=== PATIENT | male | born 1975 | race Caucasian/White ===

== ENCOUNTER 2017-11-11 21:46 | Inpatient (IN) | payer MEDICARE, MEDICAID, SELFPAY ==
[2017-11-11 21:49] VITALS: BP 111/63; PULSE 84; RESP 16; TEMP 37.6; O2SAT 95; BMI 26.9
[2017-11-11 22:53] LABS: Bacteria 0 SEEN /hpf (None Seen); Mucous, Urine 0 SEEN /hpf (<or=2+); Red Blood Cells-Urine 0 SEEN /hpf (0-5); Squamous Epithelial Cells - UA 0 SEEN /hpf (0-5)
[2017-11-11 22:55] LABS: Color, Urine Yellow (Yellow); Glucose, Dipstick Normal (Normal); Ketone-Dipstick Negative (Negative); Leukocyte Esterase-Dipstick 25 /ul (Negative); Nitrite-Dipstick Negative (Negative); Occult Blood-Urine 25 /ul (Negative); Protein-Dipstick Negative (Negative); Urine Bilirubin Dipstick Negative (Negative); Urine Clarity Clear (Clear); Urine Urobilinogen 1 mg/dl (Normal)
[2017-11-11 23:08] LABS: White Blood Cells 0-5 SEEN /hpf (0-5)
--- NOTE | 2017-11-11 23:10 | RAD_ITS ---
STUDY: X-RAY CHEST REASON FOR EXAM: Male, 42 years old. Fever and weakness. Flulike symptoms. TECHNIQUE: Portable chest. COMPARISON: 03/05/2013. FINDINGS: There is subsegmental atelectasis versus pleural thickening of the minor fissure. The lungs are otherwise clear. There is no pleural effusion. Normal size heart. Normal mediastinum and dasia. Normal visualized pulmonary arteries. Normal visualized aortic arch and descending thoracic aorta. Normal visualized thoracic spine. Normal visualized ribs, clavicles, and shoulders. There is no demonstrated abnormality of the visualized soft tissue structures of the upper abdomen. RAD/Chest 1 View (Portable) IMPRESSION: Atelectasis versus thickening of the minor fissure. Otherwise unremarkable study. Electronically Signed: Ester Shearer MD at 23:39 EDT Tel , Service support ,
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
[2017-11-11 23:56] LABS: Absolute Lymphocyte Count 2.43 X10^3/ul (0.83-4.51); Absolute Neutrophil Count 5.8 X10^3/uL (2.0-7.7); Basophil# 0.02 X10^3/uL; Basophil% 0.2 % (0-1); Eosinophil# 0.07 X10^3/uL; Eosinophils% 0.7 % (0-5); Hematocrit 32.8 % (40-54); Hemoglobin 10.4 g/dl (13.0-16.5); Lymphocyte # 2.43 X10^3/ul (4.0); Lymphocyte % 24.9 % (19-41); Mean Corp Hgb Conc 31.7 g/gl (32-36); Mean Corpuscular Hgb 25.1 pg (27.0-32.0); Mean Platelet Vol. 9.6 fl (6.2-12.0); Monocyte# 1.43 X10^3/uL; Monocyte% 14.7 % (0-10); Neutrophil # 5.77 X10^3/uL (2.7-7.7); Neutrophil % 59.3 % (47-70); POSITIVE COUNT NO; POSITIVE DIFFERENTIAL NO; POSITIVE MORPHOLOGY NO; Platelet Count 213 K/mm3 (150-450); RBC Distribution Width CV 19.1 % (11.6-14.6); RBC Distribution Width SD 54.4 fl (35.1-43.9); Red Blood Count 4.15 M/mm3 (4.6-6.2); White Blood Count 9.7 K/mm3 (4.4-11.0)
[2017-11-12] VITALS (10 sets, daily range): BP systolic 93–134; BP diastolic 46–83; PULSE 54–77; RESP 17–21; TEMP 36.6–37; O2SAT 92–97; BMI 35.4
[2017-11-12 00:09] LABS: Anion Gap 8 (5-15); BUN 17 mg/dL (7-18); BUN/Creat Ratio 33.1 RATIO (10-20); Calcium,Total 8.9 mg/dL (8.5-10.1); Chloride 101 mmol/L (98-107); Creatinine, Serum 0.51 mg/dL (0.70-1.30); EST Glomerular Filtration Rate 189 mL/min (>60); Est Glom Filt Rate - Afr Amer 229 mL/min (>60); Estimated Creatinine Clearance 217.59 ml/min; Glucose 89 mg/dL (74-106); Potassium 4.3 mmol/L (3.5-5.1); Sodium Level 137 mmol/L (136-145)
[2017-11-12] MEDS: 0.9% Normal Saline 1,000 ML 150 ML IV (00:16)
[2017-11-12 00:17] LABS: Lactic Acid 0.7 mmol/L (0.4-2.0)
--- NOTE | 2017-11-12 02:49 | ED.RN ---
THIS NURSE CLEANED PATIENT UP FROM BOWEL MOVEMENT, DR AYALA WANTED THE PATIENT TO HAVE A NEW DRESSING OVER COCCYX WOUND, SO THIS NURSE APPLIED COCCYX DRESSING TO PATIENT AFTER CLEANING THE AREA.
--- NOTE | 2017-11-12 03:45 | CASEMGMT ---
Social Work Note MIRIAM Manzo informed this worker that pt is from [facility] and the plan is for pt to return there at discharge. ROLANDA placed a call to Mahogany at [facility] who confirms pt is from there and pt is able to return when medically cleared. MIRIAM Warren informed this worker that pt and pt's family was asking about TCU as pt is going to need 6 weeks of IV antibiotics. SW in to speak with pt. Pt confirms that he would like to go to TCU and if he is unable to then he would return to [facility]. ROLANDA placed a call to Bernarda with [facility]. Bernarda states that if pt has used his Medicare Days then pt will be into copay days. Pt's secondary insurance is Medicaid and Medicaid doesn't have a contract with TCU so pt would be responsible for co-pay amount for TCU. ROLANDA attempted to update pt of this but per MIRIAM Warren pt is off floor for MRI. SW to update pt and pt's family tomorrow. ROLANDA faxed clinicals to Mahogany at [facility]. Plan: Pt will most likely return to [facility] Karla Carter [employer], [employer]
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
--- NOTE | 2017-11-12 06:19 | PCM.RX.CS ---
Consult Pharmacy has been consulted to manage selected antiobiotic: Vancomycin Type of Consult: New start Suspected Infection: Skin/Soft tissue Labs: Sodium 137 mmol/L (136-145) 11/11/17 23:30 Potassium 4.3 mmol/L (3.5-5.1) 11/11/17 23:30 Chloride 101 mmol/L (98-107) 11/11/17 23:30 Carbon Dioxide 28.0 mmol/L (21.0-32.0) 11/11/17 23:30 Anion Gap 8 (5-15) 11/11/17 23:30 BUN 17 mg/dL (7-18) 11/11/17 23:30 Creatinine 0.51 mg/dL (0.70-1.30) L 11/11/17 23:30 Est GFR (MDRD) Af Amer 229 mL/min (>60) 11/11/17 23:30 Est GFR (MDRD) Non-Af 189 mL/min (>60) 11/11/17 23:30 BUN/Creatinine Ratio 33.1 RATIO (10-20) H 11/11/17 23:30 Glucose 89 mg/dL (74-106) 11/11/17 23:30 Weight used for dosin.1 kg Estimated Creatinine Clearance: 217.59 Goal Trough: 10-15 mcg/mL Pharmacy Plan for Drug Dosing: Pharmacy Service will continue to monitor and adjust dosing as required. Medications Vancomycin HCl 1,500 mg/ (Sodium Chloride) 530 mls @ 250 mls/hr IV Q12H SARAH Discontinued Medications Vancomycin HCl 1,250 mg/ (Sodium Chloride) 275 mls @ 167 mls/hr IV X1 ONE Stop: 11/12/17 02:20 Last Admin: 11/12/17 01:58 Dose: 167 mls/hr Follow-Up Labs: Trough Vancomycin Labs to be done on [date and time ordered]: 11/14 @ 0200
[2017-11-12] MEDS: Midodrine HCl 5 MG Tablet PO ×3 (06:42→20:54)
[2017-11-12 07:49] LABS: Absolute Lymphocyte Count 2.28 X10^3/ul (0.83-4.51); Absolute Neutrophil Count 3.8 X10^3/uL (2.0-7.7); Basophil# 0.01 X10^3/uL; Basophil% 0.1 % (0-1); Eosinophil# 0.06 X10^3/uL; Eosinophils% 0.8 % (0-5); Hematocrit 32.2 % (40-54); Hemoglobin 9.9 g/dl (13.0-16.5); Lymphocyte # 2.28 X10^3/ul (4.0); Lymphocyte % 31.1 % (19-41); Mean Corp Hgb Conc 30.7 g/gl (32-36); Mean Corpuscular Hgb 24.6 pg (27.0-32.0); Mean Corpuscular Volume 79.9 fL (80-94); Mean Platelet Vol. 9.1 fl (6.2-12.0); Monocyte# 1.14 X10^3/uL; Monocyte% 15.5 % (0-10); Neutrophil # 3.84 X10^3/uL (2.7-7.7); Neutrophil % 52.4 % (47-70); Platelet Count 173 K/mm3 (150-450); RBC Distribution Width CV 19.2 % (11.6-14.6); RBC Distribution Width SD 56.6 fl (35.1-43.9); Red Blood Count 4.03 M/mm3 (4.6-6.2); White Blood Count 7.3 K/mm3 (4.4-11.0)
[2017-11-12 07:52] LABS: POSITIVE COUNT NO; POSITIVE DIFFERENTIAL NO; POSITIVE MORPHOLOGY NO
[2017-11-12 08:17] LABS: Anion Gap 8 (5-15); BUN 15 mg/dL (7-18); BUN/Creat Ratio 33.9 RATIO (10-20); Calcium,Total 8.8 mg/dL (8.5-10.1); Chloride 104 mmol/L (98-107); Creatinine, Serum 0.44 mg/dL (0.70-1.30); EST Glomerular Filtration Rate 225 mL/min (>60); Est Glom Filt Rate - Afr Amer 272 mL/min (>60); Estimated Creatinine Clearance 165.09 ml/min; Glucose 83 mg/dL (74-106); Potassium 3.7 mmol/L (3.5-5.1); Sodium Level 143 mmol/L (136-145)
[2017-11-12] MEDS: Divalproex Sodium 250 MG Tablet 500 MG PO (08:48)
[2017-11-12] MEDS: Enoxaparin 40 MG/0.4 ML Syringe SC (08:48)
[2017-11-12] MEDS: Multivitamins,Therapeutic Tablet 1 TABLET PO (08:51)
[2017-11-12] MEDS: FLUoxetine 20 MG Capsule PO (08:51)
[2017-11-12] MEDS: Ascorbic Acid 500 MG Tablet PO (08:51)
[2017-11-12] MEDS: Piperacil/Tazobactam 3.375 GM/50 ML ML IV ×3 (08:54→21:58)
[2017-11-12] MEDS: Menthol/Lanolin/Calamine/Znox 113 GM Tube 1 APPLIC TOPICAL (08:55)
[2017-11-12] MEDS: oxyCODONE 5 MG Tablet 10 MG PO ×4 (09:05→21:57)
--- NOTE | 2017-11-12 09:36 | PCM.PN.BLA ---
Progress Note Patient was seen and examined. Admitted early this morning. Met with in the room. Vitals reviewed. Wound pictures reviewed - concern for necrotic stage 3 ulcers ID consulted; nakul get MRI of pelvis On IV antibiotics MRSA PCR positive Plastic surgery consult. Code Visit Inpatient E&M: 21365 Subs Hosp L2
--- NOTE | 2017-11-12 09:54 | NURSING ---
wound photo: sacrum
--- NOTE | 2017-11-12 10:50 | NURSING ---
At 0915 pt. turned to left side. 2 pillows placed under her right side to help prop pt. on side. Brief checked. Brief dry.
--- NOTE | 2017-11-12 11:00 | CASEMGMT ---
MIRIAM CODY Face to Face with patient for initial transition planning/care coordination assessment. MIRIAM CODY introduced self and role at [facility]. Patient sleeping in bed, and parents at bedside. willing to participate in assessment and is able to answer all questions appropriately. Care providers, pharmacy, and demographics verified. Patient has currently been at the [facility] for 2 weeks and plan in for patient to return at discharge. states the SW at [facility] has been assisting with resources and discharge planning. states she has no further needs or concerns at this time. ROLANDA Carter updated regarding return to [facility]. Disposition Plan: Patient to discharge to [facility] when medically stable. Karla JONESN, RN, CM
--- NOTE | 2017-11-12 11:35 | NURSING ---
At 1130 pt. turned to right side. Pillows are used to prop pt on side. Brief was dry.
[2017-11-12 11:49] LABS: M R Staph aureus DNA By PCR POSITIVE (Negative); Probe Check PASS; Staph aureus DNA By PCR POSITIVE (Negative)
--- NOTE | 2017-11-12 12:23 | MRI_ITS ---
STUDY: MR PELVIS WITH T WITHOUT CONTRAST REASON FOR EXAM: Male, 42 years old. Quadriplegic patient with infected sacral decubitus ulceration for two months. Evaluate for osteomyelitis. TECHNIQUE: Standardized fat and water weighted pulse sequences were obtained in all 3 orthogonal planes, pre-and post contrast administration. 7 ml of Gadavist contrast material was administered intravenously for the contrast portion of the examination. Several images are limited by patient motion. COMPARISON: Prior comparable comparison studies are not available for review at this time. FINDINGS: Beth catheter is visible in the urinary bladder. There is nonspecific abnormal signal within the dependent urinary bladder. This may represent nonspecific debris. There is no evidence for dilated bowel. Normal visualized colon. Normal visualized prostate gland. There is a small amount of pelvic fluid. There is no pelvic mass lesion or lymphadenopathy. Normal visualized pelvic arteries. There appears to be fatty replacement of most of the visualized marrow of the bony pelvis, proximal femurs and visualized lumbar spine. There is no MR evidence to suggest osteomyelitis currently. There is some abnormal signal posterior to the sacrum and coccyx probably related to the known decubitus ulceration and soft tissue infection. There is no MR evidence to suggest soft tissue abscess. Normal abdominal wall. MRI/Pelvis W/WO Contrast IMPRESSION: 1. Evidence for superficial soft tissue infection posterior to the coccyx without MR evidence to suggest osteomyelitis currently. 2. Small amount of pelvic fluid. 3. Nonspecific abnormal signal within the posterior urinary bladder. This may represent a urinary bladder calculus or sediment. Electronically Signed: Nel Nunez MD at 4:10 EDT , Service support ,
--- NOTE | 2017-11-12 13:40 | NURSING ---
Pt brief changed. Pt turned to the left side at 1330.
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
[2017-11-12] MEDS: Acetaminophen 325 MG Tablet PO (20:53)
[2017-11-12] MEDS: Divalproex Sodium 250 MG Tablet 1000 MG PO (20:54)
[2017-11-12] MEDS: LORazepam 0.5 MG Tablet PO (20:54)
[2017-11-12] MEDS: Baclofen 10 MG Tablet 5 MG PO (20:54)
[2017-11-13] VITALS (13 sets, daily range): BP systolic 91–123; BP diastolic 46–71; PULSE 44–76; RESP 16–18; TEMP 36.2–37.3; O2SAT 92–99; BMI 24.7
[2017-11-13] MEDS: oxyCODONE 5 MG Tablet 10 MG PO ×4 (02:08→20:17)
[2017-11-13] MEDS: Piperacil/Tazobactam 3.375 GM/50 ML ML IV ×3 (05:53→22:21)
[2017-11-13] MEDS: Midodrine HCl 5 MG Tablet PO ×3 (05:54→22:21)
--- NOTE | 2017-11-13 08:20 | COL_PTH ---
PATIENT: RYANN SUÁREZ LOC: MS3 U#:[id number] AGE/SX: 42/M [place] [facility] [place] RE11/12/[address]: Dr. Taran Amaya MD : 1975 BED: 1 DIS: 11/19/2017 SPEC #: [id number] RECD: 11/16/17 08:16 STATUS: GLO REQ #: [id number] CARINA: 11/13/17 08:[address]: Tejas Albarran DEPT: SURGICAL PATHOLOGY RECD BY: Venkata Reaves ENTERED: 11/16/17 10:41 SP TYPE: COLON OTHR DR: MD Dr. Jose Maki MD Dr. James A Slaby, MD Dr. Paul Nielsen, MD Dr. Robert Leininger, MD Paul Nielsen Tissues: Colon, NOS Procedures: Surgery Specimen Level V Comments: @ Ordering doctor for SUV edited from to @ by REAL at 11/16/17 1138 @ Submitting doctor edited from to @ by RGOOD at 11/16/17 1138 HEADER OPERATION: Partial laparoscopic sigmoid colectomy with sigmoid colostomy PRE-OP DIAGNOSIS: Paraplegia and sacral ulcer TISSUE SUBMITTED: Partial sigmoid colon MICROSCOPIC DIAGNOSIS Partial sigmoid colon: Mild melanosis coli. Margins of excision with no significant pathologic change. No evidence of malignancy. AM:irwin 11/19/17 COMMENT Case has been reviewed in consultation with Dr. Ventura who concurs with the above diagnosis. IDC:SJ MICROSCOPIC DESCRIPTION Slides are reviewed. GROSS DESCRIPTION Received in fixative is one container labeled with the patient's name and designated partial sigmoid colon. The specimen consists of a segment of colon with attached pericolonic adipose tissue measuring 4.5 cm in length. One resection margin is stapled. The other resection margin is opened. No mucosal lesion is identified. Sections of pericolonic adipose tissue do not reveal any obvious enlarged lymph node. Cut Tobacco Bulker sections are submitted in four cassettes as follows: 1 ? resection margin, open resection margin and inked black, 2 & 3 ? colonic tissue, 4 ? pericolonic adipose tissue. / SJ:irwin 11/16/17 TC:5 CPT: 30105
--- NOTE | 2017-11-13 08:20 | PRES_PTH ---
PATIENT: RYANN SUÁREZ LOC: MS3 U#:[id number] AGE/SX: 42/M ROOM: [facility] [id number] RE11/12/[address]: Dr. Taran Amaya MD : 1975 BED: 1 DIS: 11/19/2017 SPEC #: [id number] RECD: 11/14/17 10:06 STATUS: GLO REQ #: [id number] CARINA: 11/13/17 08:[address]: Howard Duff DEPT: SURGICAL PATHOLOGY RECD BY: Venkata Reaves ENTERED: 11/14/17 12:18 SP TYPE: PRESS SORE OTHR DR: MD Dr. Jose Maki MD Dr. Paul Nielsen, MD Dr. Robert Leininger, MD Paul Nielsen Tissues: Sacrum, NOS Procedures: Special Stain Group I Surgery Specimen Level III AFB Stain (control) GMS Stain (control) Comments: @ Ordering doctor for SUIV edited from to @ anastasia KILGORE at 11/14/17 1218 @ Submitting doctor edited from to @ anastasia KILGORE at 11/14/17 1218 HEADER OPERATION: Excision infected necrotic sacral pressure sore PRE-OP DIAGNOSIS: Decubitus ulcer, stage 3 with infection TISSUE SUBMITTED: Debrided soft tissue sacral pressure sore MICROSCOPIC DIAGNOSIS Debrided soft tissue sacral pressure sore ulcer tissue: Pieces of skin with underlying adipose tissue with focal ulceration, acute and chronic inflammation and abscess formation. Special stains for acid fast bacilli and fungi are negative for organisms; matched controls are appropriate. LAURA:irwin 11/15/17 MICROSCOPIC DESCRIPTION Slides are reviewed. GROSS DESCRIPTION Received in fixative is one container labeled with the patient's name and designated debrided soft tissue sacral pressure sore. The specimen consists of two pieces of skin with underlying tissue measuring in aggregate 7.5 x 7 cm and up to 3.5 cm in thickness. The skin surface shows extensive ulceration. Regional Branch Manager sections are submitted in two cassettes. / LAURA:irwin 11/14/17 TC:2 CPT: 23552, 99020 x2
--- NOTE | 2017-11-13 10:47 | NURSING ---
Pt is scheduled for surgical debridement for sacral wound today with Dr Duff. left dressing in place. pt will most likely get the wound VAC placed tomorrow.
--- NOTE | 2017-11-13 11:00 | CASEMGMT ---
MIRIAM CODY Face to Face with patient for initial transition planning/care coordination assessment. MIRIAM CODY introduced self and role at [facility]. Patient sleeping in bed, and parents at bedside. willing to participate in assessment and is able to answer all questions appropriately. Care providers, pharmacy, and demographics verified. Patient has currently been at the [facility] for 2 weeks and plan in for patient to return at discharge. states the SW at [facility] has been assisting with resources and discharge planning. states she has no further needs or concerns at this time. ROLANDA Carter updated regarding return to [facility]. Disposition Plan: Patient to discharge to [facility] when medically stable. Karla JONESN, RN, CM
--- NOTE | 2017-11-13 11:00 | CASEMGMT ---
Social Work Note SW updated pt, pt's and pt's mother that pt has used some of his Medicare days already as pt has been at [facility] and that pt is in co-pay days. ROLANDA explained that typically a secondary insurance would cover the co-pay amount but pt's secondary is Medicaid and [facility] doesn't have a contract with Medicaid so pt would be responsible for co-pay amount. Pt states that he will return to [facility]. Green sheet on chart. Plan: Return to [facility] when medically cleared Karla Carter ELECTRICAL LOGGING ENGINEER, IT PROJECT LEAD
--- NOTE | 2017-11-13 11:10 | PCM.PN.ID ---
Patient Problems: Active and Suspected Problems Decubitus ulcer, stage 3 with infection (Acute) Subjective: Feeling ok, OR today, no fever, no n/v/d. - Physical Exam General: Alert, Cooperative, No apparent distress Lungs: Clear to auscultation, Normal air movement Cardiovascular: Regular rate, Regular Rhythm Abdomen: Soft, Non Tender, Non-Distended Skin: Ulcer/ Wound - reviewed Vital Signs Temp Pulse Resp BP Pulse Ox 97.7 F L 52 L 18 97/53 L 96 11/13/17 07:58 11/13/17 07:58 11/13/17 07:58 11/13/17 07:58 11/13/17 07:58 Oxygen Delivery Method Room Air Weight: 85.1 kg Body Mass Index (BMI) 35.4 Intake and Output for Last 24 Hours 11/11/17 11/12/17 11/13/17 23:59 23:59 23:59 Intake Total 2662 / 2662 1488 / 1488 Output Total 1550 / 1550 1600 / 1600 Balance 1112 / 1112 -112 / -112 Laboratory Tests Past 24 Hrs 11/12/17 09:10 S.aureus Protein A PCR POSITIVE H MRSA (PCR) POSITIVE H Medical Necessity - Tobacco Use Smoking Status: Former smoker Route of nutrition/ use of supplements: [] Nutritional Intake: [] IV Site: [] Beth Catheter: [] - Assessment/Plan Antibiotics: [] Assessment/Plan: [] Active and Suspected Problems Decubitus ulcer, stage 3 with infection (Acute) MRI showed no osteo. OR for debridement today. Cont vanc and zosyn. Recent wound cx with enterococcus, MR staph haemolyticus, and burkholderia. MRSA pcr now (+). Will follow
--- NOTE | 2017-11-13 11:54 | NURSING ---
called report to Priscila in [facility].
--- NOTE | 2017-11-13 13:12 | PCA ---
pt off floor
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
[2017-11-13] MEDS: Divalproex Sodium 250 MG Tablet 500 MG PO (15:46)
[2017-11-13] MEDS: LORazepam 0.5 MG Tablet PO ×2 (15:46→22:20)
[2017-11-13] MEDS: FLUoxetine 20 MG Capsule PO (15:47)
[2017-11-13] MEDS: Pantoprazole Sodium 40 MG Tablet PO (15:47)
[2017-11-13] MEDS: Multivitamins,Therapeutic Tablet 1 TABLET PO (15:48)
[2017-11-13] MEDS: Ascorbic Acid 500 MG Tablet PO (15:49)
[2017-11-13] MEDS: Baclofen 10 MG Tablet 5 MG PO ×2 (15:49→20:21)
[2017-11-13] MEDS: Menthol/Lanolin/Calamine/Znox 113 GM Tube 1 APPLIC TOPICAL (15:50)
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
[2017-11-13 19:25] LABS: Iron 54 ug/dL (65-175); Iron Binding Capacity,Total 327 ug/dL (250-450); PERCENT IRON SATURATION 16.5 % (15.0-55.0)
[2017-11-13] MEDS: Divalproex Sodium 250 MG Tablet 1000 MG PO (22:20)
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
[2017-11-14] MEDS: oxyCODONE 5 MG Tablet 10 MG PO ×4 (00:35→21:51)
[2017-11-14 02:20] VITALS: BP 114/61; PULSE 58; RESP 16; TEMP 37.1; O2SAT 98
[2017-11-14 02:21] LABS: Vancomycin, Trough Level 16.1 ug/mL (5.0-15.0)
[2017-11-14] MEDS: Midodrine HCl 5 MG Tablet PO ×3 (06:10→21:41)
[2017-11-14] MEDS: Piperacil/Tazobactam 3.375 GM/50 ML ML IV ×3 (06:10→21:41)
[2017-11-14 06:55] LABS: Hematocrit 29.9 % (40-54); Hemoglobin 9.1 g/dl (13.0-16.5); Mean Corp Hgb Conc 30.4 g/gl (32-36); Mean Corpuscular Hgb 24.8 pg (27.0-32.0); Mean Corpuscular Volume 81.5 fL (80-94); Platelet Count 210 K/mm3 (150-450); RBC Distribution Width CV 18.8 % (11.6-14.6); Red Blood Count 3.67 M/mm3 (4.6-6.2); White Blood Count 6.4 K/mm3 (4.4-11.0)
[2017-11-14 07:10] LABS: Scan Indicated on CBC? Y/N NO
[2017-11-14 07:16] LABS: Anion Gap 9 (5-15); BUN 12 mg/dL (7-18); BUN/Creat Ratio 25.9 RATIO (10-20); Calcium,Total 8.5 mg/dL (8.5-10.1); Chloride 107 mmol/L (98-107); Creatinine, Serum 0.46 mg/dL (0.70-1.30); EST Glomerular Filtration Rate 214 mL/min (>60); Est Glom Filt Rate - Afr Amer 258 mL/min (>60); Estimated Creatinine Clearance 241.24 ml/min; Glucose 94 mg/dL (74-106); Potassium 3.9 mmol/L (3.5-5.1); Prealbumin 17.7 mg/dL (20.0-40.0); Sodium Level 145 mmol/L (136-145)
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
[2017-11-14 09:00] VITALS: BP 83/49; PULSE 71; RESP 16; TEMP 36.8; O2SAT 94
[2017-11-14] MEDS: Multivitamins,Therapeutic Tablet 1 TABLET PO (09:02)
[2017-11-14] MEDS: Pantoprazole Sodium 40 MG Tablet PO (09:11)
[2017-11-14] MEDS: FLUoxetine 20 MG Capsule PO (09:11)
[2017-11-14] MEDS: Baclofen 10 MG Tablet 5 MG PO ×2 (09:11→21:41)
[2017-11-14] MEDS: Ascorbic Acid 500 MG Tablet PO (09:11)
[2017-11-14] MEDS: Enoxaparin 40 MG/0.4 ML Syringe SC (09:11)
[2017-11-14] MEDS: Divalproex Sodium 250 MG Tablet 500 MG PO (09:13)
[2017-11-14] MEDS: LORazepam 0.5 MG Tablet PO ×2 (09:13→21:41)
--- NOTE | 2017-11-14 09:45 | PCM.RX.CS ---
Consult Pharmacy has been consulted to manage selected antiobiotic: Vancomycin Type of Consult: Follow-up Suspected Infection: Skin/Soft tissue Prior Doses of Antibiotics Received/Current Regimen: Currently on vancomycin 1500mg IV q12h with the previous 2 doses given on 11/13/17 at 13:45 and today 11/14/17 at 02:26. Labs: Sodium 145 mmol/L (136-145) 11/14/17 05:30 Potassium 3.9 mmol/L (3.5-5.1) 11/14/17 05:30 Chloride 107 mmol/L (98-107) 11/14/17 05:30 Carbon Dioxide 29.0 mmol/L (21.0-32.0) 11/14/17 05:30 Anion Gap 9 (5-15) 11/14/17 05:30 BUN 12 mg/dL (7-18) 11/14/17 05:30 Creatinine 0.46 mg/dL (0.70-1.30) L 11/14/17 05:30 Est GFR (MDRD) Af Amer 258 mL/min (>60) 11/14/17 05:30 Est GFR (MDRD) Non-Af 214 mL/min (>60) 11/14/17 05:30 BUN/Creatinine Ratio 25.9 RATIO (10-20) H 11/14/17 05:30 Glucose 94 mg/dL (74-106) 11/14/17 05:30 Vancomycin Trough 16.1 ug/mL (5.0-15.0) H 11/14/17 01:30 Goal Trough: 10-15 mcg/mL Pharmacy Plan for Drug Dosing: The trough drawn today at 01:30 came back as 16.1, which is above the goal range of 10-15. Therefore, the plan is to slightly decrease the dose to 1250mg IV q12h and obtain another trough before the 4th dose. Pharmacy Service will continue to monitor and adjust dosing as required. Follow-Up Labs: Trough Vancomycin Labs to be done on [date and time ordered]: 11/16/17 at 01:30
--- NOTE | 2017-11-14 11:00 | NURSING ---
wound photo: sacrum
--- NOTE | 2017-11-14 11:19 | NURSING ---
Was asked by Dr Albarran to sheri abdomen for a sigmoid colostomy. In to see patient and . Discussed the surgery with them as well as care after, different, appliances, etc. Colostomy teaching packet given to them and reviewed as well. states that they had a family member that had a colostomy so they are somewhat familiar with what it is. patient typically wear his pants just above hip level. patient does get into a chair at times with a lift or with a slide board. abdomen is slightly rounded with no major fold in abdomen when patient is sitting up in the bed. the left lower abdomen was marked with a skin pen. an opsite was placed over sheri. pt and deny any further questions at this time.
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
--- NOTE | 2017-11-14 12:24 | CASEMGMT ---
Social Work Note SW faxed updated clinicals to [facility] at [facility]. Pt is getting Colostomy tomorrow. Plan: Discharge to [facility] when medically cleared Karla STEVE, BUCKLE SEWER
[2017-11-14 13:25] VITALS: O2SAT 90
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
[2017-11-14 15:17] VITALS: BP 95/56; PULSE 59; RESP 16; TEMP 36.7; O2SAT 97
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
[2017-11-14 20:12] VITALS: BP 95/54; PULSE 53; RESP 16; TEMP 36.6; O2SAT 96
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
[2017-11-14] MEDS: Divalproex Sodium 250 MG Tablet 1000 MG PO (21:41)
[2017-11-15] VITALS (12 sets, daily range): BP systolic 88–113; BP diastolic 39–67; PULSE 51–62; RESP 16–18; TEMP 36.3–37.2; O2SAT 93–98; BMI 24.7
[2017-11-15] MEDS: Piperacil/Tazobactam 3.375 GM/50 ML ML IV ×3 (05:45→22:29)
[2017-11-15 06:27] LABS: Absolute Lymphocyte Count 2.77 X10^3/ul (0.83-4.51); Absolute Neutrophil Count 3.8 X10^3/uL (2.0-7.7); Basophil# 0.02 X10^3/uL; Basophil% 0.3 % (0-1); Eosinophil# 0.16 X10^3/uL; Eosinophils% 2.1 % (0-5); Hematocrit 31.1 % (40-54); Hemoglobin 9.4 g/dl (13.0-16.5); Lymphocyte # 2.77 X10^3/ul (4.0); Lymphocyte % 35.6 % (19-41); Mean Corp Hgb Conc 30.2 g/gl (32-36); Mean Corpuscular Hgb 24.7 pg (27.0-32.0); Mean Corpuscular Volume 81.6 fL (80-94); Mean Platelet Vol. 9.5 fl (6.2-12.0); Monocyte# 1.02 X10^3/uL; Monocyte% 13.1 % (0-10); Neutrophil # 3.79 X10^3/uL (2.7-7.7); Neutrophil % 48.6 % (47-70); Platelet Count 214 K/mm3 (150-450); RBC Distribution Width CV 19.4 % (11.6-14.6); RBC Distribution Width SD 55.6 fl (35.1-43.9); Red Blood Count 3.81 M/mm3 (4.6-6.2); White Blood Count 7.8 K/mm3 (4.4-11.0)
[2017-11-15 06:31] LABS: POSITIVE COUNT NO; POSITIVE DIFFERENTIAL NO; POSITIVE MORPHOLOGY NO
[2017-11-15 06:46] LABS: Anion Gap 8 (5-15); BUN 9 mg/dL (7-18); BUN/Creat Ratio 22.2 RATIO (10-20); Calcium,Total 8.9 mg/dL (8.5-10.1); Chloride 108 mmol/L (98-107); Creatinine, Serum 0.41 mg/dL (0.70-1.30); EST Glomerular Filtration Rate 248 mL/min (>60); Est Glom Filt Rate - Afr Amer 301 mL/min (>60); Estimated Creatinine Clearance 270.66 ml/min; Glucose 74 mg/dL (74-106); Potassium 3.8 mmol/L (3.5-5.1); Sodium Level 147 mmol/L (136-145)
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
[2017-11-15] MEDS: Fleet Enema 1 ML RECTAL (08:52)
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
[2017-11-15] MEDS: LORazepam 0.5 MG Tablet PO ×2 (09:57→22:29)
--- NOTE | 2017-11-15 10:34 | NURSING ---
Pt is scheduled for a diverting sigmoid colostomy this afternoon with Dr Albarran. an ostomy appliance is in the room to be sent down to the OR with the patient and will be applied post op. the plan is for the wound VAC to be applied tomorrow then since patient is still getting bowel prep. Dr Albarran will most likely irrigate the wound in OR and will apply a new dressing. will continue to follow. pt is planning to either return [facility] at discharge or go back to the LTAC.
--- NOTE | 2017-11-15 11:27 | CASEMGMT ---
Addendum entered by Karla Carter 11/15/17 12:35: SW in to update pt of denial to LTACH. Pt's and Mom present in room and was updated on this. SW asked pt's and mom the next plan for discharge if its back to [facility] or to a different prison. Pt's and Mom states that they would like time to think about discharge and discuss the options. Pt is scheduled for diverting colostomy today. SW to follow up with pt, pt's and Mom as time allows today or tomorrow to confirm discharge plans. Original Note: Social Work Note SW received call from [facility] who states pt doesn't meet criteria for LTACH as pt needs three ICU days or admitted onto step down floor and currently pt doesn't have this. SW attempted to update pt but pt's family not currently in room. SW will follow up with pt and pt's family either later today or tomorrow as pt is scheduled to have diverting colostomy completed today. 

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
[2017-11-15] MEDS: Midodrine HCl 5 MG Tablet PO ×2 (12:42→19:33)
[2017-11-15] MEDS: Bupivacaine Mpf 0.5% 30 ML VIAL (16:48)
--- NOTE | 2017-11-15 17:44 | PCM.OPRPT ---
Problem List (1) Injury to transverse colon Status: Acute Qualifiers: Encounter type: initial encounter Qualified Code(s): S36.501A - Unspecified injury of transverse colon, initial encounter (2) Pressure ulcer of sacral region, stage 4 Status: Acute (3) Stool incontinence Status: Acute Qualifiers: Fecal incontinence type: unspecified Qualified Code(s): R15.9 - Full incontinence of feces Report of Operation Date of Procedure: 11/15/17 Pre-Operative Diagnosis: 1. Infected necrotic sacral pressure sore. 2. Quadriplegia. 3. Stool incontinence. Post-Operative Diagnosis: 1. Infected necrotic sacral pressure sore including underlying necrotic muscle. 2. Iatrogenic injury to the transverse colon Surgery/Procedure Performed:: 1. Laparoscopic sigmoid partial colectomy with end colostomy. 2. Laparoscopic repair of transverse colon through and through injury Type of Anesthesia:: General Specimen's removed: Partial sigmoid colon Description of Procedure: The patient was brought back to the operating room and general anesthesia was induced. A rectal exam was completed and there was no impacted stool. Next the abdomen was prepped and draped in the usual sterile fashion. The previous stoma marking was noted. Next using Visiport technique a right upper quadrant incision was made and a 5 mm port was placed into the abdomen. It was noted that stool was observed as well as mucosa. The trocar was withdrawn and the abdomen was insufflated. Next the 5 mm port was placed in the right lower quadrant and left upper quadrant. The colon was inspected and the omentum was taken down from the anterior colon with Enseal. The anterior colon injury was identified. This was closed laparoscopically with 2 interrupted 3-0 Vicryl sutures and then imbricated with another 3-0 Vicryl suture. Next the colon was rotated superiorly to examine the back of the colon. The back of the transverse colon also exhibited a small hole from the trocar. This was also closed with 2 interrupted 3-0 Vicryl sutures and an imbricating 3-0 Vicryl suture. There was no contamination or spillage of stool. Both areas were inspected once more and appear to be closed adequately and imbricated. Next the patient was placed in steep Trendelenburg and the sigmoid colon was identified. The right lower quadrant port was upsized to a 12 mm port. This was elevated and a window was made just underneath the colon with [place] dissector. Next a 60 load stapler was placed into the abdomen and the sigmoid colon was stapled across with 2 loads. Next the Enseal was used to take some of the sigmoidal mesentery to allow for the sigmoid colon to reach the anterior abdominal wall. Hemostasis was good. The colon was grasped by the antimesenteric side with graspers and then the abdomen was allowed to desufflate. Next the skin over the proposed stoma site was elevated and taken down with electrocautery. The fat was dissected down until the anterior fascia was released and a cruciate incision was made in the anterior fascia. The muscle was and the posterior fascia was dilated. This was dilated with 2 fingers until adequate space was allowed for the colon to be brought through it. The colon was brought through with 2 Babcocks and the colon was sutured to the anterior fascia in 3 places. Next the fascia at the right lower quadrant was closed with an 0 Vicryl suture. The skin incisions were all irrigated and injected with Marcaine and closed with interrupted 4-0 Monocryl sutures. Steri-Strips and bandages were then applied. Next the colostomy was matured. The distal end of the sigmoid colon was taken with electrocautery. The end of the colostomy was then sutured to itself and to the skin with interrupted 3-0 Vicryl suture circumferentially. This allowed for good protrusion of the sigmoid colon with no retraction. The mucosa was pink and there were no signs of ischemia. At the end of maturation of the stoma a digital exam was performed and the stoma was patent with no kinking. Next the stoma appliance was applied. The patient was then rolled and the packing was removed from his sacral ulcer. The wound was repacked with a wet Kerlix gauze and covered with ABD. The patient was extubated and brought to PACU in stable condition. The patient tolerated the procedure well. - Complications A through and through trocar injury to the transverse colon on initial entry. Both the anterior and posterior injuries to the transverse colon were closed with interrupted Vicryl sutures and imbricated. There was minimal to no stool spillage. - Admit VTE Documentation VTE Mechan Device Prophylaxis: SCD's
[2017-11-15 18:44] LABS: Anion Gap 7 (5-15); BUN 9 mg/dL (7-18); BUN/Creat Ratio 15.5 RATIO (10-20); Calcium,Total 8.3 mg/dL (8.5-10.1); Chloride 109 mmol/L (98-107); Creatinine, Serum 0.58 mg/dL (0.70-1.30); EST Glomerular Filtration Rate 164 mL/min (>60); Est Glom Filt Rate - Afr Amer 199 mL/min (>60); Estimated Creatinine Clearance 191.33 ml/min; Glucose 82 mg/dL (74-106); Potassium 3.9 mmol/L (3.5-5.1); Sodium Level 145 mmol/L (136-145)
--- NOTE | 2017-11-15 19:43 | NURSING ---
Family found a dressing to rt scapula area that had not been there before surgery. There was small amount of serousanguaneous drainage to proximal part of the two small dressings. Spoke to Bairon, PACU nurse and she stated that OR reported to her that stopcock of IV tubing was caught on the skin while moving of patient in OR which resulted in skin tear. Dressing protocol was followed and dressing applied by OR staff, per Bairon. Notified family of the incident, dressed scapula area pictures were taken by family members. Dressing remains on patient.
--- NOTE | 2017-11-15 20:05 | NURSING ---
IV access nurse called, and stated they would be here to insert the PICC on 11/16/17 between 10 and 11 am.
[2017-11-15] MEDS: oxyCODONE 5 MG Tablet 10 MG PO (20:48)
[2017-11-15] MEDS: Baclofen 10 MG Tablet 5 MG PO (22:28)
[2017-11-15] MEDS: Divalproex Sodium 250 MG Tablet 1000 MG PO (22:28)
[2017-11-15] MEDS: Morphine 2 MG/ML Syringe 1 MG IV (22:30)
[2017-11-15] MEDS: 0.9% NaCl Peripheral Flush Adult/Peds IV (22:31)
[2017-11-16] VITALS (11 sets, daily range): BP systolic 82–118; BP diastolic 38–61; PULSE 51–73; RESP 13–18; TEMP 36.3–37.3; O2SAT 90–96
[2017-11-16] MEDS: Midodrine HCl 5 MG Tablet PO ×4 (00:35→22:45)
[2017-11-16] MEDS: 0.9% NaCl Peripheral Flush Adult/Peds IV ×4 (00:39→23:10)
[2017-11-16 02:14] LABS: Vancomycin, Trough Level 17.5 ug/mL (5.0-15.0)
[2017-11-16] MEDS: oxyCODONE 5 MG Tablet 10 MG PO ×4 (02:23→20:27)
[2017-11-16] MEDS: Piperacil/Tazobactam 3.375 GM/50 ML ML IV ×3 (06:28→22:45)
[2017-11-16 07:04] LABS: Absolute Lymphocyte Count 2.36 X10^3/ul (0.83-4.51); Absolute Neutrophil Count 5.9 X10^3/uL (2.0-7.7); Basophil# 0.02 X10^3/uL; Basophil% 0.2 % (0-1); Eosinophil# 0.11 X10^3/uL; Eosinophils% 1.1 % (0-5); Hematocrit 29.2 % (40-54); Hemoglobin 8.9 g/dl (13.0-16.5); Lymphocyte # 2.36 X10^3/ul (4.0); Lymphocyte % 23.5 % (19-41); Mean Corp Hgb Conc 30.5 g/gl (32-36); Mean Corpuscular Hgb 24.7 pg (27.0-32.0); Mean Corpuscular Volume 80.9 fL (80-94); Mean Platelet Vol. 8.9 fl (6.2-12.0); Monocyte# 1.63 X10^3/uL; Monocyte% 16.2 % (0-10); Neutrophil # 5.94 X10^3/uL (2.7-7.7); Platelet Count 206 K/mm3 (150-450); RBC Distribution Width CV 19.6 % (11.6-14.6); RBC Distribution Width SD 57.8 fl (35.1-43.9); Red Blood Count 3.61 M/mm3 (4.6-6.2); White Blood Count 10.1 K/mm3 (4.4-11.0)
[2017-11-16 07:05] LABS: Differential Indicated SCAN CRITERIA MET; POSITIVE COUNT NO; POSITIVE DIFFERENTIAL YES; POSITIVE MORPHOLOGY NO
[2017-11-16 07:23] LABS: Hypochromasia 2+
[2017-11-16 07:25] LABS: Anion Gap 9 (5-15); BUN 6 mg/dL (7-18); BUN/Creat Ratio 13.7 RATIO (10-20); Calcium,Total 8.5 mg/dL (8.5-10.1); Chloride 107 mmol/L (98-107); Creatinine, Serum 0.44 mg/dL (0.70-1.30); EST Glomerular Filtration Rate 228 mL/min (>60); Est Glom Filt Rate - Afr Amer 275 mL/min (>60); Estimated Creatinine Clearance 252.21 ml/min; Glucose 85 mg/dL (74-106); Potassium 3.6 mmol/L (3.5-5.1); Sodium Level 145 mmol/L (136-145)
[2017-11-16] MEDS: Morphine 2 MG/ML Syringe 1 MG IV ×4 (07:38→23:08)
--- NOTE | 2017-11-16 07:47 | CT_ITS ---
STUDY: CT ABDOMEN AND PELVIS WITH CONTRAST REASON FOR EXAM: Male, 42 years old. Status post colostomy. History of transverse colon perforation. The patient is quadriplegic. RADIATION DOSAGE (If Supplied By Facility): CTDIvol = ( 15.57 ) mGy, DLP = ( 1263.99 ) mGycm TECHNIQUE: Transaxial images were obtained from the dome of the diaphragm to the symphysis pubis with oral contrast. 100ML ml of Isovue 300 contrast was administered. Sagittal and coronal images were reconstructed. Individualized dose optimization techniques were used for this CT. COMPARISON: None. FINDINGS: Mild bibasilar atelectasis and/or infiltrates. Patchy infiltrate and/or atelectasis in the right middle lobe. Small bilateral pleural effusions The visualized portions of the heart are within normal limits. There is evidence of free intraperitoneal air. Normal liver. Minimal amount of perihepatic fluid. The patient is status post cholecystectomy. Normal spleen. Normal pancreas. Normal bilateral adrenal glands. Normal right kidney. Normal left kidney. Normal visualized stomach. Normal small intestine. Fecal material seen in the colon. The patient has a history of the iatrogenic perforation of the transverse colon at the level of the hepatic flexure. Small amount of free intraperitoneal air is seen adjacent to the anterior aspect of the hepatic flexure. A small amount of air is also seen within the peritoneal fat at that site. A colostomy seen in the left lower abdomen. The appendix is visualized and appears normal. Normal abdominal aorta. Normal inferior vena cava. There is borderline retroperitoneal lymphadenopathy with enlarged nodes no greater than 10mm in the short axis diameter. A Beth catheter is seen within the urinary bladder. Small amount of free fluid in the pelvis. There is evidence of a presacral soft tissue prominence. The patient is status post debridement of soft tissues overlying the sacrum. Questionable involvement of the distal portion of the sacrum. There are diffuse degenerative changes of the visualized lumbar spine. CT/Abdomen/Pelvis WITH Contrast IMPRESSION: Free intraperitoneal air as well as focal air collection in the region of the hepatic flexure secondary to the iatrogenic transverse colon perforation. Bibasilar atelectasis and small bilateral effusions. Left anterior colostomy. Prominence of the presacral soft tissues. Evidence of a debridement of the soft tissues overlying the sacrum. Electronically Signed: Augusto Kumar MD at 14:51 EDT Tel [phone], Service support ,
--- NOTE | 2017-11-16 07:53 | PCM.PN.SRG ---
Patient Problems: Active and Suspected Problems Injury to transverse colon (Acute) Subjective: Patient complaining of severe right shoulder pain. - Physical Exam General: Alert, Oriented x3 HEENT: Atraumatic Lungs: Normal air movement Cardiovascular: Regular rate, Regular Rhythm Abdomen: Soft, Tender, - - Stoma was pink with bowel sweat in the bag. Neurological: Cranial nerves II-XII grossly intact Psych/Mental Status: Agitated Vital Signs Temp Pulse Resp BP Pulse Ox 99.1 F 61 16 92/46 L 93 11/16/17 06:15 11/16/17 06:15 11/16/17 06:15 11/16/17 06:15 11/16/17 06:15 Oxygen Flow Rate (L/min) 2 Oxygen Delivery Method Room Air Weight: 187 lb 9.814 oz Body Mass Index (BMI) 24.7 Intake and Output for Last 24 Hours 11/14/17 11/15/17 11/16/17 23:59 23:59 23:59 Intake Total 2148 / 2148 3021 / 3021 1236 / 1236 Output Total 2550 / 2550 4000 / 4000 1350 / 1350 Balance -402 / -402 -979 / -979 -114 / -114 Microbiology Past 72 Hours 11/13/17 14:02 Gram Stain - Final Tissue Ulcer - Sacral Wound Culture - Preliminary Pseudomonas aeroginosa GNR lactose waste machine offbearer Gram positive ainsley Laboratory Tests Past 24 Hrs 11/15/17 11/16/17 11/16/17 18:26 01:26 06:05 WBC 10.1 RBC 3.61 L Hgb 8.9 L Hct 29.2 L MCV 80.9 MCH 24.7 L MCHC 30.5 L RDW 19.6 H RDW Differential 57.8 H Plt Count 206 MPV 8.9 Immature Gran % (Auto) 0.000 Neut % (Auto) 59.0 Lymph % (Auto) 23.5 [place] % (Auto) 16.2 H Eos % (Auto) 1.1 Baso % (Auto) 0.2 Absolute Neuts (auto) 5.9 Absolute Lymphs (auto) 2.36 Total Counted Not Reportable Hypochromasia 2+ Sodium 145 Potassium 3.9 Chloride 109 H Carbon Dioxide 29.0 Anion Gap 7 BUN 9 Creatinine 0.58 L Estim Creat Clear Calc 191.33 Est GFR (MDRD) Af Amer 199 Est GFR (MDRD) Non-Af 164 BUN/Creatinine Ratio 15.5 Glucose 82 Calcium 8.3 L Vancomycin Trough 17.5 H 11/16/17 06:05 WBC RBC Hgb Hct MCV MCH MCHC RDW RDW Differential Plt Count MPV Immature Gran % (Auto) Neut % (Auto) Lymph % (Auto) [place] % (Auto) Eos % (Auto) Baso % (Auto) Absolute Neuts (auto) Absolute Lymphs (auto) Total Counted Hypochromasia Sodium 145 Potassium 3.6 Chloride 107 Carbon Dioxide 29.0 Anion Gap 9 BUN 6 L Creatinine 0.44 L Estim Creat Clear Calc 252.21 Est GFR (MDRD) Af Amer 275 Est GFR (MDRD) Non-Af 228 BUN/Creatinine Ratio 13.7 Glucose 85 Calcium 8.5 Vancomycin Trough Medical Necessity - Tobacco Use Smoking Status: Former smoker Assessment/Plan All Active Problems Injury to transverse colon (Acute) Quadriplegia following spinal cord injury (Acute) Skin necrosis (Acute) Pressure ulcer of sacral region, stage 4 (Acute) Injury of neck (Acute) Stool incontinence (Acute) Pressure injury of right ischium, stage 1 (Acute) Pressure injury of left ischium, stage 1 (Acute) Pressure ulcer of sacral region, stage 3 (Ruled-out) Decubitus ulcer, stage 3 with infection (Ruled-out) 42-year-old male status post laparoscopic colostomy creation as well as repair of transverse bowel injury 1. The patient had iatrogenic injury to his transverse colon which was repaired during surgery. The patient is complaining of severe right shoulder pain as well as some abdominal pain. His white count is normal with no left shift as is his BMP. He had a slight drop in hemoglobin but he is not tachycardic. He has chronic hypotension. I will order CT scan with p.o. and IV contrast to check for any extravasation of contrast or unidentified trocar injury. 2. Continue antibiotics and IV fluids. Continue n.p.o. until CT scan comes back. Tejas Albarran MD Pager: [facility] [address] [place] [address], [address] [place] [address] Office:
--- NOTE | 2017-11-16 08:36 | NURSING ---
In to assess stoma to the left lower abdomen. Pt is s/p laparoscopic sigmoid partial colectomy with end colostomy. there was a transverse colon injury that was also repaired during the surgery. plan to apply a wound VAC to the sacral wound today, but patient is scheduled for a PICC line placement and a CT scan this morning. will hold off on VAC placement to be sure patient does not need to return to surgery. stoma is dark pink in color, moist, and edematous. there is a small amount of serosanguineous drainage noted in the appliance. no flatus noted at this time. abdomen is soft. is present at bedside and is aware of the plan. will most likely be able to apply the wound VAC later today.
[2017-11-16] MEDS: Divalproex Sodium 250 MG Tablet 500 MG PO (09:11)
[2017-11-16] MEDS: LORazepam 0.5 MG Tablet PO ×2 (09:11→22:44)
[2017-11-16] MEDS: Pantoprazole Sodium 40 MG Tablet PO (09:11)
[2017-11-16] MEDS: Multivitamins,Therapeutic Tablet 1 TABLET PO (09:11)
[2017-11-16] MEDS: Baclofen 10 MG Tablet 5 MG PO ×2 (09:12→22:45)
[2017-11-16] MEDS: FLUoxetine 20 MG Capsule PO (09:12)
[2017-11-16] MEDS: Ascorbic Acid 500 MG Tablet PO (09:12)
[2017-11-16] MEDS: Morphine 2 MG/ML Syringe IV (09:30)
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
--- NOTE | 2017-11-16 10:22 | RAD_ITS ---
STUDY: X-RAY - SOFT TISSUE NECK REASON FOR EXAM: Male, 42 years old. Neck pain. No known injury. TECHNIQUE: 2 view(s) of the neck were obtained. COMPARISON: None. FINDINGS: Normal visualized nasopharynx, oropharynx, hypopharynx. Normal epiglottis. Normal visualized subglottic tracheal air column. Normal prevertebral soft tissue structures. The patient has undergone prior anterior C6-7 fusion with a metal sideplate and screws, as well as multilevel cervical laminectomies and posterior cervical fusion C3-C7. Transpedicular metal screws at those levels are connected on either side by longitudinal metal rods. These rods in turn are connected by a horizontal metal bar at the C4-5 level. Degenerative disc disease and endplate spondylosis also seen at C3-4 and C4-5. There is 4-5 mm retrolisthesis of C4 on C5. The soft tissue structures are unremarkable. A PICC line is incidentally noted in the [id number], passing from the right subclavian vein to superior vena cava. RAD/Neck for Soft Tissue IMPRESSION: 1. Normal x-ray soft tissue neck. 2. Multilevel cervical laminectomies with anterior and posterior cervical fusion utilizing metal hardware, as noted Electronically Signed: Da Trevino MD at 16:55 EDT , Service support ,
--- NOTE | 2017-11-16 10:23 | RAD_ITS ---
STUDY: X-RAY - RIGHT SHOULDER REASON FOR EXAM: Male, 42 years old. Anterior shoulder pain. No known injury. TECHNIQUE: 2 view(s) of the shoulder. COMPARISON: None. FINDINGS: Normal glenohumeral alignment. The glenohumeral joint space itself is not well seen in these projections. Normal acromioclavicular joint. Normal acromion. Normal humeral head and visualized proximal humerus. The soft tissue structures are unremarkable. There is no demonstrated osseous destructive lesion nor fracture. Normal visualized pulmonary apex. Incidental note of a PICC line passing up from the right arm to the superior vena cava as well as incidental note of metal hardware prior posterior fusion mid to lower cervical spine. RAD/Shoulder min 2 Views IMPRESSION: 1. Normal x-ray examination of the right shoulder. 2. Prior posterior cervical fusion procedure with metal hardware. 3. Right PICC line noted. Electronically Signed: Da Trevino MD at 17:56 EDT , Service support ,
--- NOTE | 2017-11-16 10:34 | RAD_ITS ---
STUDY: X-RAY - LEFT SHOULDER REASON FOR EXAM: Male, 42 years old. Anterior shoulder pain. TECHNIQUE: 2 view(s) of the shoulder. COMPARISON: None. FINDINGS: Normal glenohumeral alignment. The glenohumeral joint space itself is not well seen in these views. Normal acromioclavicular joint. Normal acromion. Normal humeral head and visualized proximal humerus. The soft tissue structures are unremarkable. There is no demonstrated osseous destructive lesion or fracture. Normal visualized pulmonary apex. Incidental note of metal hardware related prior anterior-posterior fusion of the cervical spine. RAD/Shoulder min 2 Views IMPRESSION: 1. Normal 2 view x-ray examination of the shoulder. 2. Prior anterior and posterior cervical fusion procedures with metal hardware. Electronically Signed: Da Trveino MD at 17:29 EDT , Service support ,
[2017-11-16] MEDS: Ketorolac 15 MG/ML Vial IV (10:44)
--- NOTE | 2017-11-16 11:19 | PCM.RX.CS ---
Consult Pharmacy has been consulted to manage selected antiobiotic: Vancomycin Type of Consult: Follow-up Suspected Infection: Skin/Soft tissue Prior Doses of Antibiotics Received/Current Regimen: 9 Labs: Sodium 145 mmol/L (136-145) 11/16/17 06:05 Potassium 3.6 mmol/L (3.5-5.1) 11/16/17 06:05 Chloride 107 mmol/L (98-107) 11/16/17 06:05 Carbon Dioxide 29.0 mmol/L (21.0-32.0) 11/16/17 06:05 Anion Gap 9 (5-15) 11/16/17 06:05 BUN 6 mg/dL (7-18) L 11/16/17 06:05 Creatinine 0.44 mg/dL (0.70-1.30) L 11/16/17 06:05 Est GFR (MDRD) Af Amer 275 mL/min (>60) 11/16/17 06:05 Est GFR (MDRD) Non-Af 228 mL/min (>60) 11/16/17 06:05 BUN/Creatinine Ratio 13.7 RATIO (10-20) 11/16/17 06:05 Glucose 85 mg/dL (74-106) 11/16/17 06:05 Vancomycin Trough 17.5 ug/mL (5.0-15.0) H 11/16/17 01:26 Microbiology: Microbiology 11/13/17 14:02 Tissue Ulcer - Sacral Gram Stain - Final 11/13/17 14:02 Tissue Ulcer - Sacral Wound Culture - Preliminary Pseudomonas aeroginosa GNR lactose plug saw operator Corynebacterium amycolatum Staphylococcus species Weight used for dosin.1 kg Estimated Creatinine Clearance: 252 Goal Trough: 10-15 mcg/mL - continue same dose of 1250mg q12h (trough drawn at 10.17 hrs) Pharmacy Plan for Drug Dosing: Pharmacy Service will continue to monitor and adjust dosing as required.
--- NOTE | 2017-11-16 11:22 | PHA.PHARE_ITS ---
Consult Pharmacy has been consulted to manage selected antiobiotic: Vancomycin Type of Consult: Follow-up Suspected Infection: Skin/Soft tissue Prior Doses of Antibiotics Received/Current Regimen: 9 Labs: Sodium 145 mmol/L (136-145) 11/16/17 06:05 Potassium 3.6 mmol/L (3.5-5.1) 11/16/17 06:05 Chloride 107 mmol/L (98-107) 11/16/17 06:05 Carbon Dioxide 29.0 mmol/L (21.0-32.0) 11/16/17 06:05 Anion Gap 9 (5-15) 11/16/17 06:05 BUN 6 mg/dL (7-18) L 11/16/17 06:05 Creatinine 0.44 mg/dL (0.70-1.30) L 11/16/17 06:05 Est GFR (MDRD) Af Amer 275 mL/min (>60) 11/16/17 06:05 Est GFR (MDRD) Non-Af 228 mL/min (>60) 11/16/17 06:05 BUN/Creatinine Ratio 13.7 RATIO (10-20) 11/16/17 06:05 Glucose 85 mg/dL (74-106) 11/16/17 06:05 Vancomycin Trough 17.5 ug/mL (5.0-15.0) H 11/16/17 01:26 Microbiology: Microbiology 11/13/17 14:02 Tissue Ulcer - Sacral Gram Stain - Final 11/13/17 14:02 Tissue Ulcer - Sacral Wound Culture - Preliminary Pseudomonas aeroginosa GNR lactose highway maintenance technician Corynebacterium amycolatum Staphylococcus species Weight used for dosin.1 kg Estimated Creatinine Clearance: 252 Goal Trough: 10-15 mcg/mL - continue same dose of 1250mg q12h (trough drawn at 10.17 hrs) Pharmacy Plan for Drug Dosing: Pharmacy Service will continue to monitor and adjust dosing as required.
--- NOTE | 2017-11-16 12:06 | CASEMGMT ---
Social Work Note SW in to speak with pt, pt's (Olga) and pt's mother. Pt is currently going off the floor for CT Scan. ROLANDA spoke with pt's and pt's mother. Olga states that the plans is for pt to return to [facility] but states that Dr. Albarran has mentioned that if pt needs IV Drip then pt could transfer to ICU. Olga states that if pt gets to ICU and gets three days at ICU she would like to try [facility] again but if not the plan is for pt to return [facility]. ROLANDA placed a call to Paulette at [facility] and updated her on information. ROLANDA faxed updated clinicals to Brittany at [facility]. Green sheet on chart in the event pt is medically stable to discharge to [facility] over the weekend. Plan: [facility] when medically cleared vs if pt goes to ICU then sending referral to [facility] for possible placement at LTACH. Karla Carter [employer] B[employer]ER, [employer]
--- NOTE | 2017-11-16 14:43 | PCM.PN.ID ---
Patient Problems: Active and Suspected Problems Injury to transverse colon (Acute) Subjective: Significant pain better controlled currently, no fever. - Physical Exam General: Alert, Cooperative, No apparent distress Lungs: Clear to auscultation, Normal air movement Cardiovascular: Regular rate, Regular Rhythm Abdomen: Soft, Non Tender, - - ostomy in place Skin: No rashes Vital Signs Temp Pulse Resp BP Pulse Ox 98.3 F 61 16 87/51 L 94 11/16/17 12:54 11/16/17 12:54 11/16/17 12:54 11/16/17 12:54 11/16/17 12:54 Oxygen Flow Rate (L/min) 2 Oxygen Delivery Method Room Air Weight: 85.1 kg Body Mass Index (BMI) 24.7 Intake and Output for Last 24 Hours 11/14/17 11/15/17 11/16/17 23:59 23:59 23:59 Intake Total 2148 / 2148 3021 / 3021 1236 / 1236 Output Total 2550 / 2550 4000 / 4000 1350 / 1350 Balance -402 / -402 -979 / -979 -114 / -114 Microbiology Past 72 Hours 11/13/17 14:02 Gram Stain - Final Tissue Ulcer - Sacral Wound Culture - Preliminary Pseudomonas aeroginosa GNR lactose technical project coordinator Corynebacterium amycolatum Staphylococcus species Laboratory Tests Past 24 Hrs 11/15/17 11/16/17 11/16/17 18:26 01:26 06:05 WBC 10.1 RBC 3.61 L Hgb 8.9 L Hct 29.2 L MCV 80.9 MCH 24.7 L MCHC 30.5 L RDW 19.6 H RDW Differential 57.8 H Plt Count 206 MPV 8.9 Immature Gran % (Auto) 0.000 Neut % (Auto) 59.0 Lymph % (Auto) 23.5 Kershaw % (Auto) 16.2 H Eos % (Auto) 1.1 Baso % (Auto) 0.2 Absolute Neuts (auto) 5.9 Absolute Lymphs (auto) 2.36 Total Counted Not Reportable Hypochromasia 2+ Sodium 145 Potassium 3.9 Chloride 109 H Carbon Dioxide 29.0 Anion Gap 7 BUN 9 Creatinine 0.58 L Estim Creat Clear Calc 191.33 Est GFR (MDRD) Af Amer 199 Est GFR (MDRD) Non-Af 164 BUN/Creatinine Ratio 15.5 Glucose 82 Calcium 8.3 L Vancomycin Trough 17.5 H 11/16/17 06:05 WBC RBC Hgb Hct MCV MCH MCHC RDW RDW Differential Plt Count MPV Immature Gran % (Auto) Neut % (Auto) Lymph % (Auto) Kershaw % (Auto) Eos % (Auto) Baso % (Auto) Absolute Neuts (auto) Absolute Lymphs (auto) Total Counted Hypochromasia Sodium 145 Potassium 3.6 Chloride 107 Carbon Dioxide 29.0 Anion Gap 9 BUN 6 L Creatinine 0.44 L Estim Creat Clear Calc 252.21 Est GFR (MDRD) Af Amer 275 Est GFR (MDRD) Non-Af 228 BUN/Creatinine Ratio 13.7 Glucose 85 Calcium 8.5 Vancomycin Trough Medical Necessity - Tobacco Use Smoking Status: Former smoker Tobacco Use: Cigarettes Route of nutrition/ use of supplements: [] Nutritional Intake: [] IV Site: [] Beth Catheter: [] - Assessment/Plan Antibiotics: [] Assessment/Plan: [] Active and Suspected Problems Decubitus ulcer, stage 3 with infection (Acute) MRI showed no osteo. OR for debridement 11/[address] Duff showed muscle involvement. Cont vanc and zosyn. Recent wound cx with enterococcus, MR staph haemolyticus, and burkholderia. MRSA pcr now (+). Surg cx with PsA, GNR, and GPR. Diverting ostomy done 11/15, complicated by perf. Picc in place. Plan on 2 week course of abx. Will follow
[2017-11-16] MEDS: Divalproex Sodium 250 MG Tablet 1000 MG PO (22:45)
[2017-11-17] VITALS (7 sets, daily range): BP systolic 83–113; BP diastolic 39–69; PULSE 57–67; RESP 16–18; TEMP 36.7–37.2; O2SAT 93–98
[2017-11-17] MEDS: Piperacil/Tazobactam 3.375 GM/50 ML ML IV ×3 (05:51→21:48)
[2017-11-17] MEDS: Midodrine HCl 5 MG Tablet PO ×3 (05:52→21:49)
[2017-11-17] MEDS: oxyCODONE 5 MG Tablet 10 MG PO ×4 (05:52→19:05)
--- NOTE | 2017-11-17 08:35 | PN.SURG_ITS ---
Patient Problems: Active and Suspected Problems Injury to transverse colon (Acute) Subjective: Patient is doing well this morning. He says his shoulder pain has resolved. He is not having any nausea or vomiting and tolerated clear liquid diet. He is having bowel function from his stoma. - Physical Exam General: Alert, Oriented x3, Cooperative Cardiovascular: Regular rate, Regular Rhythm Abdomen: Soft, Non Tender, Non-Distended, - - Stoma is pink with stool in the bag. Incisions are clean dry and intact. Vital Signs Temp Pulse Resp BP Pulse Ox 98.1 F 62 16 93/52 L 98 11/17/17 05:58 11/17/17 05:58 11/17/17 05:58 11/17/17 05:58 11/17/17 07:10 Oxygen Flow Rate (L/min) 2 Oxygen Delivery Method Room Air Weight: 187 lb 9.814 oz Body Mass Index (BMI) 24.7 Intake and Output for Last 24 Hours 11/15/17 11/16/17 11/17/17 23:59 23:59 23:59 Intake Total 3021 / 3021 2467 / 2467 1559 / 1559 Output Total 4000 / 4000 2700 / 2700 2390 / 2390 Balance -979 / -979 -233 / -233 -831 / -831 Microbiology Past 72 Hours 11/13/17 14:02 Gram Stain - Final Tissue Ulcer - Sacral Wound Culture - Final Pseudomonas aeroginosa Escherichia coli Corynebacterium amycolatum Staphylococcus aureus Clinical Impression(s) from Imaging Studies Abdomen/Pelvis CT 11/16/17 07:47 IMPRESSION: Free intraperitoneal air as well as focal air collection in the region of the hepatic flexure secondary to the iatrogenic transverse colon perforation. Bibasilar atelectasis and small bilateral effusions. Left anterior colostomy. Prominence of the presacral soft tissues. Evidence of a debridement of the soft tissues overlying the sacrum. Electronically Signed: Augusto Kumar MD at 14:51 EDT Tel [phone], Service support , Soft Tissue Neck X-Ray 11/16/17 10:22 IMPRESSION: 1. Normal x-ray soft tissue neck. 2. Multilevel cervical laminectomies with anterior and posterior cervical fusion utilizing metal hardware, as noted Electronically Signed: Da Trevino MD at 16:55 EDT , Service support , Shoulder X-Ray 11/16/17 10:23 IMPRESSION: 1. Normal x-ray examination of the right shoulder. 2. Prior posterior cervical fusion procedure with metal hardware. 3. Right PICC line noted. Electronically Signed: Da Trevino MD at 17:56 EDT , Service support , Shoulder X-Ray 11/16/17 10:34 IMPRESSION: 1. Normal 2 view x-ray examination of the shoulder. 2. Prior anterior and posterior cervical fusion procedures with metal hardware. Electronically Signed: Da Trevino MD at 17:29 EDT , Service support , Medical Necessity - Tobacco Use Smoking Status: Former smoker Tobacco Use: Cigarettes Assessment/Plan All Active Problems Injury to transverse colon (Acute) Quadriplegia following spinal cord injury (Acute) Skin necrosis (Acute) Pressure ulcer of sacral region, stage 4 (Acute) Injury of neck (Acute) Stool incontinence (Acute) Pressure injury of right ischium, stage 1 (Acute) Pressure injury of left ischium, stage 1 (Acute) Pressure ulcer of sacral region, stage 3 (Ruled-out) Decubitus ulcer, stage 3 with infection (Ruled-out) 42-year-old male status post laparoscopic sigmoid colostomy 1. Patient was having a lot of shoulder pain yesterday and a CT was obtained. CT showed no extravasation of contrast but there was a lot of leftover air from surgery. He says that his pain is getting better and he is not having any shoulder pain this morning. He tolerated clear liquid diet with no nausea vomiting and he is having flatus and stool in his bag. 2. Wound VAC was applied yesterday without complication. 3. I will advance him to a regular diet. Continue pain control. 4. If patient is tolerating regular diet with good stoma output he may be discharged soon to his rehab facility. Tejas Albarran MD Pager: [facility] [address] [place] [address], [address] [place] [address] Office:
[2017-11-17] MEDS: Ascorbic Acid 500 MG Tablet PO (08:49)
[2017-11-17] MEDS: Pantoprazole Sodium 40 MG Tablet PO (08:49)
[2017-11-17] MEDS: Multivitamins,Therapeutic Tablet 1 TABLET PO (08:49)
[2017-11-17] MEDS: LORazepam 0.5 MG Tablet PO ×2 (11:01→21:49)
[2017-11-17] MEDS: Enoxaparin 40 MG/0.4 ML Syringe SC (11:01)
[2017-11-17] MEDS: FLUoxetine 20 MG Capsule PO (11:01)
[2017-11-17] MEDS: Baclofen 10 MG Tablet 5 MG PO ×2 (11:02→21:49)
[2017-11-17] MEDS: Divalproex Sodium 250 MG Tablet 500 MG PO (11:02)
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
[2017-11-17] MEDS: Acetaminophen 325 MG Tablet 650 MG PO (15:09)
[2017-11-17] MEDS: Ferrous Sulfate 325 MG Tablet PO (19:05)
[2017-11-17] MEDS: Divalproex Sodium 250 MG Tablet 1000 MG PO (21:51)
[2017-11-18] MEDS: Acetaminophen 325 MG Tablet 650 MG PO (00:07)
[2017-11-18] MEDS: Pregabalin 50 MG Capsule PO ×2 (00:07→21:52)
[2017-11-18] MEDS: oxyCODONE 5 MG Tablet 10 MG PO ×3 (00:07→17:57)
[2017-11-18 04:15] VITALS: BP 114/61; PULSE 61; RESP 18; TEMP 37.1; O2SAT 97
[2017-11-18] MEDS: Piperacil/Tazobactam 3.375 GM/50 ML ML IV ×3 (05:46→21:34)
[2017-11-18] MEDS: 0.9% NaCl Peripheral Flush Adult/Peds IV ×2 (05:46→21:52)
[2017-11-18] MEDS: Midodrine HCl 5 MG Tablet PO ×3 (05:46→21:35)
[2017-11-18] MEDS: Morphine 2 MG/ML Syringe 1 MG IV ×2 (06:00→21:52)
[2017-11-18 06:04] LABS: Absolute Lymphocyte Count 2.29 X10^3/ul (0.83-4.51); Basophil# 0.01 X10^3/uL; Basophil% 0.1 % (0-1); Differential Indicated SCAN CRITERIA MET; Eosinophil# 0.44 X10^3/uL; Eosinophils% 5.2 % (0-5); Hematocrit 24.5 % (40-54); Hemoglobin 7.6 g/dl (13.0-16.5); Lymphocyte # 2.29 X10^3/ul (4.0); Lymphocyte % 27.2 % (19-41); Mean Corpuscular Hgb 25.7 pg (27.0-32.0); Mean Corpuscular Volume 82.8 fL (80-94); Mean Platelet Vol. 8.8 fl (6.2-12.0); Monocyte# 1.69 X10^3/uL; Neutrophil # 3.99 X10^3/uL (2.7-7.7); Neutrophil % 47.4 % (47-70); POSITIVE COUNT NO; POSITIVE DIFFERENTIAL YES; POSITIVE MORPHOLOGY NO; Platelet Count 223 K/mm3 (150-450); RBC Distribution Width CV 19.9 % (11.6-14.6); RBC Distribution Width SD 57.8 fl (35.1-43.9); Red Blood Count 2.96 M/mm3 (4.6-6.2); White Blood Count 8.4 K/mm3 (4.4-11.0)
[2017-11-18 06:21] LABS: Anion Gap 9 (5-15); BUN 6 mg/dL (7-18); BUN/Creat Ratio 8.3 RATIO (10-20); Calcium,Total 8.4 mg/dL (8.5-10.1); Chloride 110 mmol/L (98-107); Creatinine, Serum 0.72 mg/dL (0.70-1.30); EST Glomerular Filtration Rate 128 mL/min (>60); Est Glom Filt Rate - Afr Amer 155 mL/min (>60); Estimated Creatinine Clearance 154.13 ml/min; Glucose 89 mg/dL (74-106); Potassium 3.4 mmol/L (3.5-5.1); Sodium Level 149 mmol/L (136-145)
--- NOTE | 2017-11-18 07:52 | PCM.PN.SRG ---
Patient Problems: Active and Suspected Problems Injury to transverse colon (Acute) Subjective: Patient is tolerating a regular diet with no abdominal pain. He is in good output from his colostomy. - Physical Exam General: Alert, Oriented x3, Cooperative Lungs: Normal air movement Cardiovascular: Regular rate, Regular Rhythm Abdomen: Soft, Non Tender, Non-Distended, - - Stoma pink with good stool output in the bag. Musculoskeletal: No Muscle Wasting Neurological: Cranial nerves II-XII grossly intact Psych/Mental Status: Normal Affect Vital Signs Temp Pulse Resp BP Pulse Ox 98.7 F 61 18 114/61 97 11/18/17 04:15 11/18/17 04:15 11/18/17 04:15 11/18/17 04:15 11/18/17 04:15 Oxygen Flow Rate (L/min) 2 Oxygen Delivery Method Room Air Weight: 187 lb 9.814 oz Body Mass Index (BMI) 24.7 Intake and Output for Last 24 Hours 11/16/17 11/17/17 11/18/17 23:59 23:59 23:59 Intake Total 2467 / 2467 3940 / 3940 2050 / 2050 Output Total 2700 / 2700 4190 / 4190 3200 / 3200 Balance -233 / -233 -250 / -250 -1149 / -1149 Microbiology Past 72 Hours 11/13/17 14:02 Gram Stain - Final Tissue Ulcer - Sacral Wound Culture - Final Pseudomonas aeroginosa Escherichia coli Corynebacterium amycolatum Staphylococcus aureus Anaerobic Culture - Final Bacteroides fragilis Anaerobic cocci Laboratory Tests Past 24 Hrs 11/18/17 11/18/17 05:45 05:45 WBC 8.4 RBC 2.96 L Hgb 7.6 L Hct 24.5 L MCV 82.8 MCH 25.7 L MCHC 31.0 L RDW 19.9 H RDW Differential 57.8 H Plt Count 223 MPV 8.8 Immature Gran % (Auto) 0.100 Neut % (Auto) 47.4 Lymph % (Auto) 27.2 Chambers % (Auto) 20.0 H Eos % (Auto) 5.2 H Baso % (Auto) 0.1 Absolute Neuts (auto) 4.0 Absolute Lymphs (auto) 2.29 Total Counted Not Reportable Sodium 149 H Potassium 3.4 L Chloride 110 H Carbon Dioxide 30.0 Anion Gap 9 BUN 6 L Creatinine 0.72 Estim Creat Clear Calc 154.13 Est GFR (MDRD) Af Amer 155 Est GFR (MDRD) Non-Af 128 BUN/Creatinine Ratio 8.3 L Glucose 89 Calcium 8.4 L Medical Necessity - Tobacco Use Smoking Status: Former smoker Tobacco Use: Cigarettes Assessment/Plan All Active Problems Injury to transverse colon (Acute) Quadriplegia following spinal cord injury (Acute) Skin necrosis (Acute) Pressure ulcer of sacral region, stage 4 (Acute) Injury of neck (Acute) Stool incontinence (Acute) Pressure injury of right ischium, stage 1 (Acute) Pressure injury of left ischium, stage 1 (Acute) Pressure ulcer of sacral region, stage 3 (Ruled-out) Decubitus ulcer, stage 3 with infection (Ruled-out) 42-year-old male status post laparoscopic end colostomy 1. Patient is tolerating a regular diet and having good output from his colostomy. 2. Patient's hemoglobin did slightly drop. This may be hemodilution or his anemia but I will hold his Lovenox today and I would recommend rechecking tomorrow. His vitals are stable so is no reason to transfuse today and there was no large fluid collection on his CAT scan. Tejas Albarran MD Pager: [facility] [address] [place] [address], [address] [place] [address] Office:
--- NOTE | 2017-11-18 07:56 | PN.SURG_ITS ---
Patient Problems: Active and Suspected Problems Injury to transverse colon (Acute) Subjective: Patient is tolerating a regular diet with no abdominal pain. He is in good output from his colostomy. - Physical Exam General: Alert, Oriented x3, Cooperative Lungs: Normal air movement Cardiovascular: Regular rate, Regular Rhythm Abdomen: Soft, Non Tender, Non-Distended, - - Stoma pink with good stool output in the bag. Musculoskeletal: No Muscle Wasting Neurological: Cranial nerves II-XII grossly intact Psych/Mental Status: Normal Affect Vital Signs Temp Pulse Resp BP Pulse Ox 98.7 F 61 18 114/61 97 11/18/17 04:15 11/18/17 04:15 11/18/17 04:15 11/18/17 04:15 11/18/17 04:15 Oxygen Flow Rate (L/min) 2 Oxygen Delivery Method Room Air Weight: 187 lb 9.814 oz Body Mass Index (BMI) 24.7 Intake and Output for Last 24 Hours 11/16/17 11/17/17 11/18/17 23:59 23:59 23:59 Intake Total 2467 / 2467 3940 / 3940 2050 / 2050 Output Total 2700 / 2700 4190 / 4190 3200 / 3200 Balance -233 / -233 -250 / -250 -1149 / -1149 Microbiology Past 72 Hours 11/13/17 14:02 Gram Stain - Final Tissue Ulcer - Sacral Wound Culture - Final Pseudomonas aeroginosa Escherichia coli Corynebacterium amycolatum Staphylococcus aureus Anaerobic Culture - Final Bacteroides fragilis Anaerobic cocci Laboratory Tests Past 24 Hrs 11/18/17 11/18/17 05:45 05:45 WBC 8.4 RBC 2.96 L Hgb 7.6 L Hct 24.5 L MCV 82.8 MCH 25.7 L MCHC 31.0 L RDW 19.9 H RDW Differential 57.8 H Plt Count 223 MPV 8.8 Immature Gran % (Auto) 0.100 Neut % (Auto) 47.4 Lymph % (Auto) 27.2 [place] % (Auto) 20.0 H Eos % (Auto) 5.2 H Baso % (Auto) 0.1 Absolute Neuts (auto) 4.0 Absolute Lymphs (auto) 2.29 Total Counted Not Reportable Sodium 149 H Potassium 3.4 L Chloride 110 H Carbon Dioxide 30.0 Anion Gap 9 BUN 6 L Creatinine 0.72 Estim Creat Clear Calc 154.13 Est GFR (MDRD) Af Amer 155 Est GFR (MDRD) Non-Af 128 BUN/Creatinine Ratio 8.3 L Glucose 89 Calcium 8.4 L Medical Necessity - Tobacco Use Smoking Status: Former smoker Tobacco Use: Cigarettes Assessment/Plan All Active Problems Injury to transverse colon (Acute) Quadriplegia following spinal cord injury (Acute) Skin necrosis (Acute) Pressure ulcer of sacral region, stage 4 (Acute) Injury of neck (Acute) Stool incontinence (Acute) Pressure injury of right ischium, stage 1 (Acute) Pressure injury of left ischium, stage 1 (Acute) Pressure ulcer of sacral region, stage 3 (Ruled-out) Decubitus ulcer, stage 3 with infection (Ruled-out) 42-year-old male status post laparoscopic end colostomy 1. Patient is tolerating a regular diet and having good output from his colostomy. 2. Patient's hemoglobin did slightly drop. This may be hemodilution or his anemia but I will hold his Lovenox today and I would recommend rechecking tomorrow. His vitals are stable so is no reason to transfuse today and there was no large fluid collection on his CAT scan. Tejas Albarran MD Pager: [facility] [address] [place] [address], [address] [place] [address] Office:
[2017-11-18 08:20] VITALS: O2SAT 94
[2017-11-18] MEDS: Baclofen 10 MG Tablet 5 MG PO ×2 (08:57→21:36)
[2017-11-18] MEDS: Divalproex Sodium 250 MG Tablet 500 MG PO (08:57)
[2017-11-18] MEDS: Pantoprazole Sodium 40 MG Tablet PO (08:57)
[2017-11-18] MEDS: Menthol/Lanolin/Calamine/Znox 113 GM Tube 1 APPLIC TOPICAL (08:58)
[2017-11-18] MEDS: Multivitamins,Therapeutic Tablet 1 TABLET PO (09:08)
[2017-11-18] MEDS: Folic Acid 1 MG Tablet 2 MG PO (09:08)
[2017-11-18] MEDS: LORazepam 0.5 MG Tablet PO ×2 (09:08→21:35)
[2017-11-18] MEDS: Ascorbic Acid 500 MG Tablet PO (09:09)
[2017-11-18] MEDS: FLUoxetine 20 MG Capsule PO (09:09)
[2017-11-18] MEDS: Ferrous Sulfate 325 MG Tablet PO ×2 (09:09→17:52)
[2017-11-18 10:15] VITALS: BP 117/63; PULSE 54; RESP 16; TEMP 37; O2SAT 95
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
[2017-11-18 16:15] VITALS: BP 125/72; PULSE 56; RESP 18; TEMP 36.7; O2SAT 96
[2017-11-18] MEDS: Divalproex Sodium 250 MG Tablet 1000 MG PO (21:34)
[2017-11-18 21:42] VITALS: BP 127/75; PULSE 54; RESP 18; TEMP 37.1; O2SAT 98
[2017-11-19] MEDS: Acetaminophen 325 MG Tablet 650 MG PO (00:38)
[2017-11-19] MEDS: oxyCODONE 5 MG Tablet 10 MG PO ×3 (00:38→10:17)
[2017-11-19] MEDS: Morphine 2 MG/ML Syringe 1 MG IV (01:54)
[2017-11-19] MEDS: 0.9% NaCl Peripheral Flush Adult/Peds IV ×2 (01:54→11:50)
[2017-11-19] MEDS: 0.9% NaCl IVPB Med Flush (250 mL) 15 ML IV (02:06)
[2017-11-19 02:10] VITALS: BP 114/67; PULSE 54; RESP 18; TEMP 36.7; O2SAT 98
[2017-11-19] MEDS: Midodrine HCl 5 MG Tablet PO (05:58)
[2017-11-19] MEDS: Piperacil/Tazobactam 3.375 GM/50 ML ML IV (05:58)
[2017-11-19 06:43] LABS: Absolute Lymphocyte Count 2.17 X10^3/ul (0.83-4.51); Basophil# 0.02 X10^3/uL; Basophil% 0.2 % (0-1); Eosinophil# 0.63 X10^3/uL; Eosinophils% 6.7 % (0-5); Hematocrit 28.1 % (40-54); Hemoglobin 8.6 g/dl (13.0-16.5); Lymphocyte # 2.17 X10^3/ul (4.0); Lymphocyte % 22.9 % (19-41); Mean Corp Hgb Conc 30.6 g/gl (32-36); Mean Corpuscular Hgb 25.7 pg (27.0-32.0); Mean Corpuscular Volume 83.9 fL (80-94); Mean Platelet Vol. 8.6 fl (6.2-12.0); Monocyte# 1.66 X10^3/uL; Monocyte% 17.5 % (0-10); Neutrophil # 4.96 X10^3/uL (2.7-7.7); Neutrophil % 52.5 % (47-70); Platelet Count 212 K/mm3 (150-450); RBC Distribution Width CV 20.4 % (11.6-14.6); RBC Distribution Width SD 60.8 fl (35.1-43.9); Red Blood Count 3.35 M/mm3 (4.6-6.2); White Blood Count 9.5 K/mm3 (4.4-11.0)
[2017-11-19 06:44] LABS: Differential Indicated SCAN CRITERIA MET; POSITIVE COUNT NO; POSITIVE DIFFERENTIAL YES; POSITIVE MORPHOLOGY YES
[2017-11-19 07:16] VITALS: O2SAT 97
[2017-11-19 07:30] LABS: Anisocytosis 1+; Differential Comment SCAN; Hypochromasia 1+
[2017-11-19 07:31] LABS: Microcytosis 1+; Polychromasia 1+
--- NOTE | 2017-11-19 08:11 | PCM.PN.SRG ---
Patient Problems: Active and Suspected Problems Injury to transverse colon (Acute) Subjective: Patient is doing well this morning. He is tolerating a regular diet. He is still having good output from his stoma. - Physical Exam General: Alert, Oriented x3 Neck: Supple Lungs: Normal air movement Cardiovascular: Regular rate, Regular Rhythm Abdomen: Soft, Non-Distended, Tender - Mild tenderness, - - Incisions are clean dry and intact and there is good stool output from the stoma. Stoma is pink. Vital Signs Temp Pulse Resp BP Pulse Ox 98.1 F 54 L 18 114/67 97 11/19/17 02:10 11/19/17 02:10 11/19/17 02:10 11/19/17 02:10 11/19/17 07:16 Oxygen Flow Rate (L/min) 2 Oxygen Delivery Method Room Air Weight: 187 lb 9.814 oz Body Mass Index (BMI) 24.7 Intake and Output for Last 24 Hours 11/17/17 11/18/17 11/19/17 23:59 23:59 23:59 Intake Total 3940 / 3940 2051 / 2051 2850 / 2850 Output Total 4190 / 4190 4550 / 4550 2850 / 2850 Balance -250 / -250 -2499 / -2499 0 / 0 Microbiology Past 72 Hours 11/13/17 14:02 Gram Stain - Final Tissue Ulcer - Sacral Wound Culture - Final Pseudomonas aeroginosa Escherichia coli Corynebacterium amycolatum Staphylococcus aureus Anaerobic Culture - Final Bacteroides fragilis Anaerobic cocci Laboratory Tests Past 24 Hrs 11/19/17 06:25 WBC 9.5 RBC 3.35 L Hgb 8.6 L Hct 28.1 L MCV 83.9 MCH 25.7 L MCHC 30.6 L RDW 20.4 H RDW Differential 60.8 H Plt Count 212 MPV 8.6 Immature Gran % (Auto) 0.200 Neut % (Auto) 52.5 Lymph % (Auto) 22.9 [place] % (Auto) 17.5 H Eos % (Auto) 6.7 H Baso % (Auto) 0.2 Absolute Neuts (auto) 5.0 Absolute Lymphs (auto) 2.17 Total Counted Not Reportable Differential Comment SCAN Polychromasia 1+ Hypochromasia 1+ Anisocytosis 1+ Microcytosis 1+ Medical Necessity - Tobacco Use Smoking Status: Former smoker Tobacco Use: Cigarettes Assessment/Plan All Active Problems Injury to transverse colon (Acute) Quadriplegia following spinal cord injury (Acute) Skin necrosis (Acute) Pressure ulcer of sacral region, stage 4 (Acute) Injury of neck (Acute) Stool incontinence (Acute) Pressure injury of right ischium, stage 1 (Acute) Pressure injury of left ischium, stage 1 (Acute) Pressure ulcer of sacral region, stage 3 (Ruled-out) Decubitus ulcer, stage 3 with infection (Ruled-out) 42-year-old male status post sigmoid colostomy 1. Patient is doing well this morning. He is not complaining of any pain. He is tolerating a regular diet having good output from his colon. He is okay for transfer to his extended-care facility from my standpoint. I explained that if he is doing well he does not need to follow-up to see from a trip. If he is having any increased pain, erythema or drainage from his wounds, change in bowel habits he is to follow-up with me. 2. Patient's hemoglobin is stable. I will resume his Lovenox. Tejas Albarran MD Pager: [facility] [address] [place] [address], [address] [place] [address] Office:
--- NOTE | 2017-11-19 08:15 | NURSING ---
Fentanyl 75mcg patch intact to left shoulder applied 11/18/17 at 0910.
[2017-11-19 09:05] VITALS: BP 112/58; PULSE 50; RESP 12; TEMP 36.3; O2SAT 94
[2017-11-19 09:16] VITALS: PULSE 50; RESP 12
--- NOTE | 2017-11-19 09:32 | NURSING ---
Pt declines bath. bathed him last night. Resting comfortably in bed. Side rails up X3. Call light in reach. No further needs at this time.
--- NOTE | 2017-11-19 09:42 | PCM.TXEXTCAR ---
- Diet 11/17/17 08:32 Diet: Regular Diet Is pt able to select menu?: Yes - Wound(s) LFT GREAT TOE Wound Type: Pressure Injury RT DISTAL BUTTOCK Wound Type: Surgical Incision LEFT DISTAL BUTTOCK Wound Type: cluster of small pustules LEFT SACRUM Wound Type: Pressure Injury RT SACRUM Wound Type: Pressure Injury RT GREAT TOE Wound Type: Pressure Injury sacrum Wound Type: Pressure Injury Dressing Change: applied KCI wound VAC ABD Wound Type: Surgical Incision Dressing Change: Dry Sterile Dressing - Allergies/Procedures Done in Hospital Allergies/Adverse Reactions: Allergies No Known Allergies Allergy (Verified 06/01/15 06:56) - Type of Care/Length of Stay Estimated LOS: More Than 30 Days Type of Care Needed: Skilled Rehab Potential: Fair Prognosis: Fair - Additional Orders/Day of Discharge Day of Discharge: 11/19/17 - Dietary and Speech Recommendations Dietitian Recommendations/Changes: May benefit from advancing diet as tolerated to transitional diet after surgery. Rec continue ONS medpass to help w/ skin healing. Rec Ashu bid - order from pharmacy - to help w/ skin healing - Follow Up Care Primary Care Physician: Maxim Burnette MD [Primary Care Provider] -
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
[2017-11-19] MEDS: Ferrous Sulfate 325 MG Tablet PO (10:06)
[2017-11-19] MEDS: Ascorbic Acid 500 MG Tablet PO (10:06)
[2017-11-19] MEDS: Multivitamins,Therapeutic Tablet 1 TABLET PO (10:06)
[2017-11-19] MEDS: Pantoprazole Sodium 40 MG Tablet PO (10:06)
[2017-11-19] MEDS: FLUoxetine 20 MG Capsule PO (10:06)
[2017-11-19] MEDS: Baclofen 10 MG Tablet 5 MG PO (10:07)
[2017-11-19] MEDS: Divalproex Sodium 250 MG Tablet 500 MG PO (10:07)
[2017-11-19] MEDS: Folic Acid 1 MG Tablet 2 MG PO (10:09)
[2017-11-19] MEDS: LORazepam 0.5 MG Tablet PO (10:15)
--- NOTE | 2017-11-19 10:30 | CASEMGMT ---
Social Work Note Pt is being discharged back to [facility]. ROLANDA faxed completed discharge paperwork to Mahogany at [facility] including transfer to extended care facility, signed medication list and any scripts. Originals in SNF folder and copy on pt's chart. ROLANDA spoke with pt and pt's Olga who states transportation will need to be set up and would prefer for pt to transport via cot. ROLANDA set up transportation through [facility] via cot for 12:00pm. Transportation form on SNF folder and copy on pt's chart. HENS is not needed to be completed as pt is from [facility] skilled and is returning to skilled at [facility]. ROLANDA updated environmental science program director MIRIAM Mg, pt, pt's Olga and called Mahogany at [facility] to update on transportation time. No other needs or concerns identified. Plan: Pt to discharge to [facility] skilled via cot through [facility] at 12:00pm. Karla Carter INCIDENT MANAGER, OFFICE PROFESSIONAL
--- NOTE | 2017-11-19 11:02 | NURSING ---
Removed the colostomy appliance. there was a small amount of liquid brown stool in the appliance. patient's states that patient has been having a moderate amount of stool out. stoma is still slightly edematous. stoma is beefy red, moist, and well budded. stoma measures approx 2. peristomal skin is intact. cleansed with warm water and pat dry. applied a flat 2 piece [place] appliance with a small amount of stoma paste. pt tolerated well. observed appliance change. has been burping pouch often this weekend and has been observing how to empty appliance. pt is going back to [facility] so nursing will continue with the ostomy teaching. ostomy prescription given to for when they discharge to home. pt and deny further questions at this time.
--- NOTE | 2017-11-19 12:12 | NURSING ---
wound photo: sacrum
[2017-11-19 12:18] VITALS: BP 107/62; PULSE 57; RESP 12; TEMP 36.3
[2017-11-19 12:24] VITALS: O2SAT 96
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
--- NOTE | 2017-11-19 12:54 | PN.ID_ITS ---
Patient Problems: Active and Suspected Problems Injury to transverse colon (Acute) Subjective: Feeling well, no abd pain, no fever, d/c today. - Physical Exam General: Alert, Cooperative, No apparent distress Lungs: Clear to auscultation, Normal air movement Cardiovascular: Regular rate, Regular Rhythm Abdomen: Soft, Non Tender, Non-Distended Skin: Ulcer/ Wound - wound vac in place Vital Signs Temp Pulse Resp BP Pulse Ox 97.4 F L 57 L 12 107/62 96 11/19/17 12:18 11/19/17 12:18 11/19/17 12:18 11/19/17 12:18 11/19/17 12:24 Oxygen Flow Rate (L/min) 2 Oxygen Delivery Method Room Air Weight: 85.1 kg Body Mass Index (BMI) 24.7 Intake and Output for Last 24 Hours 11/17/17 11/18/17 11/19/17 23:59 23:59 23:59 Intake Total 3940 / 3940 2051 / 2051 3511 / 3511 Output Total 4190 / 4190 4550 / 4550 4425 / 4425 Balance -250 / -250 -2499 / -2499 -914 / -914 Microbiology Past 72 Hours 11/13/17 14:02 Gram Stain - Final Tissue Ulcer - Sacral Wound Culture - Final Pseudomonas aeroginosa Escherichia coli Corynebacterium amycolatum Staphylococcus aureus Anaerobic Culture - Final Bacteroides fragilis Anaerobic cocci Laboratory Tests Past 24 Hrs 11/19/17 06:25 WBC 9.5 RBC 3.35 L Hgb 8.6 L Hct 28.1 L MCV 83.9 MCH 25.7 L MCHC 30.6 L RDW 20.4 H RDW Differential 60.8 H Plt Count 212 MPV 8.6 Immature Gran % (Auto) 0.200 Neut % (Auto) 52.5 Lymph % (Auto) 22.9 Christian % (Auto) 17.5 H Eos % (Auto) 6.7 H Baso % (Auto) 0.2 Absolute Neuts (auto) 5.0 Absolute Lymphs (auto) 2.17 Total Counted Not Reportable Differential Comment SCAN Polychromasia 1+ Hypochromasia 1+ Anisocytosis 1+ Microcytosis 1+ Medical Necessity - Tobacco Use Smoking Status: Former smoker Tobacco Use: Cigarettes Route of nutrition/ use of supplements: [] Nutritional Intake: [] IV Site: [] Beth Catheter: [] - Assessment/Plan Antibiotics: [] Assessment/Plan: [] Active and Suspected Problems Decubitus ulcer, stage 3 with infection (Acute) MRI showed no osteo. OR for debridement 11/[address] Duff showed muscle involvement. Cont vanc and zosyn. Recent wound cx with enterococcus, MR staph haemolyticus, and burkholderia. MRSA pcr now (+). Surg cx with PsA, ecoli, and GPR. Diverting ostomy done 11/15, complicated by perf. Picc in place. Plan on 2 week course of abx. Wrote for weekly bmp, cbc, and vanc trough while on iv abx. Will follow
== END 2017-11-19 12:25 | disposition skilled nursing facility (03) | DRG 579 ==
LOC: ED 11-12 01:50 → MS3 11-12 02:41
PROVIDERS: Internal Medicine; Surgery; Admitting Provider Hospitalist; Emergency Provider Emergency Medicine; Family Provider Family Medicine; PCP Family Medicine; Visit Provider Internal Medicine
PROC: 0KBP0ZZ Excision of Left Hip Muscle, Open Approach (ICD-10-PCS; principal; 2017-11-13 08:05)
PROC: 0D1E4Z4 Bypass Large Intestine to Cutaneous, Percutaneous Endoscopic Approach (ICD-10-PCS; CPT 44188; principal; 2017-11-15 15:15)
DX: L89.154 Pressure ulcer of sacral region, stage 4 (principal); G82.50 Quadriplegia, unspecified; K91.71 Accidental puncture and laceration of a digestive system organ or structure during a digestive system procedure; L89.321 Pressure ulcer of left buttock, stage 1; L89.311 Pressure ulcer of right buttock, stage 1; R15.9 Full incontinence of feces; Y83.8 Other surgical procedures as the cause of abnormal reaction of the patient, or of later complication, without mention of misadventure at the time of the procedure; B96.5 Pseudomonas (aeruginosa) (mallei) (pseudomallei) as the cause of diseases classified elsewhere; B96.20 Unspecified Escherichia coli [E. coli] as the cause of diseases classified elsewhere; B95.62 Methicillin resistant Staphylococcus aureus infection as the cause of diseases classified elsewhere; Z98.1 Arthrodesis status; D50.9 Iron deficiency anemia, unspecified; G89.4 Chronic pain syndrome; F41.9 Anxiety disorder, unspecified; T14.90XS Injury, unspecified, sequela; V89.2XXS Person injured in unspecified motor-vehicle accident, traffic, sequela
CPT/HCPCS: 36415; 36569; 70360; 71045; 72197; 73030; 74177; 80048; 80202; 81001; 83540; 83550; 83605; 84134; 85025; 85027; 87040; 87070; 87075; 87077; 87102; 87184; 87186; 87205; 87206; 87640; 88304; 88305; 88307; 88312; 97110; 97162; 97166; 97530; 99285; 99406; A9585; J7040; J7050; Q9967; A4216; C1760; J2405

== ENCOUNTER 2017-11-22 22:40 | Inpatient (IN) | payer MEDICARE, MEDICAID, SELFPAY ==
[2017-11-22 22:41] VITALS: BP 105/61; PULSE 70; RESP 18; TEMP 37.6; O2SAT 95; BMI 26.9
--- NOTE | 2017-11-22 22:58 | RAD_ITS ---
STUDY: X-RAY CHEST REASON FOR EXAM: Male, 42 years old. Fever, coccyx wound. PICC line. MRSA. Previously reported pneumoperitoneum from iatrogenic colonic perforation. TECHNIQUE: Portable upright chest. COMPARISON: CT abdomen 11/16/2017, chest 11/11/2017. FINDINGS: There is mild free air beneath the diaphragm bilaterally. This is grossly decreased compared to the prior CT scan. Right PICC line terminates in the superior vena cava. There is subsegmental atelectasis or fibrosis in the right midlung, unchanged from the prior chest x-ray. The lungs are otherwise clear. There is no demonstrated pleural abnormality. Normal size heart. Normal mediastinum and dasia. Normal visualized pulmonary arteries. Normal visualized aortic arch and descending thoracic aorta. Normal visualized thoracic spine. Normal visualized ribs, clavicles, and shoulders. RAD/Chest 1 View (Portable) IMPRESSION: 1. Known pneumoperitoneum, decreased from prior CT scan. No new findings. Electronically Signed: Ester Shearer MD at 23:30 EDT Tel , Service support ,
[2017-11-22 23:23] LABS: Bacteria 0 SEEN /hpf (None Seen); Mucous, Urine 0 SEEN /hpf (<or=2+); Red Blood Cells-Urine 0 SEEN /hpf (0-5); Squamous Epithelial Cells - UA 0 SEEN /hpf (0-5); White Blood Cells 0 SEEN /hpf (0-5)
[2017-11-22 23:24] LABS: Color, Urine Yellow (Yellow); Glucose, Dipstick Normal (Normal); Ketone-Dipstick Negative (Negative); Leukocyte Esterase-Dipstick 25 /ul (Negative); Nitrite-Dipstick Negative (Negative); Occult Blood-Urine 25 /ul (Negative); Protein-Dipstick 30 mg/dl (Negative); Urine Bilirubin Dipstick Negative (Negative); Urine Clarity Clear (Clear); Urine Urobilinogen Normal (Normal)
[2017-11-22 23:30] LABS: Absolute Lymphocyte Count 2.06 X10^3/ul (0.83-4.51); Absolute Neutrophil Count 8.7 X10^3/uL (2.0-7.7); Basophil# 0.03 X10^3/uL; Basophil% 0.2 % (0-1); Eosinophil# 0.73 X10^3/uL; Hematocrit 30.9 % (40-54); Hemoglobin 9.5 g/dl (13.0-16.5); Lymphocyte # 2.06 X10^3/ul (4.0); Mean Corp Hgb Conc 30.7 g/gl (32-36); Mean Corpuscular Hgb 25.3 pg (27.0-32.0); Mean Corpuscular Volume 82.2 fL (80-94); Mean Platelet Vol. 8.4 fl (6.2-12.0); Monocyte% 21.8 % (0-10); Neutrophil # 8.66 X10^3/uL (2.7-7.7); Neutrophil % 58.9 % (47-70); Platelet Count 330 K/mm3 (150-450); RBC Distribution Width CV 19.7 % (11.6-14.6); RBC Distribution Width SD 59.6 fl (35.1-43.9); Red Blood Count 3.76 M/mm3 (4.6-6.2); White Blood Count 14.7 K/mm3 (4.4-11.0)
[2017-11-22 23:31] LABS: Differential Indicated SCAN CRITERIA MET; POSITIVE COUNT NO; POSITIVE DIFFERENTIAL YES; POSITIVE MORPHOLOGY NO
[2017-11-22] MEDS: Ondansetron 4 MG/2 ML Vial IV (23:35)
[2017-11-22] MEDS: Morphine 4 MG/ML Syringe IV (23:35)
[2017-11-23 02:02] LABS: Anion Gap 10 (5-15); BUN 26 mg/dL (7-18); BUN/Creat Ratio 19.5 RATIO (10-20); Chloride 103 mmol/L (98-107); Creatinine, Serum 1.33 mg/dL (0.70-1.30); EST Glomerular Filtration Rate 63 mL/min (>60); Est Glom Filt Rate - Afr Amer 76 mL/min (>60); Estimated Creatinine Clearance 83.44 ml/min; Glucose 126 mg/dL (74-106); Potassium 3.9 mmol/L (3.5-5.1); Sodium Level 141 mmol/L (136-145)
[2017-11-23 02:20] VITALS: RESP 18; O2SAT 98
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
[2017-11-23 03:17] VITALS: BP 94/63; PULSE 68; O2SAT 96
[2017-11-23] MEDS: oxyCODONE 5 MG Tablet 10 MG PO ×3 (03:31→22:44)
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
[2017-11-23 03:52] VITALS: BP 106/50; PULSE 66; RESP 16; TEMP 37.2; O2SAT 96; BMI 24.4
[2017-11-23 03:58] LABS: Magnesium 2.2 mg/dL (1.6-2.6)
[2017-11-23 04:06] VITALS: BMI 24.4
[2017-11-23] MEDS: 0.9% Normal Saline 1,000 ML 125 ML IV ×2 (04:16→16:27)
[2017-11-23] MEDS: Midodrine HCl 5 MG Tablet PO ×3 (04:54→22:44)
[2017-11-23] MEDS: Piperacil/Tazobactam 3.375 GM/50 ML ML IV ×3 (05:00→22:46)
--- NOTE | 2017-11-23 05:01 | PHA.PHARE_ITS ---
Consult Pharmacy has been consulted to manage selected antiobiotic: Vancomycin Type of Consult: New start Suspected Infection: Skin/Soft tissue Labs: Sodium 141 mmol/L (136-145) 11/22/17 22:58 Potassium 3.9 mmol/L (3.5-5.1) 11/22/17 22:58 Chloride 103 mmol/L (98-107) 11/22/17 22:58 Carbon Dioxide 28.0 mmol/L (21.0-32.0) 11/22/17 22:58 Anion Gap 10 (5-15) 11/22/17 22:58 BUN 26 mg/dL (7-18) H 11/22/17 22:58 Creatinine 1.33 mg/dL (0.70-1.30) H 11/22/17 22:58 Est GFR (MDRD) Af Amer 76 mL/min (>60) 11/22/17 22:58 Est GFR (MDRD) Non-Af 63 mL/min (>60) 11/22/17 22:58 BUN/Creatinine Ratio 19.5 RATIO (10-20) 11/22/17 22:58 Glucose 126 mg/dL (74-106) H 11/22/17 22:58 Weight used for dosin.5 kg Estimated Creatinine Clearance: 83.44 Goal Trough: 10-15 mcg/mL Pharmacy Plan for Drug Dosing: Pharmacy Service will continue to monitor and adjust dosing as required. Medications Vancomycin HCl 1,500 mg/ (Sodium Chloride) 530 mls @ 250 mls/hr IV X1 ONE Stop: 11/23/17 06:07 Last Admin: 11/23/17 04:15 Dose: 250 mls/hr Vancomycin HCl (Vancomycin) 1,000 mg in 200 mls @ 200 mls/hr IV Q12H [facility] Follow-Up Labs: Trough Vancomycin Labs to be done on [date and time ordered]: 11/25 @ 0400
[2017-11-23 05:14] LABS: International Normalized Ratio 1.3; Prothrombin Time (Protime)PT. 15.9 SECONDS (11.7-14.9)
[2017-11-23 05:15] LABS: Partial Thromboplast Time 35.1 Seconds (24.1-36.2)
[2017-11-23 05:18] LABS: Anion Gap 9 (5-15); BUN 26 mg/dL (7-18); BUN/Creat Ratio 19.8 RATIO (10-20); Calcium,Total 8.9 mg/dL (8.5-10.1); Chloride 104 mmol/L (98-107); Creatinine, Serum 1.31 mg/dL (0.70-1.30); EST Glomerular Filtration Rate 64 mL/min (>60); Est Glom Filt Rate - Afr Amer 78 mL/min (>60); Estimated Creatinine Clearance 87.15 ml/min; Glucose 88 mg/dL (74-106); Potassium 4.1 mmol/L (3.5-5.1); Sodium Level 142 mmol/L (136-145)
[2017-11-23 05:30] LABS: Absolute Lymphocyte Count 2.41 X10^3/ul (0.83-4.51); Basophil# 0.03 X10^3/uL; Basophil% 0.2 % (0-1); Differential Indicated SCAN CRITERIA MET; Eosinophils% 5.9 % (0-5); Hematocrit 27.6 % (40-54); Hemoglobin 8.4 g/dl (13.0-16.5); Lymphocyte # 2.41 X10^3/ul (4.0); Lymphocyte % 15.8 % (19-41); Mean Corp Hgb Conc 30.4 g/gl (32-36); Mean Corpuscular Hgb 25.2 pg (27.0-32.0); Mean Corpuscular Volume 82.9 fL (80-94); Mean Platelet Vol. 8.8 fl (6.2-12.0); Monocyte% 25.6 % (0-10); Neutrophil # 7.98 X10^3/uL (2.7-7.7); Neutrophil % 52.4 % (47-70); POSITIVE COUNT NO; POSITIVE DIFFERENTIAL YES; POSITIVE MORPHOLOGY NO; Platelet Count 312 K/mm3 (150-450); RBC Distribution Width CV 19.6 % (11.6-14.6); RBC Distribution Width SD 60.5 fl (35.1-43.9); Red Blood Count 3.33 M/mm3 (4.6-6.2); White Blood Count 15.2 K/mm3 (4.4-11.0)
[2017-11-23 07:28] VITALS: O2SAT 95
[2017-11-23 08:57] VITALS: BP 101/55; PULSE 61; RESP 16; TEMP 37.3; O2SAT 93
--- NOTE | 2017-11-23 09:30 | US_ITS ---
STUDY: ABDOMINAL ULTRASOUND - LIMITED REASON FOR VISIT: Male, 42 years old. Preparation for potential drainage of a pelvic collection. TECHNIQUE: Ultrasound evaluation of the pelvis was performed with real-time and static courtney-scale imaging. TECHNICAL QUALITY: Adequate. COMPARISON: CT abdomen and pelvis dated November 23, 2017. FINDINGS: A moderate amount of echogenic fluid is visible in the pelvis suggesting abscess. US/Abdomen Limited IMPRESSION: Moderate amount of pelvic fluid. Electronically Signed: Nel Nunez MD at 10:41 EDT , Service support ,
--- NOTE | 2017-11-23 09:35 | NURSING ---
PT TO ULTRASOUND VIA BED.
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
[2017-11-23] MEDS: Morphine 4 MG/ML Syringe IV (11:17)
[2017-11-23] MEDS: 0.9% NaCl Peripheral Flush Adult/Peds IV ×2 (11:18→15:31)
[2017-11-23] MEDS: Folic Acid 1 MG Tablet 2 MG PO (12:47)
[2017-11-23] MEDS: LORazepam 0.5 MG Tablet PO ×2 (12:47→22:44)
[2017-11-23] MEDS: Multivitamins,Therapeutic Tablet 1 TABLET PO (12:47)
[2017-11-23] MEDS: Divalproex Sodium 250 MG Tablet 500 MG PO (12:47)
[2017-11-23] MEDS: Baclofen 10 MG Tablet 5 MG PO ×2 (12:51→22:43)
[2017-11-23] MEDS: FLUoxetine 20 MG Capsule PO (12:51)
[2017-11-23] MEDS: Ascorbic Acid 500 MG Tablet PO (12:51)
--- NOTE | 2017-11-23 13:37 | NURSING ---
removed ostomy appliance. there was a moderate amount of soft brown stool noted. stoma is dark pink, moist, and well budded. peristomal skin is intact. cleansed with warm water. pat dry. applied a new 2 piece flat [place] appliance. pt tolerated well.
--- NOTE | 2017-11-23 13:44 | NURSING ---
wound photo: sacrum
--- NOTE | 2017-11-23 14:14 | PCM.HP.ID ---
Problem List (1) Fever, unknown origin Status: Acute Reason for Consult: fever Consulted by: Dr. Sacnhez History of Present Illness: The patient is a 42 year old M with quadriplegia and recent admission due to infected sacral ulcer. Had debridement done that admit, no bone involvement seen in OR or on MRI. Also had diverting ostomy done, complicated by iatrogenic perforation. Picc placed, discharged to [facility] on iv vanc/zosyn. For past 3-4 days, fever and increased fatigue. Went to [place] ED 11/21, cxs sent, sent back to [facility] with tylenol. Fever continued, called my office yesterday, recommended he go to [place]. No cough or SOB. Some mild nausea. No issues with picc. No new rash or itching. Came to ED here, CT showed large free air and possible abscess. Seen by Dr. Hinton with surgery. Picc removed, and had attempted u/s guided aspiration. On vanc/zosyn. Full ROS Performed and neg except as noted above. - Medical History Past Medical History (Chronic Problems): Chronic Problems Anemia (Chronic) Chronic pain syndrome (Chronic) Anxiety (Chronic) Bipolar disorder (Chronic) Quadriplegia following spinal cord injury (Chronic) Pressure ulcer of sacral region, stage 4 (Chronic) Pressure injury of right ischium, stage 1 (Chronic) Pressure injury of left ischium, stage 1 (Chronic) Allergies/Adverse Reactions: Allergies No Known Allergies Allergy (Verified 06/01/15 06:56) Home Medications: Ambulatory Orders Medication Instructions Recorded Divalproex Sodium [Depakote] 1,000 mg PO QHS 11/11/17 Divalproex Sodium [Depakote] 500 mg PO DAILY 11/11/17 Acetaminophen [Tylenol] 325 - 650 mg PO Q4H PRN PRN 11/12/17 Ascorbic Acid [Vitamin C] 500 mg PO DAILY 11/12/17 Bisacodyl 10 mg RC DAILY PRN 11/12/17 Docusate Sodium [Colace] 100 mg PO BID PRN 11/12/17 Enoxaparin Sodium [Lovenox] 40 mg SQ DAILY 11/12/17 Fluoxetine HCl [Prozac] 20 mg PO DAILY 11/12/17 Guaifenesin [Guaifenesin ER] 600 mg PO BID PRN 11/12/17 Hydroxyzine HCl 12.5 mg PO TID PRN 11/12/17 Midodrine HCl 5 mg PO TID 11/12/17 Multivitamin [Daily Multiple 1 tab PO DAILY 11/12/17 Vitamin] Zinc Sulfate (50mg elemental) 220 mg PO DAILY 11/12/17 [Zinc Sulfate] Baclofen [Lioresal] 5 mg PO BID tablet 11/19/17 Ensure Enlive 120 ml PO 4X/DAY liquid 11/19/17 Fentanyl 75 mcg TD Q3D 5 Days #2 patch.td72 11/19/17 Folic Acid 2 mg PO DAILY@0800 tablet 11/19/17 Lorazepam [Ativan] 0.5 mg PO BID #10 tab 11/19/17 Magnesium Hydroxide [Milk Of 30 ml PO DAILY PRN PRN udc 11/19/17 Magnesia] Menthol/Lanolin/Calamine/Znox 1 applic TOPICAL DAILY tube 11/19/17 [Calmoseptine Ointment] Oxycodone [Oxyir] 10 mg PO Q4H PRN PRN 5 Days #20 tab 11/19/17 Pantoprazole Sodium [Protonix] 40 mg PO DAILY tablet 11/19/17 Piperacil/Tazobactam [Zosyn] 3.375 gm IV Q8 #42 dose 11/19/17 Pregabalin [Lyrica] 50 mg PO TID PRN PRN capsule 11/19/17 Vancomycin IV 1,250 mg IV Q12H #24 vial 11/19/17 - Social History SMOKING STATUS:: Former smoker Vital Signs Temp Pulse Resp BP Pulse Ox 99.2 F H 61 16 101/55 L 93 11/23/17 08:57 11/23/17 08:57 11/23/17 08:57 11/23/17 08:57 11/23/17 08:57 Oxygen Delivery Method Room Air Weight: 86.324 kg Body Mass Index (BMI) 24.4 Laboratory Tests Past 24 Hrs 11/22/17 11/22/17 11/22/17 22:58 22:58 22:58 WBC 14.7 H RBC 3.76 L Hgb 9.5 L Hct 30.9 L MCV 82.2 MCH 25.3 L MCHC 30.7 L RDW 19.7 H RDW Differential 59.6 H Plt Count 330 MPV 8.4 Immature Gran % (Auto) 0.100 Neut % (Auto) 58.9 Lymph % (Auto) 14.0 L Dickenson % (Auto) 21.8 H Eos % (Auto) 5.0 Baso % (Auto) 0.2 Absolute Neuts (auto) 8.7 H Absolute Lymphs (auto) 2.06 Total Counted Not Reportable PT INR APTT Sodium 141 Potassium 3.9 Chloride 103 Carbon Dioxide 28.0 Anion Gap 10 BUN 26 H Creatinine 1.33 H Estim Creat Clear Calc 83.44 Est GFR (MDRD) Af Amer 76 Est GFR (MDRD) Non-Af 63 BUN/Creatinine Ratio 19.5 Glucose 126 H Calcium 9.0 Magnesium 2.2 Urine Color Urine Clarity Urine pH Ur Specific [place] Urine Protein Urine Glucose (UA) Urine Ketones Urine Occult Blood Urine Nitrite Urine Bilirubin Urine Urobilinogen Ur Leukocyte Esterase Urine RBC Urine WBC Ur Squamous Epith Cells Urine Bacteria Urine Mucus 11/22/17 11/23/17 11/23/17 23:17 04:52 04:52 WBC 15.2 H RBC 3.33 L Hgb 8.4 L Hct 27.6 L MCV 82.9 MCH 25.2 L MCHC 30.4 L RDW 19.6 H RDW Differential 60.5 H Plt Count 312 MPV 8.8 Immature Gran % (Auto) 0.100 Neut % (Auto) 52.4 Lymph % (Auto) 15.8 L Dickenson % (Auto) 25.6 H Eos % (Auto) 5.9 H Baso % (Auto) 0.2 Absolute Neuts (auto) 8.0 H Absolute Lymphs (auto) 2.41 Total Counted Not Reportable PT INR APTT Sodium 142 Potassium 4.1 Chloride 104 Carbon Dioxide 29.0 Anion Gap 9 BUN 26 H Creatinine 1.31 H Estim Creat Clear Calc 87.15 Est GFR (MDRD) Af Amer 78 Est GFR (MDRD) Non-Af 64 BUN/Creatinine Ratio 19.8 Glucose 88 Calcium 8.9 Magnesium Urine Color Yellow Urine Clarity Clear Urine pH 7.0 Ur Specific [place] 1.010 Urine Protein 30 H Urine Glucose (UA) Normal Urine Ketones Negative Urine Occult Blood 25 H Urine Nitrite Negative Urine Bilirubin Negative Urine Urobilinogen Normal Ur Leukocyte Esterase 25 H Urine RBC 0 SEEN Urine WBC 0 SEEN Ur Squamous Epith Cells 0 SEEN Urine Bacteria 0 SEEN Urine Mucus 0 SEEN 09/28/18 04:52 WBC RBC Hgb Hct MCV MCH MCHC RDW RDW Differential Plt Count MPV Immature Gran % (Auto) Neut % (Auto) Lymph % (Auto) Dickenson % (Auto) Eos % (Auto) Baso % (Auto) Absolute Neuts (auto) Absolute Lymphs (auto) Total Counted PT 15.9 H INR 1.3 APTT 35.1 Sodium Potassium Chloride Carbon Dioxide Anion Gap BUN Creatinine Estim Creat Clear Calc Est GFR (MDRD) Af Amer Est GFR (MDRD) Non-Af BUN/Creatinine Ratio Glucose Calcium Magnesium Urine Color Urine Clarity Urine pH Ur Specific [place] Urine Protein Urine Glucose (UA) Urine Ketones Urine Occult Blood Urine Nitrite Urine Bilirubin Urine Urobilinogen Ur Leukocyte Esterase Urine RBC Urine WBC Ur Squamous Epith Cells Urine Bacteria Urine Mucus - Other Studies Radiology: [] reviewed Other Studies: [] Route of nutrition/ use of supplements: [] Nutritional Intake: [] IV Site: [] Beth Catheter: [] - Physical Exam General: Alert, Oriented x3, Cooperative, No apparent distress HEENT: Atraumatic, PERRLA, EOMI Neck: Supple, No Nodes Lungs: Clear to auscultation, Normal air movement Cardiovascular: Regular rate, Regular Rhythm, No murmurs Abdomen: Soft, Non Tender, Non-Distended, - - ostomy in place, healing surg incisions Extremities: No edema Skin: Ulcer/ Wound - sacral ulcer clean IV Site: PICC - removed Musculoskeletal: No Tenderness to Palpation of Joints or Extremities Neurological: Cranial nerves II-XII grossly intact - Assessment/Plan Antibiotics: [] Assessment/Plan: [] Low grade fever and leukocytosis - Bcx and Ucx from [place] on 11/21 remain negative. Lungs clear and cxr with no infiltrate. No sign of allergic reaction. Sacral wound with no sign of inflammation or drainage. Biggest area of concern is his abd given recent perforation and increased air with possible abscess reported on CT abd/pelvis. Surg following. May need ex-lap given possibility of continued leak. Cont vanc/zosyn for now. Infected sacral ulcer - now s/p debridement. Wound appears clean. Had wound vac on at [facility]. Recent cxs with PsA, ecoli, coryne, MRSA, and anaerobes, as well as prior burkholderia and enterococcus. Will follow, thank you.
--- NOTE | 2017-11-23 14:18 | CON.PCM_ITS ---
Problem List (1) Fever, unknown origin Status: Acute Reason for Consult: fever Consulted by: Dr. Sanchez History of Present Illness: The patient is a 42 year old M with quadriplegia and recent admission due to infected sacral ulcer. Had debridement done that admit, no bone involvement seen in OR or on MRI. Also had diverting ostomy done, complicated by iatrogenic perforation. Picc placed, discharged to [facility] on iv vanc/zosyn. For past 3-4 d ays, fever and increased fatigue. Went to [place] ED 11/21, cxs sent, sent back to [facility] with tylenol. Fever continued, called my office yesterday, recommended he go to [place]. No cough or SOB. Some mild nausea. No issues with picc. No new rash or itching. Came to ED here, CT showed large free air and possible abscess. Seen by Dr. Hinton with surgery. Picc removed, and had attempted u/s guided aspiration. On vanc/zosyn. Full ROS Performed and neg except as noted above. - Medical History Past Medical History (Chronic Problems): Chronic Problems Anemia (Chronic) Chronic pain syndrome (Chronic) Anxiety (Chronic) Bipolar disorder (Chronic) Quadriplegia following spinal cord injury (Chronic) Pressure ulcer of sacral region, stage 4 (Chronic) Pressure injury of right ischium, stage 1 (Chronic) Pressure injury of left ischium, stage 1 (Chronic) Allergies/Adverse Reactions: Allergies No Known Allergies Allergy (Verified 06/01/15 06:56) Home Medications: Ambulatory Orders Medication Instructions Recorded Divalproex Sodium [Depakote] 1,000 mg PO QHS 11/11/17 Divalproex Sodium [Depakote] 500 mg PO DAILY 11/11/17 Acetaminophen [Tylenol] 325 - 650 mg PO Q4H PRN PRN 11/12/17 Ascorbic Acid [Vitamin C] 500 mg PO DAILY 11/12/17 Bisacodyl 10 mg RC DAILY PRN 11/12/17 Docusate Sodium [Colace] 100 mg PO BID PRN 11/12/17 Enoxaparin Sodium [Lovenox] 40 mg SQ DAILY 11/12/17 Fluoxetine HCl [Prozac] 20 mg PO DAILY 11/12/17 Guaifenesin [Guaifenesin ER] 600 mg PO BID PRN 11/12/17 Hydroxyzine HCl 12.5 mg PO TID PRN 11/12/17 Midodrine HCl 5 mg PO TID 11/12/17 Multivitamin [Daily Multiple 1 tab PO DAILY 11/12/17 Vitamin] Zinc Sulfate (50mg elemental) 220 mg PO DAILY 11/12/17 [Zinc Sulfate] Baclofen [Lioresal] 5 mg PO BID tablet 11/19/17 Ensure Enlive 120 ml PO 4X/DAY liquid 11/19/17 Fentanyl 75 mcg TD Q3D 5 Days #2 patch.td72 11/19/17 Folic Acid 2 mg PO DAILY@0800 tablet 11/19/17 Lorazepam [Ativan] 0.5 mg PO BID #10 tab 11/19/17 Magnesium Hydroxide [Milk Of 30 ml PO DAILY PRN PRN udc 11/19/17 Magnesia] Menthol/Lanolin/Calamine/Znox 1 applic TOPICAL DAILY tube 11/19/17 [Calmoseptine Ointment] Oxycodone [Oxyir] 10 mg PO Q4H PRN PRN 5 Days #20 tab 11/19/17 Pantoprazole Sodium [Protonix] 40 mg PO DAILY tablet 11/19/17 Piperacil/Tazobactam [Zosyn] 3.375 gm IV Q8 #42 dose 11/19/17 Pregabalin [Lyrica] 50 mg PO TID PRN PRN capsule 11/19/17 Vancomycin IV 1,250 mg IV Q12H #24 vial 11/19/17 - Social History SMOKING STATUS:: Former smoker Vital Signs Temp Pulse Resp BP Pulse Ox 99.2 F H 61 16 101/55 L 93 11/23/17 08:57 11/23/17 08:57 11/23/17 08:57 11/23/17 08:57 11/23/17 08:57 Oxygen Delivery Method Room Air Weight: 86.324 kg Body Mass Index (BMI) 24.4 Laboratory Tests Past 24 Hrs 11/22/17 11/22/17 11/22/17 22:58 22:58 22:58 WBC 14.7 H RBC 3.76 L Hgb 9.5 L Hct 30.9 L MCV 82.2 MCH 25.3 L MCHC 30.7 L RDW 19.7 H RDW Differential 59.6 H Plt Count 330 MPV 8.4 Immature Gran % (Auto) 0.100 Neut % (Auto) 58.9 Lymph % (Auto) 14.0 L [place] % (Auto) 21.8 H Eos % (Auto) 5.0 Baso % (Auto) 0.2 Absolute Neuts (auto) 8.7 H Absolute Lymphs (auto) 2.06 Total Counted Not Reportable PT INR APTT Sodium 141 Potassium 3.9 Chloride 103 Carbon Dioxide 28.0 Anion Gap 10 BUN 26 H Creatinine 1.33 H Estim Creat Clear Calc 83.44 Est GFR (MDRD) Af Amer 76 Est GFR (MDRD) Non-Af 63 BUN/Creatinine Ratio 19.5 Glucose 126 H Calcium 9.0 Magnesium 2.2 Urine Color Urine Clarity Urine pH Ur Specific [place] Urine Protein Urine Glucose (UA) Urine Ketones Urine Occult Blood Urine Nitrite Urine Bilirubin Urine Urobilinogen Ur Leukocyte Esterase Urine RBC Urine WBC Ur Squamous Epith Cells Urine Bacteria Urine Mucus 11/22/17 11/23/17 11/23/17 23:17 04:52 04:52 WBC 15.2 H RBC 3.33 L Hgb 8.4 L Hct 27.6 L MCV 82.9 MCH 25.2 L MCHC 30.4 L RDW 19.6 H RDW Differential 60.5 H Plt Count 312 MPV 8.8 Immature Gran % (Auto) 0.100 Neut % (Auto) 52.4 Lymph % (Auto) 15.8 L [place] % (Auto) 25.6 H Eos % (Auto) 5.9 H Baso % (Auto) 0.2 Absolute Neuts (auto) 8.0 H Absolute Lymphs (auto) 2.41 Total Counted Not Reportable PT INR APTT Sodium 142 Potassium 4.1 Chloride 104 Carbon Dioxide 29.0 Anion Gap 9 BUN 26 H Creatinine 1.31 H Estim Creat Clear Calc 87.15 Est GFR (MDRD) Af Amer 78 Est GFR (MDRD) Non-Af 64 BUN/Creatinine Ratio 19.8 Glucose 88 Calcium 8.9 Magnesium Urine Color Yellow Urine Clarity Clear Urine pH 7.0 Ur Specific [place] 1.010 Urine Protein 30 H Urine Glucose (UA) Normal Urine Ketones Negative Urine Occult Blood 25 H Urine Nitrite Negative Urine Bilirubin Negative Urine Urobilinogen Normal Ur Leukocyte Esterase 25 H Urine RBC 0 SEEN Urine WBC 0 SEEN Ur Squamous Epith Cells 0 SEEN Urine Bacteria 0 SEEN Urine Mucus 0 SEEN 11/23/17 04:52 WBC RBC Hgb Hct MCV MCH MCHC RDW RDW Differential Plt Count MPV Immature Gran % (Auto) Neut % (Auto) Lymph % (Auto) [place] % (Auto) Eos % (Auto) Baso % (Auto) Absolute Neuts (auto) Absolute Lymphs (auto) Total Counted PT 15.9 H INR 1.3 APTT 35.1 Sodium Potassium Chloride Carbon Dioxide Anion Gap BUN Creatinine Estim Creat Clear Calc Est GFR (MDRD) Af Amer Est GFR (MDRD) Non-Af BUN/Creatinine Ratio Glucose Calcium Magnesium Urine Color Urine Clarity Urine pH Ur Specific [place] Urine Protein Urine Glucose (UA) Urine Ketones Urine Occult Blood Urine Nitrite Urine Bilirubin Urine Urobilinogen Ur Leukocyte Esterase Urine RBC Urine WBC Ur Squamous Epith Cells Urine Bacteria Urine Mucus - Other Studies Radiology: [] reviewed Other Studies: [] Route of nutrition/ use of supplements: [] Nutritional Intake: [] IV Site: [] Beth Catheter: [] - Physical Exam General: Alert, Oriented x3, Cooperative, No apparent distress HEENT: Atraumatic, PERRLA, EOMI Neck: Supple, No Nodes Lungs: Clear to auscultation, Normal air movement Cardiovascular: Regular rate, Regular Rhythm, No murmurs Abdomen: Soft, Non Tender, Non-Distended, - - ostomy in place, healing surg incisions Extremities: No edema Skin: Ulcer/ Wound - sacral ulcer clean IV Site: PICC - removed Musculoskeletal: No Tenderness to Palpation of Joints or Extremities Neurological: Cranial nerves II-XII grossly intact - Assessment/Plan Antibiotics: [] Assessment/Plan: [] Low grade fever and leukocytosis - Bcx and Ucx from [place] on 11/21 remain negative. Lungs clear and cxr with no infiltrate. No sign of allergic reaction. Sacral wound with no sign of inflammation or drainage. Biggest area of concern is his abd given recent perforation and increased air with possible abscess reported on CT abd/pelvis. Surg following. May need ex-lap given possibility of continued leak. Cont vanc/zosyn for now. Infected sacral ulcer - now s/p debridement. Wound appears clean. Had wound vac on at [facility]. Recent cxs with PsA, ecoli, coryne, MRSA, and anaerobes, as well as prior burkholderia and enterococcus. Will follow, thank you.
--- NOTE | 2017-11-23 15:45 | NURSING ---
pt requested that his arms be shaved of hair using the electric razor prior to restarting IV or using more tape.
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
[2017-11-23] MEDS: Vancomycin IV 1,000 MG/200 ML BAG 200 MG IV (16:19)
[2017-11-23] MEDS: Divalproex Sodium 250 MG Tablet 1000 MG PO (22:43)
[2017-11-23 23:01] VITALS: BP 113/65; PULSE 77; RESP 18; TEMP 38.2; O2SAT 96
--- NOTE | 2017-11-23 23:47 | CT_ITS ---
STUDY: CT ABDOMEN AND PELVIS WITH CONTRAST REASON FOR EXAM: Male, 42 years old. Fever for 2 days and elevated white count. Patient has had recent colostomy in October 2017 secondary to transverse colon perforation . RADIATION DOSAGE (If Supplied By Facility): CTDIvol = ( 14.91 ) mGy, DLP = ( 1235.76 ) mGycm TECHNIQUE: Transaxial images were obtained from the dome of the diaphragm to the symphysis pubis with oral contrast. 100 ml of Isovue 300 contrast was administered. Sagittal and coronal images were reconstructed. Individualized dose optimization techniques were used for this CT. COMPARISON: CT of abdomen and pelvis dated November 16, 2017. FINDINGS: There may be right middle lobe atelectasis or airspace disease. This is incompletely imaged on the current study. There is bilateral dependent atelectasis. There are small pleural effusions. The visualized portions of the heart are within normal limits. Normal liver. There is non-visualization of the gallbladder, which may be secondary to either contraction or a prior cholecystectomy. Normal spleen. Normal pancreas. Normal bilateral adrenal glands. Both renal collecting systems are mildly prominent possibly related to extrarenal pelvis. There may be a duplicated right-sided renal collecting system. There appears to be right-sided renal parenchymal loss possibly related to previous ischemia or infection. There is no evidence for hydroureter or radiopaque ureteral calculi. Normal visualized stomach. There is no evidence for dilated bowel. There is a large amount of pneumoperitoneum anterior to the liver and stomach. There are small areas of pneumoperitoneum anterior to the transverse colon. There is a moderate amount of pelvic fluid that could represent an abscess. The stool is visible within most of the colon. There is an ostomy exiting the left lower quadrant abdominal wall. There is a calcified appendicolith. Normal abdominal aorta. Normal inferior vena cava. There is borderline retroperitoneal lymphadenopathy with enlarged nodes no greater than 10mm in the short axis diameter. Gas is visible in the urinary bladder probably related to the presence of Beth catheter. Normal visualized prostate gland. There is a small umbilical hernia containing fat. Normal osseous structures. CT/Abdomen/Pelvis WITH Contrast IMPRESSION: 1. Large amount of pneumoperitoneum despite recent surgery. This suggests a persistent perforation. 2. Moderate amount of pelvic fluid possibly representing an abscess. N.B. : The above information has been verbally conveyed by Nel Nunez MD to Raciel Acosta MD, on 11/23/2017 02:33:48 (ET). Electronically Signed: Nel Nunez MD at 2:40 EDT , Service support ,
[2017-11-24 01:45] VITALS: BP 108/61; PULSE 67; RESP 16; TEMP 38.3; O2SAT 96
[2017-11-24] MEDS: 0.9% Normal Saline 1,000 ML 125 ML IV (01:50)
[2017-11-24] MEDS: Vancomycin IV 1,000 MG/200 ML BAG 200 MG IV ×2 (03:53→16:07)
[2017-11-24] MEDS: oxyCODONE 5 MG Tablet 10 MG PO ×3 (04:04→16:12)
--- NOTE | 2017-11-24 05:29 | PCM.PN.SRG ---
Subjective: Patient still has continued to have fevers, but he has tolerated diet having bowel function per his colostomy which has been loose stool - Physical Exam General: Alert, Cooperative, No apparent distress Cardiovascular: Regular rate Abdomen: Soft, Non Tender - No peritoneal signs, Non-Distended Vital Signs Temp Pulse Resp BP Pulse Ox 100.9 F H 67 16 108/61 96 11/24/17 01:45 11/24/17 01:45 11/24/17 01:45 11/24/17 01:45 11/24/17 01:45 Oxygen Delivery Method Room Air Weight: 190 lb 5 oz Body Mass Index (BMI) 24.4 Intake and Output for Last 24 Hours 11/22/17 11/23/17 11/24/17 23:59 23:59 23:59 Intake Total 2161 / 2161 950 / 950 Output Total 1550 / 1550 950 / 950 Balance 611 / 611 0 / 0 Laboratory Tests Past 24 Hrs 11/23/17 04:52 WBC 15.2 H RBC 3.33 L Hgb 8.4 L Hct 27.6 L MCV 82.9 MCH 25.2 L MCHC 30.4 L RDW 19.6 H RDW Differential 60.5 H Plt Count 312 MPV 8.8 Immature Gran % (Auto) 0.100 Neut % (Auto) 52.4 Lymph % (Auto) 15.8 L [place] % (Auto) 25.6 H Eos % (Auto) 5.9 H Baso % (Auto) 0.2 Absolute Neuts (auto) 8.0 H Absolute Lymphs (auto) 2.41 Total Counted Not Reportable Medical Necessity - Tobacco Use Smoking Status: Never smoker Tobacco Use: Non-smoker Assessment/Plan All Active Problems Injury to transverse colon (Acute) Bowel perforation (Acute) Fever, unknown origin (Acute) Skin necrosis (Acute) Injury of neck (Acute) Stool incontinence (Acute) Pressure ulcer of sacral region, stage 3 (Ruled-out) Decubitus ulcer, stage 3 with infection (Ruled-out) 42-year-old male with fevers, pneumoperitoneum from recent surgery, cubitus ulcer 1. Patient is tolerating regular diet and having bowel function which has now changed from normal stool to loose/diarrhea. Patient's repeat CAT scan abdomen pelvis did show pneumoperitoneum however this is actually less than it was immediately after surgery-Dr. P waves initial consult did contain a typo but he did agree that the area is actually less than immediately after surgery. There is no signs of any stranding of the transverse colon at the site of previous injury and closure. Radiology stated there was not enough fluid in the pelvis to try to aspirate. 2. Fevers uncertain etiology, cultures pending on PICC line as well as blood cultures and urine cultures, ID is following. Francisca Thacker M.D. Pager: [phone] [facility] [address] [place] [address], [address] [place] [address] Office: [phone]
--- NOTE | 2017-11-24 05:33 | PN.SURG_ITS ---
Subjective: Patient still has continued to have fevers, but he has tolerated diet having bowel function per his colostomy which has been loose stool - Physical Exam General: Alert, Cooperative, No apparent distress Cardiovascular: Regular rate Abdomen: Soft, Non Tender - No peritoneal signs, Non-Distended Vital Signs Temp Pulse Resp BP Pulse Ox 100.9 F H 67 16 108/61 96 11/24/17 01:45 11/24/17 01:45 11/24/17 01:45 11/24/17 01:45 11/24/17 01:45 Oxygen Delivery Method Room Air Weight: 190 lb 5 oz Body Mass Index (BMI) 24.4 Intake and Output for Last 24 Hours 11/22/17 11/23/17 11/24/17 23:59 23:59 23:59 Intake Total 2161 / 2161 950 / 950 Output Total 1550 / 1550 950 / 950 Balance 611 / 611 0 / 0 Laboratory Tests Past 24 Hrs 11/23/17 04:52 WBC 15.2 H RBC 3.33 L Hgb 8.4 L Hct 27.6 L MCV 82.9 MCH 25.2 L MCHC 30.4 L RDW 19.6 H RDW Differential 60.5 H Plt Count 312 MPV 8.8 Immature Gran % (Auto) 0.100 Neut % (Auto) 52.4 Lymph % (Auto) 15.8 L [place] % (Auto) 25.6 H Eos % (Auto) 5.9 H Baso % (Auto) 0.2 Absolute Neuts (auto) 8.0 H Absolute Lymphs (auto) 2.41 Total Counted Not Reportable Medical Necessity - Tobacco Use Smoking Status: Never smoker Tobacco Use: Non-smoker Assessment/Plan All Active Problems Injury to transverse colon (Acute) Bowel perforation (Acute) Fever, unknown origin (Acute) Skin necrosis (Acute) Injury of neck (Acute) Stool incontinence (Acute) Pressure ulcer of sacral region, stage 3 (Ruled-out) Decubitus ulcer, stage 3 with infection (Ruled-out) 42-year-old male with fevers, pneumoperitoneum from recent surgery, cubitus ulcer 1. Patient is tolerating regular diet and having bowel function which has now changed from normal stool to loose/diarrhea. Patient's repeat CAT scan abdomen pelvis did show pneumoperitoneum however this is actually less than it was immediately after surgery-Dr. P waves initial consult did contain a typo but he did agree that the area is actually less than immediately after surgery. There is no signs of any stranding of the transverse colon at the site of previous injury and closure. Radiology stated there was not enough fluid in the pelvis to try to aspirate. 2. Fevers uncertain etiology, cultures pending on PICC line as well as blood cultures and urine cultures, ID is following. Francisca Thacker M.D. Pager: [phone] [facility] [address] [place] [address], [address] [place] [address] Office: [phone]
[2017-11-24 05:36] VITALS: BP 103/64; PULSE 68; RESP 16; TEMP 38; O2SAT 98
[2017-11-24] MEDS: Midodrine HCl 5 MG Tablet PO ×2 (05:37→14:58)
[2017-11-24] MEDS: Piperacil/Tazobactam 3.375 GM/50 ML ML IV (05:38)
[2017-11-24 07:32] LABS: Absolute Lymphocyte Count 2.77 X10^3/ul (0.83-4.51); Absolute Neutrophil Count 6.8 X10^3/uL (2.0-7.7); Basophil# 0.03 X10^3/uL; Basophil% 0.2 % (0-1); Eosinophil# 0.77 X10^3/uL; Hematocrit 26.4 % (40-54); Lymphocyte # 2.77 X10^3/ul (4.0); Lymphocyte % 21.5 % (19-41); Mean Corp Hgb Conc 30.3 g/gl (32-36); Mean Corpuscular Hgb 25.5 pg (27.0-32.0); Mean Corpuscular Volume 84.1 fL (80-94); Mean Platelet Vol. 9.1 fl (6.2-12.0); Monocyte# 2.49 X10^3/uL; Monocyte% 19.3 % (0-10); Neutrophil % 52.7 % (47-70); Platelet Count 370 K/mm3 (150-450); RBC Distribution Width SD 56.8 fl (35.1-43.9); Red Blood Count 3.14 M/mm3 (4.6-6.2); White Blood Count 12.9 K/mm3 (4.4-11.0)
[2017-11-24 07:33] LABS: Differential Indicated SCAN CRITERIA MET; POSITIVE COUNT NO; POSITIVE DIFFERENTIAL YES; POSITIVE MORPHOLOGY NO
[2017-11-24 07:47] LABS: Anion Gap 7 (5-15); BUN 18 mg/dL (7-18); BUN/Creat Ratio 12.5 RATIO (10-20); Calcium,Total 8.6 mg/dL (8.5-10.1); Chloride 105 mmol/L (98-107); Creatinine, Serum 1.44 mg/dL (0.70-1.30); EST Glomerular Filtration Rate 58 mL/min (>60); Est Glom Filt Rate - Afr Amer 70 mL/min (>60); Estimated Creatinine Clearance 79.28 ml/min; Glucose 83 mg/dL (74-106); Potassium 3.9 mmol/L (3.5-5.1); Sodium Level 140 mmol/L (136-145)
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
[2017-11-24 10:35] VITALS: BP 134/44; PULSE 63; RESP 18; TEMP 36.9; O2SAT 98
[2017-11-24] MEDS: 0.9% Normal Saline 1,000 ML 150 ML IV ×2 (10:40→18:14)
[2017-11-24] MEDS: Baclofen 10 MG Tablet 5 MG PO (10:42)
[2017-11-24] MEDS: Folic Acid 1 MG Tablet 2 MG PO (10:43)
[2017-11-24] MEDS: Multivitamins,Therapeutic Tablet 1 TABLET PO (10:43)
[2017-11-24] MEDS: FLUoxetine 20 MG Capsule PO (10:43)
[2017-11-24] MEDS: LORazepam 0.5 MG Tablet PO (10:43)
[2017-11-24] MEDS: Ascorbic Acid 500 MG Tablet PO (10:43)
[2017-11-24] MEDS: Divalproex Sodium 250 MG Tablet 500 MG PO (10:43)
[2017-11-24 11:16] LABS: Urine Sodium 73 mmol/L (Not Establ.)
[2017-11-24 11:24] LABS: Creatinine, Urine < 13.00 mg/dL (NO RANGE EST.)
--- NOTE | 2017-11-24 13:35 | NURSING ---
Family asking to talk with hospitalist. Family is not upset with care but thinking that they would like patient sent to a bigger hospital. Family is fearful that patient comes to hospital and then we get him feeling better but then he gets sent back to care home and then gets another infection. They feel [place] bigger hospital has a bigger team of physicians who could double check things that are going on with him. Informed hospitalist who stated she would begin transfer process but then called back and stated that surgery is admitting. Spoke to dr. chávez and explained pt/ family wishes, [facility], awaiting transfer, family informed.
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
[2017-11-24 14:55] VITALS: BP 87/49; PULSE 68; RESP 18; TEMP 36.2; O2SAT 96
[2017-11-24] MEDS: Heparin Injection (Vial) 5,000 UNIT/ML VIAL 5000 UNIT SC (14:59)
[2017-11-24 16:05] VITALS: BP 100/48; PULSE 64; RESP 18; TEMP 37.1; O2SAT 96
--- NOTE | 2017-11-24 18:30 | NURSING ---
Call placed to [facility] and report given to Eliseo PINEDA who will be taking over care for this patient
--- NOTE | 2017-11-24 20:06 | NURSING ---
Report and care to EMS, pt left via cart to [facility].
[2017-11-27 09:21] LABS: Pathologist Review Reviewed
== END 2017-11-24 20:07 | disposition short-term general hospital (02) | DRG 864 ==
LOC: ED 11-23 02:58 → MS2 11-23 03:37
PROVIDERS: Family Medicine; Admitting Provider Surgery; Emergency Provider Emergency Medicine; Family Provider Family Medicine; PCP Family Medicine; Visit Provider Student in an Organized Health Care Education/Training Program
DX: R50.9 Fever, unspecified (principal); L89.154 Pressure ulcer of sacral region, stage 4; G82.50 Quadriplegia, unspecified; N17.9 Acute kidney failure, unspecified; Z93.3 Colostomy status; Z23 Encounter for immunization; F41.9 Anxiety disorder, unspecified; F31.9 Bipolar disorder, unspecified; G89.4 Chronic pain syndrome; T14.8XXS Other injury of unspecified body region, sequela; V89.2XXS Person injured in unspecified motor-vehicle accident, traffic, sequela; D63.8 Anemia in other chronic diseases classified elsewhere
CPT/HCPCS: 36415; 71045; 74177; 76705; 80048; 81001; 82570; 83735; 84300; 85025; 85610; 85730; 87040; 87070; 87086; 87205; 87493; 97162; 97163; 97167; 97802; 99284; J7030; J7040; Q9967; 90686; A4216; J2405

== ENCOUNTER → 2017-12-14 16:37 | Outpatient (CLI) | payer MEDICARE, MEDICAID, SELFPAY ==
[2017-12-14 17:55] LABS: Absolute Lymphocyte Count 2.21 X10^3/ul (0.83-4.51); Absolute Neutrophil Count 7.1 X10^3/uL (2.0-7.7); Basophil# 0.02 X10^3/uL; Basophil% 0.2 % (0-1); Eosinophil# 0.29 X10^3/uL; Eosinophils% 2.7 % (0-5); Hematocrit 36.3 % (40-54); Hemoglobin 11.1 g/dl (13.0-16.5); Lymphocyte # 2.21 X10^3/ul (4.0); Lymphocyte % 20.5 % (19-41); Mean Corp Hgb Conc 30.6 g/gl (32-36); Mean Platelet Vol. 9.7 fl (6.2-12.0); Monocyte# 1.11 X10^3/uL; Monocyte% 10.3 % (0-10); Neutrophil # 7.12 X10^3/uL (2.7-7.7); Neutrophil % 66.1 % (47-70); Platelet Count 371 K/mm3 (150-450); RBC Distribution Width CV 16.7 % (11.6-14.6); RBC Distribution Width SD 51.4 fl (35.1-43.9); Red Blood Count 4.27 M/mm3 (4.6-6.2); White Blood Count 10.8 K/mm3 (4.4-11.0)
[2017-12-14 17:58] LABS: POSITIVE COUNT NO; POSITIVE DIFFERENTIAL NO; POSITIVE MORPHOLOGY NO
[2017-12-14 18:45] LABS: Vancomycin, Trough Level 13.1 ug/mL (5.0-15.0)
[2017-12-14 18:51] LABS: Albumin, Serum 2.8 g/dL (3.2-5.0); BUN 19 mg/dL (7-18); Creatinine, Serum 1.19 mg/dL (0.70-1.30); EST Glomerular Filtration Rate 72 mL/min (>60); Est Glom Filt Rate - Afr Amer 87 mL/min (>60); Glucose 76 mg/dL (74-106); Protein, Total 8.2 g/dL (6.4-8.2)
[2017-12-14 18:52] LABS: ALB/GLOB Ratio 0.5 RATIO (0.9-2.4); AST(SGOT) 13 U/L (15-37); Alanine Aminotransfer ALT/SGPT 22 U/L (16-61); Alkaline Phosphatase 82 U/L (45-117); Anion Gap 9 (5-15); Calcium,Total 10.8 mg/dL (8.5-10.1); Chloride 101 mmol/L (98-107); Globulin 5.4 g/dL (2.2-4.2); Potassium 4.9 mmol/L (3.5-5.1); Sodium Level 139 mmol/L (136-145)
[2017-12-14 19:18] LABS: Erythrocyte Sedimentation Rate 76 mm/hr (0-15)
== END ==
PROVIDERS: Family Provider Family Medicine; PCP Family Medicine; Visit Provider Family Medicine
DX: G82.54 Quadriplegia, C5-C7 incomplete (principal)
CPT/HCPCS: 36415; 80053; 80202; 85025; 85652; 86140

== ENCOUNTER 2017-12-17 11:09 | Outpatient (RCR) | payer MEDICARE, MEDICAID, SELFPAY ==
[2017-12-17 12:05] VITALS: BP 95/60; PULSE 73; RESP 18; TEMP 36.1
--- NOTE | 2017-12-17 22:56 | PCM.WC.PN ---
Type of Wound Date of Service: 12/17/17 Chief Complaint: Sacral pressure sore, Stage IV. History of Wound: Surgery 11/13/17 - Excision infected necrotic sacral pressure sore including underlying necrotic muscle, Stage IV. Wound care - VAC. Operative culture - Pseudomonas aeroginosa, E. coli, Corynebacterium amycolatum, Staphylococcus aureus, Bacteroides fragilis, and Anaerobic cocci. He was treated with Vancomycin and Zosyn and has finished them. Will pull the PICC line today. Prealbumin from 11/14/17 was 17.7. Encourage nutritional supplementation with protein to help the healing process. MRI Pelvis from 11/12/17 was negative for osteomyelitis. Today the patient denies fever. His appetite is ok. Progress of Wound: Improved. - Physical Exam Vital Signs Temp Pulse Resp BP 96.9 F L 73 18 95/60 12/17/17 12:05 12/17/17 12:05 12/17/17 12:05 12/17/17 12:05 Wound Measurements and Assessment WC - Nurse 1 - General Ulcer Measurement Start: 12/17/17 12:01 Freq: Status: Active Protocol: Activity Type Activity Date Activity User E-Sign Co-Sign Detail Recorded Client Recorded Date Recorded By Document 12/17/17 12:05 DL [id number] 12/17/17 12:13 DL 12/17/17 12:05 Wound Center Nurse 1 [Ulcer Assessment] #1 Sacral -Current Size (cm) - Length 9 -Current Size (cm) - Width 7.4 -Current Size (cm) - Depth 2 -Total Square Cm 66.6 -Photo Taken Yes -Epithelialization None Present -Classification - Thickness Full Thickness without Exposed Support Structure -Exudate Amt Large (67-100%) -Exudate Type Serosanguineous -Wound Margin Distinct, Outline Attached -Granulation Amt Large (67-100%) -Granulation Quality Red -Necrosis Amt Medium (34-66%) -Necrotic Tissue Type Adherent Slough -Texture (Haley-wound Skin Appearance) Scarring -Moisture (Haley-wound Skin Appearance No Abnormality ) -Color (Haley-wound Skin Appearance) No Abnormality -Temperature (Haley-wound Skin No Abnormality Appearance) (Pt Warm) -Ulcer Cleansing Wound Cleanser -Foul Odor after Cleansing No WC - Nurse 2 - General Ulcer CM Notes Start: 12/17/17 12:01 Freq: Status: Active Protocol: Activity Type Activity Date Activity User E-Sign Co-Sign Detail Recorded Client Recorded Date Recorded By Document 12/17/17 13:17 [id number] 12/17/17 13:20 12/17/17 13:17 Wound Center Nurse 2 [Procedure/Treatment] -Time 13:19 -Correct Patient Yes -Correct Side, Site, Position Yes -Correct Procedure Yes -Procedure Performed Yes -Type of Procedure Debridement -Clinical Debridement Muscle -Post Debridement Size (cm) - Length 9 -Post Debridement Size (cm) - Width 7.5 -Post Debridement Size (cm) - Depth 2.0 -Total Square Cm 67.5 -Wound/Ulcer Outcome Not Healed -Ulcer Cleansing Rinsed/ Irrigated with Saline -Foul Odor after Cleansing No -Bioengineered Tissue No -Bleeding Controlled with Pressure -Treatment Response Procedure Tolerated Well [See Physician Procedure note for Specifics] Pain Scale: 0-10 Numeric [Pain] -Is Patient Pain Free? Yes Debridement Note Post-Debridement Measurements/Treatment WC - Nurse 2 - General Ulcer CM Notes Start: 12/17/17 12:01 Freq: Status: Active Protocol: Activity Type Activity Date Activity User E-Sign Co-Sign Detail Recorded Client Recorded Date Recorded By Document 12/17/17 13:17 [id number] [id number] 12/17/17 13:20 12/17/17 13:17 Wound Center Nurse 2 #1 Sacral -Time 13:19 -Correct Patient Yes -Correct Side, Site, Position Yes -Correct Procedure Yes -Procedure Performed Yes -Type of Procedure Debridement -Clinical Debridement Muscle -Post Debridement Size (cm) - Length 9 -Post Debridement Size (cm) - Width 7.5 -Post Debridement Size (cm) - Depth 2.0 -Total Square Cm 67.5 -Wound/Ulcer Outcome Not Healed -Ulcer Cleansing Rinsed/ Irrigated with Saline -Foul Odor after Cleansing No -Bioengineered Tissue No -Bleeding Controlled with Pressure -Treatment Response Procedure Tolerated Well Pain Scale: 0-10 Numeric Is Patient Pain Free? Yes Wound debrided: #1 Sacral area. Laterality: Not Applicable Wound Grade/Stage: IV. Type of Debridement: Excisional debridement Anesthesia Used: 4% Lidocaine Solution Depth: Down to and including healthy tissue, in the subcutaneous layer, to muscle Percentage of wound debrided: 100 Instrument Used: 7mm curette Tissue Removed: subcutaneous tissue and muscle. Severity: Fat Layer Exposed - muscle is exposed. Amount of bleeding with debridement: Mild Bleeding Controlled with: Pressure Patient tolerated procedure well Assessment/Plan Assessment: 1. 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 2. Quadriplegia. 3. Stool incontinence. 4. s/p excision infected necrotic sacral pressure sore including underlying necrotic muscle, Stage IV. Plan: Continue VAC to be changed three times per week at 150 mmHg continuous suction. He is done with his antibiotics (Vancomycin and Zosyn) for Pseudomonas aeroginosa, E. coli, Corynebacterium amycolatum, Staphylococcus aureus, Bacteroides fragilis, and Anaerobic cocci. The PICC line was pulled today. Prealbumin from 11/14/17 was 17.7. Encourage nutritional supplementation with protein to help the healing process. Followup 2 weeks.
--- NOTE | 2017-12-18 21:57 | PN.PCM_ITS ---
Type of Wound Date of Service: 12/17/17 Chief Complaint: Sacral pressure sore, Stage IV. History of Wound: Surgery 11/13/17 - Excision infected necrotic sacral pressure sore including underlying necrotic muscle, Stage IV. Wound care - VAC. Operative culture - Pseudomonas aeroginosa, E. coli, Corynebacterium amycolatum, Staphylococcus aureus, Bacteroides fragilis, and Anaerobic cocci. He was treated with Vancomycin and Zosyn and has finished them. Will pull the PICC line today. Prealbumin from 11/14/17 was 17.7. Encourage nutritional supplementation with protein to help the healing process. MRI Pelvis from 11/12/17 was negative for osteomyelitis. Today the patient denies fever. His appetite is ok. Progress of Wound: Improved. - Physical Exam Vital Signs Temp Pulse Resp BP 96.9 F L 73 18 95/60 12/17/17 12:05 12/17/17 12:05 12/17/17 12:05 12/17/17 12:05 Wound Measurements and Assessment WC - Nurse 1 - General Ulcer Measurement Start: 12/17/17 12:01 Freq: Status: Active Protocol: Activity Type Activity Date Activity User E-Sign Co-Sign Detail Recorded Client Recorded Date Recorded By Document 12/17/17 12:05 DL [id number] 12/17/17 12:13 DL 12/17/17 12:05 Wound Center Nurse 1 [Ulcer Assessment] #1 Sacral -Current Size (cm) - Length 9 -Current Size (cm) - Width 7.4 -Current Size (cm) - Depth 2 -Total Square Cm 66.6 -Photo Taken Yes -Epithelialization None Present -Classification - Thickness Full Thickness without Exposed Support Structure -Exudate Amt Large (67-100%) -Exudate Type Serosanguineous -Wound Margin Distinct, Outline Attached -Granulation Amt Large (67-100%) -Granulation Quality Red -Necrosis Amt Medium (34-66%) -Necrotic Tissue Type Adherent Slough -Texture (Haley-wound Skin Appearance) Scarring -Moisture (Haley-wound Skin Appearance No Abnormality ) -Color (Haley-wound Skin Appearance) No Abnormality -Temperature (Haley-wound Skin No Abnormality Appearance) (Pt Warm) -Ulcer Cleansing Wound Cleanser -Foul Odor after Cleansing No WC - Nurse 2 - General Ulcer CM Notes Start: 12/17/17 12:01 Freq: Status: Active Protocol: Activity Type Activity Date Activity User E-Sign Co-Sign Detail Recorded Client Recorded Date Recorded By Document 12/17/17 13:17 [id number] 12/17/17 13:20 12/17/17 13:17 Wound Center Nurse 2 [Procedure/Treatment] -Time 13:19 -Correct Patient Yes -Correct Side, Site, Position Yes -Correct Procedure Yes -Procedure Performed Yes -Type of Procedure Debridement -Clinical Debridement Muscle -Post Debridement Size (cm) - Length 9 -Post Debridement Size (cm) - Width 7.5 -Post Debridement Size (cm) - Depth 2.0 -Total Square Cm 67.5 -Wound/Ulcer Outcome Not Healed -Ulcer Cleansing Rinsed/ Irrigated with Saline -Foul Odor after Cleansing No -Bioengineered Tissue No -Bleeding Controlled with Pressure -Treatment Response Procedure Tolerated Well [See Physician Procedure note for Specifics] Pain Scale: 0-10 Numeric [Pain] -Is Patient Pain Free? Yes Debridement Note Post-Debridement Measurements/Treatment WC - Nurse 2 - General Ulcer CM Notes Start: 12/17/17 12:01 Freq: Status: Active Protocol: Activity Type Activity Date Activity User E-Sign Co-Sign Detail Recorded Client Recorded Date Recorded By Document 12/17/17 13:17 [id number] 12/17/17 13:20 12/17/17 13:17 Wound Center Nurse 2 #1 Sacral -Time 13:19 -Correct Patient Yes -Correct Side, Site, Position Yes -Correct Procedure Yes -Procedure Performed Yes -Type of Procedure Debridement -Clinical Debridement Muscle -Post Debridement Size (cm) - Length 9 -Post Debridement Size (cm) - Width 7.5 -Post Debridement Size (cm) - Depth 2.0 -Total Square Cm 67.5 -Wound/Ulcer Outcome Not Healed -Ulcer Cleansing Rinsed/ Irrigated with Saline -Foul Odor after Cleansing No -Bioengineered Tissue No -Bleeding Controlled with Pressure -Treatment Response Procedure Tolerated Well Pain Scale: 0-10 Numeric Is Patient Pain Free? Yes Wound debrided: #1 Sacral area. Laterality: Not Applicable Wound Grade/Stage: IV. Type of Debridement: Excisional debridement Anesthesia Used: 4% Lidocaine Solution Depth: Down to and including healthy tissue, in the subcutaneous layer, to muscle Percentage of wound debrided: 100 Instrument Used: 7mm curette Tissue Removed: subcutaneous tissue and muscle. Severity: Fat Layer Exposed - muscle is exposed. Amount of bleeding with debridement: Mild Bleeding Controlled with: Pressure Patient tolerated procedure well Assessment/Plan Assessment: 1. 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 2. Quadriplegia. 3. Stool incontinence. 4. s/p excision infected necrotic sacral pressure sore including underlying necrotic muscle, Stage IV. Plan: Continue VAC to be changed three times per week at 150 mmHg continuous suction. He is done with his antibiotics (Vancomycin and Zosyn) for Pseudomonas aeroginosa, E. coli, Corynebacterium amycolatum, Staphylococcus aureus, Bacteroides fragilis, and Anaerobic cocci. The PICC line was pulled today. Prealbumin from 11/14/17 was 17.7. Encourage nutritional supplementation with protein to help the healing process. Followup 2 weeks.
== END 2017-12-26 23:59 ==
LOC: WC 11:09
PROVIDERS: Family Provider Family Medicine; PCP Family Medicine; Visit Provider Surgery
DX: L89.154 Pressure ulcer of sacral region, stage 4 (principal); G82.50 Quadriplegia, unspecified; R15.9 Full incontinence of feces
CPT/HCPCS: 11043; 11046; 99213; G0463

== ENCOUNTER 2018-01-04 06:01 | Day surgery (SDC) | payer MEDICARE, MEDICAID, SELFPAY ==
[2018-01-04] VITALS (8 sets, daily range): BP systolic 86–146; BP diastolic 56–72; PULSE 57–72; RESP 14–16; TEMP 36.3–37.4; O2SAT 93–98; BMI 23.0
--- NOTE | 2018-01-04 07:51 | DCINST_ITS ---
Discharge Diet: Light diet - advance as tolerated Discharge Activity: Return to Normal Activity Instructions: Discharge Instructions: Caring for Your Suprapubic Catheter Allergies/Adverse Reactions: Allergies No Known Allergies Allergy (Verified 01/03/18 13:44) Medications to take at Discharge Divalproex Sodium [Depakote] 1,000 mg PO QHS 11/11/17 Divalproex Sodium [Depakote] 500 mg PO DAILY 11/11/17 Acetaminophen [Tylenol] 325 - 650 mg PO Q4H PRN PRN 11/12/17 Ascorbic Acid [Vitamin C] 500 mg PO DAILY 11/12/17 Enoxaparin Sodium [Lovenox] 40 mg SQ DAILY 11/12/17 Fluoxetine HCl [Prozac] 20 mg PO DAILY 11/12/17 Hydroxyzine HCl 12.5 mg PO TID PRN 11/12/17 Midodrine HCl 5 mg PO TID 11/12/17 Multivitamin [Daily Multiple Vitamin] 1 tab PO DAILY 11/12/17 Zinc Sulfate (50mg elemental) [Zinc Sulfate] 220 mg PO DAILY 11/12/17 Baclofen [Lioresal] 5 mg PO BID 01/03/18 Fentanyl 75 mcg TD Q3D 01/03/18 Folic Acid 2 mg PO DAILY@0800 01/03/18 Ondansetron HCl [Zofran] 4 mg PO PRN PRN 01/03/18 Oxycodone HCl/Acetaminophen [Percocet 5/325] 1 - 2 tablet PO Q6H PRN PRN 01/03/18 Primary Care Physician: El Lopez NP-C [Primary Care Provider] - Test Results: Test results from this visit will be discussed in further detail at your follow- up appointment, if applicable. Please Follow Up With: Hai Joiner MD When: FOLLOW UP IN 6 WEEKS TO CHANGE SP TUBE
[2018-01-04] MEDS: Cefazolin 2 GM in 0.9% Normal Saline 100 ML IV (07:58)
--- NOTE | 2018-01-04 08:18 | PCM.OPRPT ---
Report of Operation Date of Procedure: 01/04/18 Pre-Operative Diagnosis: Neurogenic bladder Post-Operative Diagnosis: Same Surgery/Procedure Performed:: Cystoscopy and placement of suprapubic catheter Description of Surgical Findings:: 42-year-old male taken back to the operating room at the smooth induction of MAC local anesthesia, palpated the pubic bone above the pubic bone went about 2 cm above infiltrated the skin with lidocaine and a small incision in the skin and then infiltrated the tract for the SP tube Beth catheter was removed the penis testicles are prepped and draped in usual sterile fashion, went into the bladder with a 21 Tamazight rigid cystourethroscope urethroscope the entire length the urethra is normal no scar tissue abnormality no strictures prostate was normal inside the bladder and some mild debris in the base of the bladder I then looked up to the dome of the bladder is a finder needle to locate the track and then used the stylette insertion suprapubic trocar and the advanced the trocar into the bladder pulled out the middle the trocar into the through the sheath advanced a 16 Tamazight catheter placed 10 cc in the balloon pulled this back to the hub and then removed the sheath and the catheter. We then left the catheter to gravity gravity drainage the patient anesthetic was reversed taken back to PACU good condition plan is to see him in 6 weeks in the office to change the SP tube. Type of Anesthesia:: Local MAC Drains: SP tube - Admit VTE Documentation VTE Present on Admission: No VTE Mechan Device Prophylaxis: SCD's
== END 2018-01-04 10:23 | disposition home or self-care (01) ==
LOC: SDC 06:02 → AC 06:03
PROVIDERS: Family Provider Nurse Practitioner Primary Care; PCP Nurse Practitioner Primary Care; Referring Provider Urology; Visit Provider Urology
PROC: 0T9B40Z Drainage of Bladder with Drainage Device, Percutaneous Endoscopic Approach (ICD-10-PCS; CPT 52005; principal; 2018-01-04 07:45)
DX: N31.8 Other neuromuscular dysfunction of bladder (principal); N39.498 Other specified urinary incontinence; G82.50 Quadriplegia, unspecified; F31.9 Bipolar disorder, unspecified; F41.9 Anxiety disorder, unspecified; Z93.3 Colostomy status; Z79.899 Other long term (current) drug therapy; Z87.891 Personal history of nicotine dependence
CPT/HCPCS: 00800; 51102; J7120; J2405

== ENCOUNTER 2018-01-05 10:30 | Emergency (ER) | payer MEDICARE, MEDICAID, SELFPAY ==
[2018-01-05 10:32] VITALS: BP 103/68; PULSE 76; RESP 16; TEMP 36.7; O2SAT 97; BMI 22.7
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
--- NOTE | 2018-01-05 11:29 | ED.DEP ---
ED Disposition - Plan for ED Patient: Chief Complaint: Complaint Instructions: ED Retention Urinary Male Referrals: El Lopez NP-C [Primary Care Provider] - Additional Instructions: Follow-up with your urologist for further instructions and management
[2018-01-05 12:07] VITALS: BP 101/79; PULSE 79; RESP 16; TEMP 36.6; O2SAT 100
== END 2018-01-05 12:08 | disposition home or self-care (01) ==
LOC: ED 11:30
PROVIDERS: Emergency Provider Emergency Medicine; Family Provider Nurse Practitioner Primary Care; PCP Nurse Practitioner Primary Care
DX: T83.098A Other mechanical complication of other urinary catheter, initial encounter (principal); G82.50 Quadriplegia, unspecified
CPT/HCPCS: 99282

== ENCOUNTER 2018-01-15 15:00 | Outpatient (RCR) | payer MEDICARE, MEDICAID, SELFPAY ==
[2017-12-27 01:54] VITALS: BP 95/60; PULSE 73; RESP 18; TEMP 36.1
[2018-01-01 14:29] VITALS: BP 137/70; PULSE 65; RESP 16; TEMP 36.6
--- NOTE | 2018-01-01 17:16 | PCM.WC.PN ---
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 History of Wound: Surgery 11/13/17 - Excision infected necrotic sacral pressure sore including underlying necrotic muscle, Stage IV. Wound care - VAC. Operative culture - Pseudomonas aeroginosa, E. coli, Corynebacterium amycolatum, Staphylococcus aureus, Bacteroides fragilis, and Anaerobic cocci. He was treated with Vancomycin and Zosyn and has finished them. Will pull the PICC line today. Prealbumin from 11/14/17 was 17.7. Encourage nutritional supplementation with protein to help the healing process. MRI Pelvis from 11/12/17 was negative for osteomyelitis. Today the patient denies fever. His appetite is ok. Progress of Wound: Improved. - Physical Exam Vital Signs Temp Pulse Resp BP 97.8 F 65 16 137/70 H 01/01/18 14:29 01/01/18 14:29 01/01/18 14:29 01/01/18 14:29 General: Alert, Oriented x3, Cooperative HEENT: Atraumatic Oral: Moist Mucosa Extremities: No edema Skin: Ulcer/ Wound - Stage IV sacral ulcer Wound Measurements and Assessment WC - Nurse 1 - General Ulcer Measurement Start: 01/01/18 14:29 Freq: Status: Active Protocol: Activity Type Activity Date Activity User E-Sign Co-Sign Detail Recorded Client Recorded Date Recorded By Document 01/01/18 14:29 DV [id number] 01/01/18 14:57 DV 01/01/18 14:29 Wound Center Nurse 1 [Ulcer Assessment] #1 Sacral -Combined with other wound No -Current Size (cm) - Length 8.0 -Current Size (cm) - Width 2.0 -Current Size (cm) - Depth 4.0 -Total Square Cm 16.00 -Photo Taken No -Epithelialization Small 1-33% -Tunneling No -Undermining/Tunneling No -Circular Undermining No -Classification - Thickness Full Thickness with Exposed Support Structure -Exudate Amt Large (67-100%) -Exudate Type Serosanguineous -Wound Margin Flat & Intact -Granulation Amt Large (67-100%) -Granulation Quality Red -Slough/Fibrin Yes -Necrosis Amt Medium (34-66%) -Necrotic Tissue Type Adherent Slough -Structure Exposed Fascia Muscle Fat Layer Exposed -Texture (Haley-wound Skin Appearance) Assessed Localized Edema Scarring -Moisture (Haley-wound Skin Appearance Assessed ) Weeping -Color (Haley-wound Skin Appearance) Assessed Erythema Hemosiderin Staining -Temperature (Haley-wound Skin No Abnormality Appearance) (Pt Warm) -Tenderness on Palpation (Haley-wound No Skin Appearance) -Ulcer Cleansing Wound Cleanser -Foul Odor after Cleansing No -Anesthetic Used 4% Lidocaine Solution [Edema Assessment] -Lower Limb Edema Present No WC - Nurse 2 - General Ulcer CM Notes Start: 01/01/18 14:29 Freq: Status: Active Protocol: Activity Type Activity Date Activity User E-Sign Co-Sign Detail Recorded Client Recorded Date Recorded By Document 01/01/18 15:09 ALBINO [id number] 01/01/18 15:13 01/01/18 15:09 Wound Center Nurse 2 [Procedure/Treatment] #1 Sacral -Time 15:10 -Correct Patient Yes -Correct Side, Site, Position Yes -Correct Procedure Yes -Procedure Performed Yes -Type of Procedure Debridement -Clinical Debridement Muscle -Post Debridement Size (cm) - Length 8.7 -Post Debridement Size (cm) - Width 6.0 -Post Debridement Size (cm) - Depth 2.4 -Total Square Cm 52.20 -Wound/Ulcer Outcome Not Healed -Ulcer Cleansing Rinsed/ Irrigated with Saline -Foul Odor after Cleansing No -Bioengineered Tissue No -Bleeding Controlled with Pressure -Treatment Response Procedure Tolerated Well [See Physician Procedure note for Specifics] Pain Scale: 0-10 Numeric [Pain] -Is Patient Pain Free? Yes Musculoskeletal: No Tenderness to Palpation of Joints or Extremities Neurological: Cranial nerves II-XII grossly intact Psych/Mental Status: Normal Affect, Appropriate Debridement Note Post-Debridement Measurements/Treatment WC - Nurse 2 - General Ulcer CM Notes Start: 01/01/18 14:29 Freq: Status: Active Protocol: Activity Type Activity Date Activity User E-Sign Co-Sign Detail Recorded Client Recorded Date Recorded By Document 01/01/18 15:09 [id number] 01/01/18 15:13 01/01/18 15:09 Wound Center Nurse 2 #1 Sacral -Time 15:10 -Correct Patient Yes -Correct Side, Site, Position Yes -Correct Procedure Yes -Procedure Performed Yes -Type of Procedure Debridement -Clinical Debridement Muscle -Post Debridement Size (cm) - Length 8.7 -Post Debridement Size (cm) - Width 6.0 -Post Debridement Size (cm) - Depth 2.4 -Total Square Cm 52.20 -Wound/Ulcer Outcome Not Healed -Ulcer Cleansing Rinsed/ Irrigated with Saline -Foul Odor after Cleansing No -Bioengineered Tissue No -Bleeding Controlled with Pressure -Treatment Response Procedure Tolerated Well Pain Scale: 0-10 Numeric Is Patient Pain Free? Yes Wound debrided: Sacral ulcer Wound Grade/Stage: Stage IV Type of Debridement: Excisional debridement Anesthesia Used: 4% Lidocaine Solution Depth: Down to and including healthy tissue, in the subcutaneous layer, to muscle Percentage of wound debrided: 100 Instrument Used: 3mm curette Tissue Removed: Subcutaneous tissue and slough Severity: Fat Layer Exposed Amount of bleeding with debridement: Mild Bleeding Controlled with: Pressure Patient tolerated procedure well Assessment/Plan Active Problems (This Medical Record has been edited. Action required.) Quadriplegia following spinal cord injury (Chronic) Pressure ulcer of sacral region, stage 4 (Chronic) Assessment: 1. 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 2. Quadriplegia. 3. Stool incontinence. 4. s/p excision infected necrotic sacral pressure sore including underlying necrotic muscle, Stage IV. Plan: Continue VAC to be changed three times per week at 150 mmHg continuous suction. Instructed him and his that the wound needs to be cleansed with soap and water with the vac changes. states they have only been using the saline spray. He is done with his antibiotics (Vancomycin and Zosyn) for Pseudomonas aeroginosa, E. coli, Corynebacterium amycolatum, Staphylococcus aureus, Bacteroides fragilis, and Anaerobic cocci. The PICC line was DC'd at a previous visit. Prealbumin from 11/14/17 was 17.7. Encourage nutritional supplementation with protein to help the healing process. He will call Dr. Duff's office for refill on his pain meds. He has an appointment for pain management scheduled. Followup 2 weeks. Code Visit 111xxx-113xx: [id number] Margarita musc/fascia 20 sq cm/< Add On Codes: [id number] Margarita musc/fascia add-on - x2
--- NOTE | 2018-01-03 11:22 | PN.PCM_ITS ---
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 History of Wound: Surgery 11/13/17 - Excision infected necrotic sacral pressure sore including underlying necrotic muscle, Stage IV. Wound care - VAC. Operative culture - Pseudomonas aeroginosa, E. coli, Corynebacterium amycolatum, Staphylococcus aureus, Bacteroides fragilis, and Anaerobic cocci. He was treated with Vancomycin and Zosyn and has finished them. Will pull the PICC line today. Prealbumin from 11/14/17 was 17.7. Encourage nutritional supplementation with protein to help the healing process. MRI Pelvis from 11/12/17 was negative for osteomyelitis. Today the patient denies fever. His appetite is ok. Progress of Wound: Improved. - Physical Exam Vital Signs Temp Pulse Resp BP 97.8 F 65 16 137/70 H 01/01/18 14:29 01/01/18 14:29 01/01/18 14:29 01/01/18 14:29 General: Alert, Oriented x3, Cooperative HEENT: Atraumatic Oral: Moist Mucosa Extremities: No edema Skin: Ulcer/ Wound - Stage IV sacral ulcer Wound Measurements and Assessment WC - Nurse 1 - General Ulcer Measurement Start: 01/01/18 14:29 Freq: Status: Active Protocol: Activity Type Activity Date Activity User E-Sign Co-Sign Detail Recorded Client Recorded Date Recorded By Document 01/01/18 14:29 DV [id number] 01/01/18 14:57 DV 01/01/18 14:29 Wound Center Nurse 1 [Ulcer Assessment] #1 Sacral -Combined with other wound No -Current Size (cm) - Length 8.0 -Current Size (cm) - Width 2.0 -Current Size (cm) - Depth 4.0 -Total Square Cm 16.00 -Photo Taken No -Epithelialization Small 1-33% -Tunneling No -Undermining/Tunneling No -Circular Undermining No -Classification - Thickness Full Thickness with Exposed Support Structure -Exudate Amt Large (67-100%) -Exudate Type Serosanguineous -Wound Margin Flat & Intact -Granulation Amt Large (67-100%) -Granulation Quality Red -Slough/Fibrin Yes -Necrosis Amt Medium (34-66%) -Necrotic Tissue Type Adherent Slough -Structure Exposed Fascia Muscle Fat Layer Exposed -Texture (Haley-wound Skin Appearance) Assessed Localized Edema Scarring -Moisture (Haley-wound Skin Appearance Assessed ) Weeping -Color (Haley-wound Skin Appearance) Assessed Erythema Hemosiderin Staining -Temperature (Haley-wound Skin No Abnormality Appearance) (Pt Warm) -Tenderness on Palpation (Haley-wound No Skin Appearance) -Ulcer Cleansing Wound Cleanser -Foul Odor after Cleansing No -Anesthetic Used 4% Lidocaine Solution [Edema Assessment] -Lower Limb Edema Present No WC - Nurse 2 - General Ulcer CM Notes Start: 01/01/18 14:29 Freq: Status: Active Protocol: Activity Type Activity Date Activity User E-Sign Co-Sign Detail Recorded Client Recorded Date Recorded By Document 01/01/18 15:09 ALBINO [id number] 01/01/18 15:13 01/01/18 15:09 Wound Center Nurse 2 [Procedure/Treatment] #1 Sacral -Time 15:10 -Correct Patient Yes -Correct Side, Site, Position Yes -Correct Procedure Yes -Procedure Performed Yes -Type of Procedure Debridement -Clinical Debridement Muscle -Post Debridement Size (cm) - Length 8.7 -Post Debridement Size (cm) - Width 6.0 -Post Debridement Size (cm) - Depth 2.4 -Total Square Cm 52.20 -Wound/Ulcer Outcome Not Healed -Ulcer Cleansing Rinsed/ Irrigated with Saline -Foul Odor after Cleansing No -Bioengineered Tissue No -Bleeding Controlled with Pressure -Treatment Response Procedure Tolerated Well [See Physician Procedure note for Specifics] Pain Scale: 0-10 Numeric [Pain] -Is Patient Pain Free? Yes Musculoskeletal: No Tenderness to Palpation of Joints or Extremities Neurological: Cranial nerves II-XII grossly intact Psych/Mental Status: Normal Affect, Appropriate Debridement Note Post-Debridement Measurements/Treatment WC - Nurse 2 - General Ulcer CM Notes Start: 01/01/18 14:29 Freq: Status: Active Protocol: Activity Type Activity Date Activity User E-Sign Co-Sign Detail Recorded Client Recorded Date Recorded By Document 01/01/18 15:09 [id number] 01/01/18 15:13 01/01/18 15:09 Wound Center Nurse 2 #1 Sacral -Time 15:10 -Correct Patient Yes -Correct Side, Site, Position Yes -Correct Procedure Yes -Procedure Performed Yes -Type of Procedure Debridement -Clinical Debridement Muscle -Post Debridement Size (cm) - Length 8.7 -Post Debridement Size (cm) - Width 6.0 -Post Debridement Size (cm) - Depth 2.4 -Total Square Cm 52.20 -Wound/Ulcer Outcome Not Healed -Ulcer Cleansing Rinsed/ Irrigated with Saline -Foul Odor after Cleansing No -Bioengineered Tissue No -Bleeding Controlled with Pressure -Treatment Response Procedure Tolerated Well Pain Scale: 0-10 Numeric Is Patient Pain Free? Yes Wound debrided: Sacral ulcer Wound Grade/Stage: Stage IV Type of Debridement: Excisional debridement Anesthesia Used: 4% Lidocaine Solution Depth: Down to and including healthy tissue, in the subcutaneous layer, to muscle Percentage of wound debrided: 100 Instrument Used: 3mm curette Tissue Removed: Subcutaneous tissue and slough Severity: Fat Layer Exposed Amount of bleeding with debridement: Mild Bleeding Controlled with: Pressure Patient tolerated procedure well Assessment/Plan Active Problems (This Medical Record has been edited. Action required.) Quadriplegia following spinal cord injury (Chronic) Pressure ulcer of sacral region, stage 4 (Chronic) Assessment: 1. 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 2. Quadriplegia. 3. Stool incontinence. 4. s/p excision infected necrotic sacral pressure sore including underlying necrotic muscle, Stage IV. Plan: Continue VAC to be changed three times per week at 150 mmHg continuous suction. Instructed him and his that the wound needs to be cleansed with soap and water with the vac changes. states they have only been using the saline spray. He is done with his antibiotics (Vancomycin and Zosyn) for Pseudomonas aeroginosa, E. coli, Corynebacterium amycolatum, Staphylococcus aureus, Bacteroides fragilis, and Anaerobic cocci. The PICC line was DC'd at a previous visit. Prealbumin from 11/14/17 was 17.7. Encourage nutritional supplementation with protein to help the healing process. He will call Dr. Duff's office for refill on his pain meds. He has an appointment for pain management scheduled. Followup 2 weeks. Code Visit 111xxx-113xx: 22009 Margarita musc/fascia 20 sq cm/< Add On Codes: [id number] Margarita musc/fascia add-on - x2
[2018-01-15 15:25] VITALS: BP 99/56; PULSE 79; RESP 18; TEMP 35.4
--- NOTE | 2018-01-15 16:55 | PCM.WC.PN ---
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 History of Wound: Surgery 11/13/17 - Excision infected necrotic sacral pressure sore including underlying necrotic muscle, Stage IV. Wound care - VAC. Operative culture - Pseudomonas aeroginosa, E. coli, Corynebacterium amycolatum, Staphylococcus aureus, Bacteroides fragilis, and Anaerobic cocci. He was treated with Vancomycin and Zosyn and has finished them. Will pull the PICC line today. Prealbumin from 11/14/17 was 17.7. Encourage nutritional supplementation with protein to help the healing process. MRI Pelvis from 11/12/17 was negative for osteomyelitis. Today the patient denies fever. His appetite is ok. Progress of Wound: Improved. - Physical Exam Vital Signs Temp Pulse Resp BP 95.7 F L 79 18 99/56 L 01/15/18 15:25 01/15/18 15:25 01/15/18 15:25 01/15/18 15:25 General: Alert, Oriented x3, Cooperative HEENT: Atraumatic Extremities: No edema Skin: Ulcer/ Wound - sacral ulcer Wound Measurements and Assessment WC - Nurse 1 - General Ulcer Measurement Start: 01/01/18 14:29 Freq: Status: Active Protocol: Activity Type Activity Date Activity User E-Sign Co-Sign Detail Recorded Client Recorded Date Recorded By Document 01/15/18 15:25 [facility] [id number] 01/15/18 15:33 [facility] 01/15/18 15:25 Wound Center Nurse 1 [Ulcer Assessment] #1 Sacral -Combined with other wound No -Current Size (cm) - Length 7.0 -Current Size (cm) - Width 4.0 -Current Size (cm) - Depth 4.0 -Total Square Cm 28.00 -Photo Taken No -Epithelialization None Present -Tunneling No -Undermining/Tunneling No -Circular Undermining No -Classification - Thickness Full Thickness without Exposed Support Structure -Exudate Amt Large (67-100%) -Exudate Type Serosanguineous -Wound Margin Distinct, Outline Attached -Granulation Quality Red -Slough/Fibrin Yes -Necrosis Amt Large (67-100%) -Necrotic Tissue Type Adherent Slough -Structure Exposed Fascia Muscle Fat Layer Exposed -Texture (Haley-wound Skin Appearance) Assessed Scarring -Moisture (Haley-wound Skin Appearance Assessed ) Weeping -Color (Haley-wound Skin Appearance) Assessed Erythema -Temperature (Haley-wound Skin No Abnormality Appearance) (Pt Warm) -Tenderness on Palpation (Haley-wound Yes Skin Appearance) -Ulcer Cleansing Rinsed/ Irrigated with Saline -Foul Odor after Cleansing No -Anesthetic Used 4% Lidocaine Solution [Edema Assessment] -Lower Limb Edema Present No WC - Nurse 2 - General Ulcer CM Notes Start: 01/01/18 14:29 Freq: Status: Active Protocol: Activity Type Activity Date Activity User E-Sign Co-Sign Detail Recorded Client Recorded Date Recorded By Document 01/15/18 16:09 [id number] 01/15/18 16:10 01/15/18 16:09 Wound Center Nurse 2 [Procedure/Treatment] #1 Sacral -Time 16:09 -Correct Patient Yes -Correct Side, Site, Position Yes -Correct Procedure Yes -Procedure Performed Yes -Type of Procedure Debridement -Clinical Debridement Subcutaneous -Post Debridement Size (cm) - Length 7.8 -Post Debridement Size (cm) - Width 4 -Post Debridement Size (cm) - Depth 2.5 -Total Square Cm 31.2 -Wound/Ulcer Outcome Not Healed -Ulcer Cleansing Not Cleansed -Foul Odor after Cleansing No -Bioengineered Tissue No -Bleeding Controlled with NA -Treatment Response Procedure Tolerated Well [See Physician Procedure note for Specifics] Pain Scale: 0-10 Numeric [Pain] -Is Patient Pain Free? Yes Musculoskeletal: No Tenderness to Palpation of Joints or Extremities Neurological: Cranial nerves II-XII grossly intact Psych/Mental Status: Normal Affect, Appropriate Debridement Note Post-Debridement Measurements/Treatment - Nurse 2 - General Ulcer CM Notes Start: 01/01/18 14:29 Freq: Status: Active Protocol: Activity Type Activity Date Activity User E-Sign Co-Sign Detail Recorded Client Recorded Date Recorded By Document 01/01/18 15:09 [id number] 01/01/18 15:13 Document 01/15/18 16:09 [id number] 01/15/18 16:10 01/01/18 01/15/18 15:09 16:09 Wound Center Nurse 2 #1 Sacral -Time 15:10 16:09 -Correct Patient Yes Yes -Correct Side, Site, Position Yes Yes -Correct Procedure Yes Yes -Procedure Performed Yes Yes -Type of Procedure Debridement Debridement -Clinical Debridement Muscle Subcutaneous -Post Debridement Size (cm) - Length 8.7 7.8 -Post Debridement Size (cm) - Width 6.0 4 -Post Debridement Size (cm) - Depth 2.4 2.5 -Total Square Cm 52.20 31.2 -Wound/Ulcer Outcome Not Healed Not Healed -Ulcer Cleansing Rinsed/ Not Cleansed Irrigated with Saline -Foul Odor after Cleansing No No -Bioengineered Tissue No No -Bleeding Controlled with Pressure NA -Treatment Response Procedure Procedure Tolerated Well Tolerated Well Pain Scale: 0-10 Numeric Is Patient Pain Free? Yes Yes Wound debrided: Sacral ulcer Wound Grade/Stage: Stage IV Type of Debridement: Excisional debridement Anesthesia Used: 4% Lidocaine Solution Depth: Down to and including healthy tissue, in the subcutaneous layer Percentage of wound debrided: 100 Instrument Used: 3mm curette Tissue Removed: Subcutaneous tissue and slough Severity: Fat Layer Exposed Amount of bleeding with debridement: Mild Bleeding Controlled with: Pressure Patient tolerated procedure well Assessment/Plan Assessment: 1. 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 2. Quadriplegia. 3. Stool incontinence. 4. s/p excision infected necrotic sacral pressure sore including underlying necrotic muscle, Stage IV. Plan: Continue VAC to be changed three times per week at 150 mmHg continuous suction. His is now changing his wound VAC dressing and washes the ulcer with soap and water with the vac changes. He is done with his antibiotics (Vancomycin and Zosyn) for Pseudomonas aeroginosa, E. coli, Corynebacterium amycolatum, Staphylococcus aureus, Bacteroides fragilis, and Anaerobic cocci. The PICC line was DC'd at a previous visit. Prealbumin from 11/14/17 was 17.7. Encourage nutritional supplementation with protein to help the healing process. He will call Dr. Duff's office for refill on his pain meds. He has an appointment for pain management scheduled. Followup 2 weeks. Code Visit 111xxx-113xx: [id number] Margarita subq tissue 20 sq cm/< Add On Codes: [id number] Margarita subq tissue add-on
== END 2018-01-25 23:59 ==
LOC: WC 15:00
PROVIDERS: Family Provider Family Medicine; PCP Family Medicine; Visit Provider Surgery
DX: L89.154 Pressure ulcer of sacral region, stage 4 (principal); G82.50 Quadriplegia, unspecified
CPT/HCPCS: 11042; 11043; 11045; 11046; 97605

== ENCOUNTER 2018-01-29 08:52 | Outpatient (RCR) | payer MEDICARE, MEDICAID, SELFPAY ==
[2018-01-26 01:32] VITALS: BP 99/56; PULSE 79; RESP 18; TEMP 35.4
== END 2018-02-25 23:59 ==
LOC: WC 08:52
PROVIDERS: Family Provider Nurse Practitioner Primary Care; PCP Nurse Practitioner Primary Care; Visit Provider Surgery
DX: Z09 Encounter for follow-up examination after completed treatment for conditions other than malignant neoplasm (principal)

== ENCOUNTER 2018-03-11 11:01 | Outpatient (RCR) | payer MEDICARE, MEDICAID, SELFPAY ==
[2018-02-26 01:03] VITALS: BP 99/56; PULSE 79; RESP 18; TEMP 35.4
[2018-03-11 11:16] VITALS: BP 123/63; PULSE 60; RESP 14; TEMP 36.8; BMI 22.7
--- NOTE | 2018-03-11 12:19 | PCM.WC.PN ---
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 History of Wound: Surgery 11/13/17 - Excision infected necrotic sacral pressure sore including underlying necrotic muscle, Stage IV. Wound care - VAC. Operative culture - Pseudomonas aeroginosa, E. coli, Corynebacterium amycolatum, Staphylococcus aureus, Bacteroides fragilis, and Anaerobic cocci. He was treated with Vancomycin and Zosyn and has finished them. Will pull the PICC line today. Prealbumin from 11/14/17 was 17.7. Encourage nutritional supplementation with protein to help the healing process. MRI Pelvis from 11/12/17 was negative for osteomyelitis. Today the patient denies fever. His appetite is ok. Progress of Wound: Clean and pink. - Physical Exam Vital Signs Temp Pulse Resp BP 98.2 F 60 14 123/63 H 03/11/18 11:16 03/11/18 11:16 03/11/18 11:16 03/11/18 11:16 General: Alert, Oriented x3, Cooperative HEENT: Atraumatic Lungs: Normal air movement Extremities: No edema, Capillary Refill Less than 3 Seconds Skin: Ulcer/ Wound - Sacral Stage IV ulcer Wound Measurements and Assessment WC - Nurse 1 - General Ulcer Measurement Start: 03/11/18 11:16 Freq: Status: Active Protocol: Activity Type Activity Date Activity User E-Sign Co-Sign Detail Recorded Client Recorded Date Recorded By Document 03/11/18 11:16 [id number] 03/11/18 11:26 03/11/18 11:16 Wound Center Nurse 1 [Ulcer Assessment] #1 Sacral -Combined with other wound No -Current Size (cm) - Length 5 -Current Size (cm) - Width 3.5 -Current Size (cm) - Depth 3.2 -Total Square Cm 17.5 -Date of Last Picture (Recall this 03/11/18 field) -Photo Taken Yes -Epithelialization None Present -Tunneling No -Undermining/Tunneling No -Circular Undermining No -Exudate Amt Medium -Exudate Type Serosanguineous -Wound Margin Distinct, Outline Attached -Granulation Amt Medium (34-66%) -Granulation Quality Pale [place] -Slough/Fibrin Yes -Necrosis Amt Medium (34-66%) -Necrotic Tissue Type Adherent Slough -Structure Exposed None/Limited to Skin Breakdown -Texture (Haley-wound Skin Appearance) Scarring -Moisture (Haley-wound Skin Appearance No Abnormality ) Assessed -Color (Haley-wound Skin Appearance) No Abnormality Assessed -Temperature (Haley-wound Skin No Abnormality Appearance) (Pt Warm) -Tenderness on Palpation (Haley-wound No Skin Appearance) -Ulcer Cleansing soap -Foul Odor after Cleansing No -Anesthetic Used 5% Lidocaine Gel [Edema Assessment] -Lower Limb Edema Present NA WC - Nurse 2 - General Ulcer CM Notes Start: 03/11/18 11:16 Freq: Status: Active Protocol: Activity Type Activity Date Activity User E-Sign Co-Sign Detail Recorded Client Recorded Date Recorded By Document 03/11/18 11:58 [id number] 03/11/18 11:59 03/11/18 11:58 Wound Center Nurse 2 [Procedure/Treatment] #1 Sacral -Time 11:58 -Correct Patient Yes -Correct Side, Site, Position Yes -Correct Procedure Yes -Procedure Performed Yes -Type of Procedure Debridement -Clinical Debridement Muscle -Post Debridement Size (cm) - Length 5 -Post Debridement Size (cm) - Width 5.5 -Post Debridement Size (cm) - Depth 3.1 -Total Square Cm 27.5 -Wound/Ulcer Outcome Not Healed -Ulcer Cleansing Rinsed/ Irrigated with Saline -Foul Odor after Cleansing No -Bioengineered Tissue No -Bleeding Controlled with Pressure -Offloading No -Treatment Response Procedure Tolerated Well [See Physician Procedure note for Specifics] Pain Scale: 0-10 Numeric [Pain] -Is Patient Pain Free? No Musculoskeletal: Muscle Wasting Neurological: Cranial nerves II-XII grossly intact Psych/Mental Status: Normal Affect, Appropriate Debridement Note Post-Debridement Measurements/Treatment WC - Nurse 2 - General Ulcer CM Notes Start: 03/11/18 11:16 Freq: Status: Active Protocol: Activity Type Activity Date Activity User E-Sign Co-Sign Detail Recorded Client Recorded Date Recorded By Document 03/11/18 11:58 [id number] 03/11/18 11:59 ALBINO 03/11/18 11:58 Wound Center Nurse 2 #1 Sacral -Time 11:58 -Correct Patient Yes -Correct Side, Site, Position Yes -Correct Procedure Yes -Procedure Performed Yes -Type of Procedure Debridement -Clinical Debridement Muscle -Post Debridement Size (cm) - Length 5 -Post Debridement Size (cm) - Width 5.5 -Post Debridement Size (cm) - Depth 3.1 -Total Square Cm 27.5 -Wound/Ulcer Outcome Not Healed -Ulcer Cleansing Rinsed/ Irrigated with Saline -Foul Odor after Cleansing No -Bioengineered Tissue No -Bleeding Controlled with Pressure -Offloading No -Treatment Response Procedure Tolerated Well Pain Scale: 0-10 Numeric Is Patient Pain Free? No Wound debrided: Sacrum Wound Grade/Stage: Stage IV sacral ulcer Type of Debridement: Excisional debridement Anesthesia Used: 5% Lidocaine Gel Depth: Down to and including healthy tissue, in the subcutaneous layer, to muscle Percentage of wound debrided: 100 Instrument Used: 3mm curette Tissue Removed: Subcutaneous tissue and slough Severity: Fat Layer Exposed Amount of bleeding with debridement: Mild Bleeding Controlled with: Pressure, Compression and gauze Patient tolerated procedure well Assessment/Plan Active Problems (This Medical Record has been edited. Action required.) Chronic pain syndrome (Chronic) Quadriplegia following spinal cord injury (Chronic) Pressure ulcer of sacral region, stage 4 (Chronic) Assessment: 1. 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 2. Quadriplegia. 3. Stool incontinence. 4. s/p excision infected necrotic sacral pressure sore including underlying necrotic muscle, Stage IV. Plan: Patient had been hospitalized at [facility] with pseudomonas in his urine. He is currently on IV Vancomycin and Meropenem. They had put her VAC on hold and had been using Dakin's solution since his hospitalization. Today we will stop the Dakin's solution and restart the wound VAC to be changed three times per week at 150 mmHg continuous suction. His feels comfortable changing his wound VAC dressing and washes the ulcer with soap and water with the vac changes. He is now seeing pain management at [place] and is having better pain control. Prealbumin from 11/14/17 was 17.7. Encourage nutritional supplementation with protein to help the healing process. Followup 1 week. Code Visit 111xxx-113xx: [id number] Margarita musc/fascia 20 sq cm/< Add On Codes: [id number] Margarita musc/fascia add-on
== END 2018-03-28 23:59 ==
LOC: WC 11:01
PROVIDERS: Family Provider Nurse Practitioner Primary Care; PCP Nurse Practitioner Primary Care; Visit Provider Surgery
DX: L89.154 Pressure ulcer of sacral region, stage 4 (principal); G82.50 Quadriplegia, unspecified
CPT/HCPCS: 11043; 11046; 97605

== ENCOUNTER 2018-04-02 08:48 | Outpatient (RCR) | payer MEDICARE, MEDICAID, SELFPAY ==
[2018-03-29 01:16] VITALS: BP 123/63; PULSE 60; RESP 14; TEMP 36.8
== END 2018-04-25 23:59 ==
LOC: WC 08:48
PROVIDERS: Family Provider Nurse Practitioner Primary Care; PCP Nurse Practitioner Primary Care; Visit Provider Surgery
DX: Z09 Encounter for follow-up examination after completed treatment for conditions other than malignant neoplasm (principal)

== ENCOUNTER 2018-05-14 13:00 | Outpatient (RCR) | payer MEDICARE, MEDICAID, SELFPAY ==
[2018-04-26 01:01] VITALS: BP 123/63; PULSE 60; RESP 14; TEMP 36.8
[2018-04-30 13:16] VITALS: BP 99/65; PULSE 70; RESP 18; TEMP 35.5
--- NOTE | 2018-04-30 14:00 | PCM.WC.PN ---
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 History of Wound: Surgery 11/13/17 - Excision infected necrotic sacral pressure sore including underlying necrotic muscle, Stage IV. Wound care - VAC has been off for 3 weeks due to not having supplies. They have been doing daily silver dressing changes. Operative culture - Pseudomonas aeroginosa, E. coli, Corynebacterium amycolatum, Staphylococcus aureus, Bacteroides fragilis, and Anaerobic cocci. He was treated with Vancomycin and Zosyn and has finished them. Will pull the PICC line today. Prealbumin from 11/14/17 was 17.7. Encourage nutritional supplementation with protein to help the healing process. MRI Pelvis from 11/12/17 was negative for osteomyelitis. Today the patient denies fever. His appetite is ok. He is in good spirits. Progress of Wound: Clean and pink. - Physical Exam Vital Signs Temp Pulse Resp BP 96 F L 70 18 99/65 04/30/18 13:16 04/30/18 13:16 04/30/18 13:16 04/30/18 13:16 General: Alert, Oriented x3, Cooperative HEENT: Atraumatic Oral: Moist Mucosa Neck: Supple Lungs: Normal air movement Cardiovascular: Regular rate Abdomen: Soft, Non Tender Extremities: No edema, Capillary Refill Less than 3 Seconds, Peripheral Pulses Normal Skin: Ulcer/ Wound - Sacral ulcer Wound Measurements and Assessment WC - Nurse 1 - General Ulcer Measurement Start: 04/30/18 13:16 Freq: Status: Active Protocol: Activity Type Activity Date Activity User E-Sign Co-Sign Detail Recorded Client Recorded Date Recorded By Document 04/30/18 13:16 [email or web address] [id number] 04/30/18 13:22 DL 04/30/18 13:16 Wound Center Nurse 1 [Ulcer Assessment] #1 Sacral -Current Size (cm) - Length 6.5 -Current Size (cm) - Width 3.3 -Current Size (cm) - Depth 1.6 -Total Square Cm 21.45 -Photo Taken Yes -Exudate Amt Medium -Exudate Type Serosanguineous -Wound Margin Distinct, Outline Attached -Granulation Amt Large (67-100%) -Granulation Quality Red -Necrosis Amt Medium (34-66%) -Necrotic Tissue Type Adherent Slough -Structure Exposed N/A -Texture (Haley-wound Skin Appearance) Scarring -Moisture (Haley-wound Skin Appearance No Abnormality ) -Color (Haley-wound Skin Appearance) No Abnormality -Temperature (Haley-wound Skin No Abnormality Appearance) (Pt Warm) -Ulcer Cleansing Wound Cleanser -Foul Odor after Cleansing No -Anesthetic Used 4% Lidocaine Solution - Nurse 2 - General Ulcer CM Notes Start: 04/30/18 13:16 Freq: Status: Active Protocol: Activity Type Activity Date Activity User E-Sign Co-Sign Detail Recorded Client Recorded Date Recorded By Document 04/30/18 13:45 [email or web address] [id number] 04/30/18 13:53 04/30/18 13:45 Wound Center Nurse 2 [Procedure/Treatment] -Time 13:45 -Correct Patient Yes -Correct Side, Site, Position Yes -Correct Procedure Yes -Procedure Performed Yes -Type of Procedure Debridement -Clinical Debridement Subcutaneous -Post Debridement Size (cm) - Length 7.0 -Post Debridement Size (cm) - Width 2.8 -Post Debridement Size (cm) - Depth 2.0 -Total Square Cm 19.60 -Wound/Ulcer Outcome Not Healed -Ulcer Cleansing Rinsed/ Irrigated with Saline -Foul Odor after Cleansing No -Bioengineered Tissue No -Bleeding Controlled with Pressure -Offloading No -Treatment Response Procedure Tolerated Well [See Physician Procedure note for Specifics] Pain Scale: 0-10 Numeric [Pain] -Is Patient Pain Free? Yes Musculoskeletal: No Tenderness to Palpation of Joints or Extremities Neurological: Cranial nerves II-XII grossly intact Psych/Mental Status: Normal Affect, Appropriate, Alert and oriented to time, place, person, mood and affect Debridement Note Post-Debridement Measurements/Treatment - Nurse 2 - General Ulcer CM Notes Start: 04/30/18 13:16 Freq: Status: Active Protocol: Activity Type Activity Date Activity User E-Sign Co-Sign Detail Recorded Client Recorded Date Recorded By Document 04/30/18 13:45 [id number] 04/30/18 13:53 04/30/18 13:45 Wound Center Nurse 2 #1 Sacral -Time 13:45 -Correct Patient Yes -Correct Side, Site, Position Yes -Correct Procedure Yes -Procedure Performed Yes -Type of Procedure Debridement -Clinical Debridement Subcutaneous -Post Debridement Size (cm) - Length 7.0 -Post Debridement Size (cm) - Width 2.8 -Post Debridement Size (cm) - Depth 2.0 -Total Square Cm 19.60 -Wound/Ulcer Outcome Not Healed -Ulcer Cleansing Rinsed/ Irrigated with Saline -Foul Odor after Cleansing No -Bioengineered Tissue No -Bleeding Controlled with Pressure -Offloading No -Treatment Response Procedure Tolerated Well Pain Scale: 0-10 Numeric Is Patient Pain Free? Yes Wound debrided: Sacral ulcer Wound Grade/Stage: Stage 4 Type of Debridement: Excisional debridement Anesthesia Used: 4% Lidocaine Solution Depth: Down to and including healthy tissue, in the subcutaneous layer Percentage of wound debrided: 100 Instrument Used: 7mm curette Tissue Removed: Subcutaneous tissue and slough Severity: Fat Layer Exposed Amount of bleeding with debridement: Mild Bleeding Controlled with: Pressure Patient tolerated procedure well Assessment/Plan Active Problems (This Medical Record has been edited. Action required.) Quadriplegia following spinal cord injury (Chronic) Pressure ulcer of sacral region, stage 4 (Chronic) Assessment: 1. 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 2. Quadriplegia. 3. Stool incontinence. 4. s/p excision infected necrotic sacral pressure sore including underlying necrotic muscle, Stage IV. Plan: Will continue silver dressing changes daily. He currently does not want the wound VAC. Instructed his to send their VAC back. Will revisit the wound VAC option at next visit. He is now seeing pain management at [place] and is having better pain control. Prealbumin from 11/14/17 was 17.7. Encourage nutritional supplementation with protein to help the healing process. Followup 2 weeks. Encouraged to stop smoking since it can impact wound healing negatively. Code Visit Office Visits / Consults: [id number] OV L3 Est - 25 modifier 111xxx-113xx: [id number] Margarita subq tissue 20 sq cm/<
== END 2018-05-26 23:59 ==
LOC: WC 13:00
PROVIDERS: Family Provider Nurse Practitioner Primary Care; PCP Nurse Practitioner Primary Care; Visit Provider Surgery
DX: L89.154 Pressure ulcer of sacral region, stage 4 (principal); G82.50 Quadriplegia, unspecified; R15.9 Full incontinence of feces
CPT/HCPCS: 11042; 99213; G0463

== ENCOUNTER 2018-07-04 09:22 | Outpatient (RCR) | payer MEDICARE, MEDICAID, SELFPAY ==
[2018-07-04 09:35] VITALS: BP 139/62; PULSE 49; RESP 18; TEMP 36.8; BMI 22.7
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
== END 2018-07-26 23:59 ==
LOC: WC 09:22
PROVIDERS: Family Provider Nurse Practitioner Primary Care; PCP Nurse Practitioner Primary Care; Visit Provider Internal Medicine
DX: L89.154 Pressure ulcer of sacral region, stage 4 (principal); G82.50 Quadriplegia, unspecified; F31.9 Bipolar disorder, unspecified; G89.4 Chronic pain syndrome; Z79.899 Other long term (current) drug therapy; F17.200 Nicotine dependence, unspecified, uncomplicated
CPT/HCPCS: 11042; 11045; 87070; 87075; 87076; 87077; 87186; 87205; 99213; G0463

== ENCOUNTER 2018-09-17 13:30 | Outpatient (RCR) | payer MEDICARE, MEDICAID, SELFPAY ==
[2018-08-27 14:30] VITALS: BMI 22.7
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
[2018-09-03 15:07] VITALS: BP 89/54; PULSE 70; RESP 18; TEMP 36.4; BMI 22.7
--- NOTE | 2018-09-03 17:27 | PN.PCM_ITS ---
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 History of Wound: Patient well known to the clinic and is s/p excisional sugery of his sacral ulcer. He had been using a wound vac until a month ago where he had been hospitalized for UTI with pseudamonas at [facility]. He was sent home with Dakin's solution for a dressing change. We will switch him to Acetic acid due to his history of pseudamonas. He just finished Levaquin and Cefixime and his PICC was pulled last week. His wound cultures from 07/04/18 grew Pseudomonas aeroginosa, Prevotella bivia, Prevotella disiens, and clostridium cadaveris. There results were faxed to [facility] when he was hospitalized and was treated. Progress of Wound: Stable - Physical Exam Vital Signs Temp Pulse Resp BP 97.5 F L 70 18 89/54 L 09/03/18 15:07 09/03/18 15:07 09/03/18 15:07 09/03/18 15:07 General: Alert, Oriented x3, Cooperative HEENT: Atraumatic Oral: Moist Mucosa Lungs: Normal air movement Cardiovascular: Regular Rhythm Extremities: No edema, Capillary Refill Less than 3 Seconds Skin: Ulcer/ Wound - Stage IV sacral ulcer Wound Measurements and Assessment WC - Nurse 1 - General Ulcer Measurement Start: 08/27/18 14:30 Freq: Status: Active Protocol: Activity Type Activity Date Activity User E-Sign Co-Sign Detail Recorded Client Recorded Date Recorded By Document 09/03/18 15:07 DV [id number] 09/03/18 15:12 DV 09/03/18 15:07 Wound Center Nurse 1 [Ulcer Assessment] #3 Sacral -Combined with other wound No -Current Size (cm) - Length 7.0 -Current Size (cm) - Width 4.0 -Current Size (cm) - Depth 2.0 -Total Square Cm 28.00 -Photo Taken No -Epithelialization None Present -Tunneling No -Undermining/Tunneling No -Circular Undermining No -Exudate Amt Large -Exudate Type Serous -Wound Margin Epibole -Granulation Amt Medium (34-66%) -Granulation Quality Red -Slough/Fibrin Yes -Necrosis Amt Large (67-100%) -Necrotic Tissue Type Adherent Slough -Structure Exposed Fascia,Muscle, Fat Layer Exposed -Texture (Tu-wound Skin Appearance) Assessed, Scarring,Rash -Moisture (Tu-wound Skin Appearance Assessed, ) Maceration, Weeping -Color (Tu-wound Skin Appearance) Assessed, Erythema -Temperature (Tu-wound Skin No Abnormality Appearance) (Pt Warm) -Tenderness on Palpation (Tu-wound No Skin Appearance) -Foul Odor after Cleansing No -Anesthetic Used 4% Lidocaine Solution WC - Nurse 2 - General Ulcer CM Notes Start: 08/27/18 14:30 Freq: Status: Active Protocol: Activity Type Activity Date Activity User E-Sign Co-Sign Detail Recorded Client Recorded Date Recorded By Document 09/03/18 15:33 MW [id number] 09/03/18 15:41 MW 09/03/18 15:33 Wound Center Nurse 2 [Procedure/Treatment] -Time 15:33 -Correct Patient Yes -Correct Side, Site, Position Yes -Correct Procedure Yes -Procedure Performed Yes -Type of Procedure Debridement -Clinical Debridement Subcutaneous -Post Debridement Size (cm) - Length 6.4 -Post Debridement Size (cm) - Width 4.5 -Post Debridement Size (cm) - Depth 2.0 -Total Square Cm 28.80 -Wound/Ulcer Outcome Not Healed -Ulcer Cleansing Rinsed/ Irrigated with Saline -Foul Odor after Cleansing No -Bioengineered Tissue No -Bleeding Controlled with Pressure -Other undermining 10- 11, 2.1cm -Offloading No -Treatment Response Procedure Tolerated Well [See Physician Procedure note for Specifics] Pain Scale: 0-10 Numeric [Pain] -Is Patient Pain Free? Yes Musculoskeletal: No Tenderness to Palpation of Joints or Extremities Neurological: Cranial nerves II-XII grossly intact Psych/Mental Status: Normal Affect, Appropriate Debridement Note Post-Debridement Measurements/Treatment WC - Nurse 2 - General Ulcer CM Notes Start: 08/27/18 14:30 Freq: Status: Active Protocol: Activity Type Activity Date Activity User E-Sign Co-Sign Detail Recorded Client Recorded Date Recorded By Document 08/27/18 15:10 [id number] 08/27/18 15:13 Document 09/03/18 15:33 [id number] 09/03/18 15:41 MW 08/27/18 09/03/18 15:10 15:33 Wound Center Nurse 2 #3 Sacral -Time 15:11 15:33 -Correct Patient Yes Yes -Correct Side, Site, Position Yes Yes -Correct Procedure Yes Yes -Procedure Performed Yes Yes -Type of Procedure Debridement Debridement -Clinical Debridement Muscle Subcutaneous -Post Debridement Size (cm) - Length 7.5 6.4 -Post Debridement Size (cm) - Width 4.5 4.5 -Post Debridement Size (cm) - Depth 1.2 2.0 -Total Square Cm 33.75 28.80 -Wound/Ulcer Outcome Not Healed Not Healed -Ulcer Cleansing Rinsed/ Rinsed/ Irrigated with Irrigated with Saline Saline -Foul Odor after Cleansing No No -Bioengineered Tissue No No -Bleeding Controlled with Pressure Pressure -Other 12-2:00-2.5 undermining 10- 11, 2.1cm -Offloading No No -Treatment Response Procedure Procedure Tolerated Well Tolerated Well Pain Scale: 0-10 Numeric Is Patient Pain Free? Yes Yes Wound debrided: Sacral ulcer Wound Grade/Stage: Stage IV Type of Debridement: Excisional debridement Anesthesia Used: 4% Lidocaine Solution Depth: Down to and including healthy tissue, in the subcutaneous layer Percentage of wound debrided: 100 Instrument Used: 7mm curette Tissue Removed: Subcutaneous tissue and slough Amount of bleeding with debridement: Mild Bleeding Controlled with: Pressure, Compression and gauze Patient tolerated procedure well Assessment/Plan Active Problems (This Medical Record has been edited. Action required.) Chronic pain syndrome (Chronic) Quadriplegia following spinal cord injury (Chronic) Pressure ulcer of sacral region, stage 4 (Chronic) Assessment: 1. 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 2. Quadriplegia. 3. Stool incontinence. 4. s/p excision infected necrotic sacral pressure sore including underlying necrotic muscle, Stage IV. Plan: Debridement performed today as documented. He was sent home from [facility] on Dakin's solution. Will stop that and start Acetic acid solution daily due to his pseudomonas. His states they have not picked up the Acetic acid, there seems to have been an issue with the pharmacy. His tu wound looks much better this week using the Calmoseptine barrier cream. Instructed her t hat they can get that at OTC at the pharmacy. Encouraged them to continue to try to keep the area clean and dry. Also have ordered Sorbian sachet dressing to help with his increased drainage. His states he is often soaked through his dressings and clothes. He has just finished his Levaquin and Cefixime and his PICC line was pulled. His wound cultures from 07/04/18 grew Pseudomonas aeroginosa, Prevotella bivia, Prevotella disiens, and Clostridium cadaveris. Encouraged off loading. Encouraged increase in protein. He will follow up in two weeks. Code Visit 111xxx-113xx: 08137 Margarita subq tissue 20 sq cm/< Add On Codes: [id number] Margarita subq tissue add-on
== END 2018-09-25 23:59 ==
LOC: WC 13:30
PROVIDERS: Family Provider Nurse Practitioner Primary Care; PCP Nurse Practitioner Primary Care; Visit Provider Nurse Practitioner Family
DX: L89.154 Pressure ulcer of sacral region, stage 4 (principal); G89.4 Chronic pain syndrome; G82.50 Quadriplegia, unspecified
CPT/HCPCS: 11042; 11043; 11045; 11046; 99213; G0463

== ENCOUNTER 2018-10-08 15:30 | Outpatient (RCR) | payer MEDICARE, MEDICAID, SELFPAY ==
[2018-09-03 15:07] VITALS: BMI 22.7
[2018-09-26 01:07] VITALS: BP 89/54; PULSE 70; RESP 18; TEMP 36.4
[2018-10-08 15:45] VITALS: BP 128/76; PULSE 51; RESP 16; TEMP 36.3; BMI 22.7
--- NOTE | 2018-10-08 17:11 | PCM.WC.PN ---
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 History of Wound: Patient well known to the clinic and is s/p excisional sugery of his sacral ulcer. He had been using a wound vac until a month ago where he had been hospitalized for UTI with pseudamonas at [facility]. His wound cultures from 07/04/18 grew Pseudomonas aeroginosa, Prevotella bivia, Prevotella disiens, and clostridium cadaveris. There results were faxed to [facility] when he was hospitalized and was treated. He was again hospitalized at [facility] where wound cultures were obtained and they switched his wound care to Dakin's solution. Will add cover with either Sorbian sachet or Kermax dressing 1-2 times daily. He is on low dose Bactrim and has a PICC line receiving Zosyn. This is managed by [facility]'s physicians, we do not have those culture results. Will try to obtain. Progress of Wound: Stable - Physical Exam Vital Signs Temp Pulse Resp BP 97.3 F L 51 L 16 128/76 H 10/08/18 15:45 10/08/18 15:45 10/08/18 15:45 10/08/18 15:45 General: Alert, Oriented x3, Cooperative HEENT: Atraumatic Oral: Moist Mucosa Lungs: Normal air movement Cardiovascular: Regular rate Extremities: No edema, Capillary Refill Less than 3 Seconds Skin: Ulcer/ Wound - Stage IV sacral ulcer Wound Measurements and Assessment WC - Nurse 1 - General Ulcer Measurement Start: 10/08/18 15:45 Freq: Status: Active Protocol: Activity Type Activity Date Activity User E-Sign Co-Sign Detail Recorded Client Recorded Date Recorded By Document 10/08/18 15:45 [id number] 10/08/18 15:54 10/08/18 15:45 Wound Center Nurse 1 [Ulcer Assessment] #3 Sacral -Current Size (cm) - Length 2.4 -Current Size (cm) - Width 4.4 -Current Size (cm) - Depth 1.2 -Total Square Cm 10.56 -Undermining/Tunneling Starts (O' 1 clock) -Undermining/Tunneling Ends (O'clock) 3 -Maximum Distance (cm) 2 -Exudate Amt Medium -Exudate Type Yellow/Green -Wound Margin Thickened & Rolled Under -Granulation Amt Medium (34-66%) -Granulation Quality Red -Necrosis Amt Medium (34-66%) -Necrotic Tissue Type Adherent Slough -Structure Exposed N/A -Texture (Tu-wound Skin Appearance) Excoriation, Scarring -Moisture (Tu-wound Skin Appearance Dry/Scaly ) -Color (Tu-wound Skin Appearance) Rubor -Temperature (Tu-wound Skin No Abnormality Appearance) (Pt Warm) -Tenderness on Palpation (Tu-wound No Skin Appearance) -Ulcer Cleansing Rinsed/ Irrigated with Saline -Foul Odor after Cleansing No -Anesthetic Used 5% Lidocaine Gel WC - Nurse 2 - General Ulcer CM Notes Start: 10/08/18 15:45 Freq: Status: Active Protocol: Activity Type Activity Date Activity User E-Sign Co-Sign Detail Recorded Client Recorded Date Recorded By Document 10/08/18 16:52 [id number] 10/08/18 16:55 10/08/18 16:52 Wound Center Nurse 2 [Procedure/Treatment] -Time 16:54 -Correct Patient Yes -Correct Side, Site, Position Yes -Correct Procedure Yes -Procedure Performed Yes -Type of Procedure Debridement -Clinical Debridement Muscle -Post Debridement Size (cm) - Length 6 -Post Debridement Size (cm) - Width 4 -Post Debridement Size (cm) - Depth 2.0 -Total Square Cm 24 -Wound/Ulcer Outcome Not Healed -Ulcer Cleansing Rinsed/ Irrigated with Saline -Foul Odor after Cleansing No -Bioengineered Tissue No -Bleeding Controlled with Pressure -Other undermining 12- 2---2.5cm -Offloading No -Treatment Response Procedure Tolerated Well [See Physician Procedure note for Specifics] Pain Scale: 0-10 Numeric [Pain] -Is Patient Pain Free? Yes Musculoskeletal: Muscle Wasting Neurological: Cranial nerves II-XII grossly intact Psych/Mental Status: Appropriate Debridement Note Post-Debridement Measurements/Treatment WC - Nurse 2 - General Ulcer CM Notes Start: 10/08/18 15:45 Freq: Status: Active Protocol: Activity Type Activity Date Activity User E-Sign Co-Sign Detail Recorded Client Recorded Date Recorded By Document 10/08/18 16:52 [id number] 10/08/18 16:55 10/08/18 16:52 Wound Center Nurse 2 #3 Sacral -Time 16:54 -Correct Patient Yes -Correct Side, Site, Position Yes -Correct Procedure Yes -Procedure Performed Yes -Type of Procedure Debridement -Clinical Debridement Muscle -Post Debridement Size (cm) - Length 6 -Post Debridement Size (cm) - Width 4 -Post Debridement Size (cm) - Depth 2.0 -Total Square Cm 24 -Wound/Ulcer Outcome Not Healed -Ulcer Cleansing Rinsed/ Irrigated with Saline -Foul Odor after Cleansing No -Bioengineered Tissue No -Bleeding Controlled with Pressure -Other undermining 12- 2---2.5cm -Offloading No -Treatment Response Procedure Tolerated Well Pain Scale: 0-10 Numeric Is Patient Pain Free? Yes Wound debrided: Sacral ulcer Laterality: Not Applicable Type of Debridement: Excisional debridement Anesthesia Used: 4% Lidocaine Solution, 5% Lidocaine Gel Depth: Down to and including healthy tissue, in the subcutaneous layer, to muscle Percentage of wound debrided: 100 Instrument Used: 7mm curette Tissue Removed: Subcutaneous tissue and slough Severity: Fat Layer Exposed Amount of bleeding with debridement: Mild Bleeding Controlled with: Pressure, Compression and gauze Patient tolerated procedure well Assessment/Plan Assessment: 1. 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 2. Quadriplegia. 3. Stool incontinence. 4. s/p excision infected necrotic sacral pressure sore including underlying necrotic muscle, Stage IV. Plan: Debridement performed today as documented. He was sent home from [facility] on Dakin's solution. Encouraged them to continue to try to keep the tu wound clean and dry. Also have ordered Sorbian sachet dressing to help with his increased drainage. His states he is often soaked through his dressings and clothes. His wound cultures from 07/04/18 grew Pseudomonas aeroginosa, Prevotella bivia, Prevotella disiens, and Clostridium cadaveris. Encouraged off loading. He was again hospitalized at [facility] where wound cultures were obtained and they switched his wound care to Dakin's solution. Will add cover with either Sorbian sachet or Kermax dressing to help with the large amount of drainage. He is on low dose Bactrim and has a PICC line receiving Zosyn. This is managed by [facility]'s physicians, we do not have those culture results. Will try to obtain. Encouraged increase in protein. He will follow up in one week. Code Visit 111xxx-113xx: 69384 Margarita musc/fascia 20 sq cm/< Add On Codes: [id number] Margarita musc/fascia add-on - x1
== END 2018-10-26 23:59 ==
LOC: WC 15:30
PROVIDERS: Family Provider Nurse Practitioner Primary Care; PCP Nurse Practitioner Primary Care; Visit Provider Nurse Practitioner Family
DX: L89.154 Pressure ulcer of sacral region, stage 4 (principal); G89.4 Chronic pain syndrome; G82.50 Quadriplegia, unspecified
CPT/HCPCS: 11043; 11046

== ENCOUNTER 2018-11-05 12:38 | Outpatient (RCR) | payer MEDICARE, MEDICAID, SELFPAY ==
[2018-10-27 00:55] VITALS: BP 128/76; PULSE 51; RESP 16; TEMP 36.3
[2018-11-05 15:54] VITALS: BP 85/54; PULSE 62; RESP 18; TEMP 36.2; BMI 22.7
--- NOTE | 2018-11-05 16:39 | PN.PCM_ITS ---
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 History of Wound: Patient well known to the clinic and is s/p excisional sugery of his sacral ulcer. He had been using a wound vac until a couple months ago where he had been hospitalized for UTI with pseudamonas at [facility]. His wound cultures from 07/04/18 grew Pseudomonas aeroginosa, Prevotella bivia, Prevotella disiens, and clostridium cadaveris. There results were faxed to [facility] when he was hospitalized and was treated. He was again hospitalized at [facility] where wound cultures were obtained and they switched his wound care to Dakin's solution. Will add cover with either Sorbian sachet or Kermax dressing 1-2 times daily. He is on low dose Bactrim per ID which is managed by [facility]'s physicians. Today denies any complaints. He states he is feeling better, he has not been hospitalized since our last visit. Today he denies fever, chills, nausea, vomiting and states his appetite is good. Progress of Wound: Stable - Physical Exam Vital Signs Temp Pulse Resp BP 97.2 F L 62 18 85/54 L 11/05/18 15:54 11/05/18 15:54 11/05/18 15:54 11/05/18 15:54 General: Alert, Oriented x3, Cooperative HEENT: Atraumatic Oral: Moist Mucosa Lungs: Normal air movement Cardiovascular: Regular rate Extremities: No edema, Capillary Refill Less than 3 Seconds Skin: Ulcer/ Wound - Sacral ulcer Wound Measurements and Assessment WC - Nurse 1 - General Ulcer Measurement Start: 11/05/18 15:54 Freq: Status: Active Protocol: Activity Type Activity Date Activity User E-Sign Co-Sign Detail Recorded Client Recorded Date Recorded By Document 11/05/18 15:54 DL [id number] 11/05/18 16:02 DL 11/05/18 15:54 Wound Center Nurse 1 [Ulcer Assessment] #3 Sacral -Current Size (cm) - Length 5.5 -Current Size (cm) - Width 3.4 -Current Size (cm) - Depth 1.8 -Total Square Cm 18.70 -Photo Taken No -Exudate Amt Small -Exudate Type Serosanguineous -Wound Margin Distinct, Outline Attached -Granulation Amt Large (67-100%) -Granulation Quality Red -Necrosis Amt Small (1-33%) -Necrotic Tissue Type Adherent Slough -Structure Exposed N/A -Texture (Tu-wound Skin Appearance) Scarring -Moisture (Tu-wound Skin Appearance No Abnormality ) -Color (Tu-wound Skin Appearance) No Abnormality -Temperature (Tu-wound Skin No Abnormality Appearance) (Pt Warm) -Tenderness on Palpation (Tu-wound No Skin Appearance) -Ulcer Cleansing Rinsed/ Irrigated with Saline -Foul Odor after Cleansing No -Anesthetic Used 5% Lidocaine Gel WC - Nurse 2 - General Ulcer CM Notes Start: 11/05/18 15:54 Freq: Status: Active Protocol: Activity Type Activity Date Activity User E-Sign Co-Sign Detail Recorded Client Recorded Date Recorded By Document 11/05/18 16:13 ALBINO [id number] 11/05/18 16:14 ALBINO 11/05/18 16:13 Wound Center Nurse 2 [Procedure/Treatment] -Time 16:14 -Correct Patient Yes -Correct Side, Site, Position Yes -Correct Procedure Yes -Procedure Performed Yes -Type of Procedure Debridement -Clinical Debridement Muscle -Post Debridement Size (cm) - Length 6 -Post Debridement Size (cm) - Width 4.5 -Post Debridement Size (cm) - Depth 1.2 -Total Square Cm 27.0 -Wound/Ulcer Outcome Not Healed -Ulcer Cleansing Rinsed/ Irrigated with Saline -Foul Odor after Cleansing No -Bioengineered Tissue No -Bleeding Controlled with Pressure -Other underming 1:00- 1.4cm -Offloading No -Treatment Response Procedure Tolerated Well [See Physician Procedure note for Specifics] Pain Scale: 0-10 Numeric [Pain] -Is Patient Pain Free? Yes Musculoskeletal: No Tenderness to Palpation of Joints or Extremities Neurological: Cranial nerves II-XII grossly intact Psych/Mental Status: Normal Affect, Appropriate Debridement Note Post-Debridement Measurements/Treatment WC - Nurse 2 - General Ulcer CM Notes Start: 11/05/18 15:54 Freq: Status: Active Protocol: Activity Type Activity Date Activity User E-Sign Co-Sign Detail Recorded Client Recorded Date Recorded By Document 11/05/18 16:13 ALBINO [id number] 11/05/18 16:14 ALBINO 11/05/18 16:13 Wound Center Nurse 2 #3 Sacral -Time 16:14 -Correct Patient Yes -Correct Side, Site, Position Yes -Correct Procedure Yes -Procedure Performed Yes -Type of Procedure Debridement -Clinical Debridement Muscle -Post Debridement Size (cm) - Length 6 -Post Debridement Size (cm) - Width 4.5 -Post Debridement Size (cm) - Depth 1.2 -Total Square Cm 27.0 -Wound/Ulcer Outcome Not Healed -Ulcer Cleansing Rinsed/ Irrigated with Saline -Foul Odor after Cleansing No -Bioengineered Tissue No -Bleeding Controlled with Pressure -Other underming 1:00- 1.4cm -Offloading No -Treatment Response Procedure Tolerated Well Pain Scale: 0-10 Numeric Is Patient Pain Free? Yes Wound debrided: Sacral ulcer Type of Debridement: Excisional debridement Anesthesia Used: 5% Lidocaine Gel Depth: Down to and including healthy tissue, in the subcutaneous layer, to muscle Percentage of wound debrided: 100 Instrument Used: 7mm curette Tissue Removed: Subcutaneous tissue and slough Severity: Fat Layer Exposed Amount of bleeding with debridement: Mild Bleeding Controlled with: Pressure, Compression and gauze Patient tolerated procedure well Assessment/Plan Assessment: 1. 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 2. Quadriplegia. 3. Stool incontinence. 4. s/p excision infected necrotic sacral pressure sore including underlying necrotic muscle, Stage IV. Plan: Debridement performed today as documented. He was sent home from [facility] on Dakin's solution. Encouraged them to continue to try to keep the tu wound clean and dry. Also using Sorbian sachet dressing to help with his increased drainage. His states he is often soaked through his dressings and clothes but the sorbian sachet has helped with that. His wound cultures from 07/04/18 grew Pseudomonas aeroginosa, Prevotella bivia, Prevotella disiens, and Clostridium cadaveris. Encouraged off loading. He was again hospitalized at [facility] where wound cultures were obtained and they switched his wound care to Dakin's solution. Will add cover with either Sorbian sachet or Kermax dressing to help with the large amount of drainage. He is on low dose Bactrim. This is managed by [facility]'s physicians. Encouraged increase in protein. He will follow up in two weeks. Code Visit 111xxx-113xx: 40397 Margarita musc/fascia 20 sq cm/< Add On Codes: [id number] Margarita musc/fascia add-on
== END 2018-11-25 23:59 ==
LOC: WC 12:38
PROVIDERS: Family Provider Nurse Practitioner Primary Care; PCP Nurse Practitioner Primary Care; Visit Provider Nurse Practitioner Family
DX: L89.154 Pressure ulcer of sacral region, stage 4 (principal); G82.50 Quadriplegia, unspecified
CPT/HCPCS: 11043; 11046

== ENCOUNTER 2018-12-03 13:53 | Outpatient (RCR) | payer MEDICARE, MEDICAID, SELFPAY ==
[2018-11-26 00:51] VITALS: BP 85/54; PULSE 62; RESP 18; TEMP 36.2
== END 2018-12-26 23:59 ==
LOC: WC 13:53
PROVIDERS: Family Provider Nurse Practitioner Primary Care; PCP Nurse Practitioner Primary Care; Visit Provider Nurse Practitioner Family
DX: Z09 Encounter for follow-up examination after completed treatment for conditions other than malignant neoplasm (principal)

== ENCOUNTER 2020-01-18 23:55 | Observation (INO) | payer MEDICARE, MEDICAID, SELFPAY ==
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
[2020-01-19 00:18] VITALS: BP 93/80; PULSE 61; RESP 18; TEMP 36.6; O2SAT 94; BMI 26.2
[2020-01-19] MEDS: 0.9% Normal Saline 1,000 ML 100 ML IV ×3 (01:00→20:44)
[2020-01-19 01:19] LABS: Hematocrit 50.5 % (40-54); Hemoglobin 16.1 g/dL (13.0-16.5)
[2020-01-19 01:34] LABS: Magnesium 2.1 mg/dL (1.6-2.6)
[2020-01-19] MEDS: Midodrine HCl 5 MG Tablet 7.5 MG PO ×4 (02:21→20:40)
[2020-01-19] MEDS: Baclofen 10 MG Tablet 20 MG PO ×3 (02:21→16:40)
[2020-01-19] MEDS: Morphine 2 MG/ML Syringe IV ×3 (02:29→10:08)
[2020-01-19] MEDS: 0.9% Saline Lock 10 ML Syringe IV ×3 (02:29→10:09)
--- NOTE | 2020-01-19 03:11 | NURSING ---
PT REFUSES ENSURE. ASKS THIS RN NOT TO ORDER THEM. PT STATES WELLS CATH BAG MUST BE PLACED ON FLOOR OR IT WILL CAUSE AUTONOMIC ISSUES. BAG IS INSIDE BASIN ON FLOOR.
[2020-01-19] MEDS: Gabapentin 600 MG Tablet PO ×3 (05:54→20:41)
[2020-01-19 05:57] VITALS: BP 103/63; PULSE 60; RESP 16; TEMP 36.6; O2SAT 94
[2020-01-19 06:12] LABS: Absolute Lymphocyte Count 2.52 X10^3/uL (0.83-4.51); Absolute Neutrophil Count 7.1 X10^3/uL (2.0-7.7); Basophil# 0.05 X10^3/uL; Basophil% 0.5 % (0-1); Eosinophil# 0.39 X10^3/uL; Eosinophils% 3.5 % (0-5); Hematocrit 51.6 % (40-54); Lymphocyte # 2.52 X10^3/ul (4.0); Lymphocyte % 22.8 % (19-41); Mean Corpuscular Hgb 26.7 pg (27.0-32.0); Mean Platelet Vol. 10.5 fl (6.2-12.0); Monocyte# 0.91 X10^3/uL; Monocyte% 8.3 % (0-10); NRBC Flagged by Analyzer 0 % (0-5); Neutrophil # 7.12 X10^3/uL (2.7-7.7); Neutrophil % 64.5 % (47-70); Platelet Count 208 K/mm3 (150-450); RBC Distribution Width CV 14.3 % (11.6-14.6); RBC Distribution Width SD 45.6 fl (35.1-43.9)
[2020-01-19 06:45] LABS: ALB/GLOB Ratio 0.9 RATIO (0.9-2.4); AST(SGOT) 98 U/L (15-37); Alanine Aminotransfer ALT/SGPT 110 U/L (16-61); Albumin, Serum 3.4 g/dL (3.2-5.0); Alkaline Phosphatase 160 U/L (45-117); Anion Gap 4 (5-15); BUN 10 mg/dL (7-18); BUN/Creat Ratio 15.1 RATIO (10-20); Calcium,Total 8.8 mg/dL (8.5-10.1); Chloride 108 mmol/L (98-107); Creatinine, Serum 0.66 mg/dL (0.70-1.30); EST Glomerular Filtration Rate 140 mL/min (>60); Est Glom Filt Rate - Afr Amer 169 mL/min (>60); Estimated Creatinine Clearance 164.78 ml/min; Globulin 3.9 g/dL (2.2-4.2); Glucose 71 mg/dL (74-106); Protein, Total 7.3 g/dL (6.4-8.2); Sodium Level 137 mmol/L (136-145)
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
[2020-01-19 09:01] VITALS: BP 144/80; PULSE 59; RESP 18; TEMP 36.7; O2SAT 98
[2020-01-19] MEDS: FLUoxetine 20 MG Capsule 40 MG PO (09:14)
[2020-01-19] MEDS: Multivitamins,Therapeutic Tablet 1 TABLET PO (09:14)
[2020-01-19] MEDS: Smz/Tmp Ds Tablet 1 TABLET PO ×2 (09:14→16:41)
[2020-01-19] MEDS: Ascorbic Acid 500 MG Tablet PO (09:15)
[2020-01-19] MEDS: Oxybutynin 5 MG Tablet PO ×2 (09:15→20:42)
[2020-01-19] MEDS: Folic Acid 1 MG Tablet 2 MG PO (09:16)
[2020-01-19] MEDS: Cefdinir 300 MG Capsule PO (09:16)
--- NOTE | 2020-01-19 09:29 | NURSING ---
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 Pt reports neck pain that is chronic and goes from neck to stomach to left leg. At home pt takes oxycotine 20mg BID and percocet q4 prn. Offered pt oxyir and tylenol. Pt stated he would not take this medication unless we were giving him an actual percocet. explained to patient he would be getting the exact same dosage just in 2 pills. Pt refused cursing at staff stating he will tell us what pain meds and how much to give him or he will be discharged and go to a different hospital that will give him what he wants. Text sent to MD to notify of situation.
--- NOTE | 2020-01-19 09:32 | NURSING ---
0900 pt called out stating he feels like he is going to pass out because his BP is low and needs his midodrine. This nurse explained that he took midodrine from shiftman RN @ 0553. Pt cursed at nurse stating that was almost 6 hours ago and i need 5mgs more. This nurse explained she would check his BP and then if BP is low let MD know and see if she could obtain order for more midodrine but she could not give with out an order. PT again cursing stating he knows his body and he will do what he wants. Also demanding Morphine at this time. This nurse explained if BP was low then she would not give morphine at this time as it would lower BP further. BP obtained and SBP was 140's. Pt stated oh i must feel wierd because my BP is high. Nurse practitioner entered room at this time. Pt again requesting morphine can not have until 952, refused to take oxycotine. x1 2mg morphine ordered obtained from KEYBOARDING TEACHER. Pt stating to KEYBOARDING TEACHER if i don't get what i want you will discharge me and i will go someplace that gives me morphine
--- NOTE | 2020-01-19 09:49 | NURSING ---
wound photo: sacrum
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
[2020-01-19 14:02] VITALS: BP 89/57; PULSE 60; RESP 18; TEMP 36.4; O2SAT 98
[2020-01-19] MEDS: oxyCODONE 5 MG Tablet 10 MG PO ×3 (14:07→22:17)
[2020-01-19] MEDS: Acetaminophen 325 MG Tablet 650 MG PO ×2 (14:08→20:40)
[2020-01-19 16:01] VITALS: BP 150/68; PULSE 50; RESP 18; TEMP 36.7; O2SAT 98
[2020-01-19] MEDS: proCHLORPERazine 10 MG/2 ML Vial 5 MG IV (16:44)
[2020-01-19] MEDS: Divalproex Sodium 250 MG Tablet 1000 MG PO (20:41)
[2020-01-19] MEDS: Atorvastatin Calcium 20 MG Tablet PO (20:41)
[2020-01-19 21:00] VITALS: BP 92/60; PULSE 55; RESP 18; TEMP 37; O2SAT 97
[2020-01-20] MEDS: Baclofen 10 MG Tablet 20 MG PO ×2 (01:06→08:09)
[2020-01-20 03:00] VITALS: BP 110/72; PULSE 52; RESP 16; TEMP 36.4; O2SAT 96
[2020-01-20] MEDS: 0.9% Normal Saline 1,000 ML 100 ML IV (04:59)
[2020-01-20] MEDS: oxyCODONE 5 MG Tablet 10 MG PO ×2 (05:00→12:30)
[2020-01-20] MEDS: Acetaminophen 325 MG Tablet 650 MG PO ×2 (05:00→12:29)
[2020-01-20] MEDS: Midodrine HCl 5 MG Tablet 7.5 MG PO ×2 (05:01→14:42)
[2020-01-20] MEDS: Gabapentin 600 MG Tablet PO ×2 (05:01→14:42)
[2020-01-20 05:38] LABS: Hematocrit 48.1 % (40-54); Hemoglobin 15.5 g/dL (13.0-16.5); Mean Corp Hgb Conc 32.2 g/dL (32-36); Mean Corpuscular Hgb 27.5 pg (27.0-32.0); Mean Corpuscular Volume 85.4 fL (80-94); Mean Platelet Vol. 10.1 fl (6.2-12.0); Platelet Count 197 K/mm3 (150-450); RBC Distribution Width CV 14.1 % (11.6-14.6); RBC Distribution Width SD 43.7 fl (35.1-43.9); Red Blood Count 5.63 M/mm3 (4.6-6.2); White Blood Count 7.7 K/mm3 (4.4-11.0)
[2020-01-20 06:05] LABS: ALB/GLOB Ratio 0.9 RATIO (0.9-2.4); AST(SGOT) 74 U/L (15-37); Alanine Aminotransfer ALT/SGPT 115 U/L (16-61); Albumin, Serum 3.5 g/dL (3.2-5.0); Alkaline Phosphatase 154 U/L (45-117); Anion Gap 4 (5-15); BUN 6 mg/dL (7-18); BUN/Creat Ratio 9.4 RATIO (10-20); Calcium,Total 8.9 mg/dL (8.5-10.1); Chloride 108 mmol/L (98-107); Creatinine, Serum 0.64 mg/dL (0.70-1.30); EST Glomerular Filtration Rate 146 mL/min (>60); Est Glom Filt Rate - Afr Amer 176 mL/min (>60); Estimated Creatinine Clearance 169.93 ml/min; Globulin 3.9 g/dL (2.2-4.2); Glucose 78 mg/dL (74-106); Potassium 4.3 mmol/L (3.5-5.1); Protein, Total 7.4 g/dL (6.4-8.2); Sodium Level 139 mmol/L (136-145)
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
[2020-01-20] MEDS: Folic Acid 1 MG Tablet 2 MG PO (08:08)
[2020-01-20] MEDS: Smz/Tmp Ds Tablet 1 TABLET PO (08:08)
[2020-01-20] MEDS: Multivitamins,Therapeutic Tablet 1 TABLET PO (08:08)
[2020-01-20] MEDS: DAKIN'S SOL HALF STRENGTH (=0.25%) 1 APPLIC TOPICAL (08:09)
[2020-01-20 08:11] VITALS: BP 116/73; PULSE 55; RESP 18; TEMP 37.1; O2SAT 98
--- NOTE | 2020-01-20 08:25 | PN_ITS ---
<Jami Morales ORTHOPEDIC PHYSICAL THERAPIST - Last Filed: 01/20/20 08:25> Patient Problems: Active and Suspected Problems (This Medical Record has been edited. Action req uired.) GI bleed (Acute) UTI (urinary tract infection) (Acute) MRSA UTI diagnosed 01/14/2020 - Physical Exam Vitals/I&O's: Vital Signs Temp Pulse Resp BP Pulse Ox 98.7 F 55 L 18 116/73 98 01/20/20 08:11 01/20/20 08:11 01/20/20 08:11 01/20/20 08:11 01/20/20 08:11 Oxygen Delivery Method Room Air Weight: 200 lb 13.458 oz Body Mass Index (BMI) 26.2 Intake and Output for Last 24 Hours 01/18/20 01/19/20 01/20/20 23:59 23:59 23:59 Intake Total 3763.34 / 4663.34 1706.67 / 1706.67 Output Total 2950 / 4600 2750 / 2750 Balance 813.34 / 63.34 -1043.33 / -1043.33 Laboratory Results 01/20/20 05:15: WBC 7.7, RBC 5.63, Hgb 15.5, Hct 48.1, MCV 85.4, MCH 27.5, MCHC 32.2, RDW Std Deviation 43.7, RDW Coeff of Minerva 14.1, Plt Count 197, MPV 10.1 01/20/20 05:15: Sodium 139, Potassium 4.3, Chloride 108 H, Carbon Dioxide 27.0, Anion Gap 4 L, BUN 6 L, Creatinine 0.64 L, Estim Creat Clear Calc 169.93, Est GFR (MDRD) Af Amer 176, Est GFR (MDRD) Non-Af 146, BUN/Creatinine Ratio 9.4 L, Glucose 78, Calcium 8.9, Total Bilirubin 0.80, AST 74 H, ALT 115 H, Alkaline Phosphatase 154 H, Total Protein 7.4, Albumin 3.5, Globulin 3.9, Albumin/Globulin Ratio 0.9 Current Medications Acetaminophen (Acetaminophen 325 Mg Tablet) 650 mg PO Q6H PRN PRN PRN Reason: Pain Score 1-10/Temp > 100.7 F Last Admin: 01/20/20 05:00 Dose: 650 mg Documented by: Al Hydroxide/Mg Hydroxide (Mag Hydrox/Al Hydrox/Simeth 30 Ml Udc) 30 ml PO Q6H PRN PRN PRN Reason: Gastric Burning Albuterol Sulfate (Albuterol 2.5 Mg/3 Ml Vial.Neb.) 2.5 mg INHALATION Q2H PRN PRN PRN Reason: Dyspnea, wheezing Ascorbic Acid (Ascorbic Acid 500 Mg Tablet) 500 mg PO DAILY [facility] Last Admin: 01/19/20 09:15 Dose: 500 mg Documented by: Atorvastatin Calcium (Atorvastatin Calcium 20 Mg Tablet) 20 mg PO QHS [facility] Last Admin: 01/19/20 20:41 Dose: 20 mg Documented by: Baclofen (Baclofen 10 Mg Tablet) 20 mg PO Q8H [facility] Last Admin: 01/20/20 08:09 Dose: 20 mg Documented by: Cefdinir (Cefdinir 300 Mg Capsule) 300 mg PO MOWEFR [facility] Last Admin: 01/19/20 09:16 Dose: 300 mg Documented by: Divalproex Sodium (Divalproex Sodium 250 Mg Tablet) 1,000 mg PO QHS [facility] Last Admin: 01/19/20 20:41 Dose: 1,000 mg Documented by: Fluoxetine HCl (Fluoxetine 20 Mg Capsule) 40 mg PO DAILY [facility] Last Admin: 01/19/20 09:14 Dose: 40 mg Documented by: Folic Acid (Folic Acid 1 Mg Tablet) 2 mg PO DAILY@0800 [facility] Last Admin: 01/20/20 08:08 Dose: 2 mg Documented by: Gabapentin (Gabapentin 600 Mg Tablet) 600 mg PO TID [facility] Last Admin: 01/20/20 05:01 Dose: 600 mg Documented by: Guaifenesin (Guaifenesin 10 Ml Udc (200mg/10ml)) 20 ml PO Q4H PRN PRN PRN Reason: COUGH Hydralazine HCl (Hydralazine 20 Mg/Ml Vial) 10 mg IV Q4H PRN PRN PRN Reason: SBP > 160 Hydroxyzine HCl (Hydroxyzine 10 Mg Tablet) 12.5 mg PO TID PRN PRN PRN Reason: ANXIETY Sodium Chloride () 1,000 mls @ 100 mls/hr IV .Q10H [facility] Last Infusion: 01/20/20 07:29 Dose: 100 mls/hr Documented by: Pantoprazole Sodium 40 mg/ (Sodium Chloride) 110 mls @ 330 mls/hr IV Q12 [facility] Last Infusion: 01/19/20 22:38 Dose: Infused Documented by: Sodium Chloride () 250 mls @ 15 mls/hr IV .[id number] PRN PRN Reason: Saline Flush Sodium Chloride () 250 mls @ 15 mls/hr IV .[id number] PRN PRN Reason: Additional IVPB Infusion Melatonin (Melatonin 3 Mg Tablet) 3 mg PO QHS PRN PRN PRN Reason: INSOMNIA Midodrine (Midodrine Hcl 5 Mg Tablet) 7.5 mg PO TID [facility] Last Admin: 01/20/20 05:01 Dose: 7.5 mg Documented by: Multivitamins ([facility],Therapeutic Tablet) [facility] Last Admin: 01/20/20 08:08 Dose: 1 tablet Documented by: Ondansetron HCl (Ondansetron 4 Mg/2 Ml Vial) 4 mg IV Q8H PRN PRN PRN Reason: NAUSEA/VOMITING Oxybutynin Chloride (Oxybutynin 5 Mg Tablet) 5 mg PO BID [facility] Last Admin: 01/19/20 20:42 Dose: 5 mg Documented by: Oxycodone HCl (Oxycodone Cr 20 Mg Tablet) 20 mg PO Q8H [facility] Last Admin: 01/20/20 01:06 Dose: 20 mg Documented by: Oxycodone HCl (Oxycodone 5 Mg Tablet) 10 mg PO Q4H PRN PRN PRN Reason: Pain Score 1-10 Last Admin: 01/20/20 05:00 Dose: 10 mg Documented by: Prochlorperazine Edisylate (Prochlorperazine 10 Mg/2 Ml Vial) 5 mg IV Q4H PRN PRN PRN Reason: Breakthrough nausea/vomiting Last Admin: 01/19/20 16:44 Dose: 5 mg Documented by: Sodium Chloride (0.9% Saline Lock 10 Ml Syringe) 10 - 40 ml IV UD PRN PRN Reason: SALINE FLUSH Last Admin: 01/19/20 10:09 Dose: 10 ml Documented by: Sodium Hypochlorite (Dakin's Janine Half Strength (=0.25%)) 1 applic TOPICAL DAILY [facility]; Protocol Last Admin: 01/20/20 08:09 Dose: 1 applicatio Documented by: Throat Lozenges (Benzocaine/Menthol 1 Lozenge) 1 lozenge MUCOUS MEM Q2H PRN PRN PRN Reason: SORE THROAT Trimethoprim/Sulfamethoxazole (Smz/Tmp Ds Tablet) 1 tablet PO BIDCM [facility] Last Admin: 01/20/20 08:08 Dose: 1 tablet Documented by: Zinc Sulfate (Zinc Sulfate (50mg Elemental) 220 Mg Capsule) 220 mg PO DAILY [facility] Last Admin: 01/19/20 09:14 Dose: 220 mg Documented by: Medical Necessity - Tobacco Use Smoking Status: Current every day smoker Tobacco Use: Cigarettes Assessment/Plan All Active Problems (This Medical Record has been edited. Action required.) Injury to transverse colon (Acute) Bowel perforation (Acute) Fever, unknown origin (Acute) GI bleed (Acute) UTI (urinary tract infection) (Acute) Skin necrosis (Acute) Injury of neck (Acute) Pressure ulcer of sacral region, stage 3 (Ruled-out) Decubitus ulcer, stage 3 with infection (Ruled-out) IMPRESSION: Mural thickening of the afferent loop is favored to represent under distention. However, mild colitis cannot be excluded. No evidence of active colonic hemorrhage. The stoma and rectal stump appear within normal limits. Duplicated collecting system on the RIGHT. I have personally reviewed the images of this examination and agree with the resident's findings and interpretation. <Jonathon Sanchez - Last Filed: 01/20/20 14:09> - Physical Exam Vitals/I&O's: Vital Signs Temp Pulse Resp BP Pulse Ox 98.7 F 55 L 18 116/73 98 01/20/20 08:11 01/20/20 08:11 01/20/20 08:11 01/20/20 08:11 01/20/20 08:11 Oxygen Delivery Method Room Air Weight: 200 lb 13.458 oz Body Mass Index (BMI) 26.2 Intake and Output for Last 24 Hours 01/18/20 01/19/20 01/20/20 23:59 23:59 23:59 Intake Total 3763.34 / 4663.34 1906.67 / 1906.67 Output Total 2950 / 4600 3750 / 3750 Balance 813.34 / 63.34 -1843.33 / -1843.33 Laboratory Results 01/20/20 05:15: WBC 7.7, RBC 5.63, Hgb 15.5, Hct 48.1, MCV 85.4, MCH 27.5, MCHC 32.2, RDW Std Deviation 43.7, RDW Coeff of Minerva 14.1, Plt Count 197, MPV 10.1 01/20/20 05:15: Sodium 139, Potassium 4.3, Chloride 108 H, Carbon Dioxide 27.0, Anion Gap 4 L, BUN 6 L, Creatinine 0.64 L, Estim Creat Clear Calc 169.93, Est G FR (MDRD) Af Amer 176, Est GFR (MDRD) Non-Af 146, BUN/Creatinine Ratio 9.4 L, Glucose 78, Calcium 8.9, Total Bilirubin 0.80, AST 74 H, ALT 115 H, Alkaline Phosphatase 154 H, Total Protein 7.4, Albumin 3.5, Globulin 3.9, Albumin/Globulin Ratio 0.9 Current Medications Acetaminophen (Acetaminophen 325 Mg Tablet) 650 mg PO Q6H PRN PRN PRN Reason: Pain Score 1-10/Temp > 100.7 F Last Admin: 01/20/20 12:29 Dose: 650 mg Documented by: Al Hydroxide/Mg Hydroxide (Mag Hydrox/Al Hydrox/Simeth 30 Ml Udc) 30 ml PO Q6H PRN PRN PRN Reason: Gastric Burning Albuterol Sulfate (Albuterol 2.5 Mg/3 Ml Vial.Neb.) 2.5 mg INHALATION Q2H PRN PRN PRN Reason: Dyspnea, wheezing Ascorbic Acid (Ascorbic Acid 500 Mg Tablet) 500 mg PO DAILY [facility] Last Admin: 01/20/20 09:56 Dose: 500 mg Documented by: Atorvastatin Calcium (Atorvastatin Calcium 20 Mg Tablet) 20 mg PO QHS [facility] Last Admin: 01/19/20 20:41 Dose: 20 mg Documented by: Baclofen (Baclofen 10 Mg Tablet) 20 mg PO Q8H [facility] Last Admin: 01/20/20 08:09 Dose: 20 mg Documented by: Cefdinir (Cefdinir 300 Mg Capsule) 300 mg PO MOWEFR [facility] Last Admin: 01/19/20 09:16 Dose: 300 mg Documented by: Divalproex Sodium (Divalproex Sodium 250 Mg Tablet) 1,000 mg PO QHS [facility] Last Admin: 01/19/20 20:41 Dose: 1,000 mg Documented by: Fluoxetine HCl (Fluoxetine 20 Mg Capsule) 40 mg PO DAILY [facility] Last Admin: 01/20/20 09:56 Dose: 40 mg Documented by: Folic Acid (Folic Acid 1 Mg Tablet) 2 mg PO DAILY@0800 [facility] Last Admin: 01/20/20 08:08 Dose: 2 mg Documented by: Gabapentin (Gabapentin 600 Mg Tablet) 600 mg PO TID [facility] Last Admin: 01/20/20 05:01 Dose: 600 mg Documented by: Guaifenesin (Guaifenesin 10 Ml Udc (200mg/10ml)) 20 ml PO Q4H PRN PRN PRN Reason: COUGH Hydralazine HCl (Hydralazine 20 Mg/Ml Vial) 10 mg IV Q4H PRN PRN PRN Reason: SBP > 160 Hydroxyzine HCl (Hydroxyzine 10 Mg Tablet) 12.5 mg PO TID PRN PRN PRN Reason: ANXIETY Sodium Chloride () 1,000 mls @ 100 mls/hr IV .Q10H [facility] Last Infusion: 01/20/20 07:29 Dose: 100 mls/hr Documented by: Pantoprazole Sodium 40 mg/ (Sodium Chloride) 110 mls @ 330 mls/hr IV Q12 [facility] Last Admin: 01/20/20 10:02 Dose: 330 mls/hr Documented by: Sodium Chloride () 250 mls @ 15 mls/hr IV .[id number] PRN PRN Reason: Saline Flush Sodium Chloride () 250 mls @ 15 mls/hr IV .[id number] PRN PRN Reason: Additional IVPB Infusion Melatonin (Melatonin 3 Mg Tablet) 3 mg PO QHS PRN PRN PRN Reason: INSOMNIA Midodrine (Midodrine Hcl 5 Mg Tablet) 7.5 mg PO TID [facility] Last Admin: 01/20/20 05:01 Dose: 7.5 mg Documented by: Multivitamins (Multivitamins,Therapeutic Tablet) 1 tablet PO DAILYCM [facility] Last Admin: 01/20/20 08:08 Dose: 1 tablet Documented by: Ondansetron HCl (Ondansetron 4 Mg/2 Ml Vial) 4 mg IV Q8H PRN PRN PRN Reason: NAUSEA/VOMITING Oxybutynin Chloride (Oxybutynin 5 Mg Tablet) 5 mg PO BID [facility] Last Admin: 01/20/20 09:55 Dose: 5 mg Documented by: Oxycodone HCl (Oxycodone Cr 20 Mg Tablet) 20 mg PO Q8H [facility] Last Admin: 01/20/20 09:55 Dose: 20 mg Documented by: Oxycodone HCl (Oxycodone 5 Mg Tablet) 10 mg PO Q4H PRN PRN PRN Reason: Pain Score 1-10 Last Admin: 01/20/20 12:30 Dose: 10 mg Documented by: Prochlorperazine Edisylate (Prochlorperazine 10 Mg/2 Ml Vial) 5 mg IV Q4H PRN PRN PRN Reason: Breakthrough nausea/vomiting Last Admin: 01/19/20 16:44 Dose: 5 mg Documented by: Sodium Chloride (0.9% Saline Lock 10 Ml Syringe) 10 - 40 ml IV UD PRN PRN Reason: SALINE FLUSH Last Admin: 01/19/20 10:09 Dose: 10 ml Documented by: Sodium Hypochlorite (Dakin's Janine Half Strength (=0.25%)) 1 applic TOPICAL DAILY [facility]; Protocol Last Admin: 01/20/20 08:09 Dose: 1 applicatio Documented by: Throat Lozenges (Benzocaine/Menthol 1 Lozenge) 1 lozenge MUCOUS MEM Q2H PRN PRN PRN Reason: SORE THROAT Trimethoprim/Sulfamethoxazole (Smz/Tmp Ds Tablet) 1 tablet PO BIDCM [facility] Last Admin: 01/20/20 08:08 Dose: 1 tablet Documented by: Zinc Sulfate (Zinc Sulfate (50mg Elemental) 220 Mg Capsule) 220 mg PO DAILY [facility] Last Admin: 01/20/20 09:56 Dose: 220 mg Documented by: Assessment/Plan Please see discharge summary for further details physical exam and hospital stay summary
[2020-01-20] MEDS: Oxybutynin 5 MG Tablet PO (09:55)
[2020-01-20] MEDS: FLUoxetine 20 MG Capsule 40 MG PO (09:56)
[2020-01-20] MEDS: Ascorbic Acid 500 MG Tablet PO (09:56)
--- NOTE | 2020-01-20 12:40 | CASEMGMT ---
MIRIAM CODY completed GONZALEZ form with patient. MIRIAM CODY explained GONZALEZ form to patient, patient voiced understanding. Patient signed GONZALEZ form and filed in chart. Patient provided with copy of signed GONZALEZ form. Patient had no further questions or concerns at this time.
--- NOTE | 2020-01-20 13:08 | PN.SURG_ITS ---
Patient Problems: Active and Suspected Problems (This Medical Record has been edited. Action required.) GI bleed (Acute) UTI (urinary tract infection) (Acute) MRSA UTI diagnosed 01/14/2020 Subjective: CAT scan of the abdomen and pelvis did not reveal any signs of diverticulitis or stump blowout he had a small amount of fluid in the pelvis which was different than before. He has had no further blood coming out of his ostomy. He is not throwing up blood. Pain really has not changed a whole lot. Objective: Abdomen is soft no obvious rebound guarding or peritoneal signs. No palpable masses are identified. Normal brown fluid coming out of ostomy - Physical Exam Vitals/I&O's: Vital Signs Temp Pulse Resp BP Pulse Ox 98.7 F 55 L 18 116/73 98 01/20/20 08:11 01/20/20 08:11 01/20/20 08:11 01/20/20 08:11 01/20/20 08:11 Oxygen Delivery Method Room Air Weight: 200 lb 13.458 oz Body Mass Index (BMI) 26.2 Intake and Output for Last 24 Hours 01/18/20 01/19/20 01/20/20 23:59 23:59 23:59 Intake Total 3763.34 / 4663.34 1906.67 / 1906.67 Output Total 2950 / 4600 3750 / 3750 Balance 813.34 / 63.34 -1843.33 / -1843.33 Laboratory Results 01/20/20 05:15: WBC 7.7, RBC 5.63, Hgb 15.5, Hct 48.1, MCV 85.4, MCH 27.5, MCHC 32.2, RDW Std Deviation 43.7, RDW Coeff of Minerva 14.1, Plt Count 197, MPV 10.1 01/20/20 05:15: Sodium 139, Potassium 4.3, Chloride 108 H, Carbon Dioxide 27.0, Anion Gap 4 L, BUN 6 L, Creatinine 0.64 L, Estim Creat Clear Calc 169.93, Est GFR (MDRD) Af Amer 176, Est GFR (MDRD) Non-Af 146, BUN/Creatinine Ratio 9.4 L, Glucose 78, Calcium 8.9, Total Bilirubin 0.80, AST 74 H, ALT 115 H, Alkaline Phosphatase 154 H, Total Protein 7.4, Albumin 3.5, Globulin 3.9, Albumin/Globulin Ratio 0.9 Current Medications Acetaminophen (Acetaminophen 325 Mg Tablet) 650 mg PO Q6H PRN PRN PRN Reason: Pain Score 1-10/Temp > 100.7 F Last Admin: 01/20/20 12:29 Dose: 650 mg Documented by: Al Hydroxide/Mg Hydroxide (Mag Hydrox/Al Hydrox/Simeth 30 Ml Udc) 30 ml PO Q6H PRN PRN PRN Reason: Gastric Burning Albuterol Sulfate (Albuterol 2.5 Mg/3 Ml Vial.Neb.) 2.5 mg INHALATION Q2H PRN PRN PRN Reason: Dyspnea, wheezing Ascorbic Acid (Ascorbic Acid 500 Mg Tablet) 500 mg PO DAILY [facility] Last Admin: 01/20/20 09:56 Dose: 500 mg Documented by: Atorvastatin Calcium (Atorvastatin Calcium 20 Mg Tablet) 20 mg PO QHS [facility] Last Admin: 01/19/20 20:41 Dose: 20 mg Documented by: Baclofen (Baclofen 10 Mg Tablet) 20 mg PO Q8H [facility] Last Admin: 01/20/20 08:09 Dose: 20 mg Documented by: Cefdinir (Cefdinir 300 Mg Capsule) 300 mg PO MOWEFR [facility] Last Admin: 01/19/20 09:16 Dose: 300 mg Documented by: Divalproex Sodium (Divalproex Sodium 250 Mg Tablet) 1,000 mg PO QHS [facility] Last Admin: 01/19/20 20:41 Dose: 1,000 mg Documented by: Fluoxetine HCl (Fluoxetine 20 Mg Capsule) 40 mg PO DAILY [facility] Last Admin: 01/20/20 09:56 Dose: 40 mg Documented by: Folic Acid (Folic Acid 1 Mg Tablet) 2 mg PO DAILY@0800 [facility] Last Admin: 01/20/20 08:08 Dose: 2 mg Documented by: Gabapentin (Gabapentin 600 Mg Tablet) 600 mg PO TID [facility] Last Admin: 01/20/20 05:01 Dose: 600 mg Documented by: Guaifenesin (Guaifenesin 10 Ml Udc (200mg/10ml)) 20 ml PO Q4H PRN PRN PRN Reason: COUGH Hydralazine HCl (Hydralazine 20 Mg/Ml Vial) 10 mg IV Q4H PRN PRN PRN Reason: SBP > 160 Hydroxyzine HCl (Hydroxyzine 10 Mg Tablet) 12.5 mg PO TID PRN PRN PRN Reason: ANXIETY Sodium Chloride () 1,000 mls @ 100 mls/hr IV .Q10H [facility] Last Infusion: 01/20/20 07:29 Dose: 100 mls/hr Documented by: Pantoprazole Sodium 40 mg/ (Sodium Chloride) 110 mls @ 330 mls/hr IV Q12 [facility] Last Admin: 01/20/20 10:02 Dose: 330 mls/hr Documented by: Sodium Chloride () 250 mls @ 15 mls/hr IV .[id number] PRN PRN Reason: Saline Flush Sodium Chloride () 250 mls @ 15 mls/hr IV .[id number] PRN PRN Reason: Additional IVPB Infusion Melatonin (Melatonin 3 Mg Tablet) 3 mg PO QHS PRN PRN PRN Reason: INSOMNIA Midodrine (Midodrine Hcl 5 Mg Tablet) 7.5 mg PO TID [facility] Last Admin: 01/20/20 05:01 Dose: 7.5 mg Documented by: Multivitamins ([facility]itamins,Therapeutic Tablet) [facility] Last Admin: 01/20/20 08:08 Dose: 1 tablet Documented by: Ondansetron HCl (Ondansetron 4 Mg/2 Ml Vial) 4 mg IV Q8H PRN PRN PRN Reason: NAUSEA/VOMITING Oxybutynin Chloride (Oxybutynin 5 Mg Tablet) 5 mg PO BID [facility] Last Admin: 01/20/20 09:55 Dose: 5 mg Documented by: Oxycodone HCl (Oxycodone Cr 20 Mg Tablet) 20 mg PO Q8H [facility] Last Admin: 01/20/20 09:55 Dose: 20 mg Documented by: Oxycodone HCl (Oxycodone 5 Mg Tablet) 10 mg PO Q4H PRN PRN PRN Reason: Pain Score 1-10 Last Admin: 01/20/20 12:30 Dose: 10 mg Documented by: Prochlorperazine Edisylate (Prochlorperazine 10 Mg/2 Ml Vial) 5 mg IV Q4H PRN PRN PRN Reason: Breakthrough nausea/vomiting Last Admin: 01/19/20 16:44 Dose: 5 mg Documented by: Sodium Chloride (0.9% Saline Lock 10 Ml Syringe) 10 - 40 ml IV UD PRN PRN Reason: SALINE FLUSH Last Admin: 01/19/20 10:09 Dose: 10 ml Documented by: Sodium Hypochlorite (Dakin's Janine Half Strength (=0.25%)) 1 applic TOPICAL DAILY [facility]; Protocol Last Admin: 01/20/20 08:09 Dose: 1 applicatio Documented by: Throat Lozenges (Benzocaine/Menthol 1 Lozenge) 1 lozenge MUCOUS MEM Q2H PRN PRN PRN Reason: SORE THROAT Trimethoprim/Sulfamethoxazole (Smz/Tmp Ds Tablet) 1 tablet PO BIDCM [facility] Last Admin: 01/20/20 08:08 Dose: 1 tablet Documented by: Zinc Sulfate (Zinc Sulfate (50mg Elemental) 220 Mg Capsule) 220 mg PO DAILY [facility] Last Admin: 01/20/20 09:56 Dose: 220 mg Documented by: Medical Necessity - Tobacco Use Smoking Status: Current every day smoker Tobacco Use: Cigarettes Assessment/Plan All Active Problems (This Medical Record has been edited. Action required.) Injury to transverse colon (Acute) Bowel perforation (Acute) Fever, unknown origin (Acute) GI bleed (Acute) UTI (urinary tract infection) (Acute) Skin necrosis (Acute) Injury of neck (Acute) Pressure ulcer of sacral region, stage 3 (Ruled-out) Decubitus ulcer, stage 3 with infection (Ruled-out) I do not think there is really anything here for me to operate on at this time. And unfortunately I think we are going to have to feed him to see if he develops any further bleeding. And if that is the case possibly doing some endoscopies on him at that time will be appropriate. But at this time since his hemoglobin is stable and he is not throwing up blood and no more blood is coming out of his ostomy I think it is okay that we discharge him if he can tolerate a diet. Patient should follow up with his primary care physician. Inpatient E&M: 46420 Subs Hosp L2
--- NOTE | 2020-01-20 13:29 | DCINST_ITS ---
- Discharge Diagnoses Current Active Problems: Current Active and Chronic Problems Anemia (Chronic) Chronic pain syndrome (Chronic) Bipolar disorder (Chronic) GI bleed (Acute) UTI (urinary tract infection) (Acute) MRSA UTI diagnosed 01/14/2020 Suprapubic catheter (Chronic) Tobacco use (Chronic) You will use the following diet at home:: No restrictions Discharge Activity: Return to Normal Activity Call your doctor if you observe: - - Recurrent blood in stool Allergies/Adverse Reactions: Allergies No Known Allergies Allergy (Verified 07/04/18 09:45) Medications to take at Discharge Divalproex Sodium [Depakote] 1,000 mg PO QHS 11/11/17 Acetaminophen [Tylenol] 325 - 650 mg PO Q4H PRN PRN 11/12/17 Ascorbic Acid [Vitamin C] 500 mg PO DAILY 11/12/17 Enoxaparin Sodium [Lovenox] 40 mg SQ DAILY 11/12/17 Fluoxetine HCl [Prozac] 40 mg PO DAILY 11/12/17 Hydroxyzine HCl 12.5 mg PO TID PRN 11/12/17 Midodrine HCl 7.5 mg PO TID 11/12/17 Multivitamin [Daily Multiple Vitamin] 1 tab PO DAILY 11/12/17 Zinc Sulfate (50mg elemental) [Zinc Sulfate] 220 mg PO DAILY 11/12/17 Baclofen [Lioresal] 20 mg PO Q8H 01/03/18 Folic Acid 2 mg PO DAILY@0800 01/03/18 Oxycodone CR [Oxycontin] 20 mg PO Q8H 07/04/18 Oxycodone HCl/Acetaminophen [Percocet 10-325 mg Tablet] 1 tablet PO Q4H PRN PRN 07/04/18 Smz/Tmp Ds [Bactrim Ds] 1 tablet PO BID 07/04/18 Cefdinir 300 mg PO MOWEFR 01/19/20 Gabapentin 600 mg PO TID 01/19/20 Oxybutynin [Ditropan] 5 mg PO BID 01/19/20 Rosuvastatin Calcium [Crestor] 10 mg PO QHS 01/19/20 Pantoprazole Sodium [Protonix] 40 mg PO DAILY #60 tab 01/20/20 The following prescriptions were given: Pantoprazole Sodium [Protonix] 40 mg PO DAILY #60 tab Transmission Status: Pending to [id number] Primary Care Physician: El Lopez [employer] SUPERVISOR, [employer] SUPERVISOR-C [Primary Care Provider] - Please follow up with your Primary Care Physician in: 1 Week Test Results: Test results from this visit will be discussed in further detail at your follow- up appointment, if applicable. Please Follow Up With: Tejas Albarran MD When: Call for follow up with recurrent bleeding Proposed Discharge Date: 01/20/20
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
[2020-01-20 14:45] VITALS: BP 96/62; PULSE 56; RESP 18; TEMP 36.8; O2SAT 98
[2020-01-20 15:26] VITALS: O2SAT 92
== END 2020-01-20 15:45 | disposition home or self-care (01) ==
PROVIDERS: Nurse Practitioner Family; Admitting Provider Family Medicine; PCP Nurse Practitioner Primary Care; Referring Provider Family Medicine; Visit Provider Internal Medicine
DX: K92.2 Gastrointestinal hemorrhage, unspecified (principal); N39.0 Urinary tract infection, site not specified; G89.4 Chronic pain syndrome; G82.50 Quadriplegia, unspecified; E78.5 Hyperlipidemia, unspecified; F17.210 Nicotine dependence, cigarettes, uncomplicated; F41.9 Anxiety disorder, unspecified; F31.9 Bipolar disorder, unspecified; T83.510A Infection and inflammatory reaction due to cystostomy catheter, initial encounter; B95.62 Methicillin resistant Staphylococcus aureus infection as the cause of diseases classified elsewhere; Z79.899 Other long term (current) drug therapy; Z79.01 Long term (current) use of anticoagulants; Z93.3 Colostomy status; Z79.891 Long term (current) use of opiate analgesic; L89.154 Pressure ulcer of sacral region, stage 4
CPT/HCPCS: 36415; 74177; 80053; 83735; 85014; 85018; 85025; 85027; 96361; 96365; 96366; 96367; 96375; 96376; 97162; 97802; 99218; 99251; J7030; Q9967; A4216; G0378; G0379; G0463

== ENCOUNTER → 2020-02-23 | Outpatient (CLI) | payer MEDICARE, MEDICAID, SELFPAY ==
[2020-01-19 00:18] VITALS: BMI 26.2
[2020-02-23 17:15] LABS: Absolute Lymphocyte Count 3.69 X10^3/uL (0.83-4.51); Absolute Neutrophil Count 4.9 X10^3/uL (2.0-7.7); Basophil# 0.05 X10^3/uL; Basophil% 0.5 % (0-1); Eosinophil# 0.51 X10^3/uL; Eosinophils% 5.1 % (0-5); Hematocrit 53.7 % (40-54); Lymphocyte # 3.69 X10^3/ul (4.0); Mean Corp Hgb Conc 31.7 g/dL (32-36); Mean Corpuscular Hgb 26.9 pg (27.0-32.0); Mean Corpuscular Volume 84.8 fL (80-94); Mean Platelet Vol. 10.9 fl (6.2-12.0); NRBC Flagged by Analyzer 0 % (0-5); Neutrophil % 49.1 % (47-70); Platelet Count 213 K/mm3 (150-450); RBC Distribution Width CV 14.7 % (11.6-14.6); RBC Distribution Width SD 42.9 fl (35.1-43.9); Red Blood Count 6.33 M/mm3 (4.6-6.2)
[2020-02-23 17:29] LABS: ALB/GLOB Ratio 1.1 RATIO (0.9-2.4); AST(SGOT) 27 U/L (15-37); Alanine Aminotransfer ALT/SGPT 56 U/L (16-61); Alkaline Phosphatase 101 U/L (45-117); Anion Gap 5 (5-15); BUN 16 mg/dL (7-18); BUN/Creat Ratio 23.3 RATIO (10-20); Calcium,Total 9.3 mg/dL (8.5-10.1); Chloride 103 mmol/L (98-107); Creatinine, Serum 0.69 mg/dL (0.70-1.30); EST Glomerular Filtration Rate 134 mL/min (>60); Est Glom Filt Rate - Afr Amer 162 mL/min (>60); Globulin 3.8 g/dL (2.2-4.2); Glucose 72 mg/dL (74-106); Potassium 4.3 mmol/L (3.5-5.1); Protein, Total 7.8 g/dL (6.4-8.2); Sodium Level 138 mmol/L (136-145)
== END | disposition home or self-care (01) ==
LOC: LABSPEC 16:53
PROVIDERS: PCP Nurse Practitioner Primary Care
DX: L89.154 Pressure ulcer of sacral region, stage 4 (principal); G82.20 Paraplegia, unspecified; D72.823 Leukemoid reaction; M96.1 Postlaminectomy syndrome, not elsewhere classified
CPT/HCPCS: 80053; 85025

== ENCOUNTER 2020-11-05 18:31 | Emergency (ER) | payer MEDICARE, MEDICAID, SELFPAY ==
[2020-11-05 18:32] VITALS: BP 227/123; PULSE 48; RESP 22; TEMP 36.4; O2SAT 100; BMI 26.4
[2020-11-05] MEDS: Ondansetron 4 MG/2 ML Vial IV (20:10)
[2020-11-05] MEDS: Morphine 4 MG/ML Syringe IV (20:11)
[2020-11-05 20:13] VITALS: BP 120/83; PULSE 62; RESP 13; TEMP 37.1; O2SAT 96
[2020-11-05 20:18] LABS: Absolute Lymphocyte Count 5.01 X10^3/uL (0.83-4.51); Absolute Neutrophil Count 10.9 X10^3/uL (2.0-7.7); Basophil# 0.09 X10^3/uL; Basophil% 0.5 % (0-1); Eosinophil# 0.46 X10^3/uL; Eosinophils% 2.6 % (0-5); Hemoglobin 17.9 g/dL (13.0-16.5); Lymphocyte # 5.01 X10^3/ul (0.83-4.51); Lymphocyte % 27.9 % (19-41); Mean Corp Hgb Conc 31.5 g/dL (32-36); Mean Corpuscular Hgb 26.5 pg (27.0-32.0); Mean Platelet Vol. 9.6 fl (6.2-12.0); Monocyte# 1.39 X10^3/uL; Monocyte% 7.8 % (0-10); NRBC Flagged by Analyzer 0 % (0-5); Neutrophil # 10.89 X10^3/uL (2.7-7.7); Neutrophil % 60.7 % (47-70); POSITIVE DIFFERENTIAL YES; Platelet Count 339 K/mm3 (150-450); RBC Distribution Width CV 15.2 % (11.6-14.6); RBC Distribution Width SD 43.9 fl (35.1-43.9); Red Blood Count 6.76 M/mm3 (4.6-6.2); White Blood Count 17.9 K/mm3 (4.4-11.0)
[2020-11-05 20:22] LABS: Differential Indicated SCAN CRITERIA MET; Hematocrit 56.8 % (40-54)
[2020-11-05 20:35] LABS: ALB/GLOB Ratio 0.8 RATIO (0.9-2.4); AST(SGOT) 33 U/L (15-37); Alanine Aminotransfer ALT/SGPT 56 U/L (16-61); Albumin, Serum 4.5 g/dL (3.2-5.0); Alkaline Phosphatase 107 U/L (45-117); Anion Gap 7 (5-15); BUN 15 mg/dL (7-18); BUN/Creat Ratio 16.5 RATIO (10-20); Calcium,Total 9.8 mg/dL (8.5-10.1); Chloride 101 mmol/L (98-107); Creatinine, Serum 0.91 mg/dL (0.70-1.30); EST Glomerular Filtration Rate 97 mL/min (>60); Est Glom Filt Rate - Afr Amer 117 mL/min (>60); Estimated Creatinine Clearance 118.29 ml/min; Globulin 5.3 g/dL (2.2-4.2); Glucose 78 mg/dL (74-106); Protein, Total 9.8 g/dL (6.4-8.2); Sodium Level 135 mmol/L (136-145)
[2020-11-05 20:47] LABS: Lactic Acid 1.1 mmol/L (0.4-1.9)
[2020-11-05 20:48] LABS: Differential Comment SCANNED
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
[2020-11-05 21:10] VITALS: BP 98/73; PULSE 65; RESP 11; O2SAT 96
[2020-11-05] MEDS: HYDROcodone Bitartrate/Apap 5/325 Tablet PO (22:27)
[2020-11-05 22:37] VITALS: BP 86/63; PULSE 51; RESP 17; O2SAT 95
== END 2020-11-05 22:38 | disposition home or self-care (01) ==
PROVIDERS: Emergency Provider Emergency Medicine; PCP Student in an Organized Health Care Education/Training Program
DX: K04.7 Periapical abscess without sinus (principal); K02.62 Dental caries on smooth surface penetrating into dentin; K02.63 Dental caries on smooth surface penetrating into pulp; G82.50 Quadriplegia, unspecified; F32.9 Major depressive disorder, single episode, unspecified; F41.9 Anxiety disorder, unspecified; F17.210 Nicotine dependence, cigarettes, uncomplicated; Z79.01 Long term (current) use of anticoagulants
CPT/HCPCS: 80053; 83605; 85025; 96365; 96375; 99285; J7030; A4216; J0295; J2405

== ENCOUNTER 2022-04-10 12:24 | Outpatient (RCR) | payer MEDICARE, MEDICAID, SELFPAY ==
[2022-04-10 13:06] VITALS: BP 94/63; PULSE 51; RESP 18; TEMP 36.1
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
== END 2022-04-25 23:59 | disposition home or self-care (01) ==
LOC: WC 12:24
PROVIDERS: PCP Student in an Organized Health Care Education/Training Program; Visit Provider Nurse Practitioner Family
DX: L89.154 Pressure ulcer of sacral region, stage 4 (principal); G82.50 Quadriplegia, unspecified; F31.9 Bipolar disorder, unspecified; G89.4 Chronic pain syndrome; F41.9 Anxiety disorder, unspecified; E78.5 Hyperlipidemia, unspecified; Z79.899 Other long term (current) drug therapy; F17.210 Nicotine dependence, cigarettes, uncomplicated
CPT/HCPCS: 11042; 87070; 87075; 87077; 87186; 87205; 99214; G0463

== ENCOUNTER 2024-03-21 22:35 | Inpatient (IN) | payer MEDICARE, MEDICAID, SELFPAY ==
[2024-03-21 22:38] VITALS: BP 98/62; PULSE 101; RESP 31; TEMP 38.8; O2SAT 87; BMI 21.4
--- NOTE | 2024-03-21 22:44 | EX.ED.DYSGE1 ---
HPI History of Present Illness Chief Complaint: General Illness [facility] Medical History (Updated 03/21/24 @ 22:47 by Cynthia Reis) Marijuana smoker Quadriplegia GI bleed Depression Anxiety Home Medications ?Medication ?Instructions ?Recorded ?Last Taken ?Type acetaminophen 325 mg capsule 650 mg PO Q4H PRN PRN Pain 11/12/17 Unknown History (Tylenol) ascorbic acid (vitamin C) 500 mg 500 mg PO DAILY supplement 11/12/17 11/22/17 History capsule enoxaparin 40 mg/0.4 mL 40 mg SQ DAILY blood thinner 11/12/17 11/22/17 History subcutaneous syringe (Lovenox) fluoxetine 20 mg capsule (Prozac) 60 mg PO DAILY depression 11/12/17 11/22/17 History oxybutynin chloride 5 mg tablet 10 mg PO BID 01/19/20 Unknown History albuterol sulfate 90 mcg/actuation 2 inh inhalation Q4H PRN shortness 03/21/24 Unknown History aerosol inhaler of breath or wheezing atorvastatin 80 mg tablet 80 mg PO QHS 03/21/24 Unknown History baclofen 20 mg tablet 20 mg PO Q8H 03/21/24 Unknown History bisacodyl 10 mg rectal suppository 10 mg WA DAILY PRN constipation 03/21/24 Unknown History divalproex 250 mg tablet,delayed 1,000 mg PO QHS 03/21/24 Unknown History release gabapentin 300 mg capsule 300 mg PO Q8H 03/21/24 Unknown History magnesium hydroxide 400 mg/5 mL 30 ml PO DAILY PRN constipation 03/21/24 Unknown History oral suspension (Milk of Magnesia) midodrine 10 mg tablet 10 mg PO Q8H 03/21/24 Unknown History mineral oil (Fleet Mineral Oil 118 ml WA DAILY PRN constipation 03/21/24 Unknown History enema) multivitamin (Daily Multi-Vitamin 1 tab PO DAILY 03/21/24 Unknown History tablet) naloxone 4 mg/actuation nasal spray 1 spray intranasal PRN PRN opioid 03/21/24 Unknown History overdose oxycodone 10 mg tablet 10 mg PO Q6H pain 03/21/24 Unknown History oxycodone 5 mg tablet 5 mg PO Q8H PRN pain 03/21/24 Unknown History pantoprazole 40 mg tablet,delayed 40 mg PO DAILY 03/21/24 Unknown History release Allergy/AdvReac Type Severity Reaction Status Date / Time No Known Allergies Allergy Verified 03/21/24 22:46 Social History household members: significant other Smoking Status: Current every day smoker tobacco type: cigarettes alcohol intake: current alcohol intake frequency: other substance use type: does not use EXAM Physical Exam Const Vital Signs: 03/21/24 22:38 03/21/24 22:45 03/21/24 22:50 Temperature 101.8 F H 101.8 F H Temperature Source Oral Oral Pulse Rate 101 H 99 Respiratory Rate 31 H 34 H Respiratory Effort Short of Breath Respiratory Pattern Tachypnea Blood Pressure 98/62 96/57 L Blood Pressure Mean 74 70 Pulse Ox 87 96 Oxygen Delivery Method Room Air Nasal Cannula Oxygen Flow Rate (L/min) 4 03/21/24 22:58 03/21/24 23:45 Temperature 101.8 F H Temperature Source Oral Pulse Rate 86 Respiratory Rate 33 H Respiratory Effort Respiratory Pattern Blood Pressure 84/44 L Blood Pressure Mean 57 Pulse Ox 4 95 Oxygen Delivery Method Nasal Cannula Nasal Cannula Oxygen Flow Rate (L/min) 5 MDM MDM MDM Narrative Medical decision making narrative: HISTORY OF PRESENT ILLNESS: 48-year-old male presents with concern for fever. The patient is ultrasound provide lab history. REVIEW OF SYSTEMS: Unable to obtain a reliable review of systems secondary to altered mental status PHYSICAL EXAM: Nursing triage notes reviewed, Vital signs reviewed Constitutional: please see mdm HENT: Dry oral mucosa Eyes: Dilated pupil Neck: No stridor, no JVD Lungs: Coarse breath sounds noted in the right lower lobe, right lower lobe consolidation suspected Heart: Regular rate and rhythm, No murmurs, No rubs and No gallops, 2+ distal pulses (radial, femoral, posterior tibial) in all extremities Abdomen: Soft, no appreciable tenderness, colostomy and superior catheter noted, sites were Without signs of infection : No CVAT Extremities: 2+ pitting edema bilateral lower extremities, no obvious wounds to the lower extremities Neuro: Somnolent, alert to minor stimuli, flaccid paralysis of bilateral lower extremities, some coordination dysfunction right upper extremity patient notes is chronic, intact sensation bilateral upper extremities, no obvious cranial nerve deficits Skin: chronic appearing sacral decubitus ulcers noted in the midline of the coccyx And on bilateral ischial tuberosities, appear chronic, no obvious fluctuance or induration however there is a foul smell noted. MEDICAL DECISION MAKING: Chief Complaint: Fever External records reviewed: Reviewed prior medications Factors affecting care: Quadriplegia, neurogenic bladder status post suprapubic catheter, bipolar disorder Social determinants of health: History of mental health disorder History obtained from others: EMS Consults: Internal medicine (Dr. Jackman) Goals of care discussion: Parents note the patient is full code. MDM Narrative: Patient was initially borderline tachycardic rate of 101, tachypneic at a rate of 31, febrile with a temperature of 101.8. Initial O2 sats was 87% on room air Patient was placed on 4 L nasal cannula with improvement and oxygen saturation. Given multiple SIRS criteria and concern for multiple source of infection sepsis protocols initiated including a lactate, blood cultures, urine culture. Was given empiric broad-spectrum antibiotics. Was given 30 cc/kg fluid bolus as well. I considered the following differential diagnosis: Sepsis, pneumonia, UTI ALL IMAGES (IF OBTAINED) HAVE BEEN PERSONALLY REVIEWED AND INTERPRETED BY MYSELF. ABG with no sign of respiratory acidosis, no CO2 retention, noted hypoxia CBC with leukocytosis suggestive of systemic formation, noted severe anemia is downtrending from prior study. No thrombocytopenia noted No coagulopathy noted EKG with normal sinus rhythm, left axis deviation, normal normals, QTc 422, no STEMI Chest x-ray was read and reviewed person myself evidence of right lower lobe pneumonia (likely etiology of the patient's sepsis, hypoxia and change in mental status CT scan of the head was negative for ICH CT scan of abdomen pelvis shows no evidence of intra-abdominal infection. Does show evidence of a femur fracture given the patient does not walk, is paralyzed at baseline does not feel this will require acute surgery. No occasion for emergent orthopedic consultation at this time During patient's ED course his blood pressure continued to downtrend despite adequate fluid resuscitation. His blood pressure went down to 84/44. At this time plans were made to place a central line. Patient was altered and cannot consent to the procedure however Healthcare agent was initiated. Procedure: Central line placement. Indication: Venous Access Consent: verbal. Risks of bleeding, infection, and pneumothorax were explained. A time out was completed. Maximal sterile barrier technique was used including cap, gown, sterile gloves, large sheet, hand washing and chlorhexidine prep. Anesthesia: The area anesthetized with 1% lidocaine. Procedure: The right femoral vein was punctured with a 19 gauge finder needle, then a wire introducer was placed, a 7 Romanian triple lumen catheter was placed using Seldinger technique. There were no complications. Blood return was low pressure and non-pulsatile dark blood. Line secured in place with suture, and a sterile bio-occlusive dressing was applied. Patient tolerated procedure well. The procedure was performed by Roman Davila DO I was attempting/prepping for central line patient was noted to be more hypoxic. Despite being on 5 L nasal cannula he was hypoxic to the mid 80s. He was placed on nonrebreather and preparations made for intubation. Was able speak to his parents who noted the patient was full code. And intubation and central line and all of the invasive/heroic measures were taking were consistent with the patient's wishes. The procedure was performed by myself. Indications: Hypoxia, altered mental status Procedure Description: Preoxygenated with nonrebreather, supine position, using time a day and succinylcholine for sedation and paralysis, video laryngoscopy, S4 blade, 8-0 tube, achieved a grade 1 view through the cords, achieved first-pass success. Postprocedural pulse ox 100%. Positive color change. Bilateral breath sounds. To be confirmed by confirmatory x-ray. Post-Procedure Assessment: Tracheal intubation was confirmed with breath sounds auscultated equally bilaterally; appropriate color change with end tidal CO2 detector and waveform capnography. The patient tolerated the procedure well with no immediate complications. Given patient's acute respiratory failure, signs of sepsis, hypotension requiring pressor support he will require mission to the intensive care unit. Discussed with hospitalist who agreed to admit the patient to the ICU. The patient and/or family, caregivers express understanding. The patient and/or family, caregivers agrees with the plan. Shared decision making: I will have a discussion with the patient and or visitors regarding risk/benefits of further testing or admission. They will be made aware of of the risk/benefits inherent in this decision they will be given the opportunity to voice understanding. Total critical care time today provided was at least 60 minutes. This excludes separately billable procedures. Critical care time (if documented) is secondary to the patient having high probability of clinically significant/life threatening deterioration in the patient's condition which required my urgent intervention. Impression: 1. Altered mental status 2. Acute hypoxic respiratory failure 3. Community-acquired pneumonia 4. Sepsis Dispo: Admit to ICU This note was generated with [employer] dictation software. It may contain incorrect words, spelling, and punctuation that were not noted in review of the chart prior to signing. Lab Data Labs: Laboratory Results - last 24 hr 03/21/24 03/21/24 22:44 22:57 WBC 14.5 H RBC 3.54 L Hgb 8.2 L Hct 26.5 L MCV 74.9 L MCH 23.2 L MCHC 30.9 L RDW Std Deviation 52.4 H RDW Coeff of Minerva 19.2 H Plt Count 346 MPV 9.5 Immature Gran % (Auto) 0.400 Neut % (Auto) 80.9 H Lymph % (Auto) 10.5 L [place] % (Auto) 8.0 Eos % (Auto) 0.1 Baso % (Auto) 0.1 Absolute Neuts (auto) 11.8 H Absolute Lymphs (auto) 1.52 Nucleated RBC % 0 PT 15.7 H INR 1.2 APTT 30.2 Sodium 136 Potassium 4.2 Chloride 103 Carbon Dioxide 25.0 Anion Gap 8 BUN 18 Creatinine 0.54 L Estim Creat Clear Calc 178.67 Est GFR (MDRD) Af Amer 212 Est GFR (MDRD) Non-Af 175 BUN/Creatinine Ratio 33.6 H Glucose 86 Lactic Acid 0.6 Calcium 8.3 L Total Bilirubin 0.50 AST 16 ALT 18 Alkaline Phosphatase 76 Troponin I High Sens 22 Total Protein 6.4 Albumin 2.1 L Globulin 4.3 H Albumin/Globulin Ratio 0.5 L Urine Color Yellow Urine Clarity Turbid Urine pH 6.0 Ur Specific [place] 1.025 Urine Protein 100 H Urine Glucose (UA) Normal Urine Ketones 15 H Urine Occult Blood 150 H Urine Nitrite Negative Urine Bilirubin Negative Urine Urobilinogen 1 H Ur Leukocyte Esterase 500 H Urine RBC 5-10 SEEN Urine WBC 50-100 SEEN Ur Squamous Epith Cells 0 SEEN Urine Bacteria 1+ Hyaline Casts 0-5 SEEN Urine Mucus 0 SEEN Urine Yeast 2+ ABG Data ABG results: ABG 03/21/24 23:13 Specimen Type ART Sample Site R Radial pH 7.39 Bicarbonate Actual 23.2 Total CO2 24 Base Excess -2 O2 Saturation 94 L O2 % 4.0 ABG pCO2 38.7 ABG pO2 73 L [place] Test Positive O2 Delivery Device Cannula Vent Mode Not entered Radiography Diagnostic Testing: Clinical Impression(s) from Imaging Studies Abdomen/Pelvis CT 03/21/24 23:00 IMPRESSION: 1. Displaced right femoral intertrochanteric fracture appears acute. 2. Sacral decubitus ulcer/wound with findings that may be consistent with acute or chronic sacrococcygeal osteomyelitis. 3. Suprapubic tube in the bladder. Prominent bladder wall is likely due to suboptimal distention. 4. Right lower lobe consolidation with small right pleural effusion possible pneumonia. Electronically Signed: Ivet Wooten MD at 0:22 EST , Brain CT 03/21/24 23:00 IMPRESSION: No acute abnormality. CT angiogram and/or MRI may be helpful to evaluate for acute infarct as clinically indicated. Electronically Signed: Ivet Wooten MD at 0:13 EST Reading Location ID and State: [facility] / [place] Tel , Service support , Chest X-Ray 03/21/24 23:30 IMPRESSION: Bibasilar infiltrates greater on the right. Electronically Signed: Ivet Wooten MD at 0:29 EST , Discharge Plan Triage Chief Complaint: General Illness ED Provider: Roman Davila Dx/Rx/DC Orders Prescriptions: No Action fluoxetine [Prozac] 20 MG capsule 60 mg PO DAILY enoxaparin [Lovenox] 40 MG/0.4 ML syringe 40 mg SQ DAILY acetaminophen [Tylenol] 325 MG capsule 650 mg PO Q4H PRN PRN (Reason: Pain) ascorbic acid (vitamin C) 500 MG capsule 500 mg PO DAILY oxybutynin chloride 5 MG tablet 10 mg PO BID albuterol sulfate 90 mcg/actuation HFA aerosol inhaler 2 inh INHALATION Q4H PRN (Reason: shortness of breath or wheezing) Patient Comments: [NO ORIGINAL SIG] atorvastatin 80 mg tablet 80 mg PO QHS baclofen 20 mg tablet 20 mg PO Q8H bisacodyl 10 mg suppository 10 mg WA DAILY PRN (Reason: constipation) divalproex 250 mg tablet,delayed release (DR/EC) 1,000 mg PO QHS mineral oil [Fleet Mineral Oil] Enema 118 ml WA DAILY PRN (Reason: constipation) Rx Instructions: discard any unused portion gabapentin 300 mg capsule 300 mg PO Q8H midodrine 10 mg tablet 10 mg PO Q8H magnesium hydroxide [Milk of Magnesia] 400 mg/5 mL suspension 30 ml PO DAILY PRN (Reason: constipation) multivitamin [Daily Multi-Vitamin] Tablet 1 tab PO DAILY naloxone 4 mg/actuation spray,non-aerosol 1 spray INTRANASAL PRN PRN (Reason: opioid overdose) Patient Comments: [NO ORIGINAL SIG] oxycodone 10 mg tablet 10 mg PO Q6H oxycodone 5 mg tablet 5 mg PO Q8H PRN (Reason: pain) Patient Comments: [NO ORIGINAL SIG] pantoprazole 40 mg tablet,delayed release (DR/EC) 40 mg PO DAILY Primary Care Provider: Maxim Burnette Referrals: Bertin Estrada DO [Non-Staff] - Print Language: Latvian
[2024-03-21 22:45] VITALS: BP 96/57; PULSE 99; RESP 34; TEMP 38.8; O2SAT 96
[2024-03-21 22:58] VITALS: O2SAT 4
--- NOTE | 2024-03-21 22:58 | EKG12_ITS ---
Test Reason : GEN ILL Blood Pressure : */* mmHG Vent. Rate : 95 BPM Atrial Rate : 95 BPM P-R Int : 152 ms QRS Dur : 96 ms QT Int : 336 ms P-R-T Axes : 58 12 55 degrees QTcB Int : 422 ms Normal sinus rhythm Incomplete right bundle branch block Borderline ECG Confirmed by CAMI LOBO, MEL ([id number]), film or videotape editor TONIA ESPINOSA ([id number]) on 03/25/2024 6:09:31 AM Referred By: Confirmed By: MEL ALMANZA MD
[2024-03-21] MEDS: NORMAL SALINE IV (23:00)
[2024-03-21] MEDS: VIAFLEX IV (23:00)
--- NOTE | 2024-03-21 23:00 | CT_ITS ---
INDICATION: AMS EXAMINATION: CT BRAIN - CT Head or Brain W/O Contrast Injection TECHNIQUE: Multiple axial images were obtained of the head without intravenous contrast. The protocol utilizes one or more of the following dose reduction techniques: automated exposure control, adjustment of mA and/or kV according to patient size,and/or use of iterative reconstruction technique. IV Contrast dosage and agent: None. RADIATION DOSAGE (If Supplied By Facility): CTDIvol = ( 44.99 ) mGy, DLP = ( 779.24 ) mGycm COMPARISON: No relevant prior comparison study available FINDINGS: BRAIN: No acute bleed. No edema. Wagner-white matter differentiation is maintained. VENTRICLES AND SULCI: Not dilated. EXTRA-AXIAL: No hemorrhage, fluid collection, or mass. CALVARIUM / SKULL BASE: Unremarkable. FACE/SINUSES: Mucosal thickening in the maxillary sinuses. SOFT TISSUES: Unremarkable. CT/Brain/Head without Contrast IMPRESSION: No acute abnormality. CT angiogram and/or MRI may be helpful to evaluate for acute infarct as clinically indicated. Electronically Signed: Ivet Wooten MD at 0:13 EST ,
--- NOTE | 2024-03-21 23:00 | CT_ITS ---
EXAM: CT Abdomen And Pelvis W/ Contrast Injection HISTORY: sepsis, hx of suprapubic catheter, r/o intra-abd TECHNIQUE: Routine protocol CT abdomen pelvis. IV Contrast: IV 100mL [id number] . Oral Contrast: without. Sagittal and coronal images were reconstructed. RADIATION DOSAGE (If Supplied By Facility): CTDIvol = ( 10.81 ) mGy, DLP = ( 831.56 ) mGycm Individualized dose optimization techniques were used for this CT. COMPARISON: CT abdomen pelvis 01/20/2020. LIMITATIONS: Image degradation from patient motion. FINDINGS: LOWER CHEST: Consolidation in the right lower lobe. Minimal right pleural effusion. LIVER: Unremarkable. GALLBLADDER/BILE DUCTS: Gallbladder not clearly identified, may be surgically absent or contracted. PANCREAS: Unremarkable. SPLEEN: Unremarkable. ADRENAL GLANDS: Unremarkable. KIDNEYS / URETERS: Unremarkable. BOWEL / MESENTERY: Colostomy in the left lower abdomen. Surgical clips in the rectosigmoid region. No bowel obstruction. APPENDIX: Identified and normal. No evidence of acute appendicitis. PERITONEUM: No free air. No free fluid. VESSELS: Abdominal aorta is normal caliber. RETROPERITONEUM: Unremarkable. REPRODUCTIVE ORGANS: Unremarkable. BLADDER: Minimally distended with suprapubic tube in place prominent wall likely exaggerated by suboptimal distention. ABDOMINAL WALL: Unremarkable. BONES/soft tissue: Comminuted fracture of the right femur intertrochanteric, appears acute, with cephalad migration and lateral displacement of the distal femoral component, limited by motion. Surrounding soft tissue edema. Soft tissue defect overlying the lower sacrum/coccyx presumed sacral wound/decubitus ulcer, with associated soft tissue thickening and stranding. There is a focal defect within the sacrum at this level loss of cortical margins, and presacral stranding and thickening. No definite localized collection or abscess identified OTHER: None. CT/Abdomen/Pelvis W IV Cont ONLY IMPRESSION: 1. Displaced right femoral intertrochanteric fracture appears acute. 2. Sacral decubitus ulcer/wound with findings that may be consistent with acute or chronic sacrococcygeal osteomyelitis. 3. Suprapubic tube in the bladder. Prominent bladder wall is likely due to suboptimal distention. 4. Right lower lobe consolidation with small right pleural effusion possible pneumonia. Electronically Signed: Ivet Wooten MD at 0:22 EST ,
[2024-03-21] MEDS: Ketorolac 15 MG/ML Vial IV (23:08)
[2024-03-21 23:11] LABS: Mucous, Urine 0 SEEN /hpf (<or=2+); Squamous Epithelial Cells - UA 0 SEEN /hpf (0-5)
[2024-03-21 23:16] LABS: Absolute Lymphocyte Count 1.52 X10^3/uL (0.83-4.51); Absolute Neutrophil Count 11.8 X10^3/uL (2.0-7.7); Basophil# 0.02 X10^3/uL; Basophil% 0.1 % (0-1); Eosinophil# 0.01 X10^3/uL; Eosinophils% 0.1 % (0-5); Hematocrit 26.5 % (40-54); Hemoglobin 8.2 g/dL (13.0-16.5); Lymphocyte # 1.52 X10^3/ul (0.83-4.51); Lymphocyte % 10.5 % (19-41); Mean Corp Hgb Conc 30.9 g/dL (32-36); Mean Corpuscular Hgb 23.2 pg (27.0-32.0); Mean Corpuscular Volume 74.9 fL (80-94); Mean Platelet Vol. 9.5 fl (6.2-12.0); Monocyte# 1.16 X10^3/uL; NRBC Flagged by Analyzer 0 % (0-5); Neutrophil # 11.75 X10^3/uL (2.7-7.7); Neutrophil % 80.9 % (47-70); Platelet Count 346 K/mm3 (150-450); RBC Distribution Width CV 19.2 % (11.6-14.6); RBC Distribution Width SD 52.4 fl (35.1-43.9); Red Blood Count 3.54 M/mm3 (4.6-6.2); White Blood Count 14.5 K/mm3 (4.4-11.0)
[2024-03-21 23:17] LABS: Allen Test Positive; Base Excess -2 mmol/L (-2 to +2); Bicarbonate 23.2 mmol/L (22-26); Blood Gas Specimen Type ART; Mode Not entered; O2 Delivery Device Cannula; PO2 73 mmHG (75-100); SITE R Radial; SO2 94 % (95-99); Total Carbon Dioxide 24 mmol/L; pCO2 38.7 mmHg (35-45); pH 7.39 (7.35-7.45)
[2024-03-21 23:20] LABS: Lactic Acid 0.6 mmol/L (0.4-1.9)
[2024-03-21 23:21] LABS: Color, Urine Yellow (Yellow); Glucose, Dipstick Normal (Normal); Ketone-Dipstick 15 mg/dl (Negative); Leukocyte Esterase-Dipstick 500 /ul (Negative); Nitrite-Dipstick Negative (Negative); Occult Blood-Urine 150 /ul (Negative); Protein-Dipstick 100 mg/dl (Negative); Specific Gravity, Urine 1.025 (1.002-1.030); Urine Bilirubin Dipstick Negative (Negative); Urine Clarity Turbid (Clear); Urine Urobilinogen 1 mg/dl (Normal)
[2024-03-21] MEDS: Cefepime HCl 2 GM in 0.9% Normal Saline (100mL MB+) 100 ML IV (23:22)
[2024-03-21 23:26] LABS: International Normalized Ratio 1.2; Partial Thromboplast Time 30.2 Seconds (24.1-36.2); Prothrombin Time (Protime)PT. 15.7 SECONDS (11.7-14.9)
[2024-03-21 23:30] LABS: Bacteria 1+ /hpf (None Seen); Red Blood Cells-Urine 5-10 SEEN /hpf (0-5); White Blood Cells 50-100 SEEN /hpf (0-5)
--- NOTE | 2024-03-21 23:30 | RAD_ITS ---
INDICATION: tachypneic EXAMINATION/TECHNIQUE: X-RAY - XR Chest 1 View AP portable. 11:27 PM COMPARISON: Prior study dated: 11/22/2017 FINDINGS: LINES/DEVICES: None. LUNGS: Patchy infiltrates in the lung bases greater on the right. No consolidation. No pneumothorax. MEDIASTINUM: Unremarkable. CARDIAC SILHOUETTE: Not enlarged. BONES AND SOFT TISSUES: No acute abnormalities. Surgical hardware in the cervical spine RAD/Chest 1 View (Portable) IMPRESSION: Bibasilar infiltrates greater on the right. Electronically Signed: Ivet Wooten MD at 0:29 EST ,
[2024-03-21 23:31] LABS: Hyaline Cast 0-5 SEEN /lpf (0-5); Yeast-Urine 2+ /hpf (None Seen)
[2024-03-21 23:33] LABS: ALB/GLOB Ratio 0.5 RATIO (0.9-2.4); AST(SGOT) 16 U/L (15-37); Alanine Aminotransfer ALT/SGPT 18 U/L (16-61); Albumin, Serum 2.1 g/dL (3.2-5.0); Alkaline Phosphatase 76 U/L (45-117); Anion Gap 8 (5-15); BUN 18 mg/dL (7-18); BUN/Creat Ratio 33.6 RATIO (10-20); Calcium,Total 8.3 mg/dL (8.5-10.1); Chloride 103 mmol/L (98-107); Creatinine, Serum 0.54 mg/dL (0.70-1.30); EST Glomerular Filtration Rate 175 mL/min (>60); Est Glom Filt Rate - Afr Amer 212 mL/min (>60); Estimated Creatinine Clearance 178.67 ml/min; Globulin 4.3 g/dL (2.2-4.2); Glucose 86 mg/dL (74-106); Potassium 4.2 mmol/L (3.5-5.1); Protein, Total 6.4 g/dL (6.4-8.2); Sodium Level 136 mmol/L (136-145); Troponin-I HS 22 pg/mL (3.0-78.0)
[2024-03-21 23:45] VITALS: BP 84/44; PULSE 86; RESP 33; TEMP 38.8; O2SAT 95
[2024-03-21] MEDS: Vancomycin HCl 1,750 MG in 0.9% Normal Saline (500mL Bag) 500 ML 250 MG IV (23:48)
[2024-03-22] VITALS (50 sets, daily range): BP systolic 91–128; BP diastolic 51–79; PULSE 64–94; RESP 16–21; TEMP 36.2–38.9; O2SAT 90–100; BMI 19.7
[2024-03-22] MEDS: Norepinephrine Bit/0.9% NaCl 8 MG/250 ML IV.SOLN 9.4 MG CONT INF (00:13)
--- NOTE | 2024-03-22 00:13 | ED.RN ---
IV fluid bolus still infusing. Central line placed by Dr. Davila. BP 85/47. Per Dr. Davila hang Norepinephrine now and not wait until fluids are completed.
[2024-03-22] MEDS: Succinylcholine Chloride 200 MG/10 ML SYRINGE 100 MG IV (00:24)
[2024-03-22] MEDS: Etomidate 20 MG/10 ML Vial IV (00:24)
[2024-03-22] MEDS: fentaNYL drip 100 ML 2.5 MCG CONT INF (00:36)
[2024-03-22] MEDS: fentaNYL 100 MCG/2 ML Ampul IV (00:36)
[2024-03-22] MEDS: Midazolam 5 MG/ML Syringe IV (00:43)
[2024-03-22] MEDS: Midazolam 50 MG in 0.9% Normal Saline (100mL Bag) 90 ML CONT INF (00:59)
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
--- NOTE | 2024-03-22 01:10 | RAD_ITS ---
INDICATION: tube placement EXAMINATION/TECHNIQUE: X-RAY - XR Chest 1 View AP portable. 1:04 AM COMPARISON: Prior study dated: 03/21/2024 FINDINGS: LINES/DEVICES: Tip of the endotracheal tube is approximately 4 cm above the jose. NG tube tip in the mid stomach. LUNGS: Opacities at the right lung base is increased compared to earlier likely with small right pleural effusion. No pneumothorax. MEDIASTINUM: Unremarkable. CARDIAC SILHOUETTE: Not enlarged. BONES AND SOFT TISSUES: No acute abnormalities. Surgical hardware in the cervical spine RAD/Chest 1 View (Portable) IMPRESSION: Satisfactory ET tube position. NG tube tip in the stomach. Increased right basilar airspace disease and small pleural effusion, likely pneumonia. Electronically Signed: Ivet Wooten MD at 1:41 EST ,
[2024-03-22 01:15] LABS: Base Excess -4 mmol/L (-2 to +2); Blood Gas Specimen Type ART; Mode AC; O2 Delivery Device Adult Vent; PEEP 5; PO2 98 mmHG (75-100); RR 18; SITE R Brach; SO2 97 % (95-99); Total Carbon Dioxide 23 mmol/L; pCO2 40.5 mmHg (35-45); pH 7.34 (7.35-7.45)
--- NOTE | 2024-03-22 01:15 | ED.RN ---
Fluids completed at this time. BP 112/65. Norepinephrine still to infuse per Dr. Flores.
[2024-03-22 01:23] LABS: Magnesium 2.1 mg/dL (1.6-2.6); Phosphorus 3.6 mg/dL (2.5-4.9)
[2024-03-22] MEDS: fentaNYL drip 100 ML 5 MCG CONT INF (02:45)
[2024-03-22] MEDS: Propofol 10MG/Ml 1,000 MG/100 ML Bottle 4.1 MG CONT INF (02:45)
[2024-03-22] MEDS: Norepinephrine 8 MG in 0.9% Normal Saline (250mL Bag) 242 ML 18.8 MG CONT INF ×2 (02:45→23:48)
--- NOTE | 2024-03-22 02:53 | PCM.RX.CS ---
Consult Antibiotic Management Pharmacy has been consulted to manage selected antibiotic: Vancomycin Type of Intervention Type of Consult: New start Labs Labs: Sodium 136 mmol/L (136-145) 03/21/24 22:44 Potassium 4.2 mmol/L (3.5-5.1) 03/21/24 22:44 Chloride 103 mmol/L (98-107) 03/21/24 22:44 Carbon Dioxide 25.0 mmol/L (21.0-32.0) 03/21/24 22:44 Anion Gap 8 (5-15) 03/21/24 22:44 BUN 18 mg/dL (7-18) 03/21/24 22:44 Creatinine 0.54 mg/dL (0.70-1.30) L 03/21/24 22:44 Est GFR (MDRD) Af Amer 212 mL/min (>60) 03/21/24 22:44 Est GFR (MDRD) Non-Af 175 mL/min (>60) 03/21/24 22:44 BUN/Creatinine Ratio 33.6 RATIO (10-20) H 03/21/24 22:44 Glucose 86 mg/dL (74-106) 03/21/24 22:44 Microbiology Microbiology: Microbiology 03/21/24 23:00 Mucosa - Nose SARS-CoV-2, Influenza & RSV (PCR) - Final Dosing Weight Weight used for dosin.6 kg Estimated Creatinine Clearance Estimated Creatinine Clearance: 178.67 Goal Trough Goal Trough: 15-20 mcg/mL Pharmacy Plan for Drug Dosing Pharmacy Plan for Drug Dosing: Pharmacy Service will continue to monitor and adjust dosing as required. 1750 MG GIVEN IN ER 03/21 @ 1314. START 750MG Q8H AND DRAW TROUGH PRIOR TO 4TH DOSE Follow-Up Labs Follow-Up Labs: Trough: Vancomycin Date/Time Labs Ordered Labs to be done on [date and time ordered]: 03/22 @ 3565
[2024-03-22] MEDS: Gabapentin 300 MG Capsule PO ×3 (03:25→20:50)
[2024-03-22] MEDS: 0.9% Normal Saline (1000mL) 1,000 ML 100 ML IV (03:25)
[2024-03-22 04:07] LABS: Absolute Lymphocyte Count 2.97 X10^3/uL (0.83-4.51); Absolute Neutrophil Count 11.6 X10^3/uL (2.0-7.7); Basophil# 0.04 X10^3/uL; Basophil% 0.2 % (0-1); Eosinophil# 0.08 X10^3/uL; Eosinophils% 0.5 % (0-5); Hematocrit 24.8 % (40-54); Hemoglobin 7.8 g/dL (13.0-16.5); Lymphocyte # 2.97 X10^3/ul (0.83-4.51); Lymphocyte % 17.7 % (19-41); Mean Corp Hgb Conc 31.5 g/dL (32-36); Mean Corpuscular Hgb 23.6 pg (27.0-32.0); Mean Corpuscular Volume 75.2 fL (80-94); Mean Platelet Vol. 8.7 fl (6.2-12.0); Monocyte% 11.9 % (0-10); NRBC Flagged by Analyzer 0 % (0-5); Neutrophil % 69.3 % (47-70); POSITIVE DIFFERENTIAL YES; Platelet Count 353 K/mm3 (150-450); RBC Distribution Width CV 18.9 % (11.6-14.6); RBC Distribution Width SD 51.8 fl (35.1-43.9); White Blood Count 16.8 K/mm3 (4.4-11.0)
[2024-03-22 04:19] LABS: Differential Indicated SCAN CRITERIA MET
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
[2024-03-22 04:36] LABS: CPK Total, Creatine Kinase 287 U/L (39-308); Triglycerides 121 mg/dL
[2024-03-22 04:48] LABS: Differential Comment SCANNED
[2024-03-22 04:50] LABS: Reactive Lymphocyte 3+
[2024-03-22 05:14] LABS: ALB/GLOB Ratio 0.5 RATIO (0.9-2.4); AST(SGOT) 20 U/L (15-37); Alanine Aminotransfer ALT/SGPT 18 U/L (16-61); Albumin, Serum 1.8 g/dL (3.2-5.0); Alkaline Phosphatase 72 U/L (45-117); Anion Gap 10 (5-15); BUN 16 mg/dL (7-18); BUN/Creat Ratio 42.4 RATIO (10-20); Calcium,Total 7.9 mg/dL (8.5-10.1); Chloride 106 mmol/L (98-107); Creatinine, Serum 0.38 mg/dL (0.70-1.30); EST Glomerular Filtration Rate 263 mL/min (>60); Est Glom Filt Rate - Afr Amer 318 mL/min (>60); Estimated Creatinine Clearance 232.25 ml/min; Ferritin 169 ng/mL (26-388); Globulin 3.7 g/dL (2.2-4.2); Glucose 108 mg/dL (74-106); Iron 9 ug/dL (65-175); Iron Binding Capacity,Total 209 ug/dL (250-450); PERCENT IRON SATURATION 4.3 % (15.0-55.0); Potassium 3.4 mmol/L (3.5-5.1); Protein, Total 5.5 g/dL (6.4-8.2); Sodium Level 138 mmol/L (136-145)
[2024-03-22] MEDS: Ciprofloxacin 400 MG/200 ML BAG 200 MG IV ×3 (05:15→20:53)
[2024-03-22] MEDS: Baclofen 10 MG Tablet 20 MG PO ×3 (05:15→20:50)
[2024-03-22] MEDS: Midodrine HCl 5 MG Tablet 10 MG PO ×3 (05:15→20:50)
[2024-03-22] MEDS: 0.9% Saline Lock 10 ML Syringe IV ×2 (05:16→21:06)
[2024-03-22 05:32] LABS: M R Staph aureus DNA By PCR Negative (Negative); Probe Check PASS; Specimen Processing Control PASS; Staph aureus DNA By PCR NEGATIVE (Negative)
[2024-03-22] MEDS: Piperacil/Tazobactam 3.375 GM in 0.9% Normal Saline (50mL MB+) 50 ML IV ×3 (06:25→20:54)
--- NOTE | 2024-03-22 07:18 | PN.HOSP_ITS ---
Reason for Visit Reason for Visit: Diagnoses Sepsis, unspecified organism (03/22/24) Severe sepsis with septic shock (03/22/24) Subjective Subjective Sedation required uptitration, which then required increase with norepi. Objective Data Objective Data Vital Signs: Vital Signs Temp Pulse Resp BP Pulse Ox O2 Del Method O2 Flow Rate 37.1 C 73 18 115/79 94 Mechanical Ventilator 5 03/22/24 04:00 03/22/24 07:15 03/22/24 07:15 03/22/24 07:00 03/22/24 07:15 03/22/24 07:00 03/21/24 23:45 FiO2 50 03/22/24 07:15 Oxygen Flow Rate (L/min) 5 Oxygen Delivery Method Mechanical Ventilator Weight: 67.6 kg Body Mass Index (BMI) 19.7 Intake & Output: Intake and Output for Last 24 Hours 03/20/24 03/21/24 03/22/24 23:59 23:59 23:59 Intake Total 3320.02 / 3320.02 Output Total 250 / 250 Balance 3070.02 / 3070.02 Lab / Micro Data 03/22/24 04:00 03/22/24 04:00 Labs: Laboratory Results - last 24 hr 03/21/24 22:44: WBC 14.5 H, RBC 3.54 L, Hgb 8.2 L, Hct 26.5 L, MCV 74.9 L, MCH 23.2 L, MCHC 30.9 L, RDW Std Deviation 52.4 H, RDW Coeff of Minerva 19.2 H, Plt Count 346, MPV 9.5, Immature Gran % (Auto) 0.400, Neut % (Auto) 80.9 H, Lymph % (Auto) 10.5 L, [place] % (Auto) 8.0, Eos % (Auto) 0.1, Baso % (Auto) 0.1, Absolute Neuts (auto) 11.8 H, Absolute Lymphs (auto) 1.52, Nucleated RBC % 0, PT 15.7 H, INR 1.2, APTT 30.2, Sodium 136, Potassium 4.2, Chloride 103, Carbon Dioxide 25.0, Anion Gap 8, BUN 18, Creatinine 0.54 L, Estim Creat Clear Calc 178.67, Est GFR (MDRD) Af Amer 212, Est GFR (MDRD) Non-Af 175, BUN/Creatinine Ratio 33.6 H, Glucose 86, Lactic Acid 0.6, Calcium 8.3 L, Phosphorus 3.6, Magnesium 2.1, Total Bilirubin 0.50, AST 16, ALT 18, Alkaline Phosphatase 76, Troponin I High Sens 22, Total Protein 6.4, Albumin 2.1 L, Globulin 4.3 H, Albumin/Globulin Ratio 0.5 L 03/21/24 22:57: Urine Color Yellow, Urine Clarity Turbid, Urine pH 6.0, Ur Specific [place] 1.025, Urine Protein 100 H, Urine Glucose (UA) Normal, Urine Ketones 15 H, Urine Occult Blood 150 H, Urine Nitrite Negative, Urine Bilirubin Negative, Urine Urobilinogen 1 H, Ur Leukocyte Esterase 500 H, Urine RBC 5-10 SEEN, Urine WBC 50-100 SEEN, Ur Squamous Epith Cells 0 SEEN, Urine Bacteria 1+, Hyaline Casts 0-5 SEEN, Urine Mucus 0 SEEN, Urine Yeast 2+ 03/22/24 03:30: S.aureus Protein A PCR NEGATIVE, MRSA (PCR) Negative 03/22/24 04:00: WBC 16.8 H, RBC 3.30 L, Hgb 7.8 L, Hct 24.8 L, MCV 75.2 L, MCH 23.6 L, MCHC 31.5 L, RDW Std Deviation 51.8 H, RDW Coeff of Minerva 18.9 H, Plt Count 353, MPV 8.7, Immature Gran % (Auto) 0.400, Neut % (Auto) 69.3, Lymph % (Auto) 17.7 L, [place] % (Auto) 11.9 H, Eos % (Auto) 0.5, Baso % (Auto) 0.2, A bsolute Neuts (auto) 11.6 H, Absolute Lymphs (auto) 2.97, Nucleated RBC % 0, Differential Comment SCANNED, Diff Path Review June, Reactive Lymphocytes 3+, Sodium 138, Potassium 3.4 L, Chloride 106, Carbon Dioxide 22.0, Anion Gap 10, BUN 16, Creatinine 0.38 L, Estim Creat Clear Calc 232.25, Est GFR (MDRD) Af Amer 318, Est GFR (MDRD) Non-Af 263, BUN/Creatinine Ratio 42.4 H, Glucose 108 H, Calcium 7.9 L, Iron 9 L, TIBC 209 L, Iron Saturation 4.3 L, Ferritin 169, Total Bilirubin 0.70, AST 20, ALT 18, Alkaline Phosphatase 72, Total Creatine Kinase 287, Total Protein 5.5 L, Albumin 1.8 L, Globulin 3.7, Albumin/Globulin Ratio 0.5 L, Triglycerides 121 Micro: Microbiology 03/22/24 02:22 Mucosa - Nasopharyngeal Respiratory Panel (PCR) - Final 03/22/24 02:40 Nasal Secretion MRSA (PCR) - Final 03/21/24 22:57 Urine Catheter - Beth Streptococcus pneumoniae Antigen (M - Final 03/21/24 22:57 Urine Catheter - Catheter Legionella Antigen - Final 03/21/24 23:00 Mucosa - Nose SARS-CoV-2, Influenza & RSV (PCR) - Final ABG Data ABG results: ABG 03/21/24 03/22/24 23:13 01:10 Specimen Type ART ART Sample Site R Radial R Brach pH 7.39 7.34 L Bicarbonate Actual 23.2 22.0 Total CO2 24 23 Base Excess -2 -4 L O2 Saturation 94 L 97 O2 % 4.0 50.0 ABG pCO2 38.7 40.5 ABG pO2 73 L 98 [place] Test Positive N/A Respiration Rate 18 O2 Delivery Device Cannula Adult Vent Vent Mode Not entered AC Tidal Volume 450.0 POC PEEP 5 Radiography Diagnostic Testing: Radiology Impression Abdomen/Pelvis CT 03/21/24 23:00 IMPRESSION: 1. Displaced right femoral intertrochanteric fracture appears acute. 2. Sacral decubitus ulcer/wound with findings that may be consistent with acute or chronic sacrococcygeal osteomyelitis. 3. Suprapubic tube in the bladder. Prominent bladder wall is likely due to suboptimal distention. 4. Right lower lobe consolidation with small right pleural effusion possible pneumonia. Electronically Signed: Ivet Wooten MD at 0:22 EST , Brain CT 03/21/24 23:00 IMPRESSION: No acute abnormality. CT angiogram and/or MRI may be helpful to evaluate for acute infarct as clinically indicated. Electronically Signed: Ivet Wooten MD at 0:13 EST , Chest X-Ray 03/21/24 23:30 IMPRESSION: Bibasilar infiltrates greater on the right. Electronically Signed: Ivet Wooten MD at 0:29 EST Reading Location ID and State: [facility] / [place] Tel , Service support , Chest X-Ray 03/22/24 01:10 IMPRESSION: Satisfactory ET tube position. NG tube tip in the stomach. Increased right basilar airspace disease and small pleural effusion, likely pneumonia. Electronically Signed: Ivet Wooten MD at 1:41 EST Reading Location ID and State: [address] [place] [address] Tel , Service support , Physical Exam Const Constitutional Narrative: intubated. sedated, but awake. HEENT head/scalp atraumatic and moist oral mucous membranes Resp normal respiratory effort and no retractions Resp Narrative: coarse breath sounds Cardio regular rate, regular rhythm, S1 normal heart sound and S2 normal heart sound GI normal to inspection, nondistended, normoactive bowel sounds, soft to palpation, non-tender and non-distended Extremity Extremity Narrative: plantar contractions. Neuro Sensorium / Orientation: awake and alert Assessment & Plan Assessment/Plan (1) Septic shock: PLAN: 2/2 infected sacral decubitus wound v pneumonia v other. abx with cipro, pip/tazo, vanc MRSA PCR, strep + legionella antigen, COVID-19/influenza/RSV negative. Pending: wound Cx, BCx, SCx. Completed 30cc/kg of IVF. Since transitioned to norepi [facility], ID consult (2) Respiratory failure: PLAN: Hypoxic. Intubated. sedation w propofol and fentanyl (3) Hip fracture: PLAN: due to falling out of wheel chair ~ 1 week ago nonambulatory and wheelchair bound at baseline. Surgery to evaluate to see if when medically stable if he would be a surgical candidate Check 25-OH d level. (4) Decubitus ulcer, stage 3 with infection: PLAN: Plastics and wound consult. (5) Anemia: QUALIFIERS: Anemia type: unspecified type Qualified Code(s): D 64.9 - Anemia, unspecified PLAN: Iron-deficiency. Compounded by anemia of chronic disease. Will give dose of iron sucrose. PLAN: Plan Quadriplegia: * complicates care and recovery. VTE prophylaxis: LMWH. Charges/Coding Procedures Hospitalists Procedures: Other Procedure - See Report (Nonbillable rounding as patient was admitted after midnight.)
[2024-03-22] MEDS: Budesonide Respules 0.5 MG/2 ML AMPUL.NEB. INHALATION ×2 (07:31→18:43)
--- NOTE | 2024-03-22 08:20 | RAD_ITS ---
HISTORY: surgery planning. TECHNIQUE: XR Femur Min 2 Views. COMPARISON: CT prior day. FINDINGS: BONES : Comminuted and mildly displaced intertrochanteric fracture of the right femur with mild superior displacement and varus angulation. Generalized osteopenia. JOINTS: No dislocation. Degenerative change. SOFT TISSUES: Soft tissue swelling. Residual contrast in the bladder. Right femoral line noted RAD/Femur Min 2 Views IMPRESSION: Comminuted and mildly displaced right intertrochanteric femur fracture. Electronically Signed: Dora Gaytan MD at 10:20 EST ,
[2024-03-22] MEDS: Sodium Ferric Gluconat/Sucrose 250 MG in 0.9% Normal Saline (250mL Bag) 250 ML 135 MG IV (08:28)
[2024-03-22] MEDS: Vancomycin HCl 750 MG in 0.9% Normal Saline (250mL Bag) 250 ML 250 MG IV ×2 (08:29→16:58)
[2024-03-22] MEDS: Enoxaparin 40 MG/0.4 ML Syringe SC (08:30)
[2024-03-22] MEDS: FLUoxetine 20 MG Capsule 60 MG PO (08:31)
[2024-03-22] MEDS: Senna/Docusate Sodium 1 Tablet 2 TABLET PO ×2 (08:31→20:50)
[2024-03-22] MEDS: Ascorbic Acid 500 MG Tablet PO (08:32)
[2024-03-22] MEDS: Chlorhexidine 15 ML PO ×2 (08:39→20:51)
--- NOTE | 2024-03-22 10:48 | CASEMGMT ---
Addendum entered by Trudi Hernandez 03/22/24 14:27: Social Work Precert will not be needed in order for pt to return. They received most of the documents, but not the H&P and progress note. SW will ask staff on Sunday to try again, and if the documents still do not come through they may need to be faxed. Also, they do not have updated POA documents on file. AASHISH Ballard Addendum entered by Trudi Hernandez 03/22/24 13:10: Social Work SW received a message back from [facility] that they will take pt back but they did not get any of the documents. SW resent the documents via [employer]. SW received a message back that they only received a progress note. SW deleted and re-downloaded all of the documents, sent again. ROLANDA asked again about POA documents, as they were going to check, and asked about if a precert will be needed. ROLANDA will continue to follow. AASHISH Ballard Original Note: Social Work Pt is here from [facility], is currently on a vent. Pt's sister iGssel is here in the hospital visiting. She states Sly was to be working on new POA papers for pt, and that she is not certain if papers were completed. Pt's has stated can no longer care for pt and they are getting . Gissel states this all happened in the last month since pt has been at [facility], he went there about a month ago from [place]. Her name is Olga Myers, . Pt was planning to put his mother and sister as POA. Gissel states that pt's mother is listed next after pt's . ROLANDA explained will call [facility] to see if they have updated documents. ROLANDA called twice, however nobody at the nurses' station answers. ROLANDA sent updates to [facility] via [employer] and requested that if they have documents to please fax them over. ROLANDA let Gissel know that ROLANDA has not been able to get a hold of [facility] to ask about POA papers, did send a message electronically as well. ROLANDA inquired w/Gissel if the plan is for pt to return to [facility]. She states they were working w/pt and pt's mom to make a facility change, as pt has been smoking in the room. Gissel then called pt's mother, Lazara, to ask the plan. As per Lazara, the plan is for pt to return to [facility] and then work on other placement from there. SW updated RN on the POA situation, will place the 's number on the face sheet in the chart. AASHISH Ballard
--- NOTE | 2024-03-22 10:49 | NURSING ---
Patient restless and agitated, attempting to pull out his ETT at this time. Sister in room and attempting to calm patient down. Patient thrashing in the bed concern for him to injure himself at this time. Nicholas RN called to room for assistance and sister left the room at this time. Attempt was made multiple times to calm patient down, subsequently we had to increase his propofol, levophed and fentanyl drips at this time. Patient calmed after about 30mins of thrashing. Patient is agreeable to stay calm. This RN and Nicholas left the room and patient remains calm at this time.
[2024-03-22] MEDS: Pantoprazole Sodium 40 MG in 0.9% Normal Saline (100mL MB+) 100 ML 330 MG IV ×2 (11:02→20:36)
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
[2024-03-22] MEDS: Norepinephrine 8 MG in 0.9% Normal Saline (250mL Bag) 242 ML 28.1 MG CONT INF (12:39)
[2024-03-22] MEDS: fentaNYL drip 100 ML 12.5 MCG CONT INF ×2 (12:39→20:36)
[2024-03-22] MEDS: Propofol 10MG/Ml 1,000 MG/100 ML Bottle 12.2 MG CONT INF ×2 (13:42→21:06)
--- NOTE | 2024-03-22 14:02 | PCM.PN.TICU ---
Objective Data Objective Data Vital Signs: Vital Signs Last response Temperature 38.1 C H 03/22/24 13:00 Temperature Source Core 03/22/24 13:00 Pulse Rate 81 03/22/24 13:10 Respiratory Rate 18 03/22/24 13:10 Respiratory Effort Mechanically Ventilated 03/22/24 08:43 Respiratory Depth Normal 03/22/24 08:43 Respiratory Pattern Normal 03/22/24 08:43 Blood Pressure 118/68 03/22/24 13:00 Blood Pressure Mean 84 03/22/24 13:00 Blood Pressure Source Monitor 03/22/24 13:00 Pulse Ox 95 03/22/24 13:10 Oxygen Delivery Method Mechanical Ventilator 03/22/24 13:00 Oxygen Flow Rate (L/min) 5 03/21/24 23:45 Fraction of Inspired Oxygen (FIO2) 50 03/22/24 13:00 I&O: I&O Last 24 Hours 03/21/24 03/22/24 03/22/24 23:59 11:59 23:59 Intake Total 4902.77 / 4977.34 74.57 / 4977.34 Output Total 250 / 400 150 / 400 Balance 4652.77 / 4577.34 -75.43 / 4577.34 I&O: Total Stay 03/21/24 22:35 thru 03/22/24 13:42 Intake Total 4987.34 Output Total 400 Balance 4587.34 Current Meds Ordered / Administered: Current meds ordered / Administered Generic Name Dose Route Start Last Admin Trade Name Freq PRN Reason Stop Dose Admin Acetaminophen 650 mg 03/22/24 02:17 Acetaminophen 650 Mg Suppository RC Q4H PRN PRN Fever, pain 1-10 Acetaminophen 650 mg 03/22/24 02:17 Acetaminophen 325 Mg Tablet PO Q4H PRN PRN Fever, pain 1-10/10 Al Hydroxide/Mg Hydroxide 30 ml 03/22/24 02:17 Mag Hydrox/Al Hydrox/Simeth 30 Ml Udc PO Q6H PRN PRN Gastric Burning Albuterol Sulfate 2.5 mg 03/22/24 02:17 Albuterol 2.5 Mg/3 Ml Vial.Neb. INHALATION Q2H PRN PRN Dyspnea, wheezing Ascorbic Acid 500 mg 03/22/24 10:00 03/22/24 08:32 Ascorbic Acid 500 Mg Tablet PO 500 mg DAILY SARAH Administration Atorvastatin Calcium 80 mg 03/22/24 22:00 Atorvastatin Calcium 80 Mg Tablet PO QHS SARAH Baclofen 20 mg 03/22/24 06:00 03/22/24 13:33 Baclofen 10 Mg Tablet PO 20 mg Q8 SARAH Administration Budesonide 0.5 mg 03/22/24 02:17 03/22/24 07:31 Budesonide Respules 0.5 Mg/2 Ml Ampul.Neb. INHALATION 0.5 mg BID.RT SARAH Administration Calamine/Phenol 1 applic 03/22/24 10:00 03/22/24 10:44 Menthol/Lanolin/Calamine/Znox 113 Gm Tube TOPICAL Not Given 4X/DAY [facility] Protocol Chlorhexidine Gluconate 15 ml 03/22/24 10:00 03/22/24 08:39 Chlorhexidine 15 Ml PO 15 ml BID SARAH Administration Divalproex Sodium 1,000 mg 03/22/24 22:00 Divalproex Sodium 250 Mg Tablet PO QHS [facility] Enoxaparin Sodium 40 mg 03/22/24 10:00 03/22/24 08:30 Enoxaparin 40 Mg/0.4 Ml Syringe SC 40 mg DAILY SARAH Administration Fluoxetine HCl 60 mg 03/22/24 10:00 03/22/24 08:31 Fluoxetine 20 Mg Capsule PO 60 mg DAILY SARAH Administration Gabapentin 300 mg 03/22/24 02:17 03/22/24 13:42 Gabapentin 300 Mg Capsule PO 300 mg Q8 SARAH Administration Guaifenesin 10 ml 03/22/24 02:17 Guaifenesin 10 Ml Udc (200mg/10ml) PO Q4H PRN PRN COUGH Ciprofloxacin 400 mg in 200 mls @ 200 mls/hr 03/22/24 06:00 03/22/24 13:32 Cipro IV 200 mls/hr Q8 [facility] Administration Piperacillin Sod/Tazobactam 50 mls @ 12.5 mls/hr 03/22/24 06:00 03/22/24 10:43 Sod 3.375 gm/ Sodium Chloride IV Infused Q8 SARAH Infusion Vancomycin IV-PHARMACY TO DOSE 500 mls @ 250 mls/hr 03/22/24 02:17 1 each/ Sodium Chloride IV X1 PRN Rx to Dose Protocol Propofol 1,000 mg in 100 mls @ 4.056 mls/hr 03/22/24 02:17 03/22/24 13:42 Diprivan CONT INF 30 mcg/kg/min .Q12H SARAH 12.2 mls/hr Administration Protocol 10 MCG/KG/MIN Pantoprazole Sodium 40 mg/ 110 mls @ 330 mls/hr 03/22/24 10:00 03/22/24 11:22 Sodium Chloride IV Infused Q12 SARAH Infusion Fentanyl 100 mls @ 5 mls/hr 03/22/24 02:17 03/22/24 13:00 CONT INF 125 mcg/hr UD SARAH 12.5 mls/hr Titration Protocol 50 MCG/HR Norepinephrine Bitartrate 8 mg 250 mls @ 9.375 mls/hr 03/22/24 02:17 03/22/24 13:00 / Sodium Chloride CONT INF 15 mcg/min .[id number] SARAH 28.1 mls/hr Titration Protocol 5 MCG/MIN Vancomycin HCl 750 mg/ Sodium 265 mls @ 250 mls/hr 03/22/24 08:00 03/22/24 09:35 Chloride IV Infused Q8H SARAH Infusion Melatonin 3 mg 03/22/24 02:17 Melatonin 3 Mg Tablet PO QHS PRN PRN INSOMNIA Midodrine 10 mg 03/22/24 06:00 03/22/24 13:34 Midodrine Hcl 5 Mg Tablet PO 10 mg Q8 SARAH Administration Ondansetron HCl 4 mg 03/22/24 02:17 Ondansetron 4 Mg/2 Ml Vial IV Q8H PRN PRN NAUSEA/VOMITING Prochlorperazine Edisylate 5 mg 03/22/24 02:17 Prochlorperazine 10 Mg/2 Ml Vial IV Q4H PRN PRN Breakthrough Nausea/Vomiting Senna/Docusate Sodium 2 tablet 03/22/24 10:00 03/22/24 08:31 Senna/Docusate Sodium 1 Tablet PO 2 tablet BID SARAH Administration Sodium Chloride 5 ml 03/22/24 02:17 Sodium Cl For Inhalation 15 Ml Vial.Neb. INHALATION Q5M PRN Suctioning Sodium Chloride 10 - 40 ml 03/22/24 02:28 03/22/24 05:16 0.9% Saline Lock 10 Ml Syringe IV 20 ml UD PRN Administration SALINE FLUSH Vancomycin Protocol 1 lab 03/22/24 21:30 Vancomycin Trough/Random Due MC 03/23/24 01:30 DAILY [facility] Lab / Micro Data 03/22/24 04:00 03/22/24 04:00 Labs: Laboratory Results - last 24 hr 03/21/24 22:44: WBC 14.5 H, RBC 3.54 L, Hgb 8.2 L, Hct 26.5 L, MCV 74.9 L, MCH 23.2 L, MCHC 30.9 L, RDW Std Deviation 52.4 H, RDW Coeff of Minerva 19.2 H, Plt Count 346, MPV 9.5, Immature Gran % (Auto) 0.400, Neut % (Auto) 80.9 H, Lymph % (Auto) 10.5 L, [place] % (Auto) 8.0, Eos % (Auto) 0.1, Baso % (Auto) 0.1, Absolute Neuts (auto) 11.8 H, Absolute Lymphs (auto) 1.52, Nucleated RBC % 0, PT 15.7 H, INR 1.2, APTT 30.2, Sodium 136, Potassium 4.2, Chloride 103, Carbon Dioxide 25.0, Anion Gap 8, BUN 18, Creatinine 0.54 L, Estim Creat Clear Calc 178.67, Est GFR (MDRD) Af Amer 212, Est GFR (MDRD) Non-Af 175, BUN/Creatinine Ratio 33.6 H, Glucose 86, Lactic Acid 0.6, Calcium 8.3 L, Phosphorus 3.6, Magnesium 2.1, Total Bilirubin 0.50, AST 16, ALT 18, Alkaline Phosphatase 76, Troponin I High Sens 22, Total Protein 6.4, Albumin 2.1 L, Globulin 4.3 H, Albumin/Globulin Ratio 0.5 L 03/21/24 22:57: Urine Color Yellow, Urine Clarity Turbid, Urine pH 6.0, Ur Specific [place] 1.025, Urine Protein 100 H, Urine Glucose (UA) Normal, Urine Ketones 15 H, Urine Occult Blood 150 H, Urine Nitrite Negative, Urine Bilirubin Negative, Urine Urobilinogen 1 H, Ur Leukocyte Esterase 500 H, Urine RBC 5-10 SEEN, Urine WBC 50-100 SEEN, Ur Squamous Epith Cells 0 SEEN, Urine Bacteria 1+, Hyaline Casts 0-5 SEEN, Urine Mucus 0 SEEN, Urine Yeast 2+ 03/22/24 03:30: S.aureus Protein A PCR NEGATIVE, MRSA (PCR) Negative 03/22/24 04:00: WBC 16.8 H, RBC 3.30 L, Hgb 7.8 L, Hct 24.8 L, MCV 75.2 L, MCH 23.6 L, MCHC 31.5 L, RDW Std Deviation 51.8 H, RDW Coeff of Minerva 18.9 H, Plt Count 353, MPV 8.7, Immature Gran % (Auto) 0.400, Neut % (Auto) 69.3, Lymph % (Auto) 17.7 L, Atlantic % (Auto) 11.9 H, Eos % (Auto) 0.5, Baso % (Auto) 0.2, Absolute Neuts (auto) 11.6 H, Absolute Lymphs (auto) 2.97, Nucleated RBC % 0, Differential Comment SCANNED, Diff Path Review June, Reactive Lymphocytes 3+, Sodium 138, Potassium 3.4 L, Chloride 106, Carbon Dioxide 22.0, Anion Gap 10, BUN 16, Creatinine 0.38 L, Estim Creat Clear Calc 232.25, Est GFR (MDRD) Af Amer 318, Est GFR (MDRD) Non-Af 263, BUN/Creatinine Ratio 42.4 H, Glucose 108 H, Calcium 7.9 L, Iron 9 L, TIBC 209 L, Iron Saturation 4.3 L, Ferritin 169, Total Bilirubin 0.70, AST 20, ALT 18, Alkaline Phosphatase 72, Total Creatine Kinase 287, Total Protein 5.5 L, Albumin 1.8 L, Globulin 3.7, Albumin/Globulin Ratio 0.5 L, Triglycerides 121 Micro: Microbiology 03/22/24 02:22 Mucosa - Nasopharyngeal Respiratory Panel (PCR) - Final 03/22/24 02:40 Nasal Secretion MRSA (PCR) - Final 03/21/24 22:57 Urine Catheter - Beth Streptococcus pneumoniae Antigen (M - Final 03/21/24 22:57 Urine Catheter - Catheter Legionella Antigen - Final 03/21/24 23:00 Mucosa - Nose SARS-CoV-2, Influenza & RSV (PCR) - Final ABG Data ABG results: ABG 03/21/24 03/22/24 23:13 01:10 Specimen Type ART ART Sample Site R Radial R Brach pH 7.39 7.34 L Bicarbonate Actual 23.2 22.0 Total CO2 24 23 Base Excess -2 -4 L O2 Saturation 94 L 97 O2 % 4.0 50.0 ABG pCO2 38.7 40.5 ABG pO2 73 L 98 Clif[place] Test Positive N/A Respiration Rate 18 O2 Delivery Device Cannula Adult Vent Vent Mode Not entered AC Tidal Volume 450.0 POC PEEP 5 Imaging Radiology Impression Abdomen/Pelvis CT 03/21/24 23:00 IMPRESSION: 1. Displaced right femoral intertrochanteric fracture appears acute. 2. Sacral decubitus ulcer/wound with findings that may be consistent with acute or chronic sacrococcygeal osteomyelitis. 3. Suprapubic tube in the bladder. Prominent bladder wall is likely due to suboptimal distention. 4. Right lower lobe consolidation with small right pleural effusion possible pneumonia. Electronically Signed: Ivet Wooten MD at 0:22 EST Reading Location ID and State: [facility] / [place] Tel , Service support , Brain CT 03/21/24 23:00 IMPRESSION: No acute abnormality. CT angiogram and/or MRI may be helpful to evaluate for acute infarct as clinically indicated. Electronically Signed: Ivet Wooten MD at 0:13 EST Reading Location ID and State: [employer] / [place] Tel , Service support , Chest X-Ray 03/21/24 23:30 IMPRESSION: Bibasilar infiltrates greater on the right. Electronically Signed: Ivet Wooten MD at 0:29 EST Reading Location ID and State: [facility] / [place] Tel , Service support , Chest X-Ray 03/22/24 01:10 IMPRESSION: Satisfactory ET tube position. NG tube tip in the stomach. Increased right basilar airspace disease and small pleural effusion, likely pneumonia. Electronically Signed: Ivet Wooten MD at 1:41 EST Reading Location ID and State: [facility] / [place] Tel , Service support , Femur X-Ray 03/22/24 08:20 IMPRESSION: Comminuted and mildly displaced right intertrochanteric femur fracture. Electronically Signed: Dora Gaytan MD at 10:20 EST , Assessment and Plan . Assessment and plan: Critical Care Time: The entirety of this encounter was done via Telemedicine
--- NOTE | 2024-03-22 14:15 | EX.PCM.CON.S ---
Assessment & Plan Assessment/Plan (1) Sacral wound: (2) Right ischial pressure sore, stage 4: (3) Pressure sore of left ischium, stage 4: PLAN: Plan No acute surgical intervention at this time. Recommend the following: pressure offloading bed Dakins WTD dressings twice daily Nutrition consultation Plastics will follow HPI Consult Data Date of Consult: 03/22/24 HPI Narrative HPI Narrative: RYANN SUÁREZ, is a 48 M with C5-6 quadriplegia who presents as an admission from the [facility] who is currently intubated in the ICU for respiratory failure secondary to pneumonia complicated by encephalopathy/altered mental status. There is also concern for urosepsis/UTI. Plastic surgery being consulted for bilateral ischial wounds and sacral wound. Of note patient fell from [place] lift approximately 1 week ago and sustained an intertrochanteric right hip fracture (as evidenced by CT scan of the abdomen and pelvis in the emergency room). He may undergo fixation of the fracture, but the plan from orthopedics is to follow-up with him following extubation and stabilization for sepsis. Today in the ICU he is on vasopressors . Hi WBC is 17 K PFSH Medical History (Updated 03/22/24 @ 14:[address] Luis Angel Beyer MD) Pressure ulcer of sacral region, stage 3 Pressure injury of right ischium, stage 1 Pressure injury of left ischium, stage 1 Anemia Chronic pain syndrome Decubitus ulcers Chronic pain syndrome Tobacco use History of GI bleed Bipolar disorder Suprapubic catheter Quadriplegia following spinal cord injury Anxiety and depression Marijuana smoker Home Medications ?Medication ?Instructions ?Recorded ?Last Taken ?Type acetaminophen 325 mg capsule 650 mg PO Q4H PRN PRN Pain 11/12/17 Unknown History (Tylenol) ascorbic acid (vitamin C) 500 mg 500 mg PO DAILY supplement 11/12/17 11/22/17 History capsule enoxaparin 40 mg/0.4 mL 40 mg SQ DAILY blood thinner 11/12/17 11/22/17 History subcutaneous syringe (Lovenox) fluoxetine 20 mg capsule (Prozac) 60 mg PO DAILY depression 11/12/17 11/22/17 History oxybutynin chloride 5 mg tablet 10 mg PO BID 01/19/20 Unknown History albuterol sulfate 90 mcg/actuation 2 inh inhalation Q4H PRN shortness 03/21/24 Unknown History aerosol inhaler of breath or wheezing atorvastatin 80 mg tablet 80 mg PO QHS 03/21/24 Unknown History baclofen 20 mg tablet 20 mg PO Q8H 03/21/24 Unknown History bisacodyl 10 mg rectal suppository 10 mg AR DAILY PRN constipation 03/21/24 Unknown History divalproex 250 mg tablet,delayed 1,000 mg PO QHS 03/21/24 Unknown History release gabapentin 300 mg capsule 300 mg PO Q8H 03/21/24 Unknown History magnesium hydroxide 400 mg/5 mL 30 ml PO DAILY PRN constipation 03/21/24 Unknown History oral suspension (Milk of Magnesia) midodrine 10 mg tablet 10 mg PO Q8H 03/21/24 Unknown History mineral oil (Fleet Mineral Oil 118 ml AR DAILY PRN constipation 03/21/24 Unknown History enema) multivitamin (Daily Multi-Vitamin 1 tab PO DAILY 03/21/24 Unknown History tablet) naloxone 4 mg/actuation nasal spray 1 spray intranasal PRN PRN opioid 03/21/24 Unknown History overdose oxycodone 10 mg tablet 10 mg PO Q6H pain 03/21/24 Unknown History oxycodone 5 mg tablet 5 mg PO Q8H PRN pain 03/21/24 Unknown History pantoprazole 40 mg tablet,delayed 40 mg PO DAILY 03/21/24 Unknown History release Allergy/AdvReac Type Severity Reaction Status Date / Time No Known Allergies Allergy Verified 03/21/24 22:46 Family History Mother Heart disease Hypertension Father Heart disease Hypertension Surgical History History of incision and drainage History of suprapubic catheter S/P cholecystectomy H/O exploratory laparotomy History of back surgery Social History household members: none and other details: from his spouse. housing: retirement Smoking Status: Current every day smoker tobacco type: cigarettes Smoking packs per day: 1 Smoking cigarettes per day: 20.0 alcohol intake: current alcohol intake frequency: holidays/special occasions only substance use type: marijuana Physical Exam Narrative Patient was turned with the help of nursing staff Ischial wounds bilaterally down to exposed bone. Sacral wound down to exposed bone. All 3 wounds are open with granulation tissue at the base. There is no signs of undrained fluid collection Const alert Constitutional Narrative: Follows commands HEENT HEENT Narrative: Intubated Resp Resp Narrative: ET tube Lab / Micro Data 03/22/24 04:00 03/22/24 04:00 Labs: Laboratory Results - last 24 hr 03/21/24 22:44: WBC 14.5 H, RBC 3.54 L, Hgb 8.2 L, Hct 26.5 L, MCV 74.9 L, MCH 23.2 L, MCHC 30.9 L, RDW Std Deviation 52.4 H, RDW Coeff of Minerva 19.2 H, Plt Count 346, MPV 9.5, Immature Gran % (Auto) 0.400, Neut % (Auto) 80.9 H, Lymph % (Auto) 10.5 L, Smith % (Auto) 8.0, Eos % (Auto) 0.1, Baso % (Auto) 0.1, Absolute Neuts (auto) 11.8 H, Absolute Lymphs (auto) 1.52, Nucleated RBC % 0, PT 15.7 H, INR 1.2, APTT 30.2, Sodium 136, Potassium 4.2, Chloride 103, Carbon Dioxide 25.0, Anion Gap 8, BUN 18, Creatinine 0.54 L, Estim Creat Clear Calc 178.67, Est GFR (MDRD) Af Amer 212, Est GFR (MDRD) Non-Af 175, BUN/Creatinine Ratio 33.6 H, Glucose 86, Lactic Acid 0.6, Calcium 8.3 L, Phosphorus 3.6, Magnesium 2.1, Total Bilirubin 0.50, AST 16, ALT 18, Alkaline Phosphatase 76, Troponin I High Sens 22, Total Protein 6.4, Albumin 2.1 L, Globulin 4.3 H, Albumin/Globulin Ratio 0.5 L 03/21/24 22:57: Urine Color Yellow, Urine Clarity Turbid, Urine pH 6.0, Ur Specific [place] 1.025, Urine Protein 100 H, Urine Glucose (UA) Normal, Urine Ketones 15 H, Urine Occult Blood 150 H, Urine Nitrite Negative, Urine Bilirubin Negative, Urine Urobilinogen 1 H, Ur Leukocyte Esterase 500 H, Urine RBC 5-10 SEEN, Urine WBC 50-100 SEEN, Ur Squamous Epith Cells 0 SEEN, Urine Bacteria 1+, Hyaline Casts 0-5 SEEN, Urine Mucus 0 SEEN, Urine Yeast 2+ 03/22/24 03:30: S.aureus Protein A PCR NEGATIVE, MRSA (PCR) Negative 03/22/24 04:00: WBC 16.8 H, RBC 3.30 L, Hgb 7.8 L, Hct 24.8 L, MCV 75.2 L, MCH 23.6 L, MCHC 31.5 L, RDW Std Deviation 51.8 H, RDW Coeff of Minerva 18.9 H, Plt Count 353, MPV 8.7, Immature Gran % (Auto) 0.400, Neut % (Auto) 69.3, Lymph % (Auto) 17.7 L, Smith % (Auto) 11.9 H, Eos % (Auto) 0.5, Baso % (Auto) 0.2, Absolute Neuts (auto) 11.6 H, Absolute Lymphs (auto) 2.97, Nucleated RBC % 0, Differential Comment SCANNED, Diff Path Review May foll, Reactive Lymphocytes 3+, Sodium 138, Potassium 3.4 L, Chloride 106, Carbon Dioxide 22.0, Anion Gap 10, BUN 16, Creatinine 0.38 L, Estim Creat Clear Calc 232.25, Est GFR (MDRD) Af Amer 318, Est GFR (MDRD) Non-Af 263, BUN/Creatinine Ratio 42.4 H, Glucose 108 H, Calcium 7.9 L, Iron 9 L, TIBC 209 L, Iron Saturation 4.3 L, Ferritin 169, Total Bilirubin 0.70, AST 20, ALT 18, Alkaline Phosphatase 72, Total Creatine Kinase 287, Total Protein 5.5 L, Albumin 1.8 L, Globulin 3.7, Albumin/Globulin Ratio 0.5 L, Triglycerides 121 Micro: Microbiology 03/22/24 02:22 Mucosa - Nasopharyngeal Respiratory Panel (PCR) - Final 03/22/24 02:40 Nasal Secretion MRSA (PCR) - Final 03/21/24 22:57 Urine Catheter - Beth Streptococcus pneumoniae Antigen (M - Final 03/21/24 22:57 Urine Catheter - Catheter Legionella Antigen - Final 03/21/24 23:00 Mucosa - Nose SARS-CoV-2, Influenza & RSV (PCR) - Final ABG Data ABG results: ABG 03/21/24 03/22/24 23:13 01:10 Specimen Type ART ART Sample Site R Radial R Brach pH 7.39 7.34 L Bicarbonate Actual 23.2 22.0 Total CO2 24 23 Base Excess -2 -4 L O2 Saturation 94 L 97 O2 % 4.0 50.0 ABG pCO2 38.7 40.5 ABG pO2 73 L 98 [place] Test Positive N/A Respiration Rate 18 O2 Delivery Device Cannula Adult Vent Vent Mode Not entered AC Tidal Volume 450.0 POC PEEP 5 Imaging Radiology Impression Abdomen/Pelvis CT 03/21/24 23:00 IMPRESSION: 1. Displaced right femoral intertrochanteric fracture appears acute. 2. Sacral decubitus ulcer/wound with findings that may be consistent with acute or chronic sacrococcygeal osteomyelitis. 3. Suprapubic tube in the bladder. Prominent bladder wall is likely due to suboptimal distention. 4. Right lower lobe consolidation with small right pleural effusion possible pneumonia. Electronically Signed: Ivet Wooten MD at 0:22 EST Reading Location ID and State: [employer] / [place] Tel , Service support , I personally reviewed the CT scan and did not see any fluid collections around the wounds Brain CT 03/21/24 23:00 IMPRESSION: No acute abnormality. CT angiogram and/or MRI may be helpful to evaluate for acute infarct as clinically indicated. Electronically Signed: Ivet Wooten MD at 0:13 EST Reading Location ID and State: [employer] / [place] Tel , Service support , Chest X-Ray 03/21/24 23:30 IMPRESSION: Bibasilar infiltrates greater on the right. Electronically Signed: Ivet Wooten MD at 0:29 EST , Chest X-Ray 03/22/24 01:10 IMPRESSION: Satisfactory ET tube position. NG tube tip in the stomach. Increased right basilar airspace disease and small pleural effusion, likely pneumonia. Electronically Signed: Ivet Wooten MD at 1:41 EST , Femur X-Ray 03/22/24 08:20 IMPRESSION: Comminuted and mildly displaced right intertrochanteric femur fracture. Electronically Signed: Dora Gaytan MD at 10:20 EST , Charges/Coding Multi Select Codes Visit Charges Office Visit/Consults: 61808 IP Consult L5
--- NOTE | 2024-03-22 14:30 | CASEMGMT ---
Social Work SW did reach out to pt's sister, let her know that [facility] has not completed pt's POA papers. SW let her know if we can, we may be able to get the POA documents completed here once pt is off the vent. AASHISH Ballard
[2024-03-22] MEDS: QUEtiapine 25 MG Tablet PO ×2 (14:34→20:50)
--- NOTE | 2024-03-22 16:03 | NURSING ---
Contacted Patient Olga to obtain consent, Olga stated that she no longer wanted to make decisions regarding the patients medical care any longer.[employer] food department manager notified at this time.
[2024-03-22] MEDS: Acetaminophen 650 MG/20 ML UDC GT (16:14)
[2024-03-22] MEDS: Atorvastatin Calcium 80 MG Tablet PO (20:51)
[2024-03-22] MEDS: Acetaminophen 325 MG Tablet 650 MG PO (20:51)
[2024-03-22] MEDS: DAKIN'S SOL HALF STRENGTH (=0.25%) TOPICAL (20:52)
[2024-03-22] MEDS: 0.9% Normal Saline (100mL Bag) 100 ML 15 ML IV (20:54)
[2024-03-22 23:45] LABS: Vancomycin, Trough Level 13.3 ug/mL (5.0-15.0)
--- NOTE | 2024-03-22 23:53 | PCM.RX.CS ---
Consult Antibiotic Management Pharmacy has been consulted to manage selected antibiotic: Vancomycin Type of Intervention Type of Consult: Follow-up Labs Labs: Sodium 138 mmol/L (136-145) 03/22/24 04:00 Potassium 3.4 mmol/L (3.5-5.1) L 03/22/24 04:00 Chloride 106 mmol/L (98-107) 03/22/24 04:00 Carbon Dioxide 22.0 mmol/L (21.0-32.0) 03/22/24 04:00 Anion Gap 10 (5-15) 03/22/24 04:00 BUN 16 mg/dL (7-18) 03/22/24 04:00 Creatinine 0.38 mg/dL (0.70-1.30) L 03/22/24 04:00 Est GFR (MDRD) Af Amer 318 mL/min (>60) 03/22/24 04:00 Est GFR (MDRD) Non-Af 263 mL/min (>60) 03/22/24 04:00 BUN/Creatinine Ratio 42.4 RATIO (10-20) H 03/22/24 04:00 Glucose 108 mg/dL (74-106) H 03/22/24 04:00 Vancomycin Trough 13.3 ug/mL (5.0-15.0) 03/22/24 23:23 Microbiology Microbiology: Microbiology 03/22/24 03:30 Ulcer, Decubitus - Open/Non-Healing Wound Gram Stain - Final 03/22/24 00:30 Sputum, Induced/Lukens Gram Stain - Final 03/22/24 02:22 Mucosa - Nasopharyngeal Respiratory Panel (PCR) - Final 03/22/24 02:40 Nasal Secretion MRSA (PCR) - Final 03/21/24 22:57 Urine Catheter - Beth Streptococcus pneumoniae Antigen (M - Final 03/21/24 22:57 Urine Catheter - Catheter Legionella Antigen - Final 03/21/24 23:00 Mucosa - Nose SARS-CoV-2, Influenza & RSV (PCR) - Final Goal Trough Goal Trough: 15-20 mcg/mL Pharmacy Plan for Drug Dosing Pharmacy Plan for Drug Dosing: Pharmacy Service will continue to monitor and adjust dosing as required. TROUGH 13.3 @ 6.5 HOURS. INCREASE TO 1GM Q8H AND FOLLOW UP TROUGH PRIOR TO 4TH DOSE Follow-Up Labs Follow-Up Labs: Trough: Vancomycin Date/Time Labs Ordered Labs to be done on [date and time ordered]: 03/23 @ 2540
[2024-03-23] VITALS (54 sets, daily range): BP systolic 76–134; BP diastolic 47–77; PULSE 18–91; RESP 16–19; TEMP 36.3–39.1; O2SAT 93–100; BMI 21.5
[2024-03-23] MEDS: 0.9% Saline Lock 10 ML Syringe IV (00:12)
[2024-03-23] MEDS: CHLORHEXIDINE GLUC 2% CLOTH 1 EACH TOWELETTE TOPICAL (00:46)
[2024-03-23] MEDS: fentaNYL drip 100 ML 12.5 MCG CONT INF ×3 (04:10→21:00)
[2024-03-23] MEDS: Propofol 10MG/Ml 1,000 MG/100 ML Bottle 12.2 MG CONT INF (04:10)
[2024-03-23 04:19] LABS: Absolute Lymphocyte Count 1.77 X10^3/uL (0.83-4.51); Absolute Neutrophil Count 12.4 X10^3/uL (2.0-7.7); Basophil# 0.05 X10^3/uL; Basophil% 0.3 % (0-1); Eosinophil# 1.29 X10^3/uL; Eosinophils% 7.6 % (0-5); Hemoglobin 7.5 g/dL (13.0-16.5); Lymphocyte # 1.77 X10^3/ul (0.83-4.51); Lymphocyte % 10.4 % (19-41); Mean Corp Hgb Conc 31.3 g/dL (32-36); Mean Corpuscular Hgb 23.1 pg (27.0-32.0); Mean Corpuscular Volume 73.8 fL (80-94); Mean Platelet Vol. 8.5 fl (6.2-12.0); Monocyte# 1.41 X10^3/uL; Monocyte% 8.3 % (0-10); NRBC Flagged by Analyzer 0 % (0-5); Neutrophil # 12.38 X10^3/uL (2.7-7.7); Neutrophil % 72.9 % (47-70); Platelet Count 395 K/mm3 (150-450); RBC Distribution Width CV 18.6 % (11.6-14.6); RBC Distribution Width SD 49.9 fl (35.1-43.9); Red Blood Count 3.25 M/mm3 (4.6-6.2)
[2024-03-23 04:43] LABS: ALB/GLOB Ratio 0.4 RATIO (0.9-2.4); AST(SGOT) 15 U/L (15-37); Alanine Aminotransfer ALT/SGPT 15 U/L (16-61); Albumin, Serum 1.5 g/dL (3.2-5.0); Alkaline Phosphatase 78 U/L (45-117); Anion Gap 9 (5-15); BUN 10 mg/dL (7-18); BUN/Creat Ratio 29.9 RATIO (10-20); Calcium,Total 7.9 mg/dL (8.5-10.1); Chloride 106 mmol/L (98-107); Creatinine, Serum 0.33 mg/dL (0.70-1.30); EST Glomerular Filtration Rate 302 mL/min (>60); Est Glom Filt Rate - Afr Amer 366 mL/min (>60); Estimated Creatinine Clearance 267.44 ml/min; Globulin 3.6 g/dL (2.2-4.2); Glucose 97 mg/dL (74-106); Potassium 3.3 mmol/L (3.5-5.1); Protein, Total 5.1 g/dL (6.4-8.2); Sodium Level 137 mmol/L (136-145)
[2024-03-23] MEDS: Albuterol 2.5 MG/3 ML VIAL.NEB. INHALATION (05:09)
[2024-03-23] MEDS: Midodrine HCl 5 MG Tablet 10 MG PO ×3 (05:27→21:06)
[2024-03-23] MEDS: Gabapentin 300 MG Capsule PO ×3 (05:27→21:07)
[2024-03-23] MEDS: Baclofen 10 MG Tablet 20 MG PO ×3 (05:27→21:06)
[2024-03-23] MEDS: Piperacil/Tazobactam 3.375 GM in 0.9% Normal Saline (50mL MB+) 50 ML IV (05:27)
[2024-03-23] MEDS: Ciprofloxacin 400 MG/200 ML BAG 200 MG IV (05:28)
[2024-03-23] MEDS: 0.9% Normal Saline (100mL Bag) 100 ML 15 ML IV (05:29)
[2024-03-23] MEDS: Potassium Chloride 20mEq/100mL 20 MEQ/100 ML IV.SOLN. 100 MEQ IV BOLUS (06:37)
[2024-03-23] MEDS: Budesonide Respules 0.5 MG/2 ML AMPUL.NEB. INHALATION ×2 (06:46→19:13)
--- NOTE | 2024-03-23 06:57 | PN.HOSP_ITS ---
Reason for Visit Reason for Visit: Diagnoses Sepsis, unspecified organism (03/22/24) Anemia, unspecified (03/22/24) Respiratory failure, unspecified, unspecified whether with hypoxia or hypercapnia (03/22/24) Local infection of the skin and subcutaneous tissue, unspecified (03/22/24) Pressure ulcer of right buttock, stage 4 (03/22/24) Pressure ulcer of left buttock, stage 4 (03/22/24) Pressure ulcer of unspecified site, stage 3 (03/22/24) Severe sepsis with septic shock (03/22/24) Unspecified open wound of lower back and pelvis without penetration into retroperitoneum, initial encounter (03/22/24) Fracture of unspecified part of neck of unspecified femur, initial encounter for closed fracture (03/22/24) Subjective Subjective Has remained stable on 30% fio2. Has required increased sedation given agitation. Quetiapine added QHS. Objective Data Objective Data Vital Signs: Vital Signs Temp Pulse Resp BP Pulse Ox O2 Del Method O2 Flow Rate 37.9 C H 84 18 98/58 L 95 Mechanical Ventilator 5 03/23/24 06:00 03/23/24 06:46 03/23/24 06:46 03/23/24 06:00 03/23/24 06:46 03/23/24 06:00 03/21/24 23:45 FiO2 30 03/23/24 06:46 Oxygen Flow Rate (L/min) 5 Oxygen Delivery Method Mechanical Ventilator Weight: 73.8 kg Body Mass Index (BMI) 21.5 Intake & Output: Intake and Output for Last 24 Hours 03/21/24 03/22/24 03/23/24 23:59 23:59 23:59 Intake Total 1702.88 / 7231.34 819.46 / 819.46 Output Total 765 / 950 420 / 420 Balance 6437.88 / 6281.34 399.46 / 399.46 Lab / Micro Data 03/23/24 04:14 03/23/24 04:14 Labs: Laboratory Results - last 24 hr 03/22/24 23:23: Vancomycin Trough 13.3 03/23/24 04:14: WBC 17.0 H, RBC 3.25 L, Hgb 7.5 L, Hct 24.0 L, MCV 73.8 L, MCH 23.1 L, MCHC 31.3 L, RDW Std Deviation 49.9 H, RDW Coeff of Minerva 18.6 H, Plt Count 395, MPV 8.5, Immature Gran % (Auto) 0.500, Neut % (Auto) 72.9 H, Lymph % (Auto) 10.4 L, Allen % (Auto) 8.3, Eos % (Auto) 7.6 H, Baso % (Auto) 0.3, A bsolute Neuts (auto) 12.4 H, Absolute Lymphs (auto) 1.77, Nucleated RBC % 0, Sodium 137, Potassium 3.3 L, Chloride 106, Carbon Dioxide 22.0, Anion Gap 9, BUN 10, Creatinine 0.33 L, Estim Creat Clear Calc 267.44, Est GFR (MDRD) Af Amer 366, Est GFR (MDRD) Non-Af 302, BUN/Creatinine Ratio 29.9 H, Glucose 97, Calcium 7.9 L, Total Bilirubin 0.50, AST 15, ALT 15 L, Alkaline Phosphatase 78, Total Protein 5.1 L, Albumin 1.5 L, Globulin 3.6, Albumin/Globulin Ratio 0.4 L Micro: Microbiology 03/22/24 03:30 Ulcer, Decubitus - Open/Non-Healing Wound Gram Stain - Final 03/22/24 00:30 Sputum, Induced/Lukens Gram Stain - Final 03/22/24 02:22 Mucosa - Nasopharyngeal Respiratory Panel (PCR) - Final 03/22/24 02:40 Nasal Secretion MRSA (PCR) - Final 03/21/24 22:57 Urine Catheter - Beth Streptococcus pneumoniae Antigen (M - Final 03/21/24 22:57 Urine Catheter - Catheter Legionella Antigen - Final 03/21/24 23:00 Mucosa - Nose SARS-CoV-2, Influenza & RSV (PCR) - Final Radiography Diagnostic Testing: Radiology Impression Femur X-Ray 03/22/24 08:20 IMPRESSION: Comminuted and mildly displaced right intertrochanteric femur fracture. Electronically Signed: Dora Gaytan MD at 10:20 EST , Physical Exam Const Constitutional Narrative: intubated. sedated. HEENT head/scalp atraumatic and moist oral mucous membranes Resp normal respiratory effort, no retractions, no use of accessory muscles and clear to auscultation bilaterally Cardio regular rate, regular rhythm, S1 normal heart sound and S2 normal heart sound GI normal to inspection, nondistended, normoactive bowel sounds and soft to palpation Extremity Extremity Narrative: plantar contractures bilaterally. Neuro Sensorium / Orientation: awake and alert Assessment & Plan Assessment/Plan (1) Septic shock: PLAN: 2/2 infected sacral decubitus wound v pneumonia v other. abx with cipro, pip/tazo, vanc MRSA PCR, strep + legionella antigen, COVID-19/influenza/RSV negative. Pending: wound Cx, BCx, SCx. Completed 30cc/kg of IVF. Since transitioned to [facility], ID consult (2) Respiratory failure: PLAN: Hypoxic. Intubated. sedation w propofol and fentanyl (3) Hip fracture: PLAN: due to falling out of wheel chair ~ 1 week ago nonambulatory and wheelchair bound at baseline. Surgery to evaluate to see if when medically stable if he would be a surgical candidate 25-OH d level pending Orthopaedics input appreciated. Recommending ORIF. Family was able verify with patient that he would be want the surgery. Medically patient is not ready. The sepsis work up is not yet completed and certainly would need to verify that he is not bacteremic. (4) Decubitus ulcer, stage 3 with infection: PLAN: Plastics input appreciated. Recommending pressure offloading. Dakins WTD BID. Nutrition consultation. abx as above. (5) Anemia: QUALIFIERS: Anemia type: unspecified type Qualified Code(s): D 64.9 - Anemia, unspecified PLAN: Iron-deficiency. Compounded by anemia of chronic disease. Will give dose of iron sucrose. (6) Metabolic encephalopathy: PLAN: POA. Head CT negative. 2/2 sepsis, respiratory failure. PLAN: Plan Quadriplegia: * complicates care and recovery. He does have movement in extremities, but lacks dexterity. Social issues: patient is , but his left him for someone else and no longer wishes to be his POA. VTE prophylaxis: LMWH. Charges/Coding Visit Charges Inpatient E&M: 21755 Subs Hosp L3
[2024-03-23] MEDS: QUEtiapine 25 MG Tablet PO ×2 (08:19→21:22)
[2024-03-23] MEDS: Enoxaparin 40 MG/0.4 ML Syringe SC (08:20)
[2024-03-23] MEDS: FLUoxetine 20 MG Capsule 60 MG PO (08:20)
[2024-03-23] MEDS: DAKIN'S SOL HALF STRENGTH (=0.25%) TOPICAL ×2 (08:20→21:07)
[2024-03-23] MEDS: Vancomycin IV 1,000 MG/200 ML BAG 200 MG IV ×3 (08:23→15:46)
[2024-03-23] MEDS: Ascorbic Acid 500 MG Tablet PO (08:24)
[2024-03-23] MEDS: Chlorhexidine 15 ML PO ×2 (08:29→21:07)
[2024-03-23] MEDS: Pantoprazole Sodium 40 MG in 0.9% Normal Saline (100mL MB+) 100 ML 330 MG IV ×2 (10:15→21:07)
[2024-03-23] MEDS: Propofol 10MG/Ml 1,000 MG/100 ML Bottle 8.1 MG CONT INF (11:42)
[2024-03-23] MEDS: Norepinephrine 8 MG in 0.9% Normal Saline (250mL Bag) 242 ML 18.8 MG CONT INF (11:44)
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
[2024-03-23] MEDS: Acetaminophen 650 MG/20 ML UDC GT (13:29)
[2024-03-23] MEDS: Albumin Human 25% (100 mL) 25 GM/100 ML BAG IV (13:50)
[2024-03-23] MEDS: Meropenem 1 GM in 0.9% Normal Saline (100mL MB+) 100 ML IV ×2 (13:51→21:29)
[2024-03-23] MEDS: Senna/Docusate Sodium 1 Tablet 2 TABLET PO (21:06)
[2024-03-23] MEDS: Atorvastatin Calcium 80 MG Tablet PO (21:06)
[2024-03-23] MEDS: Propofol 10MG/Ml 1,000 MG/100 ML Bottle 10.1 MG CONT INF (21:29)
[2024-03-24] VITALS (44 sets, daily range): BP systolic 80–125; BP diastolic 45–76; PULSE 59–103; RESP 15–27; TEMP 36.2–38.2; O2SAT 91–100; BMI 22.1
[2024-03-24 00:02] LABS: Vancomycin, Trough Level 19.1 ug/mL (5.0-15.0)
[2024-03-24] MEDS: Vancomycin IV 1,000 MG/200 ML BAG 200 MG IV ×4 (00:08→23:52)
--- NOTE | 2024-03-24 00:09 | PCM.RX.CS ---
Consult Antibiotic Management Pharmacy has been consulted to manage selected antibiotic: Vancomycin Type of Intervention Type of Consult: Follow-up Labs Labs: Sodium 137 mmol/L (136-145) 03/23/24 04:14 Potassium 3.3 mmol/L (3.5-5.1) L 03/23/24 04:14 Chloride 106 mmol/L (98-107) 03/23/24 04:14 Carbon Dioxide 22.0 mmol/L (21.0-32.0) 03/23/24 04:14 Anion Gap 9 (5-15) 03/23/24 04:14 BUN 10 mg/dL (7-18) 03/23/24 04:14 Creatinine 0.33 mg/dL (0.70-1.30) L 03/23/24 04:14 Est GFR (MDRD) Af Amer 366 mL/min (>60) 03/23/24 04:14 Est GFR (MDRD) Non-Af 302 mL/min (>60) 03/23/24 04:14 BUN/Creatinine Ratio 29.9 RATIO (10-20) H 03/23/24 04:14 Glucose 97 mg/dL (74-106) 03/23/24 04:14 Vancomycin Trough 19.1 ug/mL (5.0-15.0) H 03/23/24 23:12 Microbiology Microbiology: Microbiology 03/21/24 22:57 Urine Catheter - Catheter Urine Culture - Final Mckenzie albicans 03/22/24 00:30 Sputum, Induced/Lukens Gram Stain - Final 03/22/24 00:30 Sputum, Induced/Lukens Respiratory Culture - Preliminary Appears to be normal respiratory raoul. Further studies to follow. 03/22/24 03:30 Ulcer, Decubitus - Open/Non-Healing Wound Gram Stain - Final 03/22/24 03:30 Ulcer, Decubitus - Open/Non-Healing Wound Wound Culture - Preliminary Mixed Gram Pos & Gram Neg Org 03/22/24 02:22 Mucosa - Nasopharyngeal Respiratory Panel (PCR) - Final 03/22/24 02:40 Nasal Secretion MRSA (PCR) - Final 03/21/24 22:57 Urine Catheter - Beth Streptococcus pneumoniae Antigen (M - Final 03/21/24 22:57 Urine Catheter - Catheter Legionella Antigen - Final 03/21/24 23:00 Mucosa - Nose SARS-CoV-2, Influenza & RSV (PCR) - Final Goal Trough Goal Trough: 15-20 mcg/mL Pharmacy Plan for Drug Dosing Pharmacy Plan for Drug Dosing: Pharmacy Service will continue to monitor and adjust dosing as required. TROUGH 19.1 @ 7.5 HOURS. SCr DECREASED FROM 0.54 TO 0.33. CONTINUE CURRENT DOSE AND FOLLOW UP TROUGH OIN 2 DAYS Follow-Up Labs Follow-Up Labs: Trough: Vancomycin Date/Time Labs Ordered Labs to be done on [date and time ordered]: 03/25 @ 2300
[2024-03-24] MEDS: CHLORHEXIDINE GLUC 2% CLOTH 1 EACH TOWELETTE TOPICAL (01:28)
[2024-03-24] MEDS: fentaNYL drip 100 ML 12.5 MCG CONT INF (04:00)
[2024-03-24] MEDS: Midodrine HCl 5 MG Tablet 10 MG PO ×3 (04:58→20:57)
[2024-03-24] MEDS: Meropenem 1 GM in 0.9% Normal Saline (100mL MB+) 100 ML IV ×3 (04:58→20:53)
[2024-03-24] MEDS: Gabapentin 300 MG Capsule PO ×3 (04:58→20:55)
[2024-03-24] MEDS: Baclofen 10 MG Tablet 20 MG PO ×3 (04:59→20:55)
[2024-03-24 05:16] LABS: Absolute Neutrophil Count 9.2 X10^3/uL (2.0-7.7); Basophil# 0.02 X10^3/uL; Basophil% 0.2 % (0-1); Eosinophil# 0.94 X10^3/uL; Eosinophils% 7.3 % (0-5); Hematocrit 21.5 % (40-54); Lymphocyte % 12.5 % (19-41); Mean Corp Hgb Conc 32.6 g/dL (32-36); Mean Corpuscular Hgb 23.8 pg (27.0-32.0); Mean Corpuscular Volume 73.1 fL (80-94); Mean Platelet Vol. 8.8 fl (6.2-12.0); Monocyte# 1.02 X10^3/uL; NRBC Flagged by Analyzer 0 % (0-5); Neutrophil # 9.15 X10^3/uL (2.7-7.7); Neutrophil % 71.5 % (47-70); Platelet Count 408 K/mm3 (150-450); RBC Distribution Width CV 18.8 % (11.6-14.6); RBC Distribution Width SD 49.8 fl (35.1-43.9); Red Blood Count 2.94 M/mm3 (4.6-6.2); White Blood Count 12.8 K/mm3 (4.4-11.0)
[2024-03-24 05:37] LABS: Anion Gap 9 (5-15); BUN 5 mg/dL (7-18); BUN/Creat Ratio 17.7 RATIO (10-20); Calcium,Total 8.1 mg/dL (8.5-10.1); Chloride 107 mmol/L (98-107); Creatinine, Serum 0.28 mg/dL (0.70-1.30); EST Glomerular Filtration Rate 367 mL/min (>60); Est Glom Filt Rate - Afr Amer 444 mL/min (>60); Estimated Creatinine Clearance 354.37 ml/min; Glucose 84 mg/dL (74-106); Potassium 3.5 mmol/L (3.5-5.1); Sodium Level 138 mmol/L (136-145)
[2024-03-24] MEDS: Propofol 10MG/Ml 1,000 MG/100 ML Bottle 10.1 MG CONT INF (06:52)
[2024-03-24] MEDS: 0.9% Saline Lock 10 ML Syringe IV (06:52)
[2024-03-24] MEDS: Budesonide Respules 0.5 MG/2 ML AMPUL.NEB. INHALATION ×2 (07:35→19:27)
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
--- NOTE | 2024-03-24 08:08 | PN.ORTHO_ITS ---
Subjective Subjective sedated per nursing Objective Data Objective Data Vital Signs: Vital Signs Temp Pulse Resp BP Pulse Ox O2 Del Method O2 Flow Rate 98.6 F 65 18 101/61 91 Mechanical Ventilator 5 03/24/24 05:00 03/24/24 07:36 03/24/24 07:36 03/24/24 06:00 03/24/24 07:36 03/24/24 06:00 03/21/24 23:45 FiO2 25 03/24/24 07:36 Oxygen Flow Rate (L/min) 5 Oxygen Delivery Method Mechanical Ventilator Weight: 167 lb 8.821 oz Body Mass Index (BMI) 22.1 Intake & Output: Intake and Output for Last 24 Hours 03/22/24 03/23/24 03/24/24 23:59 23:59 23:59 Intake Total 7202.88 / 7231.34 2758.84 / 2950.84 781.45 / 781.45 Output Total 765 / 950 1645 / 2195 900 / 900 Balance 6437.88 / 6281.34 1113.84 / 755.84 -118.55 / -118.55 Lab / Micro Data 03/24/24 05:08 03/24/24 05:08 Labs: Laboratory Results - last 24 hr 03/23/24 23:12: Vancomycin Trough 19.1 H 03/24/24 05:08: WBC 12.8 H, RBC 2.94 L, Hgb 7.0 L, Hct 21.5 L, MCV 73.1 L, MCH 23.8 L, MCHC 32.6, RDW Std Deviation 49.8 H, RDW Coeff of Minerva 18.8 H, Plt Count 408, MPV 8.8, Immature Gran % (Auto) 0.500, Neut % (Auto) 71.5 H, Lymph % (Auto) 12.5 L, [place] % (Auto) 8.0, Eos % (Auto) 7.3 H, Baso % (Auto) 0.2, Absolute Neuts (auto) 9.2 H, Absolute Lymphs (auto) 1.60, Nucleated RBC % 0, Sodium 138, Potassium 3.5, Chloride 107, Carbon Dioxide 22.0, Anion Gap 9, BUN 5 L, C reatinine 0.28 L, Estim Creat Clear Calc 354.37, Est GFR (MDRD) Af Amer 444, Est GFR (MDRD) Non-Af 367, BUN/Creatinine Ratio 17.7, Glucose 84, Calcium 8.1 L Micro: Microbiology 03/21/24 22:57 Urine Catheter - Catheter Urine Culture - Final Mckenzie albicans 03/22/24 00:30 Sputum, Induced/Lukens Gram Stain - Final 03/22/24 00:30 Sputum, Induced/Lukens Respiratory Culture - Preliminary Appears to be normal respiratory raoul. Further studies to follow. 03/22/24 03:30 Ulcer, Decubitus - Open/Non-Healing Wound Gram Stain - Final 03/22/24 03:30 Ulcer, Decubitus - Open/Non-Healing Wound Wound Culture - Preliminary Mixed Gram Pos & Gram Neg Org 03/22/24 02:22 Mucosa - Nasopharyngeal Respiratory Panel (PCR) - Final 03/22/24 02:40 Nasal Secretion MRSA (PCR) - Final 03/21/24 22:57 Urine Catheter - Beth Streptococcus pneumoniae Antigen (M - Final 03/21/24 22:57 Urine Catheter - Catheter Legionella Antigen - Final 03/21/24 23:00 Mucosa - Nose SARS-CoV-2, Influenza & RSV (PCR) - Final Assessment & Plan Assessment/Plan (1) Hip fracture: PLAN: 48 yr M with right hip fracture. Sounds like he does want to go ahead with surgery. Having the nurse call me back when parents are at bedside to sign the consent. Awaiting on sap solution manager consultant and hospitalist to clear for surgery.
[2024-03-24 09:19] LABS: Vitamin D,25 Hydroxy 19.5 ng/mL
--- NOTE | 2024-03-24 10:15 | CASEMGMT ---
Addendum entered by Kristen Gooden 03/24/24 12:20: [facility] stated that pt is unable to return but they have not issued a 30d notice. They have made a referral to [facility]. SW updated. Kristen Gooden DC Planning Asst. Original Note: Updates sent to [facility]. Asked if precert will be needed and if pt can return under his nemesio benefits while waiting for precert. Awaiting response. Kristen Gooden DC Planning Asst.
--- NOTE | 2024-03-24 11:01 | CASEMGMT ---
Social Work SW attended ICU rounds. Pt on breathing trial and may be extubated today. Pt presenting with hip fracture and will follow up with orthopedics once extubated. Plastic Surgery and ID also consulted. Pt admitted from the [facility]. SW receieved call from Meli at the [facility] ([phone]) who states has requested a transfer to [facility] and the transfer process had started at the end of last week. Meli recommending pt transfer from [facility] to [facility]. SW to follow up for dc planning when appropriate. JILL Wilson
--- NOTE | 2024-03-24 11:26 | CASEMGMT ---
ROLANDA called patient's mom Lazara regarding discharge to [facility] or back to [facility]. Lazara said she is fine with whatever is easiest. Lazara knew they were working on getting him to [facility], but she did not know where they were in the process. SW will also check with patient once he is extubated and able to converse. ROLANDA asked Kristen to please send a referral to [facility]. Rhoda Messina ANESTHETIC ASSISTANT KRISTINA
[2024-03-24] MEDS: DAKIN'S SOL HALF STRENGTH (=0.25%) TOPICAL ×2 (12:02→20:58)
[2024-03-24] MEDS: Enoxaparin 40 MG/0.4 ML Syringe SC (12:02)
[2024-03-24] MEDS: FLUoxetine 20 MG Capsule 60 MG PO (12:02)
[2024-03-24] MEDS: Ascorbic Acid 500 MG Tablet PO (12:03)
[2024-03-24] MEDS: Pantoprazole Sodium 40 MG in 0.9% Normal Saline (100mL MB+) 100 ML 330 MG IV ×2 (12:08→20:28)
--- NOTE | 2024-03-24 12:18 | CASEMGMT ---
Referral sent to Stefanie at [facility]. At this time, they have declined but said they are willing to follow to see if pt improves. SW updated. Kristen Gooden DC Planning Asst.
--- NOTE | 2024-03-24 12:20 | PCM.CONS.GEN ---
Assessment & Plan Assessment/Plan (1) Septic shock: PLAN: septic shock with sacral osteo with exposed bone. Wound cx with GNR x3 and CoNS. Still with fever, wbc improved, ucx with dulce. Cont vanc/nikos, overall improving. Will follow, thank you HPI Consult Data Date of Consult: 03/24/24 HPI Narrative Reason for Consultation: septic shock HPI Narrative: RYANN SUÁREZ, is a 48 M with incomplete quadriplegia, presented from [facility] 03/22 with sudden onset fever, altered mental status. He does not recall what happened. Fell from [facility] a week prior to admit. In ED, found to have hip fracture. Admitted to icu on vanc/cefepime, now on vanc/nikos, feeling better, off vent. Full ROS performed and neg except as noted above. [facility] Medical History Pressure ulcer of sacral region, stage 3 Pressure injury of right ischium, stage 1 Pressure injury of left ischium, stage 1 Anemia Chronic pain syndrome Decubitus ulcers Chronic pain syndrome Tobacco use History of GI bleed Bipolar disorder Suprapubic catheter Quadriplegia following spinal cord injury Anxiety and depression Marijuana smoker Home Medications ?Medication ?Instructions ?Recorded ?Last Taken ?Type acetaminophen 325 mg capsule 650 mg PO Q4H PRN PRN Pain 11/12/17 Unknown History (Tylenol) ascorbic acid (vitamin C) 500 mg 500 mg PO DAILY supplement 11/12/17 11/22/17 History capsule enoxaparin 40 mg/0.4 mL 40 mg SQ DAILY blood thinner 11/12/17 11/22/17 History subcutaneous syringe (Lovenox) fluoxetine 20 mg capsule (Prozac) 60 mg PO DAILY depression 11/12/17 11/22/17 History oxybutynin chloride 5 mg tablet 10 mg PO BID 01/19/20 Unknown History albuterol sulfate 90 mcg/actuation 2 inh inhalation Q4H PRN shortness 03/21/24 Unknown History aerosol inhaler of breath or wheezing atorvastatin 80 mg tablet 80 mg PO QHS 03/21/24 Unknown History baclofen 20 mg tablet 20 mg PO Q8H 03/21/24 Unknown History bisacodyl 10 mg rectal suppository 10 mg MO DAILY PRN constipation 03/21/24 Unknown History divalproex 250 mg tablet,delayed 1,000 mg PO QHS 03/21/24 Unknown History release gabapentin 300 mg capsule 300 mg PO Q8H 03/21/24 Unknown History magnesium hydroxide 400 mg/5 mL 30 ml PO DAILY PRN constipation 03/21/24 Unknown History oral suspension (Milk of Magnesia) midodrine 10 mg tablet 10 mg PO Q8H 03/21/24 Unknown History mineral oil (Fleet Mineral Oil 118 ml MO DAILY PRN constipation 03/21/24 Unknown History enema) multivitamin (Daily Multi-Vitamin 1 tab PO DAILY 03/21/24 Unknown History tablet) naloxone 4 mg/actuation nasal spray 1 spray intranasal PRN PRN opioid 03/21/24 Unknown History overdose oxycodone 10 mg tablet 10 mg PO Q6H pain 03/21/24 Unknown History oxycodone 5 mg tablet 5 mg PO Q8H PRN pain 03/21/24 Unknown History pantoprazole 40 mg tablet,delayed 40 mg PO DAILY 03/21/24 Unknown History release Allergy/AdvReac Type Severity Reaction Status Date / Time No Known Allergies Allergy Verified 03/21/24 22:46 Family History Mother Heart disease Hypertension Father Heart disease Hypertension Surgical History History of incision and drainage History of suprapubic catheter S/P cholecystectomy H/O exploratory laparotomy History of back surgery Social History household members: none and other details: from his spouse. housing: skilled nursing Smoking Status: Current every day smoker tobacco type: cigarettes Smoking packs per day: 1 Smoking cigarettes per day: 20.0 alcohol intake: current alcohol intake frequency: holidays/special occasions only substance use type: marijuana Physical Exam Const alert, oriented x3 and no apparent distress General Appearance: cooperative HEENT normocephalic and head/scalp atraumatic Neck supple and No nodes Resp normal air movement and clear to auscultation bilaterally Cardio regular rate and regular rhythm GI soft to palpation, non-tender and non-distended Extremity General Extremity: Negative for edema Skin Skin Narrative: reviewed wound photos Neuro CN's II-XII intact bilaterally Lab / Micro Data Attestation: I reviewed the patient's lab results. 03/24/24 05:08 03/24/24 05:08 Labs: Laboratory Results - last 24 hr 03/22/24 17:55: Vitamin D 25-Hydroxy 19.5 03/23/24 23:12: Vancomycin Trough 19.1 H 03/24/24 05:08: WBC 12.8 H, RBC 2.94 L, Hgb 7.0 L, Hct 21.5 L, MCV 73.1 L, MCH 23.8 L, MCHC 32.6, RDW Std Deviation 49.8 H, RDW Coeff of Minerva 18.8 H, Plt Count 408, MPV 8.8, Immature Gran % (Auto) 0.500, Neut % (Auto) 71.5 H, Lymph % (Auto) 12.5 L, [place] % (Auto) 8.0, Eos % (Auto) 7.3 H, Baso % (Auto) 0.2, Absolute Neuts (auto) 9.2 H, Absolute Lymphs (auto) 1.60, Nucleated RBC % 0, Sodium 138, Potassium 3.5, Chloride 107, Carbon Dioxide 22.0, Anion Gap 9, BUN 5 L, Creatinine 0.28 L, Estim Creat Clear Calc 354.37, Est GFR (MDRD) Af Amer 444, Est GFR (MDRD) Non-Af 367, BUN/Creatinine Ratio 17.7, Glucose 84, Calcium 8.1 L 03/24/24 10:30: Blood Type A POSITIVE, Antibody Screen NEGATIVE, Crossmatch See Detail Micro: Microbiology 03/22/24 03:30 Ulcer, Decubitus - Open/Non-Healing Wound Gram Stain - Final 03/22/24 03:30 Ulcer, Decubitus - Open/Non-Healing Wound Wound Culture - Preliminary Gram negative ainsley Gram negative ainsley#2 Gram negative ainsley#3 Coag Negative Staph 03/22/24 00:30 Sputum, Induced/Lukens Gram Stain - Final 03/22/24 00:30 Sputum, Induced/Lukens Respiratory Culture - Final Mixed normal respiratory raoul. No Streptococcus pneumoniae, beta-hemolytic Streptococcus or Staphylococcus aureus isolated. 03/21/24 22:46 Blood Culture (Wb) - Left Wrist Blood Culture - Preliminary No growth in 48 hours. 03/21/24 22:44 Blood Culture (Wb) - Right Wrist Blood Culture - Preliminary No growth in 48 hours. 03/21/24 22:57 Urine Catheter - Catheter Urine Culture - Final Dulce albicans
[2024-03-24] MEDS: Acetaminophen 325 MG Tablet 650 MG PO ×2 (12:52→20:27)
--- NOTE | 2024-03-24 12:59 | CASEMGMT ---
[facility] is stating they are not going to take patient back. SW will talk with patient. Rhoda Messina DISTRIBUTION MANAGER KRISTINA
[2024-03-24] MEDS: oxyCODONE 5 MG Tablet 10 MG PO ×3 (14:42→23:59)
--- NOTE | 2024-03-24 14:57 | WOUNDNOTE ---
wound photo: sacrum/bilateral ischium
--- NOTE | 2024-03-24 14:58 | WOUNDNOTE ---
wound photo: sacrum
--- NOTE | 2024-03-24 14:58 | WOUNDNOTE ---
wound photo: bilateral ischium
--- NOTE | 2024-03-24 15:18 | PCM.PN.ORT ---
Subjective Subjective Doing well. not scared for any operation he states. Objective Data Objective Data Vital Signs: Vital Signs Temp Pulse Resp BP Pulse Ox O2 Del Method O2 Flow Rate 100.8 F H 92 26 H 123/58 H 96 Nasal Cannula 2 03/24/24 14:03 03/24/24 14:03 03/24/24 14:03 03/24/24 14:03 03/24/24 14:03 03/24/24 14:03 03/24/24 14:03 FiO2 25 03/24/24 08:00 Oxygen Flow Rate (L/min) 2 Oxygen Delivery Method Nasal Cannula Weight: 167 lb 8.821 oz Body Mass Index (BMI) 22.1 Intake & Output: Intake and Output for Last 24 Hours 03/22/24 03/23/24 03/24/24 23:59 23:59 23:59 Intake Total 7202.88 / 7231.34 2758.84 / 2950.84 1306.60 / 1306.60 Output Total 765 / 950 1645 / 2195 1250 / 1250 Balance 6437.88 / 6281.34 1113.84 / 755.84 56.60 / 56.60 Lab / Micro Data 03/24/24 05:08 03/24/24 05:08 Labs: Laboratory Results - last 24 hr 03/22/24 17:55: Vitamin D 25-Hydroxy 19.5 03/23/24 23:12: Vancomycin Trough 19.1 H 03/24/24 05:08: WBC 12.8 H, RBC 2.94 L, Hgb 7.0 L, Hct 21.5 L, MCV 73.1 L, MCH 23.8 L, MCHC 32.6, RDW Std Deviation 49.8 H, RDW Coeff of Minerva 18.8 H, Plt Count 408, MPV 8.8, Immature Gran % (Auto) 0.500, Neut % (Auto) 71.5 H, Lymph % (Auto) 12.5 L, [place] % (Auto) 8.0, Eos % (Auto) 7.3 H, Baso % (Auto) 0.2, Absolute Neuts (auto) 9.2 H, Absolute Lymphs (auto) 1.60, Nucleated RBC % 0, Sodium 138, Potassium 3.5, Chloride 107, Carbon Dioxide 22.0, Anion Gap 9, BUN 5 L, Creatinine 0.28 L, Estim Creat Clear Calc 354.37, Est GFR (MDRD) Af Amer 444, Est GFR (MDRD) Non-Af 367, BUN/Creatinine Ratio 17.7, Glucose 84, Calcium 8.1 L 03/24/24 10:30: Blood Type A POSITIVE, Antibody Screen NEGATIVE, Crossmatch See Detail Micro: Microbiology 03/22/24 03:30 Ulcer, Decubitus - Open/Non-Healing Wound Gram Stain - Final 03/22/24 03:30 Ulcer, Decubitus - Open/Non-Healing Wound Wound Culture - Preliminary Gram negative ainsley Gram negative ainsley#2 Gram negative ainsley#3 Coag Negative Staph 03/22/24 00:30 Sputum, Induced/Lukens Gram Stain - Final 03/22/24 00:30 Sputum, Induced/Lukens Respiratory Culture - Final Mixed normal respiratory raoul. No Streptococcus pneumoniae, beta-hemolytic Streptococcus or Staphylococcus aureus isolated. 03/21/24 22:46 Blood Culture (Wb) - Left Wrist Blood Culture - Preliminary No growth in 48 hours. 03/21/24 22:44 Blood Culture (Wb) - Right Wrist Blood Culture - Preliminary No growth in 48 hours. 03/21/24 22:57 Urine Catheter - Catheter Urine Culture - Final Mckenzie albicans 03/22/24 02:22 Mucosa - Nasopharyngeal Respiratory Panel (PCR) - Final 03/22/24 02:40 Nasal Secretion MRSA (PCR) - Final 03/21/24 22:57 Urine Catheter - Beth Streptococcus pneumoniae Antigen (M - Final 03/21/24 22:57 Urine Catheter - Catheter Legionella Antigen - Final 03/21/24 23:00 Mucosa - Nose SARS-CoV-2, Influenza & RSV (PCR) - Final Assessment & Plan Assessment/Plan (1) Hip fracture: PLAN: Discussed with the patient the diagnosis of right hip intertrochanteric hip fracture. Discussed the pros cons risk and benefits of conservative nonoperative measures versus open reduction internal fixation with long intramedullary nail. Patient interested to proceed with surgery given the benefits and I he signed and consented for right hip open reduction internal fixation. Still pending on clearance for surgery. Pros and cons risks and benefits were discussed with the patient including but not limited to infection, pain, stiffness, bleeding, damage to surrounding structures, neurovascular injury, recurrence or retear, failure or wear of hardware or fixation, instability, fracture, deep vein thrombosis and pulmonary embolism, anesthetic risks, , patient dissatisfaction, need for further surgery and other risks. Patient understood and wished to proceed with surgery, and signed the informed consent documentation.
--- NOTE | 2024-03-24 15:28 | CHAPLAIN ---
Type of Pastoral Visit _x__ Initial Visit ___ Follow-up Visit ___ On-call Visit ___ General Patient Visit ___ Spiritual Assessment ___ Family Conference ___ Bereavement ___ Rapid Response ___ Code Blue ___ Other (describe below) Pastoral Care Referral From _x__ Patient ___ Family ___ Nurse ___ Physician ___ Calibration Technician ___ Flaking Roll Operator ___ Other (describe below) Sacrament/Intervention _x__ Active listening ___ Anointing ___ Episcopal ___ Bereavement ___ Communion ___ Rosie exploration ___ ___ Life review _x__ Prayer ___ Reconciliation ___ Sacrament of Sick _x__ Supportive presence ___ Wedding _x__ Other (describe below) Pastoral Comments this patient has been seen by this senior chemist in another medical facility; offered pt support today and he welcomes this senior chemist into the room; pt is somewhat agitated and is expressive about need for care; RN comes into room after call button used and the RN fixes the IV in patient's arm; patient wants to talk privately and not in front of the RN; pt states that he is upset about personal problems; pt admits that he is being rude and unkind to staff; pt asks that this senior chemist Just say a prayer and we don't need to talk about it anymore;
[2024-03-24 16:14] LABS: Pathologist Review Reviewed
[2024-03-24] MEDS: Norepinephrine 8 MG in 0.9% Normal Saline (250mL Bag) 242 ML 3.8 MG CONT INF (16:14)
--- NOTE | 2024-03-24 17:16 | PN.HOSP_ITS ---
Reason for Visit Reason for Visit: Diagnoses Sepsis, unspecified organism (03/22/24) Anemia, unspecified (03/22/24) Metabolic encephalopathy (03/22/24) Respiratory failure, unspecified, unspecified whether with hypoxia or hypercapnia (03/22/24) Local infection of the skin and subcutaneous tissue, unspecified (03/22/24) Pressure ulcer of right buttock, stage 4 (03/22/24) Pressure ulcer of left buttock, stage 4 (03/22/24) Pressure ulcer of unspecified site, stage 3 (03/22/24) Severe sepsis with septic shock (03/22/24) Unspecified open wound of lower back and pelvis without penetration into retroperitoneum, initial encounter (03/22/24) Fracture of unspecified part of neck of unspecified femur, initial encounter for closed fracture (03/22/24) Subjective Subjective Patient was seen and examined today, he is stable on 2 L of oxygen, I talked to his mother who is in the room at the time my examination. I also talked with critical care briefly about his care. Patient was extubated earlier today. Objective Data Objective Data Vital Signs: Vital Signs Temp Pulse Resp BP Pulse Ox O2 Del Method O2 Flow Rate 100.6 F H 89 26 H 91/55 L 99 Nasal Cannula 2 03/24/24 16:00 03/24/24 16:00 03/24/24 14:03 03/24/24 16:00 03/24/24 16:00 03/24/24 16:00 03/24/24 16:00 FiO2 25 03/24/24 08:00 Oxygen Flow Rate (L/min) 2 Oxygen Delivery Method Nasal Cannula Weight: 76 kg Body Mass Index (BMI) 22.1 Intake & Output: Intake and Output for Last 24 Hours 03/22/24 03/23/24 03/24/24 23:59 23:59 23:59 Intake Total 7202.88 / 7231.34 2758.84 / 2950.84 1307.26 / 1307.26 Output Total 765 / 950 1645 / 2195 1250 / 1250 Balance 6437.88 / 6281.34 1113.84 / 755.84 57.26 / 57.26 Lab / Micro Data 03/24/24 05:08 03/24/24 05:08 Labs: Laboratory Results - last 24 hr 03/22/24 04:00: Diff Path Review Reviewed 03/22/24 17:55: Vitamin D 25-Hydroxy 19.5 03/23/24 23:12: Vancomycin Trough 19.1 H 03/24/24 05:08: WBC 12.8 H, RBC 2.94 L, Hgb 7.0 L, Hct 21.5 L, MCV 73.1 L, MCH 23.8 L, MCHC 32.6, RDW Std Deviation 49.8 H, RDW Coeff of Minerva 18.8 H, Plt Count 408, MPV 8.8, Immature Gran % (Auto) 0.500, Neut % (Auto) 71.5 H, Lymph % (Auto) 12.5 L, [place] % (Auto) 8.0, Eos % (Auto) 7.3 H, Baso % (Auto) 0.2, Absolute Neuts (auto) 9.2 H, Absolute Lymphs (auto) 1.60, Nucleated RBC % 0, Sodium 138, Potassium 3.5, Chloride 107, Carbon Dioxide 22.0, Anion Gap 9, BUN 5 L, C reatinine 0.28 L, Estim Creat Clear Calc 354.37, Est GFR (MDRD) Af Amer 444, Est GFR (MDRD) Non-Af 367, BUN/Creatinine Ratio 17.7, Glucose 84, Calcium 8.1 L 03/24/24 10:30: Blood Type A POSITIVE, Antibody Screen NEGATIVE, Crossmatch See Detail Micro: Microbiology 03/22/24 03:30 Ulcer, Decubitus - Open/Non-Healing Wound Gram Stain - Final 03/22/24 03:30 Ulcer, Decubitus - Open/Non-Healing Wound Wound Culture - Preliminary Gram negative ainsley Gram negative ainsley#2 Gram negative ainsley#3 Coag Negative Staph 03/22/24 00:30 Sputum, Induced/Lukens Gram Stain - Final 03/22/24 00:30 Sputum, Induced/Lukens Respiratory Culture - Final Mixed normal respiratory raoul. No Streptococcus pneumoniae, beta-hemolytic Streptococcus or Staphylococcus aureus isolated. 03/21/24 22:46 Blood Culture (Wb) - Left Wrist Blood Culture - Preliminary No growth in 48 hours. 03/21/24 22:44 Blood Culture (Wb) - Right Wrist Blood Culture - Preliminary No growth in 48 hours. 03/21/24 22:57 Urine Catheter - Catheter Urine Culture - Final Mckenzie albicans 03/22/24 02:22 Mucosa - Nasopharyngeal Respiratory Panel (PCR) - Final 03/22/24 02:40 Nasal Secretion MRSA (PCR) - Final 03/21/24 22:57 Urine Catheter - Beth Streptococcus pneumoniae Antigen (M - Final 03/21/24 22:57 Urine Catheter - Catheter Legionella Antigen - Final 03/21/24 23:00 Mucosa - Nose SARS-CoV-2, Influenza & RSV (PCR) - Final Physical Exam Const alert and no apparent distress Constitutional Narrative: Patient exhibits mild confusion General Appearance: cooperative, well kempt and well developed Orientation / Consciousness: awake, oriented to person and oriented to place HEENT normocephalic, head/scalp atraumatic and moist oral mucous membranes Eyes PERRL, EOMs intact bilaterally and conjunctivae normal Neck supple, no JVD, thyroid normal and no carotid bruits General: trachea midline Resp normal respiratory effort, no retractions, no use of accessory muscles and clear to auscultation bilaterally Auscultation: Negative for rales, rhonchi or wheezes Cardio regular rate, regular rhythm, S1 normal heart sound, S2 normal heart sound, no murmurs, no rub and no gallops GI normal to inspection, nondistended, normoactive bowel sounds, soft to palpation, non-tender and non-distended Extremity Extremity Narrative: Patient has atrophy of his lower extremities, there are contractures of his hands noted Skin Skin Narrative: Patient has skin breakdown over the ischial areas bilaterally and the sacrum- these appear to be stage IV pressure injuries Neuro CN's II-XII intact bilaterally Neuro Narrative: Patient is unable to move his legs, he does have some movement in his arms, he has contractures of his hands bilaterally Sensorium / Orientation: awake, alert, oriented to person and oriented to place Speech: speech normal Psych Psych Narrative: Patient exhibits some mild confusion Assessment & Plan Assessment/Plan (1) Hip fracture: PLAN: Plan 1. 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
[2024-03-24] MEDS: oxyCODONE 5 MG Tablet PO (20:27)
[2024-03-24] MEDS: Divalproex Sodium 250 MG Tablet 1000 MG PO (20:56)
[2024-03-24] MEDS: Atorvastatin Calcium 80 MG Tablet PO (20:57)
[2024-03-25] VITALS (29 sets, daily range): BP systolic 86–134; BP diastolic 47–102; PULSE 59–100; RESP 13–24; TEMP 36.9–37.8; O2SAT 92–100; BMI 21.4
--- NOTE | 2024-03-25 03:15 | NURSING ---
Addendum entered by Renata Jacobo 03/25/24 03:50: Pt requesting for the doctor to come to the floor and evaluate penile edema. Patient concerned we are giving him too much fluid. This RN contacted Dr. An and explained that pt was requesting him to evaluate his penis. Dr An stated he was unable to come to the floor as he was admitting pt's in the ER and that he would try to come by later. This RN to pt's bedside, attempted to educate pt. Pt called his mother and requested this RN to speak to her. Pt's mother updated on situation. Informed patient that he had been on more fluids in the past few days due to being on the ventilator but was now only on 1 continuous drip that is running at 1mcg/min. Pt stated that this RN has also not changed his brief in days and that he smells. Informed patient that his brief was changed with his dressing changes 03/24 @ 1999, offered to change brief again. Pt apologized to this RN and states he didnt know that. Original Note: pt called out at 0310 stating he is having a medical emergency. Pt concerned regarding edema that he has in his penis. pt stated to this RN even when guzman been aroused its never been this bigRoly Mike RN to bedside to evaluate/ educate pt.
[2024-03-25] MEDS: Gabapentin 300 MG Capsule PO ×3 (05:17→21:22)
[2024-03-25] MEDS: Meropenem 1 GM in 0.9% Normal Saline (100mL MB+) 100 ML IV ×3 (05:17→21:43)
[2024-03-25] MEDS: oxyCODONE 5 MG Tablet 10 MG PO ×4 (05:17→23:10)
[2024-03-25] MEDS: 0.9% Saline Lock 10 ML Syringe IV ×2 (05:17→23:10)
[2024-03-25] MEDS: Midodrine HCl 5 MG Tablet 10 MG PO (05:18)
[2024-03-25] MEDS: Baclofen 10 MG Tablet 20 MG PO ×3 (05:18→21:22)
[2024-03-25] MEDS: Budesonide Respules 0.5 MG/2 ML AMPUL.NEB. INHALATION ×2 (06:57→21:34)
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
[2024-03-25] MEDS: oxyCODONE 5 MG Tablet PO ×2 (07:50→15:51)
[2024-03-25] MEDS: Vancomycin IV 1,000 MG/200 ML BAG 200 MG IV ×2 (07:51→15:52)
[2024-03-25] MEDS: DAKIN'S SOL HALF STRENGTH (=0.25%) TOPICAL ×2 (08:51→21:26)
[2024-03-25] MEDS: Pantoprazole Sodium 40 MG in 0.9% Normal Saline (100mL MB+) 100 ML 330 MG IV ×2 (09:36→21:25)
[2024-03-25] MEDS: CHLORHEXIDINE GLUC 2% CLOTH 1 EACH TOWELETTE TOPICAL (09:38)
[2024-03-25] MEDS: Enoxaparin 40 MG/0.4 ML Syringe SC (09:38)
[2024-03-25] MEDS: Midodrine HCl 5 MG Tablet PO (09:38)
[2024-03-25] MEDS: Senna/Docusate Sodium 1 Tablet 2 TABLET PO (09:39)
[2024-03-25] MEDS: FLUoxetine 20 MG Capsule 60 MG PO (09:49)
--- NOTE | 2024-03-25 10:04 | PN.SURG_ITS ---
Subjective Subjective Patient resting in bed. He answers questions appropriately. His sister is at his bedside. He is not complaining of pain at this time. He states that he goes to [facility] wound center for his wound care. He states that he typically uses a wound VAC for his ulcers. Objective Data Objective Data Vital Signs: Vital Signs Temp Pulse Resp BP Pulse Ox O2 Del Method O2 Flow Rate 98.7 F 77 20 H 105/50 L 100 Nasal Cannula 5 03/25/24 07:52 03/25/24 09:01 03/25/24 09:01 03/25/24 09:41 03/25/24 09:01 03/25/24 09:01 03/25/24 09:01 FiO2 25 03/24/24 08:00 Oxygen Flow Rate (L/min) 5 Oxygen Delivery Method Nasal Cannula Weight: 162 lb 4.163 oz Body Mass Index (BMI) 21.4 Intake & Output: Intake and Output for Last 24 Hours 03/23/24 03/24/24 03/25/24 23:59 23:59 23:59 Intake Total 2758.84 / 2950.84 2362.72 / 2366.52 662.57 / 662.57 Output Total 1645 / 2195 2175 / 2225 1250 / 1250 Balance 1113.84 / 755.84 187.72 / 141.52 -587.43 / -587.43 Lab / Micro Data 03/25/24 05:15 03/25/24 05:15 Labs: Laboratory Results - last 24 hr 03/22/24 04:00: Diff Path Review Reviewed 03/24/24 10:30: Blood Type A POSITIVE, Antibody Screen NEGATIVE, Crossmatch See Detail Micro: Microbiology 03/25/24 05:15 Stool Stool Occult Blood (MELQUIADES) - Final 03/22/24 03:30 Ulcer, Decubitus - Open/Non-Healing Wound Gram Stain - Final 03/22/24 03:30 Ulcer, Decubitus - Open/Non-Healing Wound Wound Culture - Preliminary Gram negative ainsley Gram negative ainsley#2 Gram negative ainsley#3 Coag Negative Staph 03/22/24 00:30 Sputum, Induced/Lukens Gram Stain - Final 03/22/24 00:30 Sputum, Induced/Lukens Respiratory Culture - Final Mixed normal respiratory raoul. No Streptococcus pneumoniae, beta-hemolytic Streptococcus or Staphylococcus aureus isolated. 03/21/24 22:46 Blood Culture (Wb) - Left Wrist Blood Culture - Preliminary No growth in 48 hours. 03/21/24 22:44 Blood Culture (Wb) - Right Wrist Blood Culture - Preliminary No growth in 48 hours. 03/21/24 22:57 Urine Catheter - Catheter Urine Culture - Final Mckenzie albicans 03/22/24 02:22 Mucosa - Nasopharyngeal Respiratory Panel (PCR) - Final 03/22/24 02:40 Nasal Secretion MRSA (PCR) - Final 03/21/24 22:57 Urine Catheter - Beth Streptococcus pneumoniae Antigen (M - Final 03/21/24 22:57 Urine Catheter - Catheter Legionella Antigen - Final 03/21/24 23:00 Mucosa - Nose SARS-CoV-2, Influenza & RSV (PCR) - Final Physical Exam Const alert General Appearance: cooperative HEENT normocephalic Eyes General Eye: normal appearance of both eyes Resp normal respiratory effort and normal air movement Effort and Inspection: able to speak in complete sentences Cardio regular rate and regular rhythm Extremity normal capillary refill Skin Wound Narrative: Left ischium, right ischium and sacral ulcers are stage IV, and stable. Haley wounds are clear. Neuro Sensorium / Orientation: awake and alert Psych thought process normal and cooperative Assessment & Plan Assessment/Plan (1) Pressure sore of left ischium, stage 4: (2) Right ischial pressure sore, stage 4: (3) Sacral wound: PLAN: Plan Sacral and bilateral ischial ulcers are stable. Continue Dakin's 0.25% moistened gauze dressing changes topped with ABDs daily and as needed. He is on a pressure off loading bed. Nutritional services involved with his care. He is established at [facility] outpatient wound care center. Upon discharge, he can return to them for continuity of care. Discussed plan of care with Dr. Beyer. Charges/Coding Visit Charges Inpatient E&M: 74288 Subs Hosp L1
[2024-03-25 10:39] LABS: Absolute Neutrophil Count 6.3 X10^3/uL (2.0-7.7); Basophil# 0.02 X10^3/uL; Basophil% 0.2 % (0-1); Eosinophil# 1.01 X10^3/uL; Eosinophils% 9.7 % (0-5); Hematocrit 25.6 % (40-54); Hemoglobin 7.8 g/dL (13.0-16.5); Lymphocyte % 20.2 % (19-41); Mean Corp Hgb Conc 30.5 g/dL (32-36); Mean Corpuscular Hgb 23.7 pg (27.0-32.0); Mean Corpuscular Volume 77.8 fL (80-94); Mean Platelet Vol. 9.6 fl (6.2-12.0); Monocyte# 0.91 X10^3/uL; Monocyte% 8.7 % (0-10); NRBC Flagged by Analyzer 0 % (0-5); Neutrophil # 6.31 X10^3/uL (2.7-7.7); Neutrophil % 60.5 % (47-70); Platelet Count 484 K/mm3 (150-450); RBC Distribution Width CV 19.8 % (11.6-14.6); RBC Distribution Width SD 54.8 fl (35.1-43.9); Red Blood Count 3.29 M/mm3 (4.6-6.2); White Blood Count 10.4 K/mm3 (4.4-11.0)
--- NOTE | 2024-03-25 10:54 | WOUNDNOTE ---
Colostomy appliance removed from the left lower abdomen. there was a small amount of brown unformed stool in the appliance. peristomal skin is intact. stoma is pink and well budded. measures approx 1. cleansed skin with warm water. pat dry. applied a new 2 piece flat Romeo appliance. pt did not want this nurse to use stoma paste. states he does not like to use it. pt tolerated well.
[2024-03-25] MEDS: Furosemide 20 MG/2 ML VIAL IV ×2 (11:06→15:52)
[2024-03-25 11:09] LABS: Anion Gap 7 (5-15); BUN 3 mg/dL (7-18); BUN/Creat Ratio 10.3 RATIO (10-20); Calcium,Total 8.3 mg/dL (8.5-10.1); Chloride 108 mmol/L (98-107); Creatinine, Serum 0.29 mg/dL (0.70-1.30); EST Glomerular Filtration Rate 354 mL/min (>60); Est Glom Filt Rate - Afr Amer 429 mL/min (>60); Estimated Creatinine Clearance 331.34 ml/min; Glucose 84 mg/dL (74-106); Potassium 3.5 mmol/L (3.5-5.1); Sodium Level 140 mmol/L (136-145)
--- NOTE | 2024-03-25 12:24 | CASEMGMT ---
SW met with patient and his sister Gissel. SW introduced self and [facility]. SW asked about plan at discharge. Patient and Gissel said [facility] was working on getting patient to [facility]. Patient said he got caught smoking at [facility]. Patient said he would like to go back to [facility] and stay if he could. SW explained [facility] is stating they aren't going to take him back. Patient and Gissel said that is fine he will go to [facility]. Gissel also asked about Healthcare Power of Maintainer Plant (HCPOA)papers. SW explained documents and patient wanted to complete them. SW assisted patient in completing HCPOA paperwork. Copies were made and given to patient along with original. A copy was also placed in patient's chart. Plan: SNF. Possibly [facility] (used to be [facility]) pending their acceptance. Rhoda Messina HELP DESK ASSISTANT KRISTINA
[2024-03-25] MEDS: 0.9% Normal Saline (100mL Bag) 100 ML 15 ML IV (12:32)
[2024-03-25] MEDS: Midodrine HCl 5 MG Tablet 15 MG PO ×2 (13:27→21:23)
--- NOTE | 2024-03-25 15:18 | PCM.PN.HOSP ---
Reason for Visit Reason for Visit: Diagnoses Sepsis, unspecified organism (03/22/24) Anemia, unspecified (03/22/24) Metabolic encephalopathy (03/22/24) Respiratory failure, unspecified, unspecified whether with hypoxia or hypercapnia (03/22/24) Local infection of the skin and subcutaneous tissue, unspecified (03/22/24) Pressure ulcer of right buttock, stage 4 (03/22/24) Pressure ulcer of left buttock, stage 4 (03/22/24) Pressure ulcer of unspecified site, stage 3 (03/22/24) Severe sepsis with septic shock (03/22/24) Unspecified open wound of lower back and pelvis without penetration into retroperitoneum, initial encounter (03/22/24) Fracture of unspecified part of neck of unspecified femur, initial encounter for closed fracture (03/22/24) Subjective Subjective Patient was seen and examined today, I talked with critical care about his medical care, I also talked with orthopedic surgery regarding his hip fracture. Orthopedic surgery told me that if his hip fracture is not repaired, he has a chance of having reflex sympathetic dystrophy and is leg and a chance of having an ulceration over the fracture site on the hip. Critical care does not feel the patient is stable enough to undergo surgery at this point due to his low blood pressure. Patient still remains confused at times, he does answer some simple questions appropriately. I elected to increase the patient's midodrine today, his systolic blood pressures been running low. Objective Data Objective Data Vital Signs: Vital Signs Temp Pulse Resp BP Pulse Ox O2 Del Method O2 Flow Rate 98.4 F 76 19 H 92/65 99 Nasal Cannula 3 03/25/24 11:13 03/25/24 11:13 03/25/24 11:13 03/25/24 11:13 03/25/24 11:13 03/25/24 11:13 03/25/24 11:13 FiO2 25 03/24/24 08:00 Oxygen Flow Rate (L/min) 3 Oxygen Delivery Method Nasal Cannula Weight: 73.6 kg Body Mass Index (BMI) 21.4 Intake & Output: Intake and Output for Last 24 Hours 03/23/24 03/24/24 03/25/24 23:59 23:59 23:59 Intake Total 2758.84 / 2950.84 2362.72 / 2366.52 772.57 / 772.57 Output Total 1645 / 2195 2175 / 2225 3650 / 3650 Balance 1113.84 / 755.84 187.72 / 141.52 -2877.43 / -2877.43 Lab / Micro Data 03/25/24 05:15 03/25/24 05:15 Labs: Laboratory Results - last 24 hr 03/22/24 04:00: Diff Path Review Reviewed 03/24/24 10:30: Crossmatch See Detail 03/25/24 05:15: WBC 10.4, RBC 3.29 L, Hgb 7.8 L, Hct 25.6 L, MCV 77.8 L D, MCH 23.7 L, MCHC 30.5 L D, RDW Std Deviation 54.8 H, RDW Coeff of Minerva 19.8 H, Plt Count 484 H, MPV 9.6, Immature Gran % (Auto) 0.700, Neut % (Auto) 60.5, Lymph % (Auto) 20.2, [place] % (Auto) 8.7, Eos % (Auto) 9.7 H, Baso % (Auto) 0.2, Absolute Neuts (auto) 6.3, Absolute Lymphs (auto) 2.10, Nucleated RBC % 0, Sodium 140, Potassium 3.5, Chloride 108 H, Carbon Dioxide 25.0, Anion Gap 7, BUN 3 L, Creatinine 0.29 L, Estim Creat Clear Calc 331.34, Est GFR (MDRD) Af Amer 429, Est GFR (MDRD) Non-Af 354, BUN/Creatinine Ratio 10.3, Glucose 84, Calcium 8.3 L Micro: Microbiology 03/22/24 03:30 Ulcer, Decubitus - Open/Non-Healing Wound Gram Stain - Final 03/22/24 03:30 Ulcer, Decubitus - Open/Non-Healing Wound Wound Culture - Preliminary Pseudomonas aeruginosa Acinetobacter baumannii Coag Negative Staph 03/25/24 05:15 Stool Stool Occult Blood (MELQUIADES) - Final 03/22/24 00:30 Sputum, Induced/Lukens Gram Stain - Final 03/22/24 00:30 Sputum, Induced/Lukens Respiratory Culture - Final Mixed normal respiratory raoul. No Streptococcus pneumoniae, beta-hemolytic Streptococcus or Staphylococcus aureus isolated. 03/21/24 22:46 Blood Culture (Wb) - Left Wrist Blood Culture - Preliminary No growth in 48 hours. 03/21/24 22:44 Blood Culture (Wb) - Right Wrist Blood Culture - Preliminary No growth in 48 hours. 03/21/24 22:57 Urine Catheter - Catheter Urine Culture - Final Mckenzie albicans 03/22/24 02:22 Mucosa - Nasopharyngeal Respiratory Panel (PCR) - Final 03/22/24 02:40 Nasal Secretion MRSA (PCR) - Final 03/21/24 22:57 Urine Catheter - Beth Streptococcus pneumoniae Antigen (M - Final 03/21/24 22:57 Urine Catheter - Catheter Legionella Antigen - Final 03/21/24 23:00 Mucosa - Nose SARS-CoV-2, Influenza & RSV (PCR) - Final Physical Exam Narrative alert and no apparent distress Constitutional Narrative: Patient exhibits mild confusion General Appearance: cooperative, well kempt and well developed Orientation / Consciousness: awake, oriented to person and oriented to place HEENT normocephalic, head/scalp atraumatic and moist oral mucous membranes Eyes PERRL, EOMs intact bilaterally and conjunctivae normal Neck supple, no JVD, thyroid normal and no carotid bruits General: trachea midline Resp normal respiratory effort, no retractions, no use of accessory muscles and clear to auscultation bilaterally Auscultation: Negative for rales, rhonchi or wheezes Cardio regular rate, regular rhythm, S1 normal heart sound, S2 normal heart sound, no murmurs, no rub and no gallops GI normal to inspection, nondistended, normoactive bowel sounds, soft to palpation, non-tender and non-distended Extremity Extremity Narrative: Patient has atrophy of his lower extremities, there are contractures of his hands noted Skin Skin Narrative: Patient has skin breakdown over the ischial areas bilaterally and the sacrum-these appear to be stage IV pressure injuries Neuro CN's II-XII intact bilaterally Neuro Narrative: Patient is unable to move his legs, he does have some movement in his arms, he has contractures of his hands bilaterally Sensorium / Orientation: awake, alert, oriented to person and oriented to place Speech: speech normal Psych Psych Narrative: Patient exhibits some mild confusion Assessment & Plan Assessment/Plan (1) Hip fracture: PLAN: Plan 1. 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
[2024-03-25] MEDS: Sodium Ferric Gluconat/Sucrose 250 MG in 0.9% Normal Saline (250mL Bag) 250 ML 135 MG IV (15:52)
[2024-03-25] MEDS: MELATONIN 3 MG TABLET PO (21:25)
[2024-03-25] MEDS: Divalproex Sodium 250 MG Tablet 1000 MG PO (21:25)
[2024-03-25] MEDS: Atorvastatin Calcium 80 MG Tablet PO (21:25)
[2024-03-25] MEDS: Acetaminophen 325 MG Tablet 650 MG PO (21:53)
--- NOTE | 2024-03-25 23:28 | PCM.RX.CS ---
Consult Antibiotic Management Pharmacy has been consulted to manage selected antibiotic: Vancomycin Type of Intervention Type of Consult: Follow-up Labs Labs: Sodium 140 mmol/L (136-145) 03/25/24 05:15 Potassium 3.5 mmol/L (3.5-5.1) 03/25/24 05:15 Chloride 108 mmol/L (98-107) H 03/25/24 05:15 Carbon Dioxide 25.0 mmol/L (21.0-32.0) 03/25/24 05:15 Anion Gap 7 (5-15) 03/25/24 05:15 BUN 3 mg/dL (7-18) L 03/25/24 05:15 Creatinine 0.29 mg/dL (0.70-1.30) L 03/25/24 05:15 Est GFR (MDRD) Af Amer 429 mL/min (>60) 03/25/24 05:15 Est GFR (MDRD) Non-Af 354 mL/min (>60) 03/25/24 05:15 BUN/Creatinine Ratio 10.3 RATIO (10-20) 03/25/24 05:15 Glucose 84 mg/dL (74-106) 03/25/24 05:15 Microbiology Microbiology: Microbiology 03/22/24 03:30 Ulcer, Decubitus - Open/Non-Healing Wound Gram Stain - Final 03/22/24 03:30 Ulcer, Decubitus - Open/Non-Healing Wound Wound Culture - Preliminary Pseudomonas aeruginosa Acinetobacter baumannii Coag Negative Staph 03/25/24 05:15 Stool Stool Occult Blood (MELQUIADES) - Final 03/22/24 00:30 Sputum, Induced/Lukens Gram Stain - Final 03/22/24 00:30 Sputum, Induced/Lukens Respiratory Culture - Final Mixed normal respiratory raoul. No Streptococcus pneumoniae, beta-hemolytic Streptococcus or Staphylococcus aureus isolated. 03/21/24 22:46 Blood Culture (Wb) - Left Wrist Blood Culture - Preliminary No growth in 48 hours. 03/21/24 22:44 Blood Culture (Wb) - Right Wrist Blood Culture - Preliminary No growth in 48 hours. 03/21/24 22:57 Urine Catheter - Catheter Urine Culture - Final Mckenzie albicans 03/22/24 02:22 Mucosa - Nasopharyngeal Respiratory Panel (PCR) - Final 03/22/24 02:40 Nasal Secretion MRSA (PCR) - Final 03/21/24 22:57 Urine Catheter - Beth Streptococcus pneumoniae Antigen (M - Final 03/21/24 22:57 Urine Catheter - Catheter Legionella Antigen - Final 03/21/24 23:00 Mucosa - Nose SARS-CoV-2, Influenza & RSV (PCR) - Final Goal Trough Goal Trough: 15-20 mcg/mL Pharmacy Plan for Drug Dosing Pharmacy Plan for Drug Dosing: Pharmacy Service will continue to monitor and adjust dosing as required. TROUGH 20.8 @ 6 HOURS. LAB DRAWN EARLY. NO CHANGES, DRAW TROUGH IN 2 DOSES. Follow-Up Labs Follow-Up Labs: Trough: Vancomycin Date/Time Labs Ordered Labs to be done on [date and time ordered]: 03/26 @ 1500
[2024-03-25 23:32] LABS: Vancomycin, Trough Level 20.8 ug/mL (5.0-15.0)
--- NOTE | 2024-03-25 23:32 | NURSING ---
2320- pt IV pump beeping, Dominique Arboleda RN bedside to fix pump. 2322- pt hit call light, Dominique Arboleda RN answered call light then informed this RN that the patient states he only has one nurse and does not want a bunch of nurses in his room touching his stuff.
--- NOTE | 2024-03-25 23:36 | NURSING ---
2200- This RN and TERRAZZO FINISHER bedside to do dressing changes for patient's wound. Pt agreeable at this time. Pt rolled onto side and TERRAZZO FINISHER helped hold him over so that this RN could access wounds. After 2 dressings applied, pt states to this RN you come in here with a pissy look on your face and now you're being unprofessional rocking me back and forth. Pt remained on his side that he had been turned on and continued to be held by the TERRAZZO FINISHER. Informed pt that I was not upset about anything and that the dressing change was near finished. Pt states don't try to say you're not pissy because i know what pissed off looks like. Again, I informed the patient I was not angry, not attempting to rock him back and forth and almost done w/ the dressing change. Patient did not respond to this. after dressing change was finished, this RN placed a new green pad and brief under the patient and he was repositioned according to his request.
[2024-03-26] VITALS (11 sets, daily range): BP systolic 87–133; BP diastolic 53–73; PULSE 55–74; RESP 11–18; TEMP 36.3–37.4; O2SAT 94–99; BMI 20.9
[2024-03-26] MEDS: oxyCODONE 5 MG Tablet PO ×3 (01:41→21:45)
[2024-03-26] MEDS: Gabapentin 300 MG Capsule PO ×3 (05:08→21:25)
[2024-03-26] MEDS: Meropenem 1 GM in 0.9% Normal Saline (100mL MB+) 100 ML IV ×3 (05:09→23:25)
[2024-03-26] MEDS: oxyCODONE 5 MG Tablet 10 MG PO ×4 (05:09→23:29)
[2024-03-26] MEDS: Midodrine HCl 5 MG Tablet 15 MG PO ×3 (05:09→21:26)
[2024-03-26] MEDS: 0.9% Saline Lock 10 ML Syringe IV ×4 (05:09→21:26)
[2024-03-26] MEDS: Baclofen 10 MG Tablet 20 MG PO ×3 (05:10→21:25)
[2024-03-26 05:31] LABS: Vancomycin, Random Level 15.5 ug/mL (0.0-15.0)
--- NOTE | 2024-03-26 06:01 | PCM.RX.CS ---
Consult Antibiotic Management Pharmacy has been consulted to manage selected antibiotic: Vancomycin Type of Intervention Type of Consult: Follow-up Labs Labs: Sodium 140 mmol/L (136-145) 03/25/24 05:15 Potassium 3.5 mmol/L (3.5-5.1) 03/25/24 05:15 Chloride 108 mmol/L (98-107) H 03/25/24 05:15 Carbon Dioxide 25.0 mmol/L (21.0-32.0) 03/25/24 05:15 Anion Gap 7 (5-15) 03/25/24 05:15 BUN 3 mg/dL (7-18) L 03/25/24 05:15 Creatinine 0.29 mg/dL (0.70-1.30) L 03/25/24 05:15 Est GFR (MDRD) Af Amer 429 mL/min (>60) 03/25/24 05:15 Est GFR (MDRD) Non-Af 354 mL/min (>60) 03/25/24 05:15 BUN/Creatinine Ratio 10.3 RATIO (10-20) 03/25/24 05:15 Glucose 84 mg/dL (74-106) 03/25/24 05:15 Vancomycin Trough 20.8 ug/mL (5.0-15.0) H 03/25/24 23:07 Random Vancomycin 15.5 ug/mL (0.0-15.0) H 03/26/24 05:07 Microbiology Microbiology: Microbiology 03/22/24 03:30 Ulcer, Decubitus - Open/Non-Healing Wound Gram Stain - Final 03/22/24 03:30 Ulcer, Decubitus - Open/Non-Healing Wound Wound Culture - Preliminary Pseudomonas aeruginosa Acinetobacter baumannii Coag Negative Staph 03/25/24 05:15 Stool Stool Occult Blood (MELQUIADES) - Final 03/22/24 00:30 Sputum, Induced/Lukens Gram Stain - Final 03/22/24 00:30 Sputum, Induced/Lukens Respiratory Culture - Final Mixed normal respiratory raoul. No Streptococcus pneumoniae, beta-hemolytic Streptococcus or Staphylococcus aureus isolated. 03/21/24 22:46 Blood Culture (Wb) - Left Wrist Blood Culture - Preliminary No growth in 48 hours. 03/21/24 22:44 Blood Culture (Wb) - Right Wrist Blood Culture - Preliminary No growth in 48 hours. 03/21/24 22:57 Urine Catheter - Catheter Urine Culture - Final Mckenzie albicans 03/22/24 02:22 Mucosa - Nasopharyngeal Respiratory Panel (PCR) - Final 03/22/24 02:40 Nasal Secretion MRSA (PCR) - Final 03/21/24 22:57 Urine Catheter - Beth Streptococcus pneumoniae Antigen (M - Final 03/21/24 22:57 Urine Catheter - Catheter Legionella Antigen - Final 03/21/24 23:00 Mucosa - Nose SARS-CoV-2, Influenza & RSV (PCR) - Final Goal Trough Goal Trough: 15-20 mcg/mL Pharmacy Plan for Drug Dosing Pharmacy Plan for Drug Dosing: Pharmacy Service will continue to monitor and adjust dosing as required. RANDOM LEVEL 15.5. START 750MG Q8H AND FOLLOW UP TROUGH PRIOR TO 4TH DOSE Follow-Up Labs Follow-Up Labs: Trough: Vancomycin Date/Time Labs Ordered Labs to be done on [date and time ordered]: 03/27 @ 3670
[2024-03-26] MEDS: Vancomycin HCl 750 MG in 0.9% Normal Saline (250mL Bag) 250 ML 250 MG IV ×3 (06:22→23:25)
[2024-03-26] MEDS: Budesonide Respules 0.5 MG/2 ML AMPUL.NEB. INHALATION ×2 (07:24→20:16)
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
[2024-03-26] MEDS: Enoxaparin 40 MG/0.4 ML Syringe SC (09:59)
[2024-03-26] MEDS: Pantoprazole Sodium 40 MG in 0.9% Normal Saline (100mL MB+) 100 ML 330 MG IV ×2 (09:59→21:26)
[2024-03-26] MEDS: Senna/Docusate Sodium 1 Tablet 2 TABLET PO ×2 (10:00→21:25)
[2024-03-26] MEDS: FLUoxetine 20 MG Capsule 60 MG PO (10:00)
[2024-03-26] MEDS: Ascorbic Acid 500 MG Tablet PO (10:01)
[2024-03-26 10:07] LABS: Absolute Lymphocyte Count 1.38 X10^3/uL (0.83-4.51); Absolute Neutrophil Count 5.9 X10^3/uL (2.0-7.7); Basophil# 0.03 X10^3/uL; Basophil% 0.3 % (0-1); Eosinophil# 0.55 X10^3/uL; Eosinophils% 6.3 % (0-5); Hemoglobin 7.5 g/dL (13.0-16.5); Lymphocyte # 1.38 X10^3/ul (0.83-4.51); Lymphocyte % 15.8 % (19-41); Mean Corpuscular Hgb 23.1 pg (27.0-32.0); Mean Corpuscular Volume 76.9 fL (80-94); Mean Platelet Vol. 8.9 fl (6.2-12.0); Monocyte# 0.84 X10^3/uL; Monocyte% 9.6 % (0-10); NRBC Flagged by Analyzer 0 % (0-5); Neutrophil # 5.91 X10^3/uL (2.7-7.7); Neutrophil % 67.4 % (47-70); Platelet Count 509 K/mm3 (150-450); RBC Distribution Width CV 19.6 % (11.6-14.6); Red Blood Count 3.25 M/mm3 (4.6-6.2); White Blood Count 8.8 K/mm3 (4.4-11.0)
[2024-03-26] MEDS: DAKIN'S SOL HALF STRENGTH (=0.25%) TOPICAL ×2 (10:17→23:26)
[2024-03-26 10:20] LABS: Anion Gap 6 (5-15); BUN 9 mg/dL (7-18); BUN/Creat Ratio 29.5 RATIO (10-20); Calcium,Total 8.2 mg/dL (8.5-10.1); Chloride 106 mmol/L (98-107); EST Glomerular Filtration Rate 336 mL/min (>60); Est Glom Filt Rate - Afr Amer 406 mL/min (>60); Glucose 109 mg/dL (74-106); Potassium 3.5 mmol/L (3.5-5.1); Sodium Level 141 mmol/L (136-145)
[2024-03-26] MEDS: CHLORHEXIDINE GLUC 2% CLOTH 1 EACH TOWELETTE TOPICAL (12:02)
--- NOTE | 2024-03-26 13:15 | PCM.PN.ID ---
Physical Exam Narrative Feeling better, no fever, no n/v Const alert and no apparent distress General Appearance: cooperative Resp normal air movement and clear to auscultation bilaterally Cardio regular rate and regular rhythm GI soft to palpation, non-tender and non-distended Skin Skin Narrative: no new rash ID ID: Route of nutrition/ use of supplements: [] Nutritional Intake: [] IV Site: [] Beth Catheter: [] Assessment & Plan Assessment/Plan (1) Septic shock: PLAN: septic shock with sacral osteo with exposed bone. Wound cx with AcB, PsA, and CoNS. Fever resolved, wbc normalized. Ucx with dulce. Cont vanc/nikos, overall improving. Plan on 6 weeks iv abx at discharge. Will follow
--- NOTE | 2024-03-26 17:37 | PN.HOSP_ITS ---
Reason for Visit Reason for Visit: Diagnoses Sepsis, unspecified organism (03/22/24) Anemia, unspecified (03/22/24) Metabolic encephalopathy (03/22/24) Respiratory failure, unspecified, unspecified whether with hypoxia or hypercapnia (03/22/24) Local infection of the skin and subcutaneous tissue, unspecified (03/22/24) Pressure ulcer of right buttock, stage 4 (03/22/24) Pressure ulcer of left buttock, stage 4 (03/22/24) Pressure ulcer of unspecified site, stage 3 (03/22/24) Severe sepsis with septic shock (03/22/24) Unspecified open wound of lower back and pelvis without penetration into retroperitoneum, initial encounter (03/22/24) Fracture of unspecified part of neck of unspecified femur, initial encounter for closed fracture (03/22/24) Subjective Subjective Patient was seen and examined today, had a brief discussion with pulmonary medicine about his ability to undergo surgery for his hip fracture, pulmonary felt that the patient was stable to undergo the surgery and I let orthopedic surgery know this. Objective Data Objective Data Vital Signs: Vital Signs Temp Pulse Resp BP Pulse Ox O2 Del Method O2 Flow Rate 98.8 F 69 16 97/58 L 98 Nasal Cannula 3 03/26/24 17:00 03/26/24 17:00 03/26/24 17:00 03/26/24 17:00 03/26/24 17:00 03/26/24 17:00 03/26/24 17:00 FiO2 25 03/24/24 08:00 Oxygen Flow Rate (L/min) 3 Oxygen Delivery Method Nasal Cannula Weight: 71.9 kg Body Mass Index (BMI) 20.9 Intake & Output: Intake and Output for Last 24 Hours 03/24/24 03/25/24 03/26/24 23:59 23:59 23:59 Intake Total 2362.72 / 2366.52 1569.57 / 1569.57 1003 / 1003 Output Total 2175 / 2225 5650 / 5650 1350 / 1350 Balance 187.72 / 141.52 -4080.43 / -4080.43 -347 / -347 Lab / Micro Data 03/26/24 09:50 03/26/24 09:50 Labs: Laboratory Results - last 24 hr 03/25/24 23:07: Vancomycin Trough 20.8 H 03/26/24 05:07: Random Vancomycin 15.5 H 03/26/24 09:50: WBC 8.8, RBC 3.25 L, Hgb 7.5 L, Hct 25.0 L, MCV 76.9 L, MCH 23.1 L, MCHC 30.0 L, RDW Std Deviation 54.0 H, RDW Coeff of Minerva 19.6 H, Plt Count 509 H, MPV 8.9, Immature Gran % (Auto) 0.600, Neut % (Auto) 67.4, Lymph % (Auto) 15.8 L, [place] % (Auto) 9.6, Eos % (Auto) 6.3 H, Baso % (Auto) 0.3, Absolute Neuts (auto) 5.9, Absolute Lymphs (auto) 1.38, Nucleated RBC % 0, Sodium 141, Potassium 3.5, Chloride 106, Carbon Dioxide 29.0, Anion Gap 6, BUN 9, Creatinine 0.30 L, Estim Creat Clear Calc 312.90, Est GFR (MDRD) Af Amer 406, Est GFR (MDRD) Non-Af 336, BUN/Creatinine Ratio 29.5 H, Glucose 109 H, Calcium 8.2 L Micro: Microbiology 03/22/24 03:30 Ulcer, Decubitus - Open/Non-Healing Wound Gram Stain - Final 03/22/24 03:30 Ulcer, Decubitus - Open/Non-Healing Wound Wound Culture - Final Pseudomonas aeruginosa Acinetobacter baumannii Coag Negative Staph 03/25/24 05:15 Stool Stool Occult Blood (MELQUIADES) - Final 03/22/24 00:30 Sputum, Induced/Lukens Gram Stain - Final 03/22/24 00:30 Sputum, Induced/Lukens Respiratory Culture - Final Mixed normal respiratory raoul. No Streptococcus pneumoniae, beta-hemolytic Streptococcus or Staphylococcus aureus isolated. 03/21/24 22:46 Blood Culture (Wb) - Left Wrist Blood Culture - Preliminary No growth in 48 hours. 03/21/24 22:44 Blood Culture (Wb) - Right Wrist Blood Culture - Preliminary No growth in 48 hours. 03/21/24 22:57 Urine Catheter - Catheter Urine Culture - Final Mckenzie albicans 03/22/24 02:22 Mucosa - Nasopharyngeal Respiratory Panel (PCR) - Final 03/22/24 02:40 Nasal Secretion MRSA (PCR) - Final 03/21/24 22:57 Urine Catheter - Beth Streptococcus pneumoniae Antigen (M - Final 03/21/24 22:57 Urine Catheter - Catheter Legionella Antigen - Final 03/21/24 23:00 Mucosa - Nose SARS-CoV-2, Influenza & RSV (PCR) - Final Physical Exam Narrative alert and no apparent distress Constitutional Narrative: Patient exhibits mild confusion General Appearance: cooperative, well kempt and well developed Orientation / Consciousness: awake, oriented to person and oriented to place HEENT normocephalic, head/scalp atraumatic and moist oral mucous membranes Eyes PERRL, EOMs intact bilaterally and conjunctivae normal Neck supple, no JVD, thyroid normal and no carotid bruits General: trachea midline Resp normal respiratory effort, no retractions, no use of accessory muscles and clear to auscultation bilaterally Auscultation: Negative for rales, rhonchi or wheezes Cardio regular rate, regular rhythm, S1 normal heart sound, S2 normal heart sound, no murmurs, no rub and no gallops GI normal to inspection, nondistended, normoactive bowel sounds, soft to palpation, non-tender and non-distended Extremity Extremity Narrative: Patient has atrophy of his lower extremities, there are contractures of his hands noted Skin Skin Narrative: Patient has skin breakdown over the ischial areas bilaterally and the sacrum- these appear to be stage IV pressure injuries Neuro CN's II-XII intact bilaterally Neuro Narrative: Patient is unable to move his legs, he does have some movement in his arms, he has contractures of his hands bilaterally Sensorium / Orientation: awake, alert, oriented to person and oriented to place Speech: speech normal Psych Psych Narrative: Patient exhibits some mild confusion Assessment & Plan Assessment/Plan (1) Hip fracture: PLAN: Plan 1. 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
[2024-03-26] MEDS: Sodium Ferric Gluconat/Sucrose 250 MG in 0.9% Normal Saline (250mL Bag) 250 ML 135 MG IV (20:25)
[2024-03-26] MEDS: Atorvastatin Calcium 80 MG Tablet PO (21:25)
[2024-03-26] MEDS: Divalproex Sodium 250 MG Tablet 1000 MG PO (21:25)
[2024-03-27] VITALS (22 sets, daily range): BP systolic 75–109; BP diastolic 47–66; PULSE 59–85; RESP 14–18; TEMP 36.3–37.3; O2SAT 90–100; BMI 21.9; BMI 21.7
[2024-03-27] MEDS: Vancomycin HCl 750 MG in 0.9% Normal Saline (250mL Bag) 250 ML 250 MG IV ×3 (06:15→22:22)
[2024-03-27] MEDS: oxyCODONE 5 MG Tablet 10 MG PO (06:15)
[2024-03-27] MEDS: Baclofen 10 MG Tablet 20 MG PO ×2 (06:15→22:13)
[2024-03-27] MEDS: Midodrine HCl 5 MG Tablet 15 MG PO ×3 (06:15→22:13)
[2024-03-27] MEDS: Gabapentin 300 MG Capsule PO ×2 (06:15→22:13)
[2024-03-27] MEDS: Meropenem 1 GM in 0.9% Normal Saline (100mL MB+) 100 ML IV ×3 (06:15→21:00)
[2024-03-27 07:07] LABS: Vancomycin, Trough Level 16.2 ug/mL (5.0-15.0)
[2024-03-27 07:19] LABS: Absolute Lymphocyte Count 2.27 X10^3/uL (0.83-4.51); Absolute Neutrophil Count 5.6 X10^3/uL (2.0-7.7); Basophil# 0.04 X10^3/uL; Basophil% 0.4 % (0-1); Eosinophil# 0.52 X10^3/uL; Eosinophils% 5.5 % (0-5); Hemoglobin 8.4 g/dL (13.0-16.5); Lymphocyte # 2.27 X10^3/ul (0.83-4.51); Lymphocyte % 24.1 % (19-41); Mean Corp Hgb Conc 31.1 g/dL (32-36); Mean Corpuscular Hgb 24.1 pg (27.0-32.0); Mean Corpuscular Volume 77.6 fL (80-94); Mean Platelet Vol. 9.3 fl (6.2-12.0); Monocyte# 0.95 X10^3/uL; Monocyte% 10.1 % (0-10); NRBC Flagged by Analyzer 0 % (0-5); Neutrophil # 5.56 X10^3/uL (2.7-7.7); Neutrophil % 59.3 % (47-70); Platelet Count 617 K/mm3 (150-450); RBC Distribution Width SD 55.6 fl (35.1-43.9); Red Blood Count 3.48 M/mm3 (4.6-6.2); White Blood Count 9.4 K/mm3 (4.4-11.0)
[2024-03-27] MEDS: Budesonide Respules 0.5 MG/2 ML AMPUL.NEB. INHALATION ×2 (07:23→20:00)
[2024-03-27 08:32] LABS: International Normalized Ratio 1.1; Prothrombin Time (Protime)PT. 14.6 SECONDS (11.7-14.9)
[2024-03-27] MEDS: Pantoprazole Sodium 40 MG in 0.9% Normal Saline (100mL MB+) 100 ML 330 MG IV ×2 (10:24→21:00)
[2024-03-27] MEDS: 0.9% Saline Lock 10 ML Syringe IV (10:28)
--- NOTE | 2024-03-27 11:19 | PCM.RX.CS ---
Consult Antibiotic Management Pharmacy has been consulted to manage selected antibiotic: Vancomycin Type of Intervention Type of Consult: Follow-up Suspected Infection Suspected Infection: Pneumonia Labs Labs: Sodium 141 mmol/L (136-145) 03/26/24 09:50 Potassium 3.5 mmol/L (3.5-5.1) 03/26/24 09:50 Chloride 106 mmol/L (98-107) 03/26/24 09:50 Carbon Dioxide 29.0 mmol/L (21.0-32.0) 03/26/24 09:50 Anion Gap 6 (5-15) 03/26/24 09:50 BUN 9 mg/dL (7-18) 03/26/24 09:50 Creatinine 0.30 mg/dL (0.70-1.30) L 03/26/24 09:50 Est GFR (MDRD) Af Amer 406 mL/min (>60) 03/26/24 09:50 Est GFR (MDRD) Non-Af 336 mL/min (>60) 03/26/24 09:50 BUN/Creatinine Ratio 29.5 RATIO (10-20) H 03/26/24 09:50 Glucose 109 mg/dL (74-106) H 03/26/24 09:50 Vancomycin Trough 16.2 ug/mL (5.0-15.0) H 03/27/24 05:30 Random Vancomycin 15.5 ug/mL (0.0-15.0) H 03/26/24 05:07 Microbiology Microbiology: Microbiology 03/21/24 22:44 Blood Culture (Wb) - Right Wrist Blood Culture - Final No growth in 5 days. 03/21/24 22:46 Blood Culture (Wb) - Left Wrist Blood Culture - Final No growth in 5 days. 03/22/24 03:30 Ulcer, Decubitus - Open/Non-Healing Wound Gram Stain - Final 03/22/24 03:30 Ulcer, Decubitus - Open/Non-Healing Wound Wound Culture - Final Pseudomonas aeruginosa Acinetobacter baumannii Coag Negative Staph 03/25/24 05:15 Stool Stool Occult Blood (MELQUIADES) - Final 03/22/24 00:30 Sputum, Induced/Lukens Gram Stain - Final 03/22/24 00:30 Sputum, Induced/Lukens Respiratory Culture - Final Mixed normal respiratory raoul. No Streptococcus pneumoniae, beta-hemolytic Streptococcus or Staphylococcus aureus isolated. 03/21/24 22:57 Urine Catheter - Catheter Urine Culture - Final Mckenzie albicans 03/22/24 02:22 Mucosa - Nasopharyngeal Respiratory Panel (PCR) - Final 03/22/24 02:40 Nasal Secretion MRSA (PCR) - Final 03/21/24 22:57 Urine Catheter - Beth Streptococcus pneumoniae Antigen (M - Final 03/21/24 22:57 Urine Catheter - Catheter Legionella Antigen - Final 03/21/24 23:00 Mucosa - Nose SARS-CoV-2, Influenza & RSV (PCR) - Final Goal Trough Goal Trough: 15-20 mcg/mL Pharmacy Plan for Drug Dosing Pharmacy Plan for Drug Dosing: VANCOMYCIN LEVEL RECEIVED Current Vancomycin Dose: 750mg q8h (, 14, ) Number of Doses Received: X3 of current dose Vancomycin Level: 16.2 Hours Since Last Dose: 7.5 hours Renal Function: SrCr 0.3 Renal Function Trend: SrCr stable Lab/Micro: Vancomycin Plan/Comments: resulted trough of 16.2 is within the ordered goal range of 15-20. recommend continuing current dose of 750mg q8h and checking a trough on 03/29/24 at 0530 Pending Level: 03/29/24 at 0530 Pharmacy Service will continue to monitor and adjust dosing as required. Follow-Up Labs Follow-Up Labs: Trough: Vancomycin (03/29/24 @ 0530)
--- NOTE | 2024-03-27 13:37 | PCM.PN.ORT ---
Subjective Subjective PAD many pending right hip ORIF for IT hip fracture. ok to proceed. no questions . here with his sister. Objective Data Objective Data Vital Signs: Vital Signs Temp Pulse Resp BP Pulse Ox O2 Del Method O2 Flow Rate 98.3 F 61 16 109/66 94 Room Air 2 03/27/24 08:19 03/27/24 08:19 03/27/24 08:19 03/27/24 08:19 03/27/24 08:19 03/27/24 08:19 03/27/24 07:24 FiO2 03/24/24 08:00 Oxygen Flow Rate (L/min) 2 Oxygen Delivery Method Room Air Weight: 165 lb 2.02 oz Body Mass Index (BMI) 21.7 Intake & Output: Intake and Output for Last 24 Hours 03/25/24 03/26/24 03/27/24 23:59 23:59 23:59 Intake Total 1569.57 / 1569.57 1383 / 1383 880 / 880 Output Total 5650 / 5650 1350 / 2150 1200 / 1200 Balance -4080.43 / -4080.43 33 / -767 -320 / -320 Lab / Micro Data 03/27/24 05:30 03/26/24 09:50 Labs: Laboratory Results - last 24 hr 03/27/24 05:30: WBC 9.4, RBC 3.48 L, Hgb 8.4 L, Hct 27.0 L, MCV 77.6 L, MCH 24.1 L, MCHC 31.1 L, RDW Std Deviation 55.6 H, RDW Coeff of Minerva 20.0 H, Plt Count 617 H, MPV 9.3, Immature Gran % (Auto) 0.600, Neut % (Auto) 59.3, Lymph % (Auto) 24.1, L[place] % (Auto) 10.1 H, Eos % (Auto) 5.5 H, Baso % (Auto) 0.4, Absolute Neuts (auto) 5.6, Absolute Lymphs (auto) 2.27, Nucleated RBC % 0, PT 14.6, INR 1.1, Vancomycin Trough 16.2 H Micro: Microbiology 03/21/24 22:44 Blood Culture (Wb) - Right Wrist Blood Culture - Final No growth in 5 days. 03/21/24 22:46 Blood Culture (Wb) - Left Wrist Blood Culture - Final No growth in 5 days. 03/22/24 03:30 Ulcer, Decubitus - Open/Non-Healing Wound Gram Stain - Final 03/22/24 03:30 Ulcer, Decubitus - Open/Non-Healing Wound Wound Culture - Final Pseudomonas aeruginosa Acinetobacter baumannii Coag Negative Staph 03/25/24 05:15 Stool Stool Occult Blood (MELQUIADES) - Final 03/22/24 00:30 Sputum, Induced/Lukens Gram Stain - Final 03/22/24 00:30 Sputum, Induced/Lukens Respiratory Culture - Final Mixed normal respiratory raoul. No Streptococcus pneumoniae, beta-hemolytic Streptococcus or Staphylococcus aureus isolated. 03/21/24 22:57 Urine Catheter - Catheter Urine Culture - Final Mckenzie albicans 03/22/24 02:22 Mucosa - Nasopharyngeal Respiratory Panel (PCR) - Final 03/22/24 02:40 Nasal Secretion MRSA (PCR) - Final 03/21/24 22:57 Urine Catheter - Beth Streptococcus pneumoniae Antigen (M - Final 03/21/24 22:57 Urine Catheter - Catheter Legionella Antigen - Final 03/21/24 23:00 Mucosa - Nose SARS-CoV-2, Influenza & RSV (PCR) - Final Physical Exam Const alert, oriented x3 and no apparent distress Assessment & Plan Assessment/Plan (1) Hip fracture: PLAN: OK to proceed with right hip fracture ORIF IM nailing.
--- NOTE | 2024-03-27 13:49 | PRE.ANES_ITS ---
ASA Classification* ASA Classification ASA Classification: 4 Assessment & Plan Anesthesia* Anesthesia Assessment Anesthesia Assessment: Discussed sedation and/or anesthesia options, risks, benefits, and alternatives with patient/parents/legal guardian/POA. Questions invited. The patient/parents/legal guardian/POA seems to understand and agrees to proceed with anesthesia plan. Reviewed the physical assessment, medical history, allergy history and patient home medications list prior to surgery/procedure/anesthetic and documented any changes. Performed airway and anesthesia risk assessments. Anesthesia Type Anesthesia Type: General History Source History Obtained from:: Patient and Chart Anesthesia Focused Assessment* Temperature: 98.3 F Pulse Rate: 61 Blood Pressure: 109/66 Respiratory Rate: 16 Pulse Ox: 94 Oxygen Delivery Method: Room Air Oxygen Flow Rate (L/min): 2 Fraction of Inspired Oxygen (FIO2): 25 Airway Assessment Mouth opens: >3 cm Mallampati Score: I Teeth Condition: Missing (Patient is edentulous.) Neck Range of motion (ROM): Limited ROM Focused Labs Anesthesia Preop lab: CBC WBC 9.4 K/mm3 (4.4-11.0) 03/27/24 05:30 03/27/24 RBC 3.48 M/mm3 (4.6-6.2) L 03/27/24 05:30 03/27/24 Hgb 8.4 g/dL (13.0-16.5) L 03/27/24 05:30 03/27/24 Hct 27.0 % (40-54) L 03/27/24 05:30 03/27/24 Plt Count 617 K/mm3 (150-450) H 03/27/24 05:30 03/27/24 CHEMISTRY Potassium 3.5 mmol/L (3.5-5.1) 03/26/24 09:50 03/26/24 Sodium 141 mmol/L (136-145) 03/26/24 09:50 03/26/24 Magnesium 2.1 mg/dL (1.6-2.6) 03/21/24 22:44 03/21/24 Phosphorus 3.6 mg/dL (2.5-4.9) 03/21/24 22:44 03/21/24 BUN 9 mg/dL (7-18) 03/26/24 09:50 03/26/24 Creatinine 0.30 mg/dL (0.70-1.30) L 03/26/24 09:50 Glucose 109 mg/dL (74-106) H 03/26/24 09:50 03/26/24 TSH 4.920 uIU/mL (0.358-3.740) H 02/25/24 05:55 COAG PT 14.6 SECONDS (11.7-14.9) 03/27/24 05:30 Pre-Assessment Diagnosis/Proposed Procedure Planned Operative Procedure(s): Right hip?open reduction internal fixation Anesthesia History Anesthesia History - laboratory technician: Anesthesia History - laboratory technician Hx Hospitalization Yes 01/05/18 11:39 Any Problems With Anesthesia No 03/27/24 08:13 Cholinesterase deficiency No 03/27/24 08:13 You/Your Family Experience No 03/27/24 08:13 fever (hyperthermia) with Relationship Recent Exposure to Contagious No 03/27/24 08:13 Disease Does patient have nerve No 03/27/24 08:13 stimulator Patient instructed to have device shut off --Does patient have Pacemaker No 03/27/24 08:14 or ICD? When Was Last Pacemaker Check QUESTION #4 FULL TEXT: You/Your Family Experience fever (hyperthermia) with Anesthesia Last Oral Intake Last Oral intake: Last Oral Intake NPO since 00:00 03/27/24 08:14 Meds taken in AM with sips of Yes 03/27/24 08:14 water? Meds patient instructed to take am of surgery PONV PONV - laboratory technician: PONV - laboratory technician Female HX of Motion Sickness HX of N/V After Surgery Non-Smoker Duration of Surgery greater than 60 minutes Number of Risk Factors PONV Score Height & Weight Height & Weight: Anesthesia: Height & Weight Height 6 ft 1 in 03/27/24 08:14 Weight: 74.9 kg 03/27/24 08:14 Body Mass Index (BMI) 21.7 03/27/24 08:14 Respiratory Assessment Respiratory Assessment - laboratory technician: Respiratory Tract Infection Hx - laboratory technician Hx Respiratory Tract Infection No 03/27/24 08:13 Any additional information?: Yes Hx Respiratory Tract Infection: Yes (Patient had pneumonia on admission. Intubated for 2 days in icu. in PCU now) STOP Sleep Apnea STOP Sleep Apnea - laboratory technician: STOP Sleep Apnea - laboratory technician Hx Hypertension No 03/24/24 09:41 Hx Sleep Apnea No 03/22/24 02:17 CPAP No 01/04/18 08:25 BIPAP No 01/03/18 13:54 Do you snore loudly (louder No 03/22/24 02:17 than talking or can be heard Do you often feel tired/ No 03/22/24 02:17 fatigued/ sleepy during daytime? Has anyone observed you stop No 03/22/24 02:17 breathing during sleep? STOP Results Negative 03/22/24 02:17 QUESTION #5 FULL TEXT : Do you snore loudly (louder than talking or can be heard through closed doors)? Tobacco Use History Tobacco Use History - laboratory technician: Tobacco Use History - laboratory technician Tobacco Use Smoking Status Current every day smoker 03/24/24 13:44 Hx Tobacco Use Yes 03/22/24 02:17 Years Smoking Packs Smoked per Day Smoking Cessation Date was within the last 15 years Hx Smoking Cessation Date Hx Smoking Cessation Counseling Hematologic Medial History Hematologic Hx - laboratory technician: Hematologic Medical Hx - general lot attendant Hx of Blood Transfusion Hx of Transfusion in last 3 Months Date of Last Transfusion (if within last 3 months) Ever experience any problems with transfusion(s)? Specify any problems Hx of Preganancy in last 3 Months Nurse Filling Out Transfusion & Questions: Date: Time: Patient unable to answer at Yes 03/22/24 02:17 this time (ie. confused, unrespo /Reproduction History /Reproductive History - laboratory technician: /Reproductive Hx- laboratory technician Hx Now Gestational Age (in weeks): EDC: Hx Hx Para Hx Section SAB Active Medications Active Medications: Current Medications Generic Name Dose Route Start Last Admin Trade Name Freq PRN Reason Stop Dose Admin Acetaminophen 650 mg 03/22/24 02:17 03/25/24 21:53 Acetaminophen 325 Mg Tablet PO 650 mg Q4H PRN PRN Administration Fever, pain 1-10/10 Acetaminophen 650 mg 03/22/24 15:39 03/23/24 13:29 Acetaminophen 650 Mg/20 Ml Udc GT 650 mg Q6H PRN PRN Administration Pain 1-10 or Fever Al Hydroxide/Mg Hydroxide 30 ml 03/22/24 02:17 Mag Hydrox/Al Hydrox/Simeth 30 Ml Udc PO Q6H PRN PRN Gastric Burning Albuterol Sulfate 2.5 mg 03/22/24 02:17 03/23/24 05:09 Albuterol 2.5 Mg/3 Ml Vial.Neb. INHALATION 2.5 mg Q2H PRN PRN Administration Dyspnea, wheezing Ascorbic Acid 500 mg 03/22/24 10:00 03/27/24 11:34 Ascorbic Acid 500 Mg Tablet PO Not Given DAILY SARAH Atorvastatin Calcium 80 mg 03/22/24 22:00 03/26/24 21:25 Atorvastatin Calcium 80 Mg Tablet PO 80 mg QHS SARAH Administration Baclofen 20 mg 03/22/24 06:00 03/27/24 06:15 Baclofen 10 Mg Tablet PO 20 mg Q8 SARAH Administration Budesonide 0.5 mg 03/22/24 02:17 03/27/24 07:23 Budesonide Respules 0.5 Mg/2 Ml Ampul.Neb. INHALATION 0.5 mg BID.RT SARAH Administration Divalproex Sodium 1,000 mg 03/22/24 22:00 03/26/24 21:25 Divalproex Sodium 250 Mg Tablet PO 1,000 mg QHS SARAH Administration Enoxaparin Sodium 40 mg 03/22/24 10:00 03/27/24 09:29 Enoxaparin 40 Mg/0.4 Ml Syringe SC Not Given DAILY SARAH Fluoxetine HCl 60 mg 03/22/24 10:00 03/27/24 11:34 Fluoxetine 20 Mg Capsule PO Not Given DAILY SARAH Gabapentin 300 mg 03/22/24 02:17 03/27/24 06:15 Gabapentin 300 Mg Capsule PO 300 mg Q8 SARAH Administration Guaifenesin 10 ml 03/22/24 02:17 Guaifenesin 10 Ml Udc (200mg/10ml) PO Q4H PRN PRN COUGH Vancomycin IV-PHARMACY TO DOSE 500 mls @ 250 mls/hr 03/22/24 02:17 1 each/ Sodium Chloride IV X1 PRN Rx to Dose Protocol Pantoprazole Sodium 40 mg/ 110 mls @ 330 mls/hr 03/22/24 10:00 03/27/24 10:44 Sodium Chloride IV Infused Q12 SARAH Infusion Sodium Chloride 100 mls @ 15 mls/hr 03/22/24 20:38 03/26/24 11:15 IV Infused .Q6H40M PRN Infusion Saline Flush Sodium Chloride 100 mls @ 15 mls/hr 03/22/24 20:38 03/24/24 08:22 IV Infused .Q6H40M PRN Infusion Additional IVPB Infusion Meropenem 1 gm/ Sodium 120 mls @ 33 mls/hr 03/23/24 14:00 03/27/24 09:54 Chloride IV Infused Q8 SARAH Infusion Vancomycin HCl 750 mg/ Sodium 265 mls @ 250 mls/hr 03/26/24 06:00 03/27/24 08:15 Chloride IV Infused Q8H SARAH Infusion Melatonin 3 mg 03/22/24 02:17 03/25/24 21:25 Melatonin 3 Mg Tablet PO 3 mg QHS PRN PRN Administration INSOMNIA Midodrine 15 mg 03/25/24 14:00 03/27/24 06:15 Midodrine Hcl 5 Mg Tablet PO 15 mg Q8 SARAH Administration Ondansetron HCl 4 mg 03/22/24 02:17 Ondansetron 4 Mg/2 Ml Vial IV Q8H PRN PRN NAUSEA/VOMITING Oxycodone HCl 10 mg 03/24/24 14:15 03/27/24 13:00 Oxycodone 5 Mg Tablet PO Not Given Q6 SARAH Oxycodone HCl 5 mg 03/24/24 14:10 03/26/24 21:45 Oxycodone 5 Mg Tablet PO 5 mg Q8H PRN PRN Administration Pain Score 1-10 Prochlorperazine Edisylate 5 mg 03/22/24 02:17 Prochlorperazine 10 Mg/2 Ml Vial IV Q4H PRN PRN Breakthrough Nausea/Vomiting Senna/Docusate Sodium 2 tablet 03/22/24 10:00 03/27/24 11:34 Senna/Docusate Sodium 1 Tablet PO Not Given BID SARAH Sodium Chloride 5 ml 03/22/24 02:17 Sodium Cl For Inhalation 15 Ml Vial.Neb. INHALATION Q5M PRN Suctioning Sodium Chloride 10 - 40 ml 03/22/24 02:28 03/27/24 10:28 0.9% Saline Lock 10 Ml Syringe IV 20 ml UD PRN Administration SALINE FLUSH Sodium Hypochlorite 0 ml 03/22/24 14:30 03/26/24 23:26 Dakin's Janine Half Strength (=0.25%) TOPICAL 1 applic BID SARAH Administration Protocol Vancomycin Protocol 1 lab 03/29/24 03:30 Vancomycin Trough/Random Due MC 03/29/24 07:30 DAILY [facility] PFSH Medical History (Updated 03/27/24 @ 14:[address] Vito Aguilar MD) C3 spinal cord injury Pressure ulcer of sacral region, stage 3 Pressure injury of right ischium, stage 1 Pressure injury of left ischium, stage 1 Anemia Chronic pain syndrome Decubitus ulcers Chronic pain syndrome Tobacco use History of GI bleed Bipolar disorder Suprapubic catheter Quadriplegia following spinal cord injury Anxiety and depression Marijuana smoker Home Medications ?Medication ?Instructions ?Recorded ?Last Taken ?Type acetaminophen 325 mg capsule 650 mg PO Q4H PRN PRN Lonnie n 11/12/17 Unknown History (Tylenol) ascorbic acid (vitamin C) 500 mg 500 mg PO DAILY suppl ement 11/12/17 11/22/17 History capsule enoxaparin 40 mg/0.4 mL 40 mg SQ DAILY blood thinner 11/12/17 11/22/17 History subcutaneous syringe (Lovenox) fluoxetine 20 mg capsule (Prozac) 60 mg PO DAILY depre ssion 11/12/17 03/27/24 History oxybutynin chloride 5 mg tablet 10 mg PO BID 01/19/20 Unknown History albuterol sulfate 90 mcg/actuation 2 inh inhalation Q4 H PRN shortness 03/21/24 Unknown History aerosol inhaler of breath or wheezing atorvastatin 80 mg tablet 80 mg PO QHS 03/21/24 Unknow n History baclofen 20 mg tablet 20 mg PO Q8H 03/21/24 Unknow n History bisacodyl 10 mg rectal suppository 10 mg NE DAILY PRN constipation 03/21/24 Unknown History divalproex 250 mg tablet,delayed 1,000 mg PO QHS 03/21 Unknown History release gabapentin 300 mg capsule 300 mg PO Q8H pain 03/21/24 03/27/24 History magnesium hydroxide 400 mg/5 mL 30 ml PO DAILY PRN con stipation 03/21/24 Unknown History oral suspension (Milk of Magnesia) midodrine 10 mg tablet 10 mg PO Q8H hypotension 03/27/24 History mineral oil (Fleet Mineral Oil 118 ml NE DAILY PRN con stipation 03/21/24 Unknown History enema) multivitamin (Daily Multi-Vitamin 1 tab PO DAILY 03/21 Unknown History tablet) naloxone 4 mg/actuation nasal spray 1 spray intranasal PRN PRN opioid 03/21/24 Unknown History overdose oxycodone 10 mg tablet 10 mg PO Q6H pain 03/21/24 U nknown History oxycodone 5 mg tablet 5 mg PO Q8H PRN pain 5 Unknown History pantoprazole 40 mg tablet,delayed 40 mg PO DAILY 03/21 Unknown History release Allergy/AdvReac Type Severity Reaction Status Date / Time No Known Allergies Allergy Verified 03/21/24 22:46 Family History Mother Heart disease Hypertension Father Heart disease Hypertension Surgical History History of incision and drainage History of suprapubic catheter S/P cholecystectomy H/O exploratory laparotomy History of back surgery Social History household members: none and other details: from his spouse. housing: [facility] Smoking Status: Current every day smoker tobacco type: cigarettes Smoking packs per day: 1 Smoking cigarettes per day: 20.0 alcohol intake: current alcohol intake frequency: holidays/special occasions only substance use type: marijuana Review of Systems (Anesthesia) ROS Narrative System reviewed and no additional complaints, except as documented.
--- NOTE | 2024-03-27 15:00 | RAD_ITS ---
PROCEDURE: HIP 1 VIEW WITH PELVIS; O.R. FLUORO FOR C-ARM REASON FOR EXAM: Fracture. TECHNIQUE: Intraoperative fluoroscopy was performed for fracture fixation. Additionally, 5 fluoroscopic images were obtained, showing placement femoral intramedullary nail with proximal and distal interlocking screws. COMPARISON: None available. RAD/O.R. Fluoro for C-Arm IMPRESSION: Intraoperative fluoroscopy was performed for fracture fixation. Additionally, 5 fluoroscopic images were obtained, showing placement femoral intramedullary nail with proximal and distal interlocking scr ews. Reading Location: [id number]
--- NOTE | 2024-03-27 15:00 | RAD_ITS ---
PROCEDURE: HIP 1 VIEW WITH PELVIS; O.R. FLUORO FOR C-ARM REASON FOR EXAM: Fracture. TECHNIQUE: Intraoperative fluoroscopy was performed for fracture fixation. Additionally, 5 fluoroscopic images were obtained, showing placement femoral intramedullary nail with proximal and distal interlocking screws. COMPARISON: None available. RAD/Hip 1 view with Pelvis IMPRESSION: Intraoperative fluoroscopy was performed for fracture fixation. Additionally, 5 fluoroscopic images were obtained, showing placement femoral intramedullary nail with proximal and distal interlocking scr ews. Reading Location: [id number]
--- NOTE | 2024-03-27 16:13 | OP.PCM_ITS ---
Problems Associated Problem List Diagnoses (1) Hip fracture: Procedures Musculoskeletal [id number]: Other Procedure See Report Operative Report (Standard) Operative Information Date of Procedure: 03/27/24 Pre-Operative Diagnosis: R hip intertrochanteric fracture Post-Operative Diagnosis: same Surgery/Procedure Performed: Right hip ORIF IM nailing office machine service supervisor: Yes Consulting Services Associate: raheem Tasks completed by first officer and flight instructor: Retracting Type of Anesthesia: General RN Documented Start/Stop Times: Operation Date: 03/27/24 13:00 Case Time Into Pre-Op 03/27/24 13:18 Out of Pre-Op 03/27/24 14:14 Anesthesia Start 03/27/24 14:21 Into Room 03/27/24 14:21 Procedure Start 03/27/24 14:50 Procedure Start Time: 14:50 Procedure Stop Time: 16:14 Select all DRAINS/GRAFTS/IMPLANTS that apply: Implanted device Implanted device details: synthes TFN-[id number] Estimated Blood Loss: 50 Specimen collected: No Description of surgery: Patient brought to the operating room theater. Placed supine on the traction fracture table. All bony prominences padded. Perineal post padded. 2 g IV Ancef administered prior to the start of the case. SCD on the nonoperative leg. Right side in traction with traction and internal rotation. Other leg attached to the middle post scissoring position and appropriately padded on both sides of the leg including at the peroneal nerve. Leg prepped and draped in the usual sterile fashion allowing over 3 minutes drying time prior to draping. Preoperative timeout performed to confirm the site patient and the surgery. Began by making a small stab incision at the proximal aspect of the hip. Carried dissection down through skin subcutaneous tissue to meticulous hemostasis. Use the partially-threaded guidewire at the tip of the greater trochanter. The fracture was and comminuted pattern and the head going into flexion and the distal fragment sagging posteriorly. I used a crutch underneath the distal fragment to lifting up the leg more traction less traction different maneuvers as well as a anterior percutaneous ball spike pusher to correct the flexion of the neck as well as a bone hook at the medial aspect of the calcar to hold that to back out of varus and to pushing the distal lateral segment me dially. Achieved a good reduction. Guide wire down to lesser trochanter on AP and down center femur on lateral. Used the entry reamer followed by the ball- tipped guidewire with a slight bend on the distal end. Inserted that down center center to the distal femur just superior to the proximal pole the patella. This measured 400 so I selected a 380 long nail. This was 130 degrees neck-shaft angle. Inserted the nail, ball-tipped guidewire removed. Then use the drop-down guide. Again percutaneous technique to pass the guidewire center center slightly posterior and inferior in the humeral head and neck area down to subchondral bone. This was quite a difficult fracture to fixate given the amount of comminution displacement and chronic flexion contracture of the hips. Despite all this I did achieve a very good reduction and placement of the guidewire. I then reamed to 115 mm and placed 115 mm helical blade locked this proximally. The tip to apex distance was good under 25 mm. Save AP and lateral radiographs. I then turned my attention distally using perfect [place] technique inserted the two 5.0 mm fully threaded locking screws 48 mm and 44 mm long distally and proximally respectively through the oblong hole and the hole just proximal to this. These achieve very good purchase. I took final AP lateral radiographs after removing all the guides both proximally and distally with good reduction and position of the nail. Wounds thoroughly irrigated incisions closed with 2-0 Vicryl suture and lise. Skin cleaned with wet and dry dressing followed application of Mepilex border dressing and OpSite with gauze. Patient will come from the general acetic transfer off operative table taken postanesthetic care unit in stable condition. All sponge needle instrument counts were correct no complications plan to the patient readmitted under hospitalist care. Dressing changes every 2 to 3 days and discontinue the lise in 2 weeks with activities and positioning as tolerated. cpt 85645 Surgical Findings: as above, IT hip fracture Complications Complications: No Admit VTE Documentation VTE Present on Admission: No VTE Mechan Device Prophylaxis: SCD's VTE Pharm Prophylaxis ordered?: Yes
--- NOTE | 2024-03-27 19:37 | PCM.PN.HOSP ---
Reason for Visit Reason for Visit: Diagnoses Sepsis, unspecified organism (03/22/24) Anemia, unspecified (03/22/24) Metabolic encephalopathy (03/22/24) Respiratory failure, unspecified, unspecified whether with hypoxia or hypercapnia (03/22/24) Local infection of the skin and subcutaneous tissue, unspecified (03/22/24) Pressure ulcer of right buttock, stage 4 (03/22/24) Pressure ulcer of left buttock, stage 4 (03/22/24) Pressure ulcer of unspecified site, stage 3 (03/22/24) Severe sepsis with septic shock (03/22/24) Unspecified open wound of lower back and pelvis without penetration into retroperitoneum, initial encounter (03/22/24) Fracture of unspecified part of neck of unspecified femur, initial encounter for closed fracture (03/22/24) Subjective Subjective Patient was seen and examined today, he underwent intramedullary nailing of a right hip fracture today. Objective Data Objective Data Vital Signs: Vital Signs Temp Pulse Resp BP Pulse Ox O2 Del Method O2 Flow Rate 98.6 F 59 L 16 105/56 L 97 Nasal Cannula 2 03/27/24 18:09 03/27/24 18:09 03/27/24 18:09 03/27/24 18:09 03/27/24 18:09 03/27/24 18:09 03/27/24 18:09 FiO2 03/27/24 14:05 Oxygen Flow Rate (L/min) 2 Oxygen Delivery Method Nasal Cannula Weight: 74.9 kg Body Mass Index (BMI) 21.7 Intake & Output: Intake and Output for Last 24 Hours 03/25/24 03/26/24 03/27/24 23:59 23:59 23:59 Intake Total 1569.57 / 1569.57 1383 / 1383 1265 / 1265 Output Total 5650 / 5650 1350 / 2150 1550 / 1550 Balance -4080.43 / -4080.43 33 / -767 -285 / -285 Lab / Micro Data 03/27/24 05:30 03/26/24 09:50 Labs: Laboratory Results - last 24 hr 03/27/24 05:30: WBC 9.4, RBC 3.48 L, Hgb 8.4 L, Hct 27.0 L, MCV 77.6 L, MCH 24.1 L, MCHC 31.1 L, RDW Std Deviation 55.6 H, RDW Coeff of Minerva 20.0 H, Plt Count 617 H, MPV 9.3, Immature Gran % (Auto) 0.600, Neut % (Auto) 59.3, Lymph % (Auto) 24.1, Hemphill % (Auto) 10.1 H, Eos % (Auto) 5.5 H, Baso % (Auto) 0.4, Absolute Neuts (auto) 5.6, Absolute Lymphs (auto) 2.27, Nucleated RBC % 0, PT 14.6, INR 1.1, Vancomycin Trough 16.2 H Micro: Microbiology 03/21/24 22:44 Blood Culture (Wb) - Right Wrist Blood Culture - Final No growth in 5 days. 03/21/24 22:46 Blood Culture (Wb) - Left Wrist Blood Culture - Final No growth in 5 days. 03/22/24 03:30 Ulcer, Decubitus - Open/Non-Healing Wound Gram Stain - Final 03/22/24 03:30 Ulcer, Decubitus - Open/Non-Healing Wound Wound Culture - Final Pseudomonas aeruginosa Acinetobacter baumannii Coag Negative Staph 03/25/24 05:15 Stool Stool Occult Blood (MELQUIADES) - Final 03/22/24 00:30 Sputum, Induced/Lukens Gram Stain - Final 03/22/24 00:30 Sputum, Induced/Lukens Respiratory Culture - Final Mixed normal respiratory raoul. No Streptococcus pneumoniae, beta-hemolytic Streptococcus or Staphylococcus aureus isolated. 03/21/24 22:57 Urine Catheter - Catheter Urine Culture - Final Mckenzie albicans 03/22/24 02:22 Mucosa - Nasopharyngeal Respiratory Panel (PCR) - Final 03/22/24 02:40 Nasal Secretion MRSA (PCR) - Final 03/21/24 22:57 Urine Catheter - Beth Streptococcus pneumoniae Antigen (M - Final 03/21/24 22:57 Urine Catheter - Catheter Legionella Antigen - Final 03/21/24 23:00 Mucosa - Nose SARS-CoV-2, Influenza & RSV (PCR) - Final Radiography Diagnostic Testing: Radiology Impression C-Arm Fluoroscopy 03/27/24 15:00 IMPRESSION: Intraoperative fluoroscopy was performed for fracture fixation. Additionally, 5 fluoroscopic images were obtained, showing placement femoral intramedullary nail with proximal and distal interlocking screws. Reading Location: [address] Hip/Pelvis X-Ray 03/27/24 15:00 IMPRESSION: Intraoperative fluoroscopy was performed for fracture fixation. Additionally, 5 fluoroscopic images were obtained, showing placement femoral intramedullary nail with proximal and distal interlocking screws. Reading Location: [address] Physical Exam Narrative alert and no apparent distress Constitutional Narrative: Patient exhibits mild confusion General Appearance: cooperative, well kempt and well developed Orientation / Consciousness: awake, oriented to person and oriented to place HEENT normocephalic, head/scalp atraumatic and moist oral mucous membranes Eyes PERRL, EOMs intact bilaterally and conjunctivae normal Neck supple, no JVD, thyroid normal and no carotid bruits General: trachea midline Resp normal respiratory effort, no retractions, no use of accessory muscles and clear to auscultation bilaterally Auscultation: Negative for rales, rhonchi or wheezes Cardio regular rate, regular rhythm, S1 normal heart sound, S2 normal heart sound, no murmurs, no rub and no gallops GI normal to inspection, nondistended, normoactive bowel sounds, soft to palpation, non-tender and non-distended Extremity Extremity Narrative: Patient has atrophy of his lower extremities, there are contractures of his hands noted Skin Skin Narrative: Patient has skin breakdown over the ischial areas bilaterally and the sacrum-these appear to be stage IV pressure injuries Neuro CN's II-XII intact bilaterally Neuro Narrative: Patient is unable to move his legs, he does have some movement in his arms, he has contractures of his hands bilaterally Sensorium / Orientation: awake, alert, oriented to person and oriented to place Speech: speech normal Psych Psych Narrative: Patient exhibits some mild confusion Assessment & Plan Assessment/Plan (1) Hip fracture: PLAN: Plan 1. 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
[2024-03-27] MEDS: Senna/Docusate Sodium 1 Tablet 2 TABLET PO (22:13)
[2024-03-27] MEDS: Divalproex Sodium 250 MG Tablet 1000 MG PO (22:13)
[2024-03-27] MEDS: Atorvastatin Calcium 80 MG Tablet PO (22:13)
--- NOTE | 2024-03-27 23:37 | PCM.POST.ANE ---
Anesthesia: Postop Eval I Current Vital Signs Temperature: 99.1 F Pulse Rate: 73 Blood Pressure: 98/57 Respiratory Rate: 16 Pulse Ox: 96 Oxygen Delivery Method: Room Air Assessment Airway patent: Yes Spontaneous unlabored respirations: Yes Mental status: Awake and Calm nausea: No Vomiting: No Anesthesia Complication: No Fluid Hydration Crystalloid volume administer (ml): 500 Total IV fluid infused: 500 Progress Note Anesthesia document: Postop Eval 1 completed: Yes
--- NOTE | 2024-03-27 23:41 | PCM.POSTANE2 ---
Anesthesia Postop Eval I Sum Postop Eval Completion status Anesthesia document: Postop Eval 1 completed: Yes Anesthesia Postop Eval I Summary Anesthesia Postop Eval I Summary: Anesthesia Postop Eval I: Assessment Summary Airway patent Yes 03/27/24 23:41 Spontaneous unlabored Yes 03/27/24 23:41 respirations Mental status Awake,Calm 03/27/24 23:41 nausea No 03/27/24 23:41 Vomiting No 03/27/24 23:41 Anesthesia Postop Eval I: Fluid Summary Crystalloid volume administer 500 03/27/24 23:41 (ml) Colloids volume administered ( ml) Blood Product volume administered (ml) Total IV fluid infused 500 03/27/24 23:41 Anesthesia Postop Eval I: Summary Notes Anesthesia Complication No 03/27/24 23:41 Anesthesia Complication Comment: Post-operative progress note Anesthesia: Postop Eval II Evaluation Mental status: Awake and Calm Pain Level: 3 nausea: No Vomiting: No Complications Anesthesia Complication: No
[2024-03-28] VITALS (7 sets, daily range): BP systolic 90–98; BP diastolic 48–57; PULSE 64–79; RESP 16–18; TEMP 36.5–37.5; O2SAT 92–96; BMI 21.7
[2024-03-28] MEDS: Sodium Ferric Gluconat/Sucrose 250 MG in 0.9% Normal Saline (250mL Bag) 250 ML 135 MG IV (00:05)
[2024-03-28] MEDS: oxyCODONE 5 MG Tablet 10 MG PO ×4 (00:05→18:13)
[2024-03-28] MEDS: DAKIN'S SOL HALF STRENGTH (=0.25%) TOPICAL ×3 (00:16→22:05)
[2024-03-28] MEDS: oxyCODONE 5 MG Tablet PO ×3 (02:39→22:02)
[2024-03-28] MEDS: Baclofen 10 MG Tablet 20 MG PO ×3 (05:41→22:06)
[2024-03-28] MEDS: Vancomycin HCl 750 MG in 0.9% Normal Saline (250mL Bag) 250 ML 250 MG IV ×3 (05:41→21:54)
[2024-03-28] MEDS: Gabapentin 300 MG Capsule PO ×3 (05:41→22:02)
[2024-03-28] MEDS: Meropenem 1 GM in 0.9% Normal Saline (100mL MB+) 100 ML IV ×3 (05:42→23:01)
[2024-03-28] MEDS: Midodrine HCl 5 MG Tablet 15 MG PO ×3 (05:43→22:10)
[2024-03-28] MEDS: Budesonide Respules 0.5 MG/2 ML AMPUL.NEB. INHALATION (07:21)
--- NOTE | 2024-03-28 09:13 | CASEMGMT ---
Addendum entered by Kristen Gooden 03/28/24 16:31: [facility] has accepted, submitted for auth and rec'd auth. Kristen Gooden DC Planning Asst. Original Note: New referral sent to [facility]. Kristen Gooden DC Planning Asst.
[2024-03-28] MEDS: Enoxaparin 40 MG/0.4 ML Syringe SC (09:58)
[2024-03-28] MEDS: Senna/Docusate Sodium 1 Tablet 2 TABLET PO (09:59)
[2024-03-28] MEDS: FLUoxetine 20 MG Capsule 60 MG PO (09:59)
[2024-03-28] MEDS: Ascorbic Acid 500 MG Tablet PO (10:00)
[2024-03-28] MEDS: Acetaminophen 325 MG Tablet 650 MG PO ×2 (10:04→22:01)
[2024-03-28] MEDS: Pantoprazole Sodium 40 MG in 0.9% Normal Saline (100mL MB+) 100 ML 330 MG IV ×2 (10:05→21:55)
--- NOTE | 2024-03-28 13:30 | PN.ID_ITS ---
Physical Exam Narrative Feeling better s/p OR yesterday. No fever. Some nausea. Const alert and no apparent distress General Appearance: cooperative Resp normal air movement and clear to auscultation bilaterally Cardio regular rate and regular rhythm GI soft to palpation, non-tender and non-distended Skin Skin Narrative: no new rash ID ID: Route of nutrition/ use of supplements: [] Nutritional Intake: [] IV Site: [] Beth Catheter: [] Assessment & Plan Assessment/Plan (1) Septic shock: PLAN: septic shock with sacral osteo with exposed bone. Wound cx with AcB, PsA, and CoNS. Fever resolved, wbc normalized. Ucx with dulce. Cont vanc/nikos, will write 6 weeks iv abx at discharge with stop date 05/06/24 with weekly labs, ID followup in 2-3 weeks. Will follow, d/w primary and disability case manager
--- NOTE | 2024-03-28 13:40 | WOUNDNOTE ---
Ostomy appliance changed. peristomal skin remains intact. cleansed skin with warm water. pat dry. applied a new 2 piece flat Romeo appliance. pt states he does not use paste. Pt tolerated well. will continue to monitor.
--- NOTE | 2024-03-28 14:38 | CASEMGMT ---
[facility] has accepted patient. SW asked them to start the pre-cert. PT/OT has not seen patient yet, however the IV antibiotics and wound care should be enough to skill patient. Plan: d/c to [facility] pending pre-cert. Rhoda Messina FITTER WELDER KRISTINA
--- NOTE | 2024-03-28 15:57 | PCM.PN.HOSP ---
Reason for Visit Reason for Visit: Diagnoses Sepsis, unspecified organism (03/22/24) Anemia, unspecified (03/22/24) Metabolic encephalopathy (03/22/24) Respiratory failure, unspecified, unspecified whether with hypoxia or hypercapnia (03/22/24) Local infection of the skin and subcutaneous tissue, unspecified (03/22/24) Pressure ulcer of right buttock, stage 4 (03/22/24) Pressure ulcer of left buttock, stage 4 (03/22/24) Pressure ulcer of unspecified site, stage 3 (03/22/24) Severe sepsis with septic shock (03/22/24) Unspecified open wound of lower back and pelvis without penetration into retroperitoneum, initial encounter (03/22/24) Fracture of unspecified part of neck of unspecified femur, initial encounter for closed fracture (03/22/24) Subjective Subjective Patient was seen and examined today, he requested a dose of IV morphine if he gets severe pain, I told nursing that that was okay. We are currently having a PICC line inserted today, we have not received authorization for him to go to a nursing facility today. Objective Data Objective Data Vital Signs: Vital Signs Temp Pulse Resp BP Pulse Ox O2 Del Method O2 Flow Rate 97.7 F L 75 18 91/52 L 96 Room Air 2 03/28/24 12:32 03/28/24 12:32 03/28/24 12:32 03/28/24 12:32 03/28/24 12:32 03/28/24 14:25 03/27/24 18:09 FiO2 25 03/27/24 14:05 Oxygen Flow Rate (L/min) 2 Oxygen Delivery Method Room Air Weight: 74.9 kg Body Mass Index (BMI) 21.7 Intake & Output: Intake and Output for Last 24 Hours 03/26/24 03/27/24 03/28/24 23:59 23:59 23:59 Intake Total 1383 / 1383 1640 / 1880 2170 / 2170 Output Total 1350 / 2150 1550 / 1950 950 / 950 Balance 33 / -767 90 / -70 1220 / 1220 Lab / Micro Data 03/27/24 05:30 03/26/24 09:50 Labs: Laboratory Results - last 24 hr 03/24/24 10:30: Crossmatch See Detail Micro: Microbiology 03/21/24 22:44 Blood Culture (Wb) - Right Wrist Blood Culture - Final No growth in 5 days. 03/21/24 22:46 Blood Culture (Wb) - Left Wrist Blood Culture - Final No growth in 5 days. 03/22/24 03:30 Ulcer, Decubitus - Open/Non-Healing Wound Gram Stain - Final 03/22/24 03:30 Ulcer, Decubitus - Open/Non-Healing Wound Wound Culture - Final Pseudomonas aeruginosa Acinetobacter baumannii Coag Negative Staph 03/25/24 05:15 Stool Stool Occult Blood (MELQUIADES) - Final 03/22/24 00:30 Sputum, Induced/Lukens Gram Stain - Final 03/22/24 00:30 Sputum, Induced/Lukens Respiratory Culture - Final Mixed normal respiratory raoul. No Streptococcus pneumoniae, beta-hemolytic Streptococcus or Staphylococcus aureus isolated. 03/21/24 22:57 Urine Catheter - Catheter Urine Culture - Final Mckenzie albicans 03/22/24 02:22 Mucosa - Nasopharyngeal Respiratory Panel (PCR) - Final 03/22/24 02:40 Nasal Secretion MRSA (PCR) - Final 03/21/24 22:57 Urine Catheter - Beth Streptococcus pneumoniae Antigen (M - Final 03/21/24 22:57 Urine Catheter - Catheter Legionella Antigen - Final 03/21/24 23:00 Mucosa - Nose SARS-CoV-2, Influenza & RSV (PCR) - Final Radiography Diagnostic Testing: Radiology Impression C-Arm Fluoroscopy 03/27/24 15:00 IMPRESSION: Intraoperative fluoroscopy was performed for fracture fixation. Additionally, 5 fluoroscopic images were obtained, showing placement femoral intramedullary nail with proximal and distal interlocking screws. Reading Location: [address] Hip/Pelvis X-Ray 03/27/24 15:00 IMPRESSION: Intraoperative fluoroscopy was performed for fracture fixation. Additionally, 5 fluoroscopic images were obtained, showing placement femoral intramedullary nail with proximal and distal interlocking screws. Reading Location: [address] Physical Exam Narrative alert and no apparent distress Constitutional Narrative: Patient exhibits mild confusion General Appearance: cooperative, well kempt and well developed Orientation / Consciousness: awake, oriented to person and oriented to place HEENT normocephalic, head/scalp atraumatic and moist oral mucous membranes Eyes PERRL, EOMs intact bilaterally and conjunctivae normal Neck supple, no JVD, thyroid normal and no carotid bruits General: trachea midline Resp normal respiratory effort, no retractions, no use of accessory muscles and clear to auscultation bilaterally Auscultation: Negative for rales, rhonchi or wheezes Cardio regular rate, regular rhythm, S1 normal heart sound, S2 normal heart sound, no murmurs, no rub and no gallops GI normal to inspection, nondistended, normoactive bowel sounds, soft to palpation, non-tender and non-distended Extremity Extremity Narrative: Patient has atrophy of his lower extremities, there are contractures of his hands noted Skin Skin Narrative: Patient has skin breakdown over the ischial areas bilaterally and the sacrum-these appear to be stage IV pressure injuries Neuro CN's II-XII intact bilaterally Neuro Narrative: Patient is unable to move his legs, he does have some movement in his arms, he has contractures of his hands bilaterally Sensorium / Orientation: awake, alert, oriented to person and oriented to place Speech: speech normal Psych Psych Narrative: Patient exhibits some mild confusion Assessment & Plan Assessment/Plan (1) Hip fracture: PLAN: Plan 1. 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
--- NOTE | 2024-03-28 16:15 | CASEMGMT ---
SW notified patient that [facility] has accepted him and we are waiting on insurance approval. SW explained this could happen over the weekend. Patient verbalized agreement and understanding. Plan: d/c to [facility]. Rhoda ACEVEDO
[2024-03-28] MEDS: 0.9% Saline Lock 10 ML Syringe IV (16:37)
[2024-03-28] MEDS: Morphine 4 MG/ML Syringe IV ×2 (16:37→20:01)
[2024-03-28] MEDS: Divalproex Sodium 250 MG Tablet 1000 MG PO (22:04)
[2024-03-28] MEDS: Atorvastatin Calcium 80 MG Tablet PO (22:07)
[2024-03-29] VITALS (7 sets, daily range): BP systolic 94–115; BP diastolic 49–62; PULSE 63–82; RESP 16–20; TEMP 36.2–37.2; O2SAT 92–95; BMI 22.1
[2024-03-29] MEDS: oxyCODONE 5 MG Tablet 10 MG PO ×4 (00:02→17:17)
[2024-03-29] MEDS: Morphine 4 MG/ML Syringe IV ×4 (00:02→16:19)
[2024-03-29] MEDS: 0.9% Saline Lock 10 ML Syringe IV ×3 (03:11→14:53)
[2024-03-29] MEDS: Gabapentin 300 MG Capsule PO ×2 (06:30→14:50)
[2024-03-29] MEDS: Baclofen 10 MG Tablet 20 MG PO ×2 (06:30→14:50)
[2024-03-29] MEDS: Midodrine HCl 5 MG Tablet 15 MG PO ×2 (06:31→14:51)
[2024-03-29] MEDS: Vancomycin Trough/Random Due 1 LAB MC (06:32)
[2024-03-29] MEDS: Meropenem 1 GM in 0.9% Normal Saline (100mL MB+) 100 ML IV ×2 (06:33→16:22)
[2024-03-29 07:02] LABS: Vancomycin, Trough Level 17.6 ug/mL (5.0-15.0)
--- NOTE | 2024-03-29 07:10 | PCM.RX.CS ---
Consult Antibiotic Management Pharmacy has been consulted to manage selected antibiotic: Vancomycin Type of Intervention Type of Consult: Follow-up Suspected Infection Suspected Infection: Skin/Soft tissue and Osteomyelitis Prior Doses of Antibiotics Prior Doses of Antibiotics Received/Current Regimen: Vancomycin 750 mg Q8H, last dose 03/28 @ 2154 Labs Labs: Sodium 141 mmol/L (136-145) 03/26/24 09:50 Potassium 3.5 mmol/L (3.5-5.1) 03/26/24 09:50 Chloride 106 mmol/L (98-107) 03/26/24 09:50 Carbon Dioxide 29.0 mmol/L (21.0-32.0) 03/26/24 09:50 Anion Gap 6 (5-15) 03/26/24 09:50 BUN 9 mg/dL (7-18) 03/26/24 09:50 Creatinine 0.30 mg/dL (0.70-1.30) L 03/26/24 09:50 Est GFR (MDRD) Af Amer 406 mL/min (>60) 03/26/24 09:50 Est GFR (MDRD) Non-Af 336 mL/min (>60) 03/26/24 09:50 BUN/Creatinine Ratio 29.5 RATIO (10-20) H 03/26/24 09:50 Glucose 109 mg/dL (74-106) H 03/26/24 09:50 Vancomycin Trough 17.6 ug/mL (5.0-15.0) H 03/29/24 05:35 Random Vancomycin 15.5 ug/mL (0.0-15.0) H 03/26/24 05:07 Microbiology Microbiology: Microbiology 03/21/24 22:44 Blood Culture (Wb) - Right Wrist Blood Culture - Final No growth in 5 days. 03/21/24 22:46 Blood Culture (Wb) - Left Wrist Blood Culture - Final No growth in 5 days. 03/22/24 03:30 Ulcer, Decubitus - Open/Non-Healing Wound Gram Stain - Final 03/22/24 03:30 Ulcer, Decubitus - Open/Non-Healing Wound Wound Culture - Final Pseudomonas aeruginosa Acinetobacter baumannii Coag Negative Staph 03/25/24 05:15 Stool Stool Occult Blood (MELQUIADES) - Final 03/22/24 00:30 Sputum, Induced/Lukens Gram Stain - Final 03/22/24 00:30 Sputum, Induced/Lukens Respiratory Culture - Final Mixed normal respiratory raoul. No Streptococcus pneumoniae, beta-hemolytic Streptococcus or Staphylococcus aureus isolated. 03/21/24 22:57 Urine Catheter - Catheter Urine Culture - Final Mckenzie albicans 03/22/24 02:22 Mucosa - Nasopharyngeal Respiratory Panel (PCR) - Final 03/22/24 02:40 Nasal Secretion MRSA (PCR) - Final 03/21/24 22:57 Urine Catheter - Beth Streptococcus pneumoniae Antigen (M - Final 03/21/24 22:57 Urine Catheter - Catheter Legionella Antigen - Final 03/21/24 23:00 Mucosa - Nose SARS-CoV-2, Influenza & RSV (PCR) - Final Dosing Weight Weight used for dosin kg Estimated Creatinine Clearance Estimated Creatinine Clearance: ~ 313 Goal Trough Goal Trough: 15-20 mcg/mL Pharmacy Plan for Drug Dosing Pharmacy Plan for Drug Dosing: Vancomycin trough = 17.6, continue current dosing Pharmacy Service will continue to monitor and adjust dosing as required. Follow-Up Labs Follow-Up Labs: Trough: Vancomycin Date/Time Labs Ordered Labs to be done on [date and time ordered]: 03/31/24 @ 2501
[2024-03-29] MEDS: Vancomycin HCl 750 MG in 0.9% Normal Saline (250mL Bag) 250 ML 250 MG IV ×2 (08:43→14:50)
[2024-03-29] MEDS: DAKIN'S SOL HALF STRENGTH (=0.25%) TOPICAL (08:44)
[2024-03-29] MEDS: Enoxaparin 40 MG/0.4 ML Syringe SC (09:19)
[2024-03-29] MEDS: FLUoxetine 20 MG Capsule 60 MG PO (09:20)
[2024-03-29] MEDS: Ascorbic Acid 500 MG Tablet PO (09:20)
--- NOTE | 2024-03-29 10:53 | CASEMGMT ---
Addendum entered by Trudi Hernandez 03/29/24 11:14: Social Work SW also notified pt that insurance approved [facility] and he will go over today, pt agreeable. AASHISH Ballard Original Note: Social Work Precert was attained by Stefanie for pt to d/c to [facility], SW notified physician. AASHISH Ballard
[2024-03-29] MEDS: Pantoprazole Sodium 40 MG Tablet PO (11:39)
--- NOTE | 2024-03-29 12:22 | TREXTCAR_ITS ---
Diet Diet Order/Speech Therapy: 03/27/24 19:26 Diet: Regular - General Type of Dietary Supplement:: Ashu Diet Comments: Ashu w/ breakfast and dinner Routine Orders/Code Status Routine Lab Work: - (Weekly BMP, CBC, and vancomycin peak and trough levels x 6 weeks) Code Status: Full Code DC O2, CPAP, BIPAP needs Home O2 Discharge instructions: No Wound(s) R Heel: Wound Type: Pressure Injury L Heel: Wound Type: Pressure Injury sacral: Wound Type: Pressure Injury Dressing Change: Dakins moistened gauze Distal Buttock: Wound Type: Pressure Injury Proximal Buttock: Wound Type: Pressure Injury left ischium: Wound Type: Pressure Injury Dressing Change: Dakins moistened gauze right ischium: Wound Type: Pressure Injury Dressing Change: Dakins moistened gauze RT HIP: Wound Type: Surgical Incision Therapies Weight Bearing: Non weight bearing Physical Therapy: Eval and Treat Occupational Therapy: Eval and Treat Problem/Diagnosis (1) Hip fracture: Status: Acute Code(s): S72.009A - Fracture of unspecified part of neck of unspecified femur, initial encounter for closed fracture Plan 1. 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-the wound nurse is seeing the patient, plastic surgery is participating in his care #5 partial quadriplegia-complicates care, management, recovery, and prognosis #6 anemia-iron deficiency in nature, CBC will be monitored, patient will be given Venofer, hemoglobin today was 8.4 Total clinical time spent by myself addressing the patient's medical issues, reviewing all of his data, and collaborating with patient's care team: 35 minutes Allergies/Procedures Done in Hospital Allergies No Known Allergies Allergy (Verified 03/21/24 22:46) Procedures: - (Intramedullary nail insertion right hip) Type of Care/Length of Stay Estimated LOS: More Than 30 Days Type of Care Needed: Skilled Rehab Potential: Fair Prognosis: Fair Additional Orders/Day of Discharge H&P will serve as current which was dated: 03/22/24 Day of Discharge: 03/29/24 Dietary and Speech Recommendations Dietitian Recommendations/Changes: Continue regular diet and ashu BID with breakfast and dinner. Will monitor weight as available. Reviewed and approved Dolly Miguel RDN, LD. Discharge Plan Admission Admit Date/Time: 03/22/24 00:45 Primary Reason for Your Visit: Right hip fracture, sepsis Attending Provider: Wero Morales Primary Care Provider: Maixm Burnette Consulting Providers: Arlene Jackman; Caleb Fleming; Luis Angel Maria; Luis Angel Beyer Instructions Additional Instructions / Restrictions: Patient will follow-up with Jeffy JulienMlkuatpr-vfyekecgbcj-qz 2 weeks, call to make an appointment Discharge Orders/Prescriptions Prescriptions: New meropenem 1 gram Recon Soln 1 g IV Q8 37 Days Qty: 111 0RF Rx Instructions: Stop date 05/06/24. Dx: pelvic osteomyelitis. Weekly bmp, cbc, LFT, ESR, and vanc trough; fax to [phone]. Routine picc care per protocol. vancomycin 750 mg recon soln 750 mg IV Q8H 37 Days Qty: 111 0RF Rx Instructions: Stop date 05/06/24. Dx: pelvic osteomyelitis. Weekly bmp, cbc, LFT, ESR, and vanc trough; fax to [phone]. Routine picc care per protocol. atorvastatin 80 mg Tablet 80 mg PO QHS Qty: 0 0RF acetaminophen 325 mg Tablet 650 mg PO Q4H PRN PRN (Reason: Fever, pain 1-10/10) Qty: 0 0RF albuterol sulfate 2.5 mg /3 mL (0.083 %) Solution For Nebulization 2.5 mg inhalation Q2H PRN PRN (Reason: Dyspnea, wheezing) Qty: 0 0RF midodrine 5 mg Tablet 15 mg PO Q8 Qty: 0 0RF ascorbic acid (vitamin C) 500 mg Tablet 500 mg PO DAILY Qty: 0 0RF pantoprazole 40 mg Tablet,Delayed Release (Dr/Ec) 40 mg PO 2XD Qty: 0 0RF oxycodone 5 mg Tablet 5 mg PO Q8H PRN PRN (Reason: Pain Score 1-10) 3 Days Qty: 10 0RF oxycodone 5 mg Tablet 10 mg PO Q6 3 Days Qty: 24 0RF HySept 0.25 % Solution See Protocol topical BID Qty: 0 0RF Protocol: *Topical Application Instructions APPLICATION INSTRUCTIONS: For dressing changes Continued fluoxetine [Prozac] 20 MG capsule 60 mg PO DAILY enoxaparin [Lovenox] 40 MG/0.4 ML syringe 40 mg SQ DAILY baclofen 20 mg tablet 20 mg PO Q8H bisacodyl 10 mg suppository 10 mg MD DAILY PRN (Reason: constipation) divalproex 250 mg tablet,delayed release (DR/EC) 1,000 mg PO QHS gabapentin 300 mg capsule 300 mg PO Q8H magnesium hydroxide [Milk of Magnesia] 400 mg/5 mL suspension 30 ml PO DAILY PRN (Reason: constipation) multivitamin [Daily Multi-Vitamin] Tablet 1 tab PO DAILY Discontinued ascorbic acid (vitamin C) 500 MG capsule 500 mg PO DAILY albuterol sulfate 90 mcg/actuation HFA aerosol inhaler 2 inh INHALATION Q4H PRN (Reason: shortness of breath or wheezing) Patient Comments: [NO ORIGINAL SIG] atorvastatin 80 mg tablet 80 mg PO QHS mineral oil [Fleet Mineral Oil] Enema 118 ml MD DAILY PRN (Reason: constipation) Rx Instructions: discard any unused portion midodrine 10 mg tablet 10 mg PO Q8H naloxone 4 mg/actuation spray,non-aerosol 1 spray INTRANASAL PRN PRN (Reason: opioid overdose) Patient Comments: [NO ORIGINAL SIG] pantoprazole 40 mg tablet,delayed release (DR/EC) 40 mg PO DAILY No Action acetaminophen [Tylenol] 325 MG capsule 650 mg PO Q4H PRN PRN (Reason: Pain) oxybutynin chloride 5 MG tablet 10 mg PO BID oxycodone 10 mg tablet 10 mg PO Q6H oxycodone 5 mg tablet 5 mg PO Q8H PRN (Reason: pain) Patient Comments: [NO ORIGINAL SIG] Referrals / Follow Up: Bertin Estrada DO [Non-Staff] - Maxim Burnette MD [Primary Care Provider] - Luis Angel Maria MD [Med Staff - Active Staff] - See Referral Note (In 2 weeks) Luis Angel Beyer MD [Med Staff - Active Staff] - Within 2 Weeks Disposition Disposition (needs filled in before D/C Order can be placed): Senior Living Facility
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
== END 2024-03-29 19:20 | disposition skilled nursing facility (03) | DRG 853 ==
LOC: ED 03-22 00:45 → ICU 03-22 01:00 → PCU 03-26 22:18
PROVIDERS: Anesthesiology; Internal Medicine Critical Care Medicine; Internal Medicine Pulmonary Disease; Orthopaedic Surgery Sports Medicine; Admitting Provider Family Medicine; Emergency Provider Emergency Medicine; PCP Family Medicine; Visit Provider Internal Medicine
PROC: 0QS606Z Reposition Right Upper Femur with Intramedullary Internal Fixation Device, Open Approach (ICD-10-PCS; principal; 2024-03-27 12:30)
DX: A41.89 Other specified sepsis (principal); S72.141A Displaced intertrochanteric fracture of right femur, initial encounter for closed fracture; R65.21 Severe sepsis with septic shock; J96.01 Acute respiratory failure with hypoxia; G82.50 Quadriplegia, unspecified; G93.41 Metabolic encephalopathy; L89.134 Pressure ulcer of right lower back, stage 4; L89.324 Pressure ulcer of left buttock, stage 4; L89.144 Pressure ulcer of left lower back, stage 4; J18.9 Pneumonia, unspecified organism; L89.314 Pressure ulcer of right buttock, stage 4; L89.154 Pressure ulcer of sacral region, stage 4; M46.28 Osteomyelitis of vertebra, sacral and sacrococcygeal region; M80.051A Age-related osteoporosis with current pathological fracture, right femur, initial encounter for fracture; N39.0 Urinary tract infection, site not specified; F31.9 Bipolar disorder, unspecified; D50.9 Iron deficiency anemia, unspecified; Z93.3 Colostomy status; K21.9 Gastro-esophageal reflux disease without esophagitis; F17.210 Nicotine dependence, cigarettes, uncomplicated; D63.8 Anemia in other chronic diseases classified elsewhere; E78.5 Hyperlipidemia, unspecified; M24.552 Contracture, left hip; Z79.891 Long term (current) use of opiate analgesic; G89.4 Chronic pain syndrome; B95.62 Methicillin resistant Staphylococcus aureus infection as the cause of diseases classified elsewhere; Z79.01 Long term (current) use of anticoagulants; Z11.52 Encounter for screening for COVID-19; B37.9 Candidiasis, unspecified; Z96.0 Presence of urogenital implants
CPT/HCPCS: 31500; 31720; 36415; 36556; 36600; 70450; 71045; 73501; 73552; 74177; 76000; 80048; 80053; 80202; 81001; 82274; 82306; 82550; 82728; 82803; 83540; 83550; 83605; 83735; 84100; 84478; 84484; 85025; 85610; 85730; 86850; 86900; 86901; 87040; 87070; 87077; 87086; 87088; 87184; 87186; 87205; 87449; 87631; 87633; 87640; 87641; 93005; 94002; 94003; 94640; 94660; 94668; 94762; 97802; 97803; 99252; 99285; 99406; C1713; J2185; P9016; P9047; Q9967; A4216; G0463; J0744; J1940; J2405; J2916

== ENCOUNTER 2024-05-07 16:43 | Emergency (ER) | payer MEDICARE, MEDICAID, SELFPAY ==
[2024-05-07 16:44] VITALS: BP 105/68; PULSE 82; RESP 18; TEMP 36.6; O2SAT 99; BMI 21.1
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
[2024-05-07 17:43] VITALS: BP 110/67; PULSE 72; RESP 14; O2SAT 98
--- NOTE | 2024-05-07 18:02 | ED.RN ---
PER [facility] Q8H.
[2024-05-07 18:42] VITALS: BP 110/67; PULSE 72; RESP 14; TEMP 36.8; O2SAT 98
--- NOTE | 2024-05-07 18:51 | ED.RN ---
Report given to [facility]
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
== END 2024-05-07 21:07 | disposition intermediate care facility (04) ==
PROVIDERS: Emergency Provider Emergency Medicine; PCP Family Medicine; Visit Provider Emergency Medicine
DX: R45.851 Suicidal ideations (principal); G82.20 Paraplegia, unspecified; F31.9 Bipolar disorder, unspecified; S14.103S Unspecified injury at C3 level of cervical spinal cord, sequela; V89.2XXS Person injured in unspecified motor-vehicle accident, traffic, sequela; G89.4 Chronic pain syndrome; F41.9 Anxiety disorder, unspecified; F17.210 Nicotine dependence, cigarettes, uncomplicated; Z79.899 Other long term (current) drug therapy; Z87.19 Personal history of other diseases of the digestive system; Z90.49 Acquired absence of other specified parts of digestive tract
CPT/HCPCS: 99285

== ENCOUNTER 2024-06-10 10:43 | Emergency (ER) | payer MEDICARE, MEDICAID, SELFPAY ==
[2024-06-10 10:47] VITALS: BP 126/65; PULSE 61; RESP 16; TEMP 36.6; O2SAT 98
--- NOTE | 2024-06-10 12:08 | EX.ED.DYSGE1 ---
HPI History of Present Illness Chief Complaint: Confusion Detail of Chief Complaint: Patient was sent in for psychiatric eval. Informant: patient and SNF Onset/Context/Timing Onset: Hours Context: Sudden Onset Timing: Intermittent Quality: Upset that no one picked him up to go to Location: Presents from nursing facility by EMS Current Severity: Gone Maximum Severity: Not applicable Worsened by: Patient upset because he was not driven to he was supposed to atten Relieved by: Not applicable Associated Symptoms Associated Symptoms: None Narrative Narrative: Patient is a 48-year-old male. He has history of decubiti, chronic pain syndrome, anxiety, GI bleed, urinary tract infections, COPD, depression who was sent in for evaluation. He was upset because he was not able to attend . He is not suicidal homicidal. Confirmed with charge nurse he was sent in because he needed a psychiatric eval because he became upset. Patient has no symptoms. He states he did not get his dose of oxycodone or gabapentin. He is on 10 mg of oxycodone and 600 mg of gabapentin 3 times daily. After reviewing records he is noted to be on 300 not 600. Will change dose Prior similar symptoms: No Recent Illness/Hospitalization: No PFSH PFSH Medical History Metabolic encephalopathy Pressure sore of left ischium, stage 4 Right ischial pressure sore, stage 4 Sacral wound Hip fracture Respiratory failure Septic shock C3 spinal cord injury Pressure ulcer of sacral region, stage 3 Pressure injury of right ischium, stage 1 Pressure injury of left ischium, stage 1 Anemia Chronic pain syndrome Decubitus ulcers Chronic pain syndrome Tobacco use History of GI bleed Bipolar disorder Suprapubic catheter Quadriplegia following spinal cord injury Anxiety and depression Marijuana smoker Home Medications ?Medication ?Instructions ?Recorded ?Last Taken ?Type acetaminophen 325 mg capsule 650 mg PO Q4H PRN PRN Pain 11/12/17 Unknown History (Tylenol) enoxaparin 40 mg/0.4 mL 40 mg SQ DAILY blood thinner 11/12/17 11/22/17 History subcutaneous syringe (Lovenox) fluoxetine 20 mg capsule (Prozac) 60 mg PO DAILY depression 11/12/17 03/27/24 History oxybutynin chloride 5 mg tablet 10 mg PO BID 01/19/20 Unknown History baclofen 20 mg tablet 20 mg PO Q8H 03/21/24 Unknown History bisacodyl 10 mg rectal suppository 10 mg ND DAILY PRN constipation 03/21/24 Unknown History divalproex 250 mg tablet,delayed 1,000 mg PO QHS 03/21/24 Unknown History release gabapentin 300 mg capsule 300 mg PO Q8H pain 03/21/24 03/27/24 History magnesium hydroxide 400 mg/5 mL 30 ml PO DAILY PRN constipation 03/21/24 Unknown History oral suspension (Milk of Magnesia) multivitamin (Daily Multi-Vitamin 1 tab PO DAILY 03/21/24 Unknown History tablet) oxycodone 10 mg tablet 10 mg PO Q6H pain 03/21/24 Unknown History oxycodone 5 mg tablet 5 mg PO Q8H PRN pain 03/21/24 Unknown History meropenem 1 gram intravenous 1 g IV Q8 37 days #111 ea 03/28/24 Unknown Rx solution vancomycin 750 mg intravenous 750 mg IV Q8H 37 days #111 ea 03/28/24 Unknown Rx solution acetaminophen 325 mg tablet 650 mg (2 x 325 mg) PO Q4H PRN PRN 03/29/24 Unknown Rx Fever, pain 1-12/05 #0 tabs albuterol sulfate 2.5 mg/3 mL 2.5 mg (3 mL) inhalation Q2H PRN 03/29/24 Unknown Rx (0.083 %) solution for nebulization PRN Dyspnea, wheezing #0 mL ascorbic acid (vitamin C) 500 mg 500 mg PO DAILY #0 tabs 03/29/24 Unknown Rx tablet atorvastatin 80 mg tablet 80 mg PO QHS #0 tabs 03/29/24 Unknown Rx midodrine 5 mg tablet 15 mg (3 x 5 mg) PO Q8 #0 tabs 03/29/24 Unknown Rx oxycodone 5 mg tablet 5 mg PO Q8H PRN PRN Pain Score 03/29/24 Unknown Rx 1-10 3 days #10 tabs oxycodone 5 mg tablet 10 mg (2 x 5 mg) PO Q6 3 days #24 03/29/24 Unknown Rx tabs pantoprazole 40 mg tablet,delayed 40 mg PO 2XD #0 tabs 03/29/24 Unknown Rx release sodium hypochlorite 0.25 % See Protocol topical BID #0 mL 03/29/24 Unknown Rx solution (HySept) Allergy/AdvReac Type Severity Reaction Status Date / Time Latex, Natural Rubber Allergy Severe Anaphylaxis Verified 06/10/24 10:52 Family History Mother Heart disease Hypertension Father Heart disease Hypertension Surgical History History of incision and drainage History of suprapubic catheter S/P cholecystectomy H/O exploratory laparotomy History of back surgery Social History household members: none and other details: from his spouse. housing: senior living Smoking Status: Current every day smoker tobacco type: cigarettes alcohol intake: current alcohol intake frequency: holidays/special occasions only substance use type: marijuana ROS ROS ED Constitutional Constitutional ED: Denies chills, fever(s), subjective or sweats Eyes Eyes: Denies change in vision ENT ENT ED: Denies rhinorrhea or sore throat Cardiovascular Cardiovascular: Denies chest pain or palpitations Respiratory/Chest Respiratory/Chest: Denies cough, dyspnea or dyspnea on exertion Gastrointestinal Gastrointestinal: Denies abdominal pain, nausea or vomiting Musculoskeletal Musculoskeletal: Denies arthralgias or myalgias Integumentary Denies rash Neurologic Neurologic: Denies headache(s) or paresthesias Psychiatric Psychiatric: Denies anxiety, suicidal ideation or suicidal thoughts Hematologic/Lymphatic Hematologic/Lymphatic: Reports systems reviewed and no addt'l complaints, except as documented EXAM Physical Exam Const Vital Signs: 06/10/24 10:47 Temperature 97.8 F Temperature Source Oral Pulse Rate 61 Respiratory Rate 16 Blood Pressure 126/65 H Blood Pressure Mean 85 Pulse Ox 98 Oxygen Delivery Method Room Air Positive well nourished General Appearance ED: NAD HEENT Reports moist mucous membranes HEENT Narrative: Head is atraumatic no cephalic. Ears normal. Nares patent. Eyes PERRL and EOMs intact bilaterally General Eye ED: Negative for pale conjunctiva or scleral icterus Neck no lymphadenopathy, supple and no JVD Resp normal respiratory effort and clear to auscultation bilaterally Cardio regular rate, regular rhythm, S1 normal heart sound, S2 normal heart sound and no murmurs GI normal to inspection, nondistended, normoactive bowel sounds, non-tender, non-distended and no masses; Negative for hepatosplenomegaly Neuro oriented x3 and CN's II-XII intact bilaterally Sensorium / Orientation: alert Psych mental status grossly normal Psych Narrative: Patient is justifiably upset. He has no suicidal homicidal thoughts. His thought content is normal. His psychomotor skills are normal. MDM MDM MDM Narrative Medical decision making narrative: My professional opinion patient does not need a psychiatric evaluation or clearance for psychiatric admission. He was discharged back to the nursing facility. Prior records were reviewed. Discharge Plan Triage Chief Complaint: Confusion ED Provider: Logan Styles Dx/Rx/DC Orders Clinical Impression: Emotional upset, Chronic pain syndrome, Anxiety Instructions: Your Mental Health Safety Plan Prescriptions: No Action fluoxetine [Prozac] 20 MG capsule 60 mg PO DAILY enoxaparin [Lovenox] 40 MG/0.4 ML syringe 40 mg SQ DAILY acetaminophen [Tylenol] 325 MG capsule 650 mg PO Q4H PRN PRN (Reason: Pain) oxybutynin chloride 5 MG tablet 10 mg PO BID baclofen 20 mg tablet 20 mg PO Q8H bisacodyl 10 mg suppository 10 mg ND DAILY PRN (Reason: constipation) divalproex 250 mg tablet,delayed release (DR/EC) 1,000 mg PO QHS gabapentin 300 mg capsule 300 mg PO Q8H magnesium hydroxide [Milk of Magnesia] 400 mg/5 mL suspension 30 ml PO DAILY PRN (Reason: constipation) multivitamin [Daily Multi-Vitamin] Tablet 1 tab PO DAILY oxycodone 10 mg tablet 10 mg PO Q6H oxycodone 5 mg tablet 5 mg PO Q8H PRN (Reason: pain) Patient Comments: [NO ORIGINAL SIG] meropenem 1 gram Recon Soln 1 g IV Q8 37 Days Qty: 111 0RF Rx Instructions: Stop date 05/06/24. Dx: pelvic osteomyelitis. Weekly bmp, cbc, LFT, ESR, and vanc trough; fax to [phone]. Routine picc care per protocol. vancomycin 750 mg recon soln 750 mg IV Q8H 37 Days Qty: 111 0RF Rx Instructions: Stop date 05/06/24. Dx: pelvic osteomyelitis. Weekly bmp, cbc, LFT, ESR, and vanc trough; fax to [phone]. Routine picc care per protocol. atorvastatin 80 mg Tablet 80 mg PO QHS Qty: 0 0RF acetaminophen 325 mg Tablet 650 mg PO Q4H PRN PRN (Reason: Fever, pain 1-10/10) Qty: 0 0RF albuterol sulfate 2.5 mg /3 mL (0.083 %) Solution For Nebulization 2.5 mg inhalation Q2H PRN PRN (Reason: Dyspnea, wheezing) Qty: 0 0RF midodrine 5 mg Tablet 15 mg PO Q8 Qty: 0 0RF ascorbic acid (vitamin C) 500 mg Tablet 500 mg PO DAILY Qty: 0 0RF pantoprazole 40 mg Tablet,Delayed Release (Dr/Ec) 40 mg PO 2XD Qty: 0 0RF oxycodone 5 mg Tablet 5 mg PO Q8H PRN PRN (Reason: Pain Score 1-10) 3 Days Qty: 10 0RF oxycodone 5 mg Tablet 10 mg PO Q6 3 Days Qty: 24 0RF HySept 0.25 % Solution See Protocol topical BID Qty: 0 0RF Protocol: *Topical Application Instructions APPLICATION INSTRUCTIONS: For dressing changes Primary Care Provider: Maxim Burnette Referrals: Maxim Burnette MD [Primary Care Provider] - As Needed Print Language: Guamanian Disposition Disposition: Residential Facility
[2024-06-10] MEDS: oxyCODONE 5 MG Tablet 10 MG PO (12:15)
[2024-06-10] MEDS: Gabapentin 300 MG Capsule PO (12:23)
[2024-06-10 12:27] VITALS: BMI 20.9
[2024-06-10 12:31] VITALS: BP 125/65; PULSE 61; RESP 16; TEMP 36.6; O2SAT 98
--- NOTE | 2024-06-10 13:35 | ED.RN ---
Report called to [facility]
== END 2024-06-10 13:36 | disposition skilled nursing facility (03) ==
PROVIDERS: Emergency Provider Emergency Medicine; PCP Family Medicine; Visit Provider Emergency Medicine
DX: G89.4 Chronic pain syndrome (principal); F31.9 Bipolar disorder, unspecified; J44.9 Chronic obstructive pulmonary disease, unspecified; F41.9 Anxiety disorder, unspecified; F17.210 Nicotine dependence, cigarettes, uncomplicated
CPT/HCPCS: 99284

== ENCOUNTER 2024-08-25 10:30 | Outpatient (RCR) | payer MEDICARE, MEDICAID, SELFPAY ==
[2024-08-11 09:14] VITALS: BP 104/69; PULSE 67; RESP 18; TEMP 36.1
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
--- NOTE | 2024-08-11 13:34 | WC ---
PHOTO 08/11/24 RIGHT HALLUX
--- NOTE | 2024-08-11 13:35 | WC ---
PHOTO 08/11/24 CARY
--- NOTE | 2024-08-11 13:38 | WC ---
PHOTO 08/11/24 LEFT ISCHIUM
--- NOTE | 2024-08-11 13:43 | WC ---
PHOTO 08/11/24 RIGHT ISCHIUM
[2024-08-21 10:18] VITALS: BP 91/56; PULSE 52; RESP 18; TEMP 36.1
[2024-08-25 11:22] VITALS: BP 101/61; PULSE 74; RESP 18; TEMP 36.7
== END 2024-08-25 23:59 | disposition home or self-care (01) ==
LOC: WC 10:30
PROVIDERS: PCP Student in an Organized Health Care Education/Training Program; Referring Provider Student in an Organized Health Care Education/Training Program; Visit Provider Surgery Plastic and Reconstructive Surgery
DX: L89.324 Pressure ulcer of left buttock, stage 4 (principal); G82.50 Quadriplegia, unspecified; L89.313 Pressure ulcer of right buttock, stage 3; F31.9 Bipolar disorder, unspecified; Z79.01 Long term (current) use of anticoagulants; F17.210 Nicotine dependence, cigarettes, uncomplicated; G89.4 Chronic pain syndrome; Z90.49 Acquired absence of other specified parts of digestive tract; F12.90 Cannabis use, unspecified, uncomplicated
CPT/HCPCS: 11042; 11043; 11044; 17250; 97605; 97606; 99213; G0463

== ENCOUNTER 2024-09-24 13:00 | Outpatient (RCR) | payer MEDICARE, MEDICAID, SELFPAY ==
[2024-09-01 13:48] VITALS: BP 109/63; PULSE 68; RESP 16; TEMP 36.4
[2024-09-01 16:59] LABS: Hematocrit 34.4 % (40-54); Hemoglobin 9.8 g/dL (13.0-16.5); Mean Corp Hgb Conc 28.5 g/dL (32-36); Mean Corpuscular Volume 68.7 fL (80-94); Mean Platelet Vol. 8.6 fl (6.2-12.0); Platelet Count 606 K/mm3 (150-450); RBC Distribution Width CV 19.4 % (11.6-14.6); RBC Distribution Width SD 46.5 fl (35.1-43.9); Red Blood Count 5.01 M/mm3 (4.6-6.2); White Blood Count 9.2 K/mm3 (4.4-11.0)
[2024-09-01 17:46] LABS: AST(SGOT) 20 U/L (<=37); Alanine Aminotransfer ALT/SGPT 11 U/L (<=46); Albumin, Serum 2.8 g/dL (3.5-5.0); Alkaline Phosphatase 134 U/L (40-129); Anion Gap 11 (5-15); BUN 13 mg/dL (4-19); BUN/Creat Ratio 21.4 RATIO (10-20); Calcium,Total 8.1 mg/dL (7.6-11.0); Carbon Dioxide 26.0 mmol/L (21.0-32.0); Chloride 106 mmol/L (98-108); Globulin 4.2 g/dL (2.2-4.2); Glucose 79 mg/dL (70-99); Potassium 4.2 mmol/L (3.3-5.1)
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
[2024-09-03 04:07] LABS: Prealbumin 14 mg/dL (12-34)
[2024-09-15 13:56] VITALS: BP 114/75; PULSE 63; RESP 14; TEMP 36.4
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
[2024-09-19 13:03] VITALS: BP 105/38; PULSE 59; RESP 18; TEMP 36.7
[2024-09-22 13:31] VITALS: BP 116/45; PULSE 63; RESP 16; TEMP 36.4
[2024-09-24 13:28] VITALS: BP 82/46; PULSE 62; RESP 18; TEMP 36.6
== END 2024-09-25 23:59 | disposition home or self-care (01) ==
LOC: WC 13:00
PROVIDERS: PCP Student in an Organized Health Care Education/Training Program; Referring Provider Student in an Organized Health Care Education/Training Program; Visit Provider Surgery Plastic and Reconstructive Surgery
DX: L89.224 Pressure ulcer of left hip, stage 4 (principal); L89.214 Pressure ulcer of right hip, stage 4; G82.50 Quadriplegia, unspecified; L89.153 Pressure ulcer of sacral region, stage 3; L89.213 Pressure ulcer of right hip, stage 3; L89.223 Pressure ulcer of left hip, stage 3; S91.101A Unspecified open wound of right great toe without damage to nail, initial encounter; X58.XXXA Exposure to other specified factors, initial encounter; S91.302A Unspecified open wound, left foot, initial encounter; F17.210 Nicotine dependence, cigarettes, uncomplicated; D50.9 Iron deficiency anemia, unspecified
CPT/HCPCS: 11042; 11043; 11044; 17250; 36415; 80053; 83036; 84134; 85027; 97605; 97606

== ENCOUNTER 2024-09-24 14:31 | Outpatient (RCR) | payer MEDICARE, MEDICAID, SELFPAY ==
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
--- NOTE | 2024-09-24 16:33 | HP.PTDCSUM ---
Discharge Summary D/C summary: It has been my pleasure to treat RYANN SUÁREZ referred by Dr. Bertin Estrada DO, with the diagnosis of Quadriplegia/Hypotension/fx C6 vertebra for a total of 1 visit(s). Discharge Date: 09/24/24 Please see the following information for a summary of their discharge status. Pain neck pain: Pain Intensity (Out of 10): 8 Ankles: Pain Intensity (Out of 10): 4 Buttock pain: Pain Intensity (Out of 10): 7 hip pain: Pain Intensity (Out of 10): 7 Plan Plan: Pt here for a power wheelchair evaluation and completed. D/C Information Discharge Comments: DC PT. Wheelchair evaluation only d/c sentence: If there are questions or concerns regarding this patient's physical therapy, please feel free to call me at [phone]. Thank you for the referral of this patient. Sincerely, Traci Carl, MPT Balance/Gait/Functional tests Balance/Special Test Scores Lower Extremity Functional Score: 5
== END 2024-09-24 19:00 | disposition home or self-care (01) ==
LOC: PT 14:31
PROVIDERS: PCP Student in an Organized Health Care Education/Training Program; Referring Provider Student in an Organized Health Care Education/Training Program; Visit Provider Student in an Organized Health Care Education/Training Program
DX: S12.500D Unspecified displaced fracture of sixth cervical vertebra, subsequent encounter for fracture with routine healing (principal); I95.1 Orthostatic hypotension; G82.50 Quadriplegia, unspecified
CPT/HCPCS: 97162

== ENCOUNTER 2024-10-17 11:00 | Outpatient (RCR) | payer MEDICARE, MEDICAID, SELFPAY ==
[2024-10-13 13:58] VITALS: BP 143/94; PULSE 53; RESP 18; TEMP 36.2
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
--- NOTE | 2024-10-14 | LES_PTH ---
PATIENT: RYANN SUÁREZ LOC: U#:[id number] AGE/SX: 49/M ROOM: RE10/17/[address]: Dr. Luis Angel Beyer MD : 1975 BED: DIS: 10/26/2024 SPEC #: [id number] RECD: 10/14/24 14:55 STATUS: GLO REJhonny #: [id number] CARINA: 10/14/24 00:[address]: Luis Angel Beyer DEPT: SURGICAL PATHOLOGY RECD BY: Samm Gallegos ENTERED: 10/14/24 13:16 SP TYPE: Lesion OTHR DR: Dr. Bertin Estrada, DO Tissues: A - Ischium, NOS Procedures: Surgery Specimen Level IV HEADER OPERATION: Biopsy PRE-OP DIAGNOSIS: Right ischial wound TISSUE SUBMITTED: A- Right ischial wound biopsy MICROSCOPIC DIAGNOSIS A. Skin, right ischium, biopsy: - Cutaneous ulcer with active chronic inflammation. - Reactive epidermal changes. MICROSCOPIC DESCRIPTION Slides are reviewed. GROSS DESCRIPTION A. Received in formalin labeled the patient's name and date of is a 0.4 x 0.3 cm irregular portion of obrien skin excised to a maximum depth of 0.6 cm. The resection margin is inked green and the specimen is entirely submitted 1 cassette. [facility] 10/14/2024 CPT:20055
--- NOTE | 2024-10-15 11:59 | WC ---
PHOTO-LEFT ISCHIAL 10/13/24
--- NOTE | 2024-10-15 12:02 | WC ---
PHOTO-RIGHT ISCHIAL 10/13/24
--- NOTE | 2024-10-15 12:04 | WC ---
PHOTO-COCCYX 10/13/24
[2024-10-17 11:02] VITALS: BP 88/38; PULSE 64; RESP 16
--- NOTE | 2024-10-17 11:51 | WC ---
UPDATED DR MARQUIS ON PT'S BP. MANUALLY WAS 88/38 WITH PULSE OF 64. PT REPORTS NO SX. STATES HE HASN'T TAKEN HIS 2ND OF 3 DOSES OF MIDODRINE YET TODAY. RECHKED BP AT END OF VISIT WAS 84/29 PER MONITOR. PT HAS BOTTLE WATER. DR MARQUIS RECOMMENDS DRINK WATER, TAKE MIDODRINE WHEN GET HOME. BOTH PARENTS TRANSPORTED PT AND WILL BE MADE AWARE.
== END 2024-10-26 23:59 | disposition home or self-care (01) ==
LOC: WC 11:00
PROVIDERS: PCP Student in an Organized Health Care Education/Training Program; Referring Provider Student in an Organized Health Care Education/Training Program; Visit Provider Surgery Plastic and Reconstructive Surgery
DX: L89.224 Pressure ulcer of left hip, stage 4 (principal); L89.214 Pressure ulcer of right hip, stage 4; L89.213 Pressure ulcer of right hip, stage 3; L89.223 Pressure ulcer of left hip, stage 3; G82.20 Paraplegia, unspecified; F17.210 Nicotine dependence, cigarettes, uncomplicated
CPT/HCPCS: 11042; 11043; 11104; 88305; 97605; 97606; 97802

== ENCOUNTER → 2024-11-14 | Outpatient (CLI) | payer MEDICARE, MEDICAID, SELFPAY ==
--- NOTE | 2024-11-14 12:45 | RAD_ITS ---
PROCEDURE: TIBIA FIBULA 2 VIEWS 11/14/2024 REASON FOR EXAM: PAIN IN RIGHT LOWER LEG TECHNIQUE: Procedure Code: RADTF Modality: DX Procedure: TIBIA FIBULA 2 VIEWS Laterality: Right COMPARISON: None. FINDINGS: Bones: Old angulated fracture of the distal tibia and fibula. Joints: No dislocation. Small right knee effusion. Soft tissues: No soft tissue abnormalities. Other: RAD/Tibia & Fibula 2 Views IMPRESSION: Old angulated fracture of the distal tibia and fibula. No additional fractures . Reading Location: [id number]
--- NOTE | 2024-11-14 12:45 | RAD_ITS ---
PROCEDURE: ANKLE MIN 3 VIEWS 11/14/2024 REASON FOR EXAM: PAIN IN RIGHT LOWER LEG TECHNIQUE: Procedure Code: RADANK Modality: DX Procedure: ANKLE MIN 3 VIEWS Laterality: Right COMPARISON: None. FINDINGS: Bones: Old laterally angulated fracture of the distal tibial and fibular shaft. Osteopenia which limits the evaluation. Joints: The mortise joint is preserved. Soft tissues: No soft tissue abnormalities. RAD/Ankle min 3 Views IMPRESSION: Old angulated fracture of the distal tibial and fibular shaft. Osteopenia whic h limits the evaluation. No definite osseous bony abnormality. Reading Location: [id number]
== END | disposition home or self-care (01) ==
LOC: RAD 12:32
PROVIDERS: PCP Student in an Organized Health Care Education/Training Program; Referring Provider Student in an Organized Health Care Education/Training Program; Visit Provider Student in an Organized Health Care Education/Training Program
DX: M79.661 Pain in right lower leg (principal)
CPT/HCPCS: 73590; 73610

== ENCOUNTER 2024-11-17 13:45 | Outpatient (RCR) | payer MEDICARE, MEDICAID, SELFPAY ==
[2024-11-05 13:30] VITALS: BP 108/67; PULSE 82; RESP 16; TEMP 37.2
[2024-11-17 14:05] VITALS: BP 98/46; PULSE 75; RESP 15; TEMP 36.6
--- NOTE | 2024-11-18 10:13 | WC ---
PHOTO-SACRAL 11/17/24
--- NOTE | 2024-11-18 10:15 | WC ---
PHOTO-LEFT ISCHIAL 11/17/24
--- NOTE | 2024-11-18 10:16 | WC ---
PHOTO-RIGHT ISCHIAL 11/17/24
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
--- NOTE | 2024-11-24 13:42 | WC ---
Received call from [facility] from [facility]. pt has a dark black/palacios area on left buttock. did not know if had to do with when pt got debrided at his sunday appt. Returned all to Desi - she states it looks palacios asked if it is blood pooled or like a bruise. Desi doesn't think it is. she stated she told the pt that if he has any oder from the wounds or if pt notices a lot of drainage or bloody drainage that he is to go to the ER. I agreed with what she told him. Desi also stated that she is going to go out later today (11/24/24) and do another dressing change.
== END 2024-11-25 23:59 | disposition home or self-care (01) ==
LOC: WC 13:45
PROVIDERS: PCP Student in an Organized Health Care Education/Training Program; Referring Provider Student in an Organized Health Care Education/Training Program; Visit Provider Surgery Plastic and Reconstructive Surgery
DX: L89.214 Pressure ulcer of right hip, stage 4 (principal); L89.223 Pressure ulcer of left hip, stage 3; G82.20 Paraplegia, unspecified; F17.210 Nicotine dependence, cigarettes, uncomplicated
CPT/HCPCS: 11043; 11046; 97605; 97803

== ENCOUNTER 2024-12-22 13:30 | Outpatient (RCR) | payer MEDICARE, MEDICAID, SELFPAY ==
[2024-11-28 13:12] VITALS: BP 144/83; PULSE 78; RESP 18; TEMP 36.3
--- NOTE | 2024-11-28 13:31 | WC ---
Inocencio espinoza came in for [place] his wound vac battery was . Since I was not able to replace vac. I spoke with Dr Zarco and she had me do dakins slight moist gauze to both wound. Change BID. Through and HH to replace vac on Sunday. message sent to Dr. Beyer as well.
[2024-12-19 13:19] VITALS: BP 91/44; PULSE 69; RESP 18; TEMP 36.6
[2024-12-22 13:52] VITALS: BP 102/66; PULSE 77; RESP 17; TEMP 36.6; BMI 23.5
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
--- NOTE | 2024-12-23 10:45 | WC ---
PHOTO-RIGHT ISCHIUM 12/22/24
--- NOTE | 2024-12-23 10:45 | WC ---
PHOTO-LEFT ISCHIUM 12/22/24
== END 2024-12-26 23:59 | disposition home or self-care (01) ==
LOC: WC 13:30
PROVIDERS: PCP Student in an Organized Health Care Education/Training Program; Referring Provider Student in an Organized Health Care Education/Training Program; Visit Provider Surgery Plastic and Reconstructive Surgery
DX: L89.214 Pressure ulcer of right hip, stage 4 (principal); L97.224 Non-pressure chronic ulcer of left calf with necrosis of bone; G82.20 Paraplegia, unspecified; F17.210 Nicotine dependence, cigarettes, uncomplicated; E61.1 Iron deficiency
CPT/HCPCS: 11043; 11046; 97605; 97803; 99212; 99213; G0463

== ENCOUNTER 2025-01-19 13:15 | Outpatient (RCR) | payer MEDICAID, MEDICARE, SELFPAY ==
[2025-01-02 13:37] VITALS: BP 119/76; PULSE 69; RESP 18; TEMP 36.2
[2025-01-07 10:34] VITALS: BP 115/71; PULSE 104; RESP 18; TEMP 37
[2025-01-09 12:37] VITALS: BP 137/51; PULSE 67; RESP 18; TEMP 35.9
[2025-01-12 14:07] VITALS: BP 106/65; PULSE 73; RESP 18; TEMP 36.8
[2025-01-16 12:53] VITALS: BP 97/52; PULSE 87; RESP 18; TEMP 36.2
[2025-01-19 13:33] VITALS: BP 88/54; PULSE 97; RESP 18; TEMP 36.4
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
--- NOTE | 2025-01-20 09:31 | WC ---
PHOTO-LEFT ISCHIUM 01/19/25
--- NOTE | 2025-01-20 09:31 | WC ---
PHOTO-RIGHT ISCHIUM 01/19/25
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
== END 2025-01-25 23:59 | disposition home or self-care (01) ==
LOC: WC 13:15
PROVIDERS: PCP Student in an Organized Health Care Education/Training Program; Referring Provider Student in an Organized Health Care Education/Training Program; Visit Provider Physician Assistant
DX: L89.214 Pressure ulcer of right hip, stage 4 (principal); L89.224 Pressure ulcer of left hip, stage 4; G82.20 Paraplegia, unspecified; F17.210 Nicotine dependence, cigarettes, uncomplicated
CPT/HCPCS: 97605 ×2; 11043; 11046; 97606

== ENCOUNTER 2025-02-23 14:00 | Outpatient (RCR) | payer MEDICARE, MEDICAID, SELFPAY ==
[2025-01-26 11:25] VITALS: BP 105/38; PULSE 73; RESP 18; TEMP 35.7
--- NOTE | 2025-01-28 08:42 | WC ---
PHOTO-LEFT ISCHIUM 01/26/25
--- NOTE | 2025-01-28 08:44 | WC ---
PHOTO-RIGHT ISCHIUM 01/26/25
[2025-02-04 09:30] VITALS: BP 133/54; PULSE 56; RESP 18; TEMP 35.9
[2025-02-06 12:01] VITALS: BP 138/81; PULSE 90; RESP 18; TEMP 35.8
--- NOTE | 2025-02-06 12:03 | WC ---
received call from pt this am stating that he needed a NV d/t his [facility] could not come out and do this Wound Vac change. pt came in to visit he informed us that he ran over his wound vac tubing connection and it broke. this happened around 2am. when assess the pt the wound vac foam was still in place re-educated pt that if his machine is not hooked up for more than 2 hrs that he needs to remove the black foam and continue with his previous dressing which is dakins w/d. pt states he know this and did not want to wake up his mom d/c it was 2am. informed pt that dressing should have been changed once she was awake. pt skin was red from the excessive drain from his wound. informed pt to place his cream that he usues for this on when he gets home. asked pt if he brought a replacement canister since this one was full and the tubing was broke. pt states he was out of canisters at home. informed pt that we do not carry the canister because he has a home vac that comes in a kit. wound vac was not placed. dakins w/d placed placed to R/L ischium, which is his previous order that Dr. Beyer has for when the wound vac is not working. Informed pt to continue this dressing changing it 2 times a day and as needed for drainage. pt is in agreeable. Informed pt to contact his [facility] to see if they have any extra canisters and see if they can come out today/Sunday to get his wound vac in place. pt states he has a Sunday appointment with them incase [facility] cannot come out this weekend. Will reach out to [facility] to see if there is a shippment for canisters for the patient.
[2025-02-12 12:08] VITALS: BP 108/24; PULSE 72; RESP 16; TEMP 36.3
[2025-02-23 14:20] VITALS: BP 116/69; PULSE 98; RESP 17; TEMP 35.8
--- NOTE | 2025-02-24 13:43 | WC ---
PHOTO: RIGHT ISCHIUM 02/23/25
--- NOTE | 2025-02-24 13:44 | WC ---
PHOTO: LEFT ISCHIUM 02/23/25
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
--- NOTE | 2025-02-27 12:35 | WC ---
Dr. Beyer transfers over care to Tania GARCES as of 02/23/25
== END 2025-02-25 23:59 | disposition home or self-care (01) ==
LOC: WC 14:00
PROVIDERS: PCP Student in an Organized Health Care Education/Training Program; Referring Provider Student in an Organized Health Care Education/Training Program; Visit Provider Surgery Plastic and Reconstructive Surgery
DX: L89.214 Pressure ulcer of right hip, stage 4 (principal); L89.224 Pressure ulcer of left hip, stage 4; G82.20 Paraplegia, unspecified; F31.9 Bipolar disorder, unspecified; F17.210 Nicotine dependence, cigarettes, uncomplicated; R29.898 Other symptoms and signs involving the musculoskeletal system; G89.4 Chronic pain syndrome; F41.9 Anxiety disorder, unspecified; F12.99 Cannabis use, unspecified with unspecified cannabis-induced disorder; Z79.01 Long term (current) use of anticoagulants; Z79.899 Other long term (current) drug therapy; Z71.6 Tobacco abuse counseling; Z98.890 Other specified postprocedural states; Z90.49 Acquired absence of other specified parts of digestive tract
CPT/HCPCS: 11042; 11043; 11046; 97605; 97606; 97803; 99213; G0463